=== PATIENT | female | born 1970 | race American Indian/Alaskan Native ===

== ENCOUNTER 2016-08-05 17:44 | Inpatient (IN) | payer OTHER ==
[2016-08-05 23:43] LABS: Hematocrit 21.6 % (30.3-42.9); Hemoglobin 7.1 gm/dl (10.1-14.3); Mean Corpuscular HGB Conc 33 % (30-34); Mean Corpuscular Hemoglobin 33 pg (28-32); Mean Corpuscular Volume 100 fl (79-97); Red Blood Count 2.17 M/mm3 (3.65-5.03); Reticulocyte % 19.75 % (0.78-2.58); White Blood Count 14.2 K/mm3 (4.5-11.0)
[2016-08-06 00:07] LABS: Platelet Count 507 K/mm3 (140-440); Red Cell Distribution Width 31.4 % (13.2-15.2)
[2016-08-06 00:20] LABS: Blastocytes % (Manual) 0 %
[2016-08-06 00:21] LABS: Macrocytosis 1+; Microcytosis 1+; Sickle Cells 2+
[2016-08-06 00:22] LABS: Diff Status Complete; Large Platelets 2+; Platelet Estimate Appears Increased; Polychromasia 1+
[2016-08-06] MEDS: SYNTHROID PO SCH (06:00)
[2016-08-06] MEDS ORDERED: DILAUDID IV ONE ×3 (06:35→10:24)
[2016-08-06] MEDS ORDERED: BENADRYL IV ONE ×2 (06:35→08:23)
[2016-08-06] MEDS ORDERED: ZOFRAN IV ONE ×2 (06:35→08:23)
--- NOTE | 2016-08-06 06:35 | Emergency Department Report ---
ED General Adult HPI - General Chief complaint: Sickle Cell Crisis Stated complaint: SICKLE CELL CRISIS Time Seen by Provider: 08/06/16 06:33 Source: patient Mode of arrival: Ambulatory Limitations: No Limitations - History of Present Illness Initial comments: Patient states that she hasn't been admitted for sickle cell crisis in about a year. Her last admission was at [facility] she tells me. 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 She states that 2 days ago she had a fever of 101. Her temperature was 99.5 in triage. She has not had any chills. She denies abdominal pain back pain cough chest pain or any urinary change. She does complain of diffuse pain characteristic of her sickle cell pain crisis. -: days(s) Location: upper extremity, lower extremity Radiation: non-radiation Severity scale (0 -10): 10 Quality: aching Consistency: constant Improves with: none Worsens with: none Associated Symptoms: denies other symptoms Treatments Prior to Arrival: none - Related Data Home Medications Medication Instructions Recorded Confirmed Last Taken Levothyroxine [Synthroid] 25 mcg PO QAM 04/21/14 08/06/16 08/05/16 Oxycodone HCl 10 mg PO Q4-6H PRN 06/14/16 08/06/16 08/05/16 Promethazine Dm [Phenergan DM 25 mg PO Q6H PRN 06/14/16 08/06/16 Unknown 6.25-15 mg/5 ml] Amitriptyline [Elavil] 25 mg PO QHS 08/06/16 08/06/16 Unknown Cholecalciferol (Vitamin D3) 1 tab PO DAILY 08/06/16 08/06/16 Unknown Previous Rx's Medication Instructions Recorded Last Taken Type Folic Acid [Folvite] 1 mg PO QDAY #30 tablet 06/27/14 Unknown Rx Ibuprofen [Motrin 800 MG tab] 800 mg PO TID PRN #30 tablet 06/27/14 Unknown Rx Allergies Allergy/AdvReac Type Severity Reaction Status Date / Time aspirin Allergy Vomiting Verified 12/07/13 09:50 ketorolac tromethamine Allergy Unknown Verified 12/07/13 09:50 [From Toradol] morphine Allergy Shortness Verified 12/07/13 09:50 of Breath pineapple [Pineapple] Allergy Swelling Verified 12/07/13 09:49 ED Review of Systems ROS: Stated complaint: SICKLE CELL CRISIS Other details as noted in HPI Constitutional: denies: chills, fever Eyes: denies: eye pain, eye discharge, vision change ENT: denies: ear pain, throat pain Respiratory: denies: cough, shortness of breath, wheezing Cardiovascular: denies: chest pain, palpitations Endocrine: no symptoms reported Gastrointestinal: denies: abdominal pain, nausea, diarrhea Genitourinary: denies: urgency, dysuria, discharge Musculoskeletal: as per HPI. denies: back pain, joint swelling, arthralgia Skin: denies: rash, lesions Neurological: denies: headache, weakness, paresthesias Psychiatric: denies: anxiety, depression Hematological/Lymphatic: denies: easy bleeding, easy bruising ED Past Medical Hx - Past Medical History Hx Hypertension: Yes Hx Congestive Heart Failure: Yes Hx Diabetes: No Hx Deep Vein Thrombosis: Yes Hx Sickle Cell Disease: Yes Hx Arthritis: Yes Hx Asthma: No Hx COPD: No Additional medical history: ANEMIA (Blood transfusion) - Surgical History Hx Cholecystectomy: Yes Additional Surgical History: right ovary removed secondary to ovarian torsion. port placement x 3, port left chest wall - Social History Smoking Status: Never Smoker Substance Use Type: None - Medications Home Medications: Home Medications Medication Instructions Recorded Confirmed Last Taken Type Levothyroxine [Synthroid] 25 mcg PO QAM 04/21/14 08/06/16 08/05/16 History Folic Acid [Folvite] 1 mg PO QDAY #30 tablet 06/27/14 08/06/16 Unknown Rx Ibuprofen [Motrin 800 MG tab] 800 mg PO TID PRN #30 tablet 06/27/14 08/06/16 Unknown Rx Oxycodone HCl 10 mg PO Q4-6H PRN 06/14/16 08/06/16 08/05/16 History Promethazine Dm [Phenergan DM 25 mg PO Q6H PRN 06/14/16 08/06/16 Unknown History 6.25-15 mg/5 ml] Amitriptyline [Elavil] 25 mg PO QHS 08/06/16 08/06/16 Unknown History Cholecalciferol (Vitamin D3) 1 tab PO DAILY 08/06/16 08/06/16 Unknown History ED Physical Exam - General Limitations: No Limitations General appearance: alert, in no apparent distress - Head Head exam: Present: atraumatic, normocephalic - Eye Eye exam: Present: normal appearance, scleral icterus (perhaps slightly), other (pale conjunctiva) - ENT ENT exam: Present: normal exam, mucous membranes moist - Neck Neck exam: Present: normal inspection. Absent: tenderness, meningismus - Respiratory Respiratory exam: Present: normal lung sounds bilaterally. Absent: respiratory distress - Cardiovascular Cardiovascular Exam: Present: regular rate, normal rhythm. Absent: systolic murmur, diastolic murmur, rubs, gallop - GI/Abdominal GI/Abdominal exam: Present: soft, normal bowel sounds. Absent: distended, tenderness, guarding, rebound, rigid - Extremities Exam Extremities exam: Present: normal inspection - Back Exam Back exam: Present: normal inspection - Neurological Exam Neurological exam: Present: alert, oriented X3, CN II-XII intact. Absent: motor sensory deficit - Psychiatric Psychiatric exam: Present: normal affect, normal mood - Skin Skin exam: Present: warm, dry, intact, normal color. Absent: rash ED Course Vital Signs 08/05/16 08/05/16 08/06/16 17:58 21:18 02:04 Temperature 99.3 F 98.8 F 98.9 F Pulse Rate 83 94 H 99 H Respiratory 20 22 18 Rate Blood Pressure 137/89 Blood Pressure 139/81 126/88 [Right] O2 Sat by Pulse 97 97 99 Oximetry 08/06/16 08/06/16 08/06/16 06:00 07:02 08:10 Temperature 99 F Pulse Rate 98 H Respiratory 22 16 Rate Blood Pressure 113/71 Blood Pressure 132/87 [Right] O2 Sat by Pulse 97 Oximetry 08/06/16 08/06/16 08/06/16 08:20 09:00 10:00 Temperature 98.8 F Pulse Rate 69 66 66 Respiratory 16 17 19 Rate Blood Pressure 122/79 113/75 Blood Pressure 113/71 [Right] O2 Sat by Pulse 97 100 Oximetry - Reevaluation(s) Reevaluation #1: The patient was given analgesia. She did have an elevated white blood cell count of 14.2 and a rather low hemoglobin of 7.1. In addition her reticulocyte count was almost 20. With this degree of hemolysis the patient would be at risk of significant symptomatic anemia. In any case, she did have pretty substantial pain. It was decided that she would be admitted for further care and treatment on the hospitalist service. 08/06/16 11:21 Reevaluation #2: Urinalysis is not yet collected. A straight cath has been ordered. The patient is already admitted to the hospital service. She remains in stable condition. 08/06/16 11:23 ED Medical Decision Making - Lab Data Result diagrams: 08/05/16 22:50 08/06/16 07:18 Laboratory Results - last 24 hr 08/05/16 22:50 WBC 14.2 H RBC 2.17 L Hgb 7.1 L Hct 21.6 L MCV 100 H MCH 33 H MCHC 33 RDW 31.4 H Plt Count 507 H Add Manual Diff Complete Total Counted 100 Seg Neuts % (Manual) 69.0 Band Neutrophils % 2.0 Lymphocytes % (Manual) 25.0 Reactive Lymphs % (Man) 0 Monocytes % (Manual) 1.0 Eosinophils % (Manual) 2.0 Basophils % (Manual) 1.0 Metamyelocytes % 0 Myelocytes % 0 Promyelocytes % 0 Blast Cells % 0 Nucleated RBC % 4.0 H Seg Neutrophils # Man 9.8 H Band Neutrophils # 0.3 Lymphocytes # (Manual) 3.6 Abs React Lymphs (Man) 0.0 Monocytes # (Manual) 0.1 Eosinophils # (Manual) 0.3 Basophils # (Manual) 0.1 Metamyelocytes # 0.0 Myelocytes # 0.0 Promyelocytes # 0.0 Blast Cells # 0.0 WBC Morphology Not Reportable Hypersegmented Neuts Not Reportable Hyposegmented Neuts Not Reportable Hypogranular Neuts Not Reportable Smudge Cells Not Reportable Toxic Granulation Not Reportable Toxic Vacuolation Not Reportable Dohle Bodies Not Reportable Pelger-Huet Anomaly Not Reportable [place]ik Rods Not Reportable Platelet Estimate Appears increased Clumped Platelets Not Reportable Plt Clumps, EDTA Not Reportable Large Platelets 2+ Giant Platelets Not Reportable Platelet Satelliting Not Reportable Plt Morphology Comment Not Reportable RBC Morphology Not Reportable Dimorphic RBCs Not Reportable Polychromasia 1+ Hypochromasia Not Reportable Poikilocytosis Not Reportable Anisocytosis Not Reportable Microcytosis 1+ Macrocytosis 1+ Spherocytes Not Reportable Pappenheimer Bodies Not Reportable Sickle Cells 2+ Target Cells Not Reportable Tear Drop Cells Not Reportable Ovalocytes Not Reportable Helmet Cells Not Reportable [place]-Rigby Bodies Not Reportable [place] Rings Not Reportable [place]umberto Cells Not Reportable Bite Cells Not Reportable Crenated Cell Not Reportable Elliptocytes Not Reportable Acanthocytes (Spur) Not Reportable Rouleaux Not Reportable Hemoglobin C Crystals Not Reportable Schistocytes Not Reportable Malaria parasites Not Reportable Percent Retic 19.75 H Brady Bodies Not Reportable Hem Pathologist Commnt No Laboratory Results - last 24 hr 08/05/16 08/06/16 08/06/16 22:50 07:18 07:18 WBC 14.2 H RBC 2.17 L Hgb 7.1 L Hct 21.6 L MCV 100 H MCH 33 H MCHC 33 RDW 31.4 H Plt Count 507 H Add Manual Diff Complete Total Counted 100 Seg Neuts % (Manual) 69.0 Band Neutrophils % 2.0 Lymphocytes % (Manual) 25.0 Reactive Lymphs % (Man) 0 Monocytes % (Manual) 1.0 Eosinophils % (Manual) 2.0 Basophils % (Manual) 1.0 Metamyelocytes % 0 Myelocytes % 0 Promyelocytes % 0 Blast Cells % 0 Nucleated RBC % 4.0 H Seg Neutrophils # Man 9.8 H Band Neutrophils # 0.3 Lymphocytes # (Manual) 3.6 Abs React Lymphs (Man) 0.0 Monocytes # (Manual) 0.1 Eosinophils # (Manual) 0.3 Basophils # (Manual) 0.1 Metamyelocytes # 0.0 Myelocytes # 0.0 Promyelocytes # 0.0 Blast Cells # 0.0 WBC Morphology Not Reportable Hypersegmented Neuts Not Reportable Hyposegmented Neuts Not Reportable Hypogranular Neuts Not Reportable Smudge Cells Not Reportable Toxic Granulation Not Reportable Toxic Vacuolation Not Reportable Dohle Bodies Not Reportable Pelger-Huet Anomaly Not Reportable Malik Rods Not Reportable Platelet Estimate Appears increased Clumped Platelets Not Reportable Plt Clumps, EDTA Not Reportable Large Platelets 2+ Giant Platelets Not Reportable Platelet Satelliting Not Reportable Plt Morphology Comment Not Reportable RBC Morphology Not Reportable Dimorphic RBCs Not Reportable Polychromasia 1+ Hypochromasia Not Reportable Poikilocytosis Not Reportable Anisocytosis Not Reportable Microcytosis 1+ Macrocytosis 1+ Spherocytes Not Reportable Pappenheimer Bodies Not Reportable Sickle Cells 2+ Target Cells Not Reportable Tear Drop Cells Not Reportable Ovalocytes Not Reportable Helmet Cells Not Reportable [place]-Rigby Bodies Not Reportable [place] Rings Not Reportable [place] Cells Not Reportable Bite Cells Not Reportable Crenated Cell Not Reportable Elliptocytes Not Reportable Acanthocytes (Spur) Not Reportable Rouleaux Not Reportable Hemoglobin C Crystals Not Reportable Schistocytes Not Reportable Malaria parasites Not Reportable Percent Retic 19.75 H Brady Bodies Not Reportable Hem Pathologist Commnt No PT 16.4 H INR 1.33 H APTT 32.9 Sodium 140 Potassium 3.7 Chloride 103.5 Carbon Dioxide 21 L Anion Gap 19 BUN 11 Creatinine 0.8 Estimated GFR > 60 BUN/Creatinine Ratio 13.75 Glucose 92 Lactic Acid Calcium 9.0 Magnesium 1.9 Total Bilirubin 2.3 H Direct Bilirubin 0.3 H Indirect Bilirubin 2.0 AST 34 ALT 37 Alkaline Phosphatase 60 Total Protein 8.6 H Albumin 4.3 Albumin/Globulin Ratio 1.0 08/06/16 07:18 WBC RBC Hgb Hct MCV MCH MCHC RDW Plt Count Add Manual Diff Total Counted Seg Neuts % (Manual) Band Neutrophils % Lymphocytes % (Manual) Reactive Lymphs % (Man) Monocytes % (Manual) Eosinophils % (Manual) Basophils % (Manual) Metamyelocytes % Myelocytes % Promyelocytes % Blast Cells % Nucleated RBC % Seg Neutrophils # Man Band Neutrophils # Lymphocytes # (Manual) Abs React Lymphs (Man) Monocytes # (Manual) Eosinophils # (Manual) Basophils # (Manual) Metamyelocytes # Myelocytes # Promyelocytes # Blast Cells # WBC Morphology Hypersegmented Neuts Hyposegmented Neuts Hypogranular Neuts Smudge Cells Toxic Granulation Toxic Vacuolation Dohle Bodies Pelger-Huet Anomaly Malik Rods Platelet Estimate Clumped Platelets Plt Clumps, EDTA Large Platelets Giant Platelets Platelet Satelliting Plt Morphology Comment RBC Morphology Dimorphic RBCs Polychromasia Hypochromasia Poikilocytosis Anisocytosis Microcytosis Macrocytosis Spherocytes Pappenheimer Bodies Sickle Cells Target Cells Tear Drop Cells Ovalocytes Helmet Cells [place]-Rigby Bodies [place] Rings [place] Cells Bite Cells Crenated Cell Elliptocytes Acanthocytes (Spur) Rouleaux Hemoglobin C Crystals Schistocytes Malaria parasites Percent Retic Brady Bodies Hem Pathologist Commnt PT INR APTT Sodium Potassium Chloride Carbon Dioxide Anion Gap BUN Creatinine Estimated GFR BUN/Creatinine Ratio Glucose Lactic Acid 1.1 Calcium Magnesium Total Bilirubin Direct Bilirubin Indirect Bilirubin AST ALT Alkaline Phosphatase Total Protein Albumin Albumin/Globulin Ratio - Radiology Data interpreted by me: Chest x-ray no acute process. Critical care attestation.: If time is entered above; I have spent that time in minutes in the direct care of this critically ill patient, excluding procedure time. ED Disposition Clinical Impression: Sickle cell anemia with crisis Anemia Qualifiers: Anemia type: unspecified type Qualified Code(s): D64.9 - Anemia, unspecified Disposition: OP ADMITTED IP TO THIS HOSP Is pt being admited?: Yes Does the pt Need Aspirin: No Condition: Stable Time of Disposition: 11:24
[2016-08-06] MEDS ORDERED: D5/0.45NS 0 ML IV ONE (06:44)
[2016-08-06] MEDS: D5NS 0.2% 1,000 ML IV ONE ×2 (06:45→16:36)
[2016-08-06] MEDS ORDERED: D5NS 0.2% 1,000 ML IV ONE (06:48)
--- NOTE | 2016-08-06 07:47 | XRay Report ---
AP CHEST: HISTORY: Hypertension There is poor inspiration. Heart size and pulmonary vascularity are within normal limits. No evidence for pneumonia, pleural effusion or pneumothorax. Normal bony structures. Left [id number] has been removed since 06/15/16. IMPRESSION: No acute cardiopulmonary process.
[2016-08-06 07:53] LABS: Alanine Aminotransferase 37 units/L (7-56); Albumin 4.3 g/dL (3.9-5); Alkaline Phosphatase 60 units/L (35-129); Anion Gap 19 mmol/L; BUN/Creatinine Ratio 13.75; Bilirubin,Direct 0.3 mg/dL (0-0.2); Bilirubin,Total 2.3 mg/dL (0.1-1.2); Blood Urea Nitrogen 11 mg/dL (7-17); Carbon Dioxide 21 mmol/L (22-30); Chloride 103.5 mmol/L (98-107); Glucose 92 mg/dL (65-100); Magnesium 1.9 mg/dL (1.7-2.3); Potassium 3.7 mmol/L (3.6-5.0); Sodium 140 mmol/L (137-145); Total Protein 8.6 g/dL (6.3-8.2)
[2016-08-06 07:59] LABS: INR 1.33 (0.87-1.13)
[2016-08-06 08:00] LABS: Partial Thromboplastin Time 32.9 Sec. (24.2-36.6)
[2016-08-06] MEDS ORDERED: PERCOCET 5/325 PO PRN (10:49)
[2016-08-06] MEDS ORDERED: TYLENOL PO PRN (10:49)
[2016-08-06] MEDS ORDERED: MILK OF MAGNESIA PO PRN (10:49)
[2016-08-06] MEDS ORDERED: DULCOLAX PR PRN (10:49)
--- NOTE | 2016-08-06 11:55 | Admit Criteria Form ---
Admission Criteria Documentation: SICKLE CELL DISEASE Clinical Indications for Admission to Inpatient Care (Place 'X' for any and all applicable criteria): Admission is indicated for ANY ONE of the following(1)(2)(3)(4)(5): [X]I. Inpatient admission required rather than observation care because of ANY ONE of the following: [ ]a) Altered mental status [ ]b) High fever or infection requiring inpatient admission as indicated by ANY ONE of the following: [ ]A. Appropriate outpatient observation care antimicrobial treatment unavailable, not effective, or not appropriate for infection [ ]B. Documented bacteremia [ ]C. Temp >104.9F (40.5C) (oral) [ ]D. Temp >103.1F (oral) or <96.8F(rectal) that does not respond to all emergency treatment measures [X]c) Supplemental O2 or respiratory therapy for over 24 h that are performable only in acute inpatient setting [X]d) Continuous parenteral narcoticsother major pain intervention for >24 h performable only in acute inpatient setting. [ ]e) Exchange transfusion [X]f) Other condition, treatment or monitoring requiring inpatient admission [ ]II. Acute chest syndrome indicated by ALL of the following (10): [ ]a) New alveolar infiltrate involving at least one lung segment [ ]b) Associated pulmonary symptoms or findings as indicated by ANY ONE of the following: [ ]i) Chest pain [ ]ii) Hypoxemia [ ]iii) Tachypnea/dyspnea [ ]iv) Wheezing [ ]v) Cough [ ]vi) Sputum production [ ]III. Significant hypoxemia or acidosis (more severe than baseline) [ ]IV. Emergent surgery needed (eg, acute cholecystitis) [ ]V. -related complication(11) [ ]. Splenic or hepatic sequestration(12) [ ]VII. Aplastic crisis [ ]VIII. Priapism or other vascular complication(13) [ ]IX. Traumatic hyphema [A](14) [ ]X. Underlying condition requiring hospitalization (eg, osteomyelitis) [ ]XI. Signs or symptoms of central nervous system injury indicated by ANY ONE of the following: [ ]a) Stroke(9) [ ]b) Seizure [ ]c) Other significant central nervous system symptom or event [ ]XII. Acute renal failure Extended stay beyond goal length of stay may be needed for: [ ]a) Inadequate pain control [ ]b) Acute chest syndrome [ ]c) Sequestration or aplastic crisis (12) [ ]d) Pneumonia and asthma exacerbation [ ]e) Neurologic or vascular complications (25) [ ]f) Infection (eg, osteomyelitis) that requires ongoing treatment) The original [facility] [employer] content created by [employer] has been revised. The portions of the content which have been revised are identified through the use of italic text or in bold, and [facility] has neither reviewed nor approved the modified material. All other unmodified content is copyright [employer]. Please see references footnoted in the original [facility] [employer] edition 2016 Admission Criteria Met: Yes
[2016-08-06] MEDS: DILAUDID IV PRN ×4 (13:45→23:26)
[2016-08-06] MEDS: LOVENOX SUB-Q SCH (13:45)
[2016-08-06] MEDS: D5NS 1,000 ML IV SCH ×2 (16:34→20:32)
--- NOTE | 2016-08-06 16:54 | History and Physical Report ---
History of Present Illness Date of examination: 08/06/16 Date of admission: 08/06/16 10:49 Chief complaint: Torso pain low-grade fever. Consistent with her typical sickle cell crisis. Patient states she has not had an sickle cell crisis in almost a year. History of present illness: To 45-year-old female with a history of sickle cell anemia. Presents with a chief complaint of pain in her upper neck and torso and shoulders. Nonradiating. Arthralgias myalgias. Occasional flank and back pain. This pain is typical of her sickle cell disease therefore she presents to the ED for pain control. Past History Past Medical History: anemia. denies: acute [place], atrial fib, arrhythmia, arthritis, CAD, cancer, COPD, diabetes, dialysis, DVT, heart failure, hepatitis , hyperthyroidism, hypertension, hypothyroidism, liver disease, PVD, renal failure, sarcoidosis Past Surgical History: hysterectomy, Other (port placement) Social history: single, lives with family, full code. denies: smoking, alcohol abuse, prescription drug abuse, IV drug use Family history: no significant family history Medications and Allergies Allergies Allergy/AdvReac Type Severity Reaction Status Date / Time aspirin Allergy Vomiting Verified 12/07/13 09:50 ketorolac tromethamine Allergy Unknown Verified 12/07/13 09:50 [From Toradol] morphine Allergy Shortness Verified 12/07/13 09:50 of Breath pineapple [Pineapple] Allergy Swelling Verified 12/07/13 09:49 Home Medications Medication Instructions Recorded Confirmed Last Taken Type Levothyroxine [Synthroid] 25 mcg PO QAM 04/21/14 08/06/16 08/05/16 History Folic Acid [Folvite] 1 mg PO QDAY #30 tablet 06/27/14 08/06/16 Unknown Rx Ibuprofen [Motrin 800 MG tab] 800 mg PO TID PRN #30 tablet 06/27/14 08/06/16 Unknown Rx Oxycodone HCl 10 mg PO Q4-6H PRN 06/14/16 08/06/16 08/05/16 History Promethazine Dm [Phenergan DM 25 mg PO Q6H PRN 06/14/16 08/06/16 Unknown History 6.25-15 mg/5 ml] Amitriptyline [Elavil] 25 mg PO QHS 08/06/16 08/06/16 Unknown History Cholecalciferol (Vitamin D3) 1 tab PO DAILY 08/06/16 08/06/16 Unknown History Active Meds: Active Medications Acetaminophen (Tylenol) 650 mg PO Q4H PRN PRN Reason: Pain MILD(1-3)/Fever >100.5/PARKER Bisacodyl (Dulcolax) 10 mg VA QDAY PRN PRN Reason: Constipation unrelieved by MOM Enoxaparin Sodium (Lovenox) 30 mg SUB-Q QDAY RAMIREZ Last Admin: 08/06/16 13:45 Dose: 30 mg Hydromorphone HCl (Dilaudid) 0.5 mg IV Q3H PRN PRN Reason: Pain , Severe (7-10) Last Admin: 08/06/16 16:34 Dose: 0.5 mg Dextrose/Sodium Chloride (D5ns) 1,000 mls @ 125 mls/hr IV DIRECT RAMIREZ Last Admin: 08/06/16 16:34 Dose: 125 mls/hr Magnesium Hydroxide (Milk Of Magnesia) 30 ml PO Q4H PRN PRN Reason: Constipation Ondansetron HCl (Zofran) 4 mg IV Q8H PRN PRN Reason: N/V unrelieved by Reglan Oxycodone/Acetaminophen (Percocet 5/325) 1 tab PO Q6H PRN PRN Reason: Pain, Moderate (4-6) Review of Systems Constitutional: fever, fatigue, weakness, malaise, daytime sleepiness, chronic pain, no weight loss, no weight gain, no anorexia, no lethargy, no chronic headaches, no other Ears, nose, mouth and throat: no ear pain, no ear discharge, no decreased hearing, no sinus pressure, no bleeding gums, no mouth pain, no sore throat, no post-nasal drip, no headache, no pain front of neck, no neck lump Cardiovascular: palpitations, shortness of breath, no edema, no lightheadedness , no dyspnea on exertion, no paroxysmal nocturnal dyspnea, no high blood pressure, no leg edema, no decreased exercise tolerance Respiratory: no cough, no hemoptysis, no shortness of breath, no dyspnea on exertion, no congestion, no wheezing, no pleurisy, no pain, no pain on inspiration, no sleep apnea, no respiratory infections, no home oxygen Gastrointestinal: abdominal pain, no nausea, no vomiting, no constipation, no hematemesis, no melena, no hematochezia, no indigestion, no belching, no excessive gas, no dyspepsia/bloating, no early satiety Genitourinary Female: no dysmenorrhea, no dysuria, no post void dribbling, no difficulty voiding, no vaginal odor, no vaginal dryness, no mood problems, no Menstruation: no premenarcheal, no ammenorrhea, no ammenorrhea on BC, no period heavy, no period spotting, no menses 8 or > days, no cycle < 21 days Musculoskeletal: low back pain, muscle weakness, myalgias, limitation of motion , no neck stiffness, no neck pain, no shooting arm pain, no arm numbness/ tingling, no shooting leg pain, no leg numbness/tingling, no redness of joints, no hot joints, no morning stiffness, no muscle cramps, no atrophy, no gait dysfunction, no frequent falls, no fractures, no loss of height, no prior amputations, no arthritis Integumentary: no redness, no jaundice, no depigmentation, no dryness, no striae , no hirsutism, no onychomycosis Neurological: no paralysis, no weakness, no parathesias, no tingling, no headaches, no migraines, no convulsions, no double vision, no loss of vision, no hearing difficulties Psychiatric: no change in sleep habits, no sleep disturbances, no hypersomnia, no anxiety attacks, no confusion Endocrine: no heat intolerance, no excessive thirst, no polydipsia, no excessive sweating, no proptosis, no thyroid mass, no low blood sugars, no recent glucocorticoid use Hematologic/Lymphatic: easy bruising, no easy bleeding, no other Allergic/Immunologic: no urticaria, no persistent infections Exam - Constitutional Vitals: Temp Pulse Resp BP Pulse Ox 98.8 F 64 18 113/65 100 08/06/16 08:20 08/06/16 16:00 08/06/16 16:34 08/06/16 16:00 08/06/16 16:00 General appearance: Present: well-nourished, obese, other (moderate distress) - EENT Eyes: Present: PERRL, EOM intact ENT: hearing intact, clear oral mucosa, dentition normal - Neck Neck: Present: supple, normal ROM - Respiratory Respiratory: bilateral: CTA - Cardiovascular Rhythm: regular Heart Sounds: Present: S1 & S2 - Extremities Extremities: no ischemia, pulses intact, pulses symmetrical, No edema, normal temperature, normal color Peripheral Pulses: within normal limits - Abdominal General gastrointestinal: Present: soft, non-tender, non-distended, normal bowel sounds - Integumentary Integumentary: Present: clear, warm, dry - Musculoskeletal Musculoskeletal: generalized weakness, other (she with pain with palpation of trapezius and a simple muscle groups.) - Psychiatric Psychiatric: appropriate mood/affect, cooperative - Neurologic Neurologic: CNII-XII intact, moves all extremities Results - Labs CBC & Chem 7: 08/05/16 22:50 08/06/16 07:18 Labs: Laboratory Last Values WBC 14.2 K/mm3 (4.5-11.0) H 08/05/16 22:50 RBC 2.17 M/mm3 (3.65-5.03) L 08/05/16 22:50 Hgb 7.1 gm/dl (10.1-14.3) L 08/05/16 22:50 Hct 21.6 % (30.3-42.9) L 08/05/16 22:50 MCV 100 fl (79-97) H 08/05/16 22:50 MCH 33 pg (28-32) H 08/05/16 22:50 MCHC 33 % (30-34) 08/05/16 22:50 RDW 31.4 % (13.2-15.2) H 08/05/16 22:50 Plt Count 507 K/mm3 (140-440) H 08/05/16 22:50 Add Manual Diff Complete 08/05/16 22:50 Total Counted 100 08/05/16 22:50 Seg Neuts % (Manual) 69.0 % (40.0-70.0) 08/05/16 22:50 Band Neutrophils % 2.0 % 08/05/16 22:50 Lymphocytes % (Manual) 25.0 % (13.4-35.0) 08/05/16 22:50 Reactive Lymphs % (Man) 0 % 08/05/16 22:50 Monocytes % (Manual) 1.0 % (0.0-7.3) 08/05/16 22:50 Eosinophils % (Manual) 2.0 % (0.0-4.3) 08/05/16 22:50 Basophils % (Manual) 1.0 % (0.0-1.8) 08/05/16 22:50 Metamyelocytes % 0 % 08/05/16 22:50 Myelocytes % 0 % 08/05/16 22:50 Promyelocytes % 0 % 08/05/16 22:50 Blast Cells % 0 % 08/05/16 22:50 Nucleated RBC % 4.0 % (0.0-0.9) H 08/05/16 22:50 Seg Neutrophils # Man 9.8 K/mm3 (1.8-7.7) H 08/05/16 22:50 Band Neutrophils # 0.3 K/mm3 08/05/16 22:50 Lymphocytes # (Manual) 3.6 K/mm3 (1.2-5.4) 08/05/16 22:50 Abs React Lymphs (Man) 0.0 K/mm3 08/05/16 22:50 Monocytes # (Manual) 0.1 K/mm3 (0.0-0.8) 08/05/16 22:50 Eosinophils # (Manual) 0.3 K/mm3 (0.0-0.4) 08/05/16 22:50 Basophils # (Manual) 0.1 K/mm3 (0.0-0.1) 08/05/16 22:50 Metamyelocytes # 0.0 K/mm3 08/05/16 22:50 Myelocytes # 0.0 K/mm3 08/05/16 22:50 Promyelocytes # 0.0 K/mm3 08/05/16 22:50 Blast Cells # 0.0 K/mm3 08/05/16 22:50 WBC Morphology Not Reportable 08/05/16 22:50 Hypersegmented Neuts Not Reportable 08/05/16 22:50 Hyposegmented Neuts Not Reportable 08/05/16 22:50 Hypogranular Neuts Not Reportable 08/05/16 22:50 Smudge Cells Not Reportable 08/05/16 22:50 Toxic Granulation Not Reportable 08/05/16 22:50 Toxic Vacuolation Not Reportable 08/05/16 22:50 Dohle Bodies Not Reportable 08/05/16 22:50 Pelger-Huet Anomaly Not Reportable 08/05/16 22:50 Malik Rods Not Reportable 08/05/16 22:50 Platelet Estimate Appears increased 08/05/16 22:50 Clumped Platelets Not Reportable 08/05/16 22:50 Plt Clumps, EDTA Not Reportable 08/05/16 22:50 Large Platelets 2+ 08/05/16 22:50 Giant Platelets Not Reportable 08/05/16 22:50 Platelet Satelliting Not Reportable 08/05/16 22:50 Plt Morphology Comment Not Reportable 08/05/16 22:50 RBC Morphology Not Reportable 08/05/16 22:50 Dimorphic RBCs Not Reportable 08/05/16 22:50 Polychromasia 1+ 08/05/16 22:50 Hypochromasia Not Reportable 08/05/16 22:50 Poikilocytosis Not Reportable 08/05/16 22:50 Anisocytosis Not Reportable 08/05/16 22:50 Microcytosis 1+ 08/05/16 22:50 Macrocytosis 1+ 08/05/16 22:50 Spherocytes Not Reportable 08/05/16 22:50 Pappenheimer Bodies Not Reportable 08/05/16 22:50 Sickle Cells 2+ 08/05/16 22:50 Target Cells Not Reportable 08/05/16 22:50 Tear Drop Cells Not Reportable 08/05/16 22:50 Ovalocytes Not Reportable 08/05/16 22:50 Helmet Cells Not Reportable 08/05/16 22:50 [place] Bodies Not Reportable 08/05/16 22:50 [place] Rings Not Reportable 08/05/16 22:50 Humberto Cells Not Reportable 08/05/16 22:50 Bite Cells Not Reportable 08/05/16 22:50 Crenated Cell Not Reportable 08/05/16 22:50 Elliptocytes Not Reportable 08/05/16 22:50 Acanthocytes (Spur) Not Reportable 08/05/16 22:50 Rouleaux Not Reportable 08/05/16 22:50 Hemoglobin C Crystals Not Reportable 08/05/16 22:50 Schistocytes Not Reportable 08/05/16 22:50 Malaria parasites Not Reportable 08/05/16 22:50 Percent Retic 19.75 % (0.78-2.58) H 08/05/16 22:50 Brady Bodies Not Reportable 08/05/16 22:50 Hem Pathologist Commnt No 08/05/16 22:50 PT 16.4 Sec. (12.2-14.9) H 08/06/16 07:18 INR 1.33 (0.87-1.13) H 08/06/16 07:18 APTT 32.9 Sec. (24.2-36.6) 08/06/16 07:18 Sodium 140 mmol/L (137-145) 08/06/16 07:18 Potassium 3.7 mmol/L (3.6-5.0) 08/06/16 07:18 Chloride 103.5 mmol/L (98-107) 08/06/16 07:18 Carbon Dioxide 21 mmol/L (22-30) L 08/06/16 07:18 Anion Gap 19 mmol/L 08/06/16 07:18 BUN 11 mg/dL (7-17) 08/06/16 07:18 Creatinine 0.8 mg/dL (0.7-1.2) 08/06/16 07:18 Estimated GFR > 60 ml/min 08/06/16 07:18 BUN/Creatinine Ratio 13.75 % 08/06/16 07:18 Glucose 92 mg/dL (65-100) 08/06/16 07:18 Lactic Acid 1.1 mmol/L (0.7-2.0) 08/06/16 07:18 Calcium 9.0 mg/dL (8.4-10.2) 08/06/16 07:18 Magnesium 1.9 mg/dL (1.7-2.3) 08/06/16 07:18 Total Bilirubin 2.3 mg/dL (0.1-1.2) H 08/06/16 07:18 Direct Bilirubin 0.3 mg/dL (0-0.2) H 08/06/16 07:18 Indirect Bilirubin 2.0 mg/dL 08/06/16 07:18 AST 34 units/L (5-40) 08/06/16 07:18 ALT 37 units/L (7-56) 08/06/16 07:18 Alkaline Phosphatase 60 units/L (35-129) 08/06/16 07:18 Total Protein 8.6 g/dL (6.3-8.2) H 08/06/16 07:18 Albumin 4.3 g/dL (3.9-5) 08/06/16 07:18 Albumin/Globulin Ratio 1.0 % 08/06/16 07:18 - Imaging and Cardiology Chest x-ray: image reviewed Assessment and Plan Advance Directives: Yes VTE prophylaxis?: Chemical Plan of care discussed with patient/family: Yes - Patient Problems (1) Anemia Current Visit: Yes Status: Acute Qualifiers: Anemia type: unspecified type Qualified Code(s): D64.9 - Anemia, unspecified Plan to address problem: Present patient seems to be having her typical sickle cell crisis. Patient is anemic at 7 and 21. Also has increased reticulocyte count. And low-grade fever. Her flank pain and torso pain is consistent with her sickle cell crisis. Will bring in place on IV pain control and dose titrate down accordingly. We'll rule out for infection. We'll transfuse if H&H goes below 7. Patient appears to have chronic anemia. Aggressive IV fluid hydration and pain control. (2) Sickle cell anemia with crisis Current Visit: Yes Status: Chronic Plan to address problem: Cry[place]le anemia as discussed in above for anemia aggressive pain control aggressive IV fluid hydration. Rule out infection. Cover with empiric anabiotic's now. (3) Noncompliance with medication regimen Current Visit: No Status: Acute Plan to address problem: Stress compliance of medication to continue patient to be pain free.
[2016-08-06] MEDS: ZITHROMAX 500 MG in NACL 0.9% 250ML 250 ML IV SCH (20:32)
[2016-08-06] MEDS: ELAVIL PO SCH (22:18)
[2016-08-07] MEDS: BENADRYL IV PRN ×4 (01:34→21:14)
[2016-08-07] MEDS: DILAUDID IV PRN ×6 (03:55→21:14)
[2016-08-07 04:20] LABS: Bilirubin,Urine NEG (Negative); Blood,Urine NEG (Negative); Ketones,Urine NEG (Negative); Leukocyte Esterase,Urine NEG (Negative); Mucus,Urine FEW /HPF; Nitrite,Urine NEG (Negative); Protein,Urine <15 mg/dL mg/dL (Negative); RBC,Urine < 1.0 /HPF (0.0-6.0); Urobilinogen,Urine < 2.0 mg/dL (<2.0)
[2016-08-07] MEDS: SYNTHROID PO SCH (06:32)
[2016-08-07 06:57] LABS: Mean Corpuscular HGB Conc 36 % (30-34); Mean Corpuscular Hemoglobin 35 pg (28-32); Mean Corpuscular Volume 98 fl (79-97); Platelet Count 451 K/mm3 (140-440); Red Blood Count 1.67 M/mm3 (3.65-5.03); White Blood Count 10.9 K/mm3 (4.5-11.0)
[2016-08-07 07:02] LABS: Alanine Aminotransferase 28 units/L (7-56); Albumin 3.8 g/dL (3.9-5); Alkaline Phosphatase 55 units/L (35-129); Anion Gap 18 mmol/L; BUN/Creatinine Ratio 17.14; Blood Urea Nitrogen 12 mg/dL (7-17); Calcium 8.3 mg/dL (8.4-10.2); Carbon Dioxide 21 mmol/L (22-30); Chloride 105.1 mmol/L (98-107); Glucose 101 mg/dL (65-100); Sodium 140 mmol/L (137-145); Total Protein 7.7 g/dL (6.3-8.2)
[2016-08-07 07:36] LABS: Hematocrit 16.2 % (30.3-42.9); Hemoglobin 5.8 gm/dl (10.1-14.3)
[2016-08-07 08:57] LABS: Basophils % (Manual) 0 % (0.0-1.8); Blastocytes % (Manual) 0 %; Microcytosis 1+
[2016-08-07 08:58] LABS: Anisocytosis 3+; Macrocytosis 1+; Polychromasia 1+; Sickle Cells 1+
[2016-08-07 08:59] LABS: Diff Status Complete; Target Cells Few
[2016-08-07] MEDS ORDERED: NACL 0.9% 500 ML 500 ML IV ONE (09:30)
[2016-08-07] MEDS: D5NS 1,000 ML IV SCH ×2 (09:37→17:20)
[2016-08-07] MEDS: LOVENOX SUB-Q SCH (09:37)
--- NOTE | 2016-08-07 13:32 | Progress Note ---
Assessment and Plan Assessment and plan: Patient currently an active crisis with pain typical of a sickle crisis and anemia. - Patient Problems (1) Anemia Current Visit: Yes Status: Acute Qualifiers: Anemia type: unspecified type Qualified Code(s): D64.9 - Anemia, unspecified Plan to address problem: Secondary to sickle cell pain crisis and destruction of red blood cells were transfused today 2 units packed red blood cells. Also has signs symptoms of shortness of breath. (2) Sickle cell anemia with crisis Current Visit: Yes Status: Chronic Plan to address problem: Patient actively in crisis increased retake count worsening anemia shortness of breath worsening pain. We'll maximize pain control by increasing Dilaudid to 0.5 mg every 4 hours when necessary. Also continue long-acting pain control. We'll place patient on albuterol nebulizers transfuse 2 units packed red blood cells. (3) Noncompliance with medication regimen Current Visit: No Status: Acute Plan to address problem: Stress compliance of medication to continue patient to be pain free. History Interval history: Patient Hospital course this morning complicated by worsening pain and anemia. Patient H&H decreased to 5.2 in 19. Associated increased reticulocyte count increased pain. And shortness of breath. No hypoxemia and sat stable. Hospitalist Physical - Constitutional Vitals: Temp Pulse Resp BP Pulse Ox 98.5 F 72 72 H 114/66 100 08/07/16 08:00 08/07/16 08:00 08/07/16 08:00 08/07/16 08:00 08/07/16 09:10 General appearance: Present: well-nourished, obese, other (moderate distress) - EENT Eyes: Present: PERRL, EOM intact ENT: hearing intact, clear oral mucosa, dentition normal - Neck Neck: Present: supple, normal ROM - Respiratory Respiratory: bilateral: CTA - Cardiovascular Rhythm: regular Heart Sounds: Present: S1 & S2 - Extremities Extremities: no ischemia, pulses intact, pulses symmetrical, No edema, normal temperature, normal color, Full ROM Peripheral Pulses: within normal limits - Abdominal General gastrointestinal: soft, non-tender, non-distended - Integumentary Integumentary: Present: clear, warm, dry - Psychiatric Psychiatric: appropriate mood/affect, intact judgment & insight, cooperative - Neurologic Neurologic: CNII-XII intact, focal deficits Results - Labs CBC & Chem 7: 08/07/16 06:02 08/07/16 05:59 Labs: Laboratory Last Values WBC 10.9 K/mm3 (4.5-11.0) 08/07/16 06:02 RBC 1.67 M/mm3 (3.65-5.03) L 08/07/16 06:02 Hgb 5.8 gm/dl (10.1-14.3) L* 08/07/16 06:02 Hct 16.2 % (30.3-42.9) L* 08/07/16 06:02 MCV 98 fl (79-97) H 08/07/16 06:02 MCH 35 pg (28-32) H 08/07/16 06:02 MCHC 36 % (30-34) H 08/07/16 06:02 RDW 29.0 % (13.2-15.2) H 08/07/16 06:02 Plt Count 451 K/mm3 (140-440) H 08/07/16 06:02 Add Manual Diff Complete 08/07/16 06:02 Total Counted 100 08/07/16 06:02 Seg Neuts % (Manual) 79.0 % (40.0-70.0) H 08/07/16 06:02 Band Neutrophils % 2.0 % 08/07/16 06:02 Lymphocytes % (Manual) 15.0 % (13.4-35.0) 08/07/16 06:02 Reactive Lymphs % (Man) 0 % 08/07/16 06:02 Monocytes % (Manual) 2.0 % (0.0-7.3) 08/07/16 06:02 Eosinophils % (Manual) 2.0 % (0.0-4.3) 08/07/16 06:02 Basophils % (Manual) 0 % (0.0-1.8) 08/07/16 06:02 Metamyelocytes % 0 % 08/07/16 06:02 Myelocytes % 0 % 08/07/16 06:02 Promyelocytes % 0 % 08/07/16 06:02 Blast Cells % 0 % 08/07/16 06:02 Nucleated RBC % 3.0 % (0.0-0.9) H 08/07/16 06:02 Seg Neutrophils # Man 8.6 K/mm3 (1.8-7.7) H 08/07/16 06:02 Band Neutrophils # 0.2 K/mm3 08/07/16 06:02 Lymphocytes # (Manual) 1.6 K/mm3 (1.2-5.4) 08/07/16 06:02 Abs React Lymphs (Man) 0.0 K/mm3 08/07/16 06:02 Monocytes # (Manual) 0.2 K/mm3 (0.0-0.8) 08/07/16 06:02 Eosinophils # (Manual) 0.2 K/mm3 (0.0-0.4) 08/07/16 06:02 Basophils # (Manual) 0.0 K/mm3 (0.0-0.1) 08/07/16 06:02 Metamyelocytes # 0.0 K/mm3 08/07/16 06:02 Myelocytes # 0.0 K/mm3 08/07/16 06:02 Promyelocytes # 0.0 K/mm3 08/07/16 06:02 Blast Cells # 0.0 K/mm3 08/07/16 06:02 WBC Morphology Not Reportable 08/07/16 06:02 Hypersegmented Neuts Not Reportable 08/07/16 06:02 Hyposegmented Neuts Not Reportable 08/07/16 06:02 Hypogranular Neuts Not Reportable 08/07/16 06:02 Smudge Cells Not Reportable 08/07/16 06:02 Toxic Granulation Not Reportable 08/07/16 06:02 Toxic Vacuolation Not Reportable 08/07/16 06:02 Dohle Bodies Not Reportable 08/07/16 06:02 Pelger-Huet Anomaly Not Reportable 08/07/16 06:02 Malik Rods Not Reportable 08/07/16 06:02 Platelet Estimate Appears normal 08/07/16 06:02 Clumped Platelets Not Reportable 08/07/16 06:02 Plt Clumps, EDTA Not Reportable 08/07/16 06:02 Large Platelets Not Reportable 08/07/16 06:02 Giant Platelets Not Reportable 08/07/16 06:02 Platelet Satelliting Not Reportable 08/07/16 06:02 Plt Morphology Comment Not Reportable 08/07/16 06:02 RBC Morphology Not Reportable 08/07/16 06:02 Dimorphic RBCs Not Reportable 08/07/16 06:02 Polychromasia 1+ 08/07/16 06:02 Hypochromasia Not Reportable 08/07/16 06:02 Poikilocytosis Not Reportable 08/07/16 06:02 Anisocytosis 3+ 08/07/16 06:02 Microcytosis 1+ 08/07/16 06:02 Macrocytosis 1+ 08/07/16 06:02 Spherocytes Not Reportable 08/07/16 06:02 Pappenheimer Bodies Not Reportable 08/07/16 06:02 Sickle Cells 1+ 08/07/16 06:02 Target Cells Few 08/07/16 06:02 Tear Drop Cells Not Reportable 08/07/16 06:02 Ovalocytes Not Reportable 08/07/16 06:02 Helmet Cells Not Reportable 08/07/16 06:02 [place] Bodies Not Reportable 08/07/16 06:02 [place] Rings Not Reportable 08/07/16 06:02 Humberto Cells Not Reportable 08/07/16 06:02 Bite Cells Not Reportable 08/07/16 06:02 Crenated Cell Not Reportable 08/07/16 06:02 Elliptocytes Not Reportable 08/07/16 06:02 Acanthocytes (Spur) Not Reportable 08/07/16 06:02 Rouleaux Not Reportable 08/07/16 06:02 Hemoglobin C Crystals Not Reportable 08/07/16 06:02 Schistocytes Not Reportable 08/07/16 06:02 Malaria parasites Not Reportable 08/07/16 06:02 Percent Retic 19.75 % (0.78-2.58) H 08/05/16 22:50 Brady Bodies Not Reportable 08/07/16 06:02 Hem Pathologist Commnt No 08/07/16 06:02 PT 16.4 Sec. (12.2-14.9) H 08/06/16 07:18 INR 1.33 (0.87-1.13) H 08/06/16 07:18 APTT 32.9 Sec. (24.2-36.6) 08/06/16 07:18 Sodium 140 mmol/L (137-145) 08/06/16 07:18 Potassium 3.7 mmol/L (3.6-5.0) 08/06/16 07:18 Chloride 103.5 mmol/L (98-107) 08/06/16 07:18 Carbon Dioxide 21 mmol/L (22-30) L 08/07/16 05:59 Anion Gap 19 mmol/L 08/06/16 07:18 BUN 12 mg/dL (7-17) 08/07/16 05:59 Creatinine 0.7 mg/dL (0.7-1.2) 08/07/16 05:59 Estimated GFR > 60 ml/min 08/07/16 05:59 BUN/Creatinine Ratio 17.14 % 08/07/16 05:59 Glucose 101 mg/dL (65-100) H 08/07/16 05:59 Lactic Acid 1.1 mmol/L (0.7-2.0) 08/06/16 07:18 Calcium 8.3 mg/dL (8.4-10.2) L 08/07/16 05:59 Magnesium 1.9 mg/dL (1.7-2.3) 08/06/16 07:18 Total Bilirubin 2.0 mg/dL (0.1-1.2) H 08/07/16 05:59 Direct Bilirubin 0.3 mg/dL (0-0.2) H 08/06/16 07:18 Indirect Bilirubin 2.0 mg/dL 08/06/16 07:18 AST 32 units/L (5-40) 08/07/16 05:59 ALT 28 units/L (7-56) 08/07/16 05:59 Alkaline Phosphatase 55 units/L (35-129) 08/07/16 05:59 Total Protein 7.7 g/dL (6.3-8.2) 08/07/16 05:59 Albumin 3.8 g/dL (3.9-5) L 08/07/16 05:59 Albumin/Globulin Ratio 1.0 % 08/07/16 05:59 Urine Color Yellow (Yellow) 08/07/16 03:50 Urine Turbidity Clear (Clear) 08/07/16 03:50 Urine pH 6.0 (5.0-7.0) 08/07/16 03:50 Ur Specific [place] 1.009 (1.003-1.030) 08/07/16 03:50 Urine Protein <15 mg/dl mg/dL (Negative) 08/07/16 03:50 Urine Glucose (UA) Neg mg/dL (Negative) 08/07/16 03:50 Urine Ketones Neg mg/dL (Negative) 08/07/16 03:50 Urine Blood Neg (Negative) 08/07/16 03:50 Urine Nitrite Neg (Negative) 08/07/16 03:50 Urine Bilirubin Neg (Negative) 08/07/16 03:50 Urine Urobilinogen < 2.0 mg/dL (<2.0) 08/07/16 03:50 Ur Leukocyte Esterase Neg (Negative) 08/07/16 03:50 Urine WBC (Auto) 1.0 /HPF (0.0-6.0) 08/07/16 03:50 Urine RBC (Auto) < 1.0 /HPF (0.0-6.0) 08/07/16 03:50 U Epithel Cells (Auto) < 1.0 /HPF (0-13.0) 08/07/16 03:50 Hyaline Casts 1 /LPF 08/07/16 03:50 Urine Mucus Few /HPF 08/07/16 03:50 Blood Type O POSITIVE 08/07/16 09:25 Antibody Screen Negative 08/07/16 09:25 Crossmatch See Detail 08/07/16 09:25
[2016-08-07] MEDS: ZITHROMAX 500 MG in NACL 0.9% 250ML 250 ML IV SCH (17:15)
[2016-08-07] MEDS: DUONEB 0.5 MG-3 MG/3 ML SOLN IH SCH (19:34)
[2016-08-07] MEDS: ELAVIL PO SCH (21:13)
[2016-08-08] MEDS: DUONEB 0.5 MG-3 MG/3 ML SOLN IH SCH ×4 (01:53→20:15)
[2016-08-08] MEDS: DILAUDID IV PRN ×7 (03:24→21:15)
[2016-08-08] MEDS: BENADRYL IV PRN ×3 (03:25→18:15)
[2016-08-08] MEDS: SYNTHROID PO SCH (06:07)
[2016-08-08] MEDS: ZOFRAN IV PRN ×2 (06:28→20:11)
[2016-08-08] MEDS: LOVENOX SUB-Q SCH (09:47)
--- NOTE | 2016-08-08 14:31 | Progress Note ---
Assessment and Plan 1. Sickle cell pain crisis: Continue IV hydration. Narcotics for pain control. 2. Sickle cell anemia: Currently having the blood transfusion. Hemoglobin on admission was 5.8. Baseline is Hemoglobin of 7-8. 3. 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 Expect improvement with IV hydration 4. DVT prophylaxis with SCDs. Avoiding anticoagulation because of anemia. GI prophylaxis with Pepcid. Subjective Date of service: 08/08/16 Principal diagnosis: sickle cell pain Crisis, sickle cell anemia Interval history: Still having pain in the upper, back and shoulders. Currently having blood transfusion. Objective - Constitutional Vitals: Vital Signs - 12hr 08/08/16 08/08/16 08/08/16 03:24 04:01 04:16 Temperature 97.9 F 97.9 F Pulse Rate 62 59 L Pulse Rate [ Bilateral Throughout] Respiratory 20 20 18 Rate Respiratory Rate [Bilateral Throughout] Blood Pressure 118/70 120/68 O2 Sat by Pulse 98 99 Oximetry 08/08/16 08/08/16 08/08/16 04:46 05:16 05:46 Temperature 98.2 F 98.2 F 97.9 F Pulse Rate 59 L 85 86 Pulse Rate [ Bilateral Throughout] Respiratory 20 20 Rate Respiratory Rate [Bilateral Throughout] Blood Pressure 110/71 128/69 136/79 O2 Sat by Pulse 100 100 100 Oximetry 08/08/16 08/08/16 08/08/16 06:16 06:46 07:19 Temperature 98.2 F 98.2 F Pulse Rate 61 73 59 L Pulse Rate [ Bilateral Throughout] Respiratory 18 18 18 Rate Respiratory Rate [Bilateral Throughout] Blood Pressure 128/73 130/76 128/68 O2 Sat by Pulse 100 Oximetry 08/08/16 08/08/16 08/08/16 07:34 08:02 08:04 Temperature 97.8 F 98.8 F Pulse Rate 71 60 Pulse Rate [ 68 Bilateral Throughout] Respiratory 18 20 Rate Respiratory 15 Rate [Bilateral Throughout] Blood Pressure 130/78 128/75 O2 Sat by Pulse 98 Oximetry 08/08/16 08/08/16 08/08/16 08:13 08:34 09:04 Temperature 98.7 F Pulse Rate 69 68 Pulse Rate [ 74 Bilateral Throughout] Respiratory 20 20 Rate Respiratory 16 Rate [Bilateral Throughout] Blood Pressure 130/80 130/73 O2 Sat by Pulse Oximetry 0108/08/16 08/08/16 09:34 10:04 10:34 Temperature 98.7 F 98.8 F 98.7 F Pulse Rate 67 60 63 Pulse Rate [ Bilateral Throughout] Respiratory 20 20 20 Rate Respiratory Rate [Bilateral Throughout] Blood Pressure 133/78 135/69 118/56 O2 Sat by Pulse Oximetry 08/08/16 12:53 Temperature Pulse Rate Pulse Rate [ Bilateral Throughout] Respiratory 20 Rate Respiratory Rate [Bilateral Throughout] Blood Pressure O2 Sat by Pulse Oximetry General appearance: Present: no acute distress, well-nourished - EENT Eyes: PERRL, EOM intact ENT: hearing intact, clear oral mucosa Ears: bilateral: normal - Neck Neck: supple, normal ROM - Respiratory Respiratory effort: normal Respiratory: bilateral: CTA - Breasts Breasts: normal - Cardiovascular Rhythm: regular Heart Sounds: Present: S1 & S2. Absent: gallop, rub Extremities: pulses intact, No edema, normal color, Full ROM - Gastrointestinal General gastrointestinal: Present: soft, non-tender, non-distended, normal bowel sounds - Genitourinary Female genitourinary: normal - Integumentary Integumentary: clear, warm, dry - Musculoskeletal Musculoskeletal: 1, strength equal bilaterally - Neurologic Neurologic: moves all extremities - Psychiatric Psychiatric: memory intact, appropriate mood/affect, intact judgment & insight - Labs CBC & Chem 7: 08/07/16 06:02 08/07/16 05:59 Labs: Abnormal lab results 08/07/16 Range/Units 09:25 Crossmatch See Detail
[2016-08-08 14:49] LABS: Basophils % (Auto) 0.8 % (0.0-1.8); Eosinophils % (Auto) 8.4 % (0.0-4.3); Hematocrit 23.6 % (30.3-42.9); Hemoglobin 8.4 gm/dl (10.1-14.3); Mean Corpuscular HGB Conc 35 % (30-34); Mean Corpuscular Hemoglobin 34 pg (28-32); Mean Corpuscular Volume 95 fl (79-97); Platelet Count 411 K/mm3 (140-440); White Blood Count 9.2 K/mm3 (4.5-11.0)
[2016-08-08] MEDS: FOLVITE PO SCH (15:39)
[2016-08-08] MEDS: ZITHROMAX 500 MG in NACL 0.9% 250ML 250 ML IV SCH (18:16)
[2016-08-08] MEDS: D5NS 1,000 ML IV SCH (19:07)
[2016-08-08] MEDS: ELAVIL PO SCH (21:14)
[2016-08-09] MEDS: DILAUDID IV PRN ×7 (00:25→19:58)
[2016-08-09] MEDS: BENADRYL IV PRN ×4 (00:35→19:57)
[2016-08-09] MEDS: DUONEB 0.5 MG-3 MG/3 ML SOLN IH SCH ×4 (02:50→20:04)
[2016-08-09] MEDS: D5NS 1,000 ML IV SCH ×3 (03:49→18:02)
[2016-08-09] MEDS: SYNTHROID PO SCH (05:36)
[2016-08-09] MEDS: ZOFRAN IV PRN ×2 (06:41→19:57)
[2016-08-09] MEDS: FOLVITE PO SCH (09:50)
[2016-08-09] MEDS: VITAMIN D3 PO SCH (09:50)
[2016-08-09] MEDS: LOVENOX SUB-Q SCH ×2 (09:54→09:55)
[2016-08-09] MEDS ORDERED: CHOLECALCIFEROL PO SCH (10:00)
[2016-08-09 14:57] LABS: White Blood Count 9.4 K/mm3 (4.5-11.0)
[2016-08-09 14:58] LABS: Basophils % (Auto) 0.8 % (0.0-1.8); Hematocrit 24.6 % (30.3-42.9); Hemoglobin 8.1 gm/dl (10.1-14.3); Mean Corpuscular HGB Conc 33 % (30-34); Mean Corpuscular Hemoglobin 32 pg (28-32); Mean Corpuscular Volume 98 fl (79-97); Platelet Count 398 K/mm3 (140-440); Red Blood Count 2.51 M/mm3 (3.65-5.03); Red Cell Distribution Width 21.8 % (13.2-15.2)
[2016-08-09 15:02] LABS: Alanine Aminotransferase 23 units/L (7-56); Albumin 3.9 g/dL (3.9-5); Alkaline Phosphatase 50 units/L (35-129); Bilirubin,Total 1.4 mg/dL (0.1-1.2); Blood Urea Nitrogen 5 mg/dL (7-17); Calcium 8.6 mg/dL (8.4-10.2); Carbon Dioxide 23 mmol/L (22-30); Chloride 104.4 mmol/L (98-107); Glucose 104 mg/dL (65-100); Potassium 3.9 mmol/L (3.6-5.0); Sodium 140 mmol/L (137-145); Total Protein 7.7 g/dL (6.3-8.2)
[2016-08-09 15:11] LABS: Anion Gap 17 mmol/L
[2016-08-09] MEDS: ZITHROMAX 500 MG in NACL 0.9% 250ML 250 ML IV SCH (18:02)
--- NOTE | 2016-08-09 19:54 | Progress Note ---
Assessment and Plan 1. Sickle cell pain crisis: Continue IV hydration. Narcotics for pain control. 2. Sickle cell anemia: S/p blood transfusion. Hemoglobin on admission was 5.8. Improved to 8.1 3. 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 Improving. 4. DVT prophylaxis with SCDs. Avoiding anticoagulation because of anemia. GI prophylaxis with Pepcid. Optimize pain control and D/c tomorrow Subjective Date of service: 08/09/16 Principal diagnosis: sickle cell pain Crisis, sickle cell anemia Interval history: Still having pain in the upper, back and shoulders. worse today. Objective - Constitutional Vitals: Vital Signs - 12hr 08/09/16 08/09/16 08/09/16 07:53 08:05 13:15 Temperature Pulse Rate [ 84 85 Bilateral Throughout] Pulse Rate [ Left Radial] Respiratory 20 Rate Respiratory 16 16 Rate [Bilateral Throughout] Blood Pressure [Left Arm] O2 Sat by Pulse Oximetry 08/09/16 08/09/16 08/09/16 14:10 14:15 14:34 Temperature Pulse Rate [ 80 79 Bilateral Throughout] Pulse Rate [ Left Radial] Respiratory 20 Rate Respiratory 16 16 Rate [Bilateral Throughout] Blood Pressure [Left Arm] O2 Sat by Pulse Oximetry 08/09/16 15:20 Temperature 98.6 F Pulse Rate [ Bilateral Throughout] Pulse Rate [ 73 Left Radial] Respiratory 16 Rate Respiratory Rate [Bilateral Throughout] Blood Pressure 133/70 [Left Arm] O2 Sat by Pulse 99 Oximetry General appearance: Present: no acute distress, well-nourished - EENT Eyes: PERRL, EOM intact ENT: hearing intact, clear oral mucosa Ears: bilateral: normal - Neck Neck: supple, normal ROM - Respiratory Respiratory effort: normal Respiratory: bilateral: CTA - Breasts Breasts: normal - Cardiovascular Rhythm: regular Heart Sounds: Present: S1 & S2. Absent: gallop, rub Extremities: pulses intact, No edema, normal color, Full ROM - Gastrointestinal General gastrointestinal: Present: soft, non-tender, non-distended, normal bowel sounds - Genitourinary Female genitourinary: normal - Integumentary Integumentary: clear, warm, dry - Musculoskeletal Musculoskeletal: 1, strength equal bilaterally - Neurologic Neurologic: moves all extremities - Psychiatric Psychiatric: memory intact, appropriate mood/affect, intact judgment & insight - Labs CBC & Chem 7: 08/09/16 14:14 08/09/16 14:14 Labs: Abnormal lab results 08/09/16 08/09/16 Range/Units 14:14 14:14 RBC 2.51 L (3.65-5.03) M/mm3 Hgb 8.1 L (10.1-14.3) gm/dl Hct 24.6 L (30.3-42.9) % MCV 98 H D (79-97) fl RDW 21.8 H (13.2-15.2) % [place] % (Auto) 8.0 H (0.0-7.3) % Eos % (Auto) 8.0 H (0.0-4.3) % Eos # 0.7 H (0.0-0.4) K/mm3 BUN 5 L (7-17) mg/dL Creatinine 0.5 L (0.7-1.2) mg/dL Glucose 104 H (65-100) mg/dL Total Bilirubin 1.4 H (0.1-1.2) mg/dL
[2016-08-09] MEDS: ELAVIL PO SCH (21:23)
[2016-08-09] MEDS ORDERED: PROVENTIL IH PRN (21:46)
[2016-08-10] MEDS: DILAUDID IV PRN ×5 (00:22→13:29)
[2016-08-10] MEDS: D5NS 1,000 ML IV SCH (03:55)
[2016-08-10] MEDS: BENADRYL IV PRN ×2 (03:57→10:17)
[2016-08-10] MEDS: ZOFRAN IV PRN (03:57)
[2016-08-10] MEDS: SYNTHROID PO SCH (06:56)
[2016-08-10] MEDS: DUONEB 0.5 MG-3 MG/3 ML SOLN IH SCH ×2 (07:37→13:19)
[2016-08-10 07:58] LABS: Chloride 104.8 mmol/L (98-107); Potassium 4.8 mmol/L (3.6-5.0); Sodium 140 mmol/L (137-145)
[2016-08-10 07:59] LABS: Alanine Aminotransferase 22 units/L (7-56); Albumin 3.9 g/dL (3.9-5); Alkaline Phosphatase 50 units/L (35-129); Bilirubin,Total 1.6 mg/dL (0.1-1.2); Blood Urea Nitrogen 5 mg/dL (7-17); Calcium 8.7 mg/dL (8.4-10.2); Carbon Dioxide 23 mmol/L (22-30); Glucose 97 mg/dL (65-100); Total Protein 7.9 g/dL (6.3-8.2)
[2016-08-10 08:00] LABS: Anion Gap 17 mmol/L
[2016-08-10 08:01] VITALS: BP 135/76
[2016-08-10 08:10] LABS: Basophils % (Auto) 0.7 % (0.0-1.8); Eosinophils % (Auto) 8.3 % (0.0-4.3); Hematocrit 25.1 % (30.3-42.9); Hemoglobin 8.6 gm/dl (10.1-14.3); Mean Corpuscular HGB Conc 34 % (30-34); Mean Corpuscular Hemoglobin 33 pg (28-32); Mean Corpuscular Volume 95 fl (79-97); Platelet Count 398 K/mm3 (140-440); Red Blood Count 2.63 M/mm3 (3.65-5.03); White Blood Count 10.2 K/mm3 (4.5-11.0)
[2016-08-10 08:31] LABS: Red Cell Distribution Width 21.8 % (13.2-15.2)
[2016-08-10] MEDS: VITAMIN D3 PO SCH (09:30)
[2016-08-10] MEDS: FOLVITE PO SCH (09:30)
[2016-08-10] MEDS: LOVENOX SUB-Q SCH (09:32)
--- NOTE | 2016-08-10 12:14 | XRay Report ---
Portable chest: There is mild cardiac enlargement. There is slight redistribution of flow to the upper lobes. Focal areas of linear atelectasis are noted adjacent to the left cardiac margin and also at the right lung base. There are no other significant findings. When compared to prior study of August 06 these findings are unchanged. Impression: 1. Mild congestive changes. 2. Focal atelectasis bilaterally.
--- NOTE | 2016-08-10 12:53 | Discharge Summary ---
Providers - Providers Date of Admission: 08/06/16 10:49 Date of discharge: 08/10/16 Attending physician: SOLOMON TOLBERT 08/07/16 11:52 Midline [Consult to PICC Line RN] [CONS] Stat Reason For Exam: blood transfusions,difficult stick Type Line:: Midline Primary care physician: Sadie Hospitalization Condition: Stable Pertinent studies: CXR showed mild congestive changes and focal atelectasis bilaterally Procedures: None Disposition: DISCHARGED TO HOME OR SELFCARE Core Measure Documentation - Palliative Care Palliative Care/ Comfort Measures: Not Applicable - Core Measures Any of the following diagnoses?: none Exam - Constitutional Vitals: Temp Pulse Resp BP Pulse Ox 98.3 F 75 16 135/76 97 08/10/16 08:00 08/10/16 08:00 08/10/16 08:00 08/10/16 08:00 08/10/16 08:00 General appearance: Present: no acute distress, well-nourished - EENT Eyes: Present: PERRL ENT: hearing intact, clear oral mucosa - Neck Neck: Present: supple, normal ROM - Respiratory Respiratory effort: normal Respiratory: bilateral: CTA - Cardiovascular Heart Sounds: Present: S1 & S2. Absent: rub, click - Extremities Extremities: pulses symmetrical, No edema Peripheral Pulses: within normal limits - Abdominal General gastrointestinal: Present: soft, non-tender, non-distended, normal bowel sounds Female genitourinary: Present: normal - Integumentary Integumentary: Present: clear, warm, dry - Musculoskeletal Musculoskeletal: gait normal, strength equal bilaterally - Psychiatric Psychiatric: appropriate mood/affect, intact judgment & insight - Neurologic Neurologic: CNII-XII intact, moves all extremities Plan Activity: no restrictions Diet: regular Follow up with: DR RENAY [Other] - 3-5 Days
[2016-08-10] MEDS ORDERED: ZITHROMAX PO SCH (14:00)
== END 2016-08-10 14:00 | disposition home or self-care (01) | DRG 812 ==
LOC: ED 17:44 → 3A 08-06 10:49
PROVIDERS: ADMIT Internal Medicine; ATTEND Family Medicine
PROC: 30233N1 Transfusion of Nonautologous Red Blood Cells into Peripheral Vein, Percutaneous Approach (ICD-10-PCS; principal; 2016-08-08)
DX: D57.00 Hb-SS disease with crisis, unspecified (principal); I11.0 Hypertensive heart disease with heart failure; M19.90 Unspecified osteoarthritis, unspecified site; I50.9 Heart failure, unspecified; Z88.4 Allergy status to anesthetic agent; Z88.5 Allergy status to narcotic agent; Z88.8 Allergy status to other drugs, medicaments and biological substances; Z91.018 Allergy to other foods; Z79.899 Other long term (current) drug therapy; Z86.718 Personal history of other venous thrombosis and embolism; Z79.01 Long term (current) use of anticoagulants; Z98.890 Other specified postprocedural states; Z90.49 Acquired absence of other specified parts of digestive tract; Z90.710 Acquired absence of both cervix and uterus; Z91.14 Patient's other noncompliance with medication regimen
CPT/HCPCS: 36415; 51701; 71010; 80048; 80053; 80074; 81001; 82140; 83735; 85007; 85025; 85045; 85610; 85660; 85730; 86850; 86900; 86901; 86922; 94640; 94760; 96372; 96374; 96375; 96376; J0456; J1170; J1200; J1650; J2405; J7042; J7050; P9016

== ENCOUNTER 2016-08-15 08:04 | Emergency (ER) | payer OTHER ==
[2016-08-15 08:36] LABS: Basophils % (Auto) 1.7 % (0.0-1.8); Hematocrit 21.9 % (30.3-42.9); Hemoglobin 7.5 gm/dl (10.1-14.3); Mean Corpuscular HGB Conc 34 % (30-34); Mean Corpuscular Hemoglobin 31 pg (28-32); Mean Corpuscular Volume 91 fl (79-97); Platelet Count 522 K/mm3 (140-440); Red Blood Count 2.41 M/mm3 (3.65-5.03); Red Cell Distribution Width 18.4 % (13.2-15.2); Reticulocyte % 6.41 % (0.78-2.58); White Blood Count 8.9 K/mm3 (4.5-11.0)
[2016-08-15] MEDS ORDERED: D5NS 0.2% 1,000 ML IV ONE (09:00)
[2016-08-15] MEDS ORDERED: DILAUDID IV ONE ×3 (09:33→11:58)
--- NOTE | 2016-08-15 09:54 | Emergency Department Report ---
HPI - General Chief Complaint: Sickle Cell Crisis Time Seen by Provider: 08/15/16 09:22 - HPI HPI: This is a 46-year-old Afro-[place] female presents to the emergency department with complaint of body pain everywhere that she believes is a sickle cell pain crisis. Patient was recently admitted to the hospital at [facility] for similar symptoms 1-2 weeks ago, at the end of July, due to uncontrolled pain and elevated reticulocyte count. Her PCP/hydrator operator is Dr. Kennedy. She is on folic acid and was taking oxycodone but says she ran out of the pain medication. She also has a past medical history of arthritis, CHF. She denies any fever, chest pain, shortness of breath, nausea or vomiting. No recent travel or sick contacts at home. She is otherwise not taken anything for symptoms prior to presentation. No known aggravating or alleviating factors. ED Past Medical Hx - Past Medical History Previous Medical History?: Yes Hx Hypertension: No Hx Congestive Heart Failure: Yes Hx Diabetes: No Hx Deep Vein Thrombosis: (?) Hx Sickle Cell Disease: Yes Hx Arthritis: Yes Hx Asthma: No Hx COPD: No Hx HIV: No Additional medical history: ANEMIA (Blood transfusion) - Surgical History Past Surgical History?: Yes Hx Pacemaker: No Hx Internal Defibrillator: No Hx Cholecystectomy: Yes Additional Surgical History: right ovary removed secondary to ovarian torsion. port placement x 3, port left chest wall - Social History Smoking Status: Never Smoker Substance Use Type: None - Medications Home Medications: Home Medications Medication Instructions Recorded Confirmed Last Taken Type Levothyroxine [Synthroid] 25 mcg PO QAM 04/21/14 08/06/16 08/05/16 History Folic Acid [Folvite] 1 mg PO QDAY #30 tablet 06/27/14 08/06/16 Unknown Rx Ibuprofen [Motrin 800 MG tab] 800 mg PO TID PRN #30 tablet 06/27/14 08/06/16 Unknown Rx Promethazine Dm [Phenergan DM 25 mg PO Q6H PRN 06/14/16 08/06/16 Unknown History 6.25-15 mg/5 ml] Amitriptyline [Elavil] 25 mg PO QHS 08/06/16 08/06/16 Unknown History Cholecalciferol (Vitamin D3) 1 tab PO DAILY 08/06/16 08/06/16 Unknown History Oxycodone HCl 10 mg PO Q4-6H PRN #12 08/15/16 Unknown Rx ED Review of Systems ROS: Stated complaint: SICKLE CELL PAIN Other details as noted in HPI Comment: All other systems reviewed and negative Constitutional: denies: chills, fever Eyes: denies: eye pain, eye discharge, vision change ENT: denies: ear pain, throat pain Respiratory: denies: cough, shortness of breath, wheezing Cardiovascular: denies: chest pain, palpitations Gastrointestinal: denies: abdominal pain, nausea, diarrhea Genitourinary: denies: urgency, dysuria, discharge Musculoskeletal: back pain, arthralgia, myalgia. denies: joint swelling Skin: denies: rash, lesions Neurological: denies: headache, weakness, paresthesias Physical Exam - Physical Exam Vital Signs: Vital Signs 08/15/16 08:07 Temperature 99.6 F Pulse Rate 103 H Respiratory 22 Rate Blood Pressure 146/101 O2 Sat by Pulse 95 Oximetry Physical Exam: GENERAL: The patient is well-developed well-nourished. HEENT: Normocephalic. Atraumatic. Extraocular motions are intact. Patient has moist mucous membranes. Pupils equal reactive to light bilaterally. NECK: Supple. Trachea is midline. CHEST/LUNGS: Clear to auscultation. There is no respiratory distress noted. HEART/CARDIOVASCULAR: Regular. There is no tachycardia. There is no gallop rub or murmur. ABDOMEN: Abdomen is soft, nontender. Patient has normal bowel sounds. There is no abdominal distention. SKIN: There is no rash. There is no edema. There is no diaphoresis. NEURO: The patient is awake, alert, and oriented. The patient is cooperative. The patient has no focal neurologic deficits. The patient has normal speech. MUSCULOSKELETAL: There is no tenderness or deformity. There is no limitation range of motion. There is no evidence of acute injury. ED Course Vital Signs 08/15/16 08:07 Temperature 99.6 F Pulse Rate 103 H Respiratory 22 Rate Blood Pressure 146/101 O2 Sat by Pulse 95 Oximetry ED Medical Decision Making - Lab Data Result diagrams: 08/15/16 08:22 - Medical Decision Making This is a 46-year-old female who presents to the emergency department with what appears to be a sickle cell pain crisis. Patient does not have any complaint of chest pain, shortness of breath and does not have any fever and therefore it is low suspicion for chest crisis. Labs do not show any other sickle cell crisis. Hemoglobin is 7.5 which is consistent with previous visits and does not require transfusion. Reticulocyte count is 6 which is subtly elevated but also much lower than her previous visit in which she was admitted. Patient was given some IV fluid resuscitation and pain medication upon reevaluation she is feeling better. She has follow-up with a primary care doctor/hydrator operator. She appears safe for discharge home and was given some pain medication to get her until Wednesday when she can see her PCP. She'll return to the ER with any worsening of her symptoms or any acute distress. - Differential Diagnosis sickle cell pain crisis, fibromyalgia, muscle spasms Critical Care Time: No Critical care attestation.: If time is entered above; I have spent that time in minutes in the direct care of this critically ill patient, excluding procedure time. ED Disposition Clinical Impression: Sickle cell pain crisis, Body aches Sickle cell anemia Qualifiers: Sickle-cell associated disorders: with unspecified crisis Qualified Code(s): D57.00 - Hb-SS disease with crisis, unspecified Disposition: DISCHARGED TO HOME OR SELFCARE Is pt being admited?: No Does the pt Need Aspirin: No Condition: Stable Instructions: Sickle Cell Crisis (ED) Additional Instructions: Please follow-up with your primary care doctor/hydrator operator in the next few days. Return to the emergency department with any intractable fever, intractable vomiting, chest pain or any acute distress. You've been prescribed a medication that is sedating. Therefore this medication cannot be mixed with alcohol, or taken prior to driving, working, or being responsible for children. Prescriptions: Oxycodone HCl 10 mg PO Q4-6H PRN #12 PRN Reason: Pain Referrals: PRIMARY CARE, [Primary Care Provider] - 3-5 Days Time of Disposition: 12:15
[2016-08-15] MEDS ORDERED: BENADRYL ONE (10:39)
[2016-08-15] MEDS ORDERED: ZOFRAN IV ONE (10:40)
[2016-08-15] MEDS ORDERED: BENADRYL IV ONE (10:40)
[2016-08-15 12:41] VITALS: BP 112/69
== END 2016-08-15 12:15 | disposition home or self-care (01) ==
LOC: ED 08:04
DX: D57.00 Hb-SS disease with crisis, unspecified (principal); M79.1 Myalgia; Z87.39 Personal history of other diseases of the musculoskeletal system and connective tissue
CPT/HCPCS: 36415; 85025; 85045; 96361; 96374; 96375; 96376; 99283; J1170; J1200; J2405

== ENCOUNTER 2016-10-15 09:28 | Inpatient (IN) | payer OTHER ==
[2016-10-15] MEDS ORDERED: D5NS 0.2% 1,000 ML IV SCH (10:00)
[2016-10-15] MEDS ORDERED: BENADRYL IV ONE (10:43)
[2016-10-15] MEDS ORDERED: ZOFRAN IV ONE (10:43)
[2016-10-15] MEDS ORDERED: DILAUDID IV ONE (10:43)
--- NOTE | 2016-10-15 10:48 | Emergency Department Report ---
HPI - General Chief Complaint: Sickle Cell Crisis Time Seen by Provider: 10/15/16 10:39 - HPI HPI: Room 10 The patient is a 46-year-old female presenting with a chief complaint of sickle cell pain crisis. Patient states her symptoms began at approximately 04:00 this morning with "hurting all over." Patient states her pain is consistent with previous sickle cell pain crises. Patient denies any history of fever with a MAXIMUM TEMPERATURE of 99.7F. Patient denies dysuria Location: "All over" Duration: Since since 04:00 Quality: Sickle cell pain Severity: 9-10 Modifying factors: [see above] Context: [see above] Mode of transportation: Unknown ED Past Medical Hx - Past Medical History Previous Medical History?: Yes Hx Congestive Heart Failure: Yes Hx Deep Vein Thrombosis: (?) Hx Sickle Cell Disease: Yes Hx Arthritis: Yes Additional medical history: ANEMIA (Blood transfusion) - Surgical History Past Surgical History?: Yes Hx Cholecystectomy: Yes Additional Surgical History: right ovary removed secondary to ovarian torsion. port placement x 3, port left chest wall - Family History Family history: no significant - Social History Smoking Status: Never Smoker Substance Use Type: None - Medications Home Medications: Home Medications Medication Instructions Recorded Confirmed Last Taken Type Levothyroxine [Synthroid] 25 mcg PO QAM 04/21/14 08/06/16 08/05/16 History Folic Acid [Folvite] 1 mg PO QDAY #30 tablet 06/27/14 08/06/16 Unknown Rx Ibuprofen [Motrin 800 MG tab] 800 mg PO TID PRN #30 tablet 06/27/14 08/06/16 Unknown Rx Promethazine Dm [Phenergan DM 25 mg PO Q6H PRN 06/14/16 08/06/16 Unknown History 6.25-15 mg/5 ml] Amitriptyline [Elavil] 25 mg PO QHS 08/06/16 08/06/16 Unknown History Cholecalciferol (Vitamin D3) 1 tab PO DAILY 08/06/16 08/06/16 Unknown History Oxycodone HCl 10 mg PO Q4-6H PRN #12 08/15/16 Unknown Rx ED Review of Systems ROS: Stated complaint: SICKLE CELL CRISIS Other details as noted in HPI Comment: All other systems reviewed and negative Constitutional: denies: chills, fever Eyes: denies: eye pain, eye discharge, vision change ENT: denies: ear pain, throat pain Respiratory: denies: cough, shortness of breath, wheezing Cardiovascular: denies: chest pain, palpitations Endocrine: no symptoms reported Gastrointestinal: denies: abdominal pain, nausea, diarrhea Genitourinary: denies: urgency, dysuria, discharge Musculoskeletal: myalgia Skin: denies: rash, lesions Neurological: denies: headache, weakness, paresthesias Psychiatric: denies: anxiety, depression Hematological/Lymphatic: denies: easy bleeding, easy bruising Physical Exam - Physical Exam Vital Signs: Vital Signs 10/15/16 10/15/16 09:32 10:31 Temperature 98.3 F Pulse Rate 105 H 100 H Respiratory 24 15 Rate Blood Pressure 136/92 Blood Pressure 112/54 [Right] O2 Sat by Pulse 96 99 Oximetry Physical Exam: GENERAL: The patient is well-developed well-nourished female lying on stretcher not appearing to be in acute distress. [] HEENT: Normocephalic. Atraumatic. Extraocular motions are intact. Patient has moist mucous membranes. NECK: Supple. Trachea midline CHEST/LUNGS: Clear to auscultation. There is no respiratory distress noted. HEART/CARDIOVASCULAR: Regular. There is no tachycardia. There is no gallop rub or murmur. ABDOMEN: Abdomen is soft, nontender. Patient has normal bowel sounds. There is no abdominal distention. SKIN: There is no rash. There is no edema. There is no diaphoresis. NEURO: The patient is awake, alert, and oriented. The patient is cooperative. The patient has normal speech MUSCULOSKELETAL: There is no evidence of acute injury. ED Course Vital Signs 10/15/16 10/15/16 09:32 10:31 Temperature 98.3 F Pulse Rate 105 H 100 H Respiratory 24 15 Rate Blood Pressure 136/92 Blood Pressure 112/54 [Right] O2 Sat by Pulse 96 99 Oximetry ED Medical Decision Making - Lab Data Result diagrams: 10/15/16 11:28 Laboratory Tests 10/15/16 11:28 WBC 10.3 RBC 2.07 L Hgb 6.5 L Hct 18.8 L* MCV 91 MCH 31 MCHC 35 H RDW 17.6 H Plt Count 325 Lymph % (Auto) 30.0 [place] % (Auto) 5.8 Eos % (Auto) 2.6 Baso % (Auto) 1.8 Lymph # 3.1 [place] # 0.6 Eos # 0.3 Baso # 0.2 H Seg Neutrophils % 59.8 Seg Neutrophils # 6.2 Percent Retic 15.18 H - Differential Diagnosis sickle cell pain crisis Critical care attestation.: If time is entered above; I have spent that time in minutes in the direct care of this critically ill patient, excluding procedure time. ED Disposition Clinical Impression: Sickle cell pain crisis, Sickle cell anemia Disposition: OP ADMITTED IP TO THIS HOSP Is pt being admited?: Yes Does the pt Need Aspirin: No Condition: Serious Referrals: PRIMARY CARE, [Primary Care Provider] - 3-5 Days Time of Disposition: 11:51 (Dr. Johnna jauregui)
[2016-10-15 11:43] LABS: Basophils % (Auto) 1.8 % (0.0-1.8); Eosinophils % (Auto) 2.6 % (0.0-4.3); Hemoglobin 6.5 gm/dl (10.1-14.3); Mean Corpuscular HGB Conc 35 % (30-34); Mean Corpuscular Hemoglobin 31 pg (28-32); Mean Corpuscular Volume 91 fl (79-97); Platelet Count 325 K/mm3 (140-440); Red Blood Count 2.07 M/mm3 (3.65-5.03); Red Cell Distribution Width 17.6 % (13.2-15.2); Reticulocyte % 15.18 % (0.78-2.58); White Blood Count 10.3 K/mm3 (4.5-11.0)
[2016-10-15 11:46] LABS: Hematocrit 18.8 % (30.3-42.9)
[2016-10-15] MEDS ORDERED: NACL 0.9% 500 ML 500 ML IV ONE ×2 (11:48→22:00)
--- NOTE | 2016-10-15 12:22 | Admit Criteria Form ---
Admission Criteria Documentation: SICKLE CELL DISEASE Clinical Indications for Admission to Inpatient Care (Place 'X' for any and all applicable criteria): Admission is indicated for ANY ONE of the following(1)(2)(3)(4)(5): [X ]I. Inpatient admission required rather than observation care because of ANY ONE of the following: [ ]a) Altered mental status [ ]b) High fever or infection requiring inpatient admission as indicated by ANY ONE of the following: [ ]A. Appropriate outpatient observation care antimicrobial treatment unavailable, not effective, or not appropriate for infection [ ]B. Documented bacteremia [ ]C. Temp >104.9F (40.5C) (oral) [ ]D. Temp >103.1F (oral) or <96.8F(rectal) that does not respond to all emergency treatment measures [ ]c) Supplemental O2 or respiratory therapy for over 24 h that are performable only in acute inpatient setting [ ]d) Continuous parenteral narcoticsother major pain intervention for >24 h performable only in acute inpatient setting. [ ]e) Exchange transfusion [X ]f) Other condition, treatment or monitoring requiring inpatient admission [ ]II. Acute chest syndrome indicated by ALL of the following (10): [ ]a) New alveolar infiltrate involving at least one lung segment [ ]b) Associated pulmonary symptoms or findings as indicated by ANY ONE of the following: [ ]i) Chest pain [ ]ii) Hypoxemia [ ]iii) Tachypnea/dyspnea [ ]iv) Wheezing [ ]v) Cough [ ]vi) Sputum production [ ]III. Significant hypoxemia or acidosis (more severe than baseline) [ ]IV. Emergent surgery needed (eg, acute cholecystitis) [ ]V. -related complication(11) [ ]. Splenic or hepatic sequestration(12) [ ]VII. Aplastic crisis [ ]VIII. Priapism or other vascular complication(13) [ ]IX. Traumatic hyphema [A](14) [ ]X. Underlying condition requiring hospitalization (eg, osteomyelitis) [ ]XI. Signs or symptoms of central nervous system injury indicated by ANY ONE of the following: [ ]a) Stroke(9) [ ]b) Seizure [ ]c) Other significant central nervous system symptom or event [ ]XII. Acute renal failure Extended stay beyond goal length of stay may be needed for: [ ]a) Inadequate pain control [ ]b) Acute chest syndrome [ ]c) Sequestration or aplastic crisis (12) [ ]d) Pneumonia and asthma exacerbation [ ]e) Neurologic or vascular complications (25) [ ]f) Infection (eg, osteomyelitis) that requires ongoing treatment) The original [facility] [employer] content created by [facility] has been revised. The portions of the content which have been revised are identified through the use of italic text or in bold, and [facility] has neither reviewed nor approved the modified material. All other unmodified content is copyright [facility]. Please see references footnoted in the original [facility] [employer] edition 2016 Admission Criteria Met: Yes
--- NOTE | 2016-10-15 15:58 | History and Physical Report ---
History of Present Illness Date of examination: 10/15/16 Date of admission: 10/15/16 11:52 Chief complaint: Chief complaint: Severe pain all over since morning. 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 Pain is intolerable. Pain is 10 over 10. No fever no chills. Symptoms began around 4 AM this morning. Hurting all over. No shortness of breath. Some nausea present. No abdominal pain. Past History Past Medical History: anemia, other (patient has sickle cell crisis and anemia hypothyroidism, depression and chronic pain and vitamin D deficiency.) Past Surgical History: cholecystectomy, Other (right ovary removed secondary to ovarian torsion. Port placement 3 has a port in the left chest wall.) Social history: lives with family, full code. denies: smoking, alcohol abuse Medications and Allergies Allergies Allergy/AdvReac Type Severity Reaction Status Date / Time aspirin Allergy Vomiting Verified 12/07/13 09:50 ketorolac tromethamine Allergy Unknown Verified 12/07/13 09:50 [From Toradol] morphine Allergy Shortness Verified 12/07/13 09:50 of Breath pineapple [Pineapple] Allergy Swelling Verified 12/07/13 09:49 Home Medications Medication Instructions Recorded Confirmed Last Taken Type Levothyroxine [Synthroid] 25 mcg PO QAM 04/21/14 08/06/16 08/05/16 History Folic Acid [Folvite] 1 mg PO QDAY #30 tablet 06/27/14 08/06/16 Unknown Rx Ibuprofen [Motrin 800 MG tab] 800 mg PO TID PRN #30 tablet 06/27/14 08/06/16 Unknown Rx Promethazine Dm [Phenergan DM 25 mg PO Q6H PRN 06/14/16 08/06/16 Unknown History 6.25-15 mg/5 ml] Amitriptyline [Elavil] 25 mg PO QHS 08/06/16 08/06/16 Unknown History Cholecalciferol (Vitamin D3) 1 tab PO DAILY 08/06/16 08/06/16 Unknown History Oxycodone HCl 10 mg PO Q4-6H PRN #12 08/15/16 Unknown Rx Active Meds: Active Medications Dextrose/Sodium Chloride (D5ns 0.2%) 1,000 mls @ 250 mls/hr IV DIRECT RAMIREZ Last Admin: 10/15/16 11:31 Dose: 250 mls/hr Review of Systems All systems: negative Constitutional: no weight loss, no weight gain, no fever, no chills Ears, nose, mouth and throat: no dysphagia, no hoarseness, no sore throat, no swelling in mouth, no swelling in throat, no odynophagia, no pain front of neck Breasts: deferred Cardiovascular: no syncope, no lightheadedness, no shortness of breath, no dyspnea on exertion, no paroxysmal nocturnal dyspnea Respiratory: no cough with sputum, no excessive sputum, no dyspnea on exertion, no congestion Gastrointestinal: no nausea, no vomiting, no diarrhea, no constipation Genitourinary Female: no flank pain, no menorrhagia, no dysuria, no urinary frequency, no urgency, no stress incontinence, no post void dribbling Musculoskeletal: no neck stiffness, no neck pain Integumentary: no rash, no pruritis, no redness, no sores, no wounds, no jaundice, no boils, no blisters Neurological: no seizures, no syncope Psychiatric: no anxiety, no depression Endocrine: no cold intolerance, no heat intolerance, no polyphagia, no excessive thirst, no polydipsia, no polyuria, no nocturia Hematologic/Lymphatic: no easy bruising, no easy bleeding Allergic/Immunologic: no urticaria, no allergic rhinitis, no wheezing Exam - Physical Exam Narrative exam: Well-developed well-nourished female short statured lying in bed in slight pain. - Constitutional Vitals: Temp Pulse Resp BP Pulse Ox 99.1 F 101 H 20 142/94 99 10/15/16 13:30 10/15/16 13:30 10/15/16 13:30 10/15/16 13:30 10/15/16 10:31 General appearance: Present: no acute distress, well-nourished - EENT Eyes: Present: PERRL ENT: hearing intact, clear oral mucosa - Neck Neck: Present: supple, normal ROM - Respiratory Respiratory effort: normal Respiratory: bilateral: CTA - Cardiovascular Heart Sounds: Present: S1 & S2. Absent: rub, click - Extremities Extremities: pulses symmetrical, No edema Peripheral Pulses: within normal limits - Abdominal General gastrointestinal: Present: soft, non-tender, non-distended, normal bowel sounds Female genitourinary: Present: normal - Rectal Rectal Exam: deferred - Integumentary Integumentary: Present: clear, warm, dry - Musculoskeletal Musculoskeletal: gait normal, strength equal bilaterally - Psychiatric Psychiatric: appropriate mood/affect, intact judgment & insight - Neurologic Neurologic: CNII-XII intact, moves all extremities - Allied Health Allied health notes reviewed: nursing, case management Results - Labs CBC & Chem 7: 10/15/16 11:28 Labs: Laboratory Last Values WBC 10.3 K/mm3 (4.5-11.0) 10/15/16 11:28 RBC 2.07 M/mm3 (3.65-5.03) L 10/15/16 11:28 Hgb 6.5 gm/dl (10.1-14.3) L 10/15/16 11:28 Hct 18.8 % (30.3-42.9) L* 10/15/16 11:28 MCV 91 fl (79-97) 10/15/16 11:28 MCH 31 pg (28-32) 10/15/16 11:28 MCHC 35 % (30-34) H 10/15/16 11:28 RDW 17.6 % (13.2-15.2) H 10/15/16 11:28 Plt Count 325 K/mm3 (140-440) 10/15/16 11:28 Lymph % (Auto) 30.0 % (13.4-35.0) 10/15/16 11:28 [place] % (Auto) 5.8 % (0.0-7.3) 10/15/16 11:28 Eos % (Auto) 2.6 % (0.0-4.3) 10/15/16 11:28 Baso % (Auto) 1.8 % (0.0-1.8) 10/15/16 11:28 Lymph # 3.1 K/mm3 (1.2-5.4) 10/15/16 11:28 [place] # 0.6 K/mm3 (0.0-0.8) 10/15/16 11:28 Eos # 0.3 K/mm3 (0.0-0.4) 10/15/16 11:28 Baso # 0.2 K/mm3 (0.0-0.1) H 10/15/16 11:28 Seg Neutrophils % 59.8 % (40.0-70.0) 10/15/16 11:28 Seg Neutrophils # 6.2 K/mm3 (1.8-7.7) 10/15/16 11:28 Percent Retic 15.18 % (0.78-2.58) H 10/15/16 11:28 Blood Type O POSITIVE 10/15/16 12:05 Antibody Screen Negative 10/15/16 12:05 Crossmatch See Detail 10/15/16 12:05 Short CBC 10/15/16 Range/Units 11:28 WBC 10.3 (4.5-11.0) K/mm3 Hgb 6.5 L (10.1-14.3) gm/dl Hct 18.8 L* (30.3-42.9) % Plt Count 325 (140-440) K/mm3 - Imaging and Cardiology EKG: report reviewed Assessment and Plan Advance Directives: Yes (Full code) Plan of care discussed with patient/family: Yes - Patient Problems (1) Sickle cell pain crisis Current Visit: Yes Status: Acute Plan to address problem: In severe crisis. Reticulocyte count is 15%. IV fluids and IV Dilaudid at 2 mg every 3 hours when necessary. (2) Sickle cell anemia Current Visit: Yes Status: Acute Qualifiers: Sickle-cell associated disorders: S Plan to address problem: Patient's hemoglobin is low at 6.5 and. We will transfuse 2 units of blood packed red blood cells. After type and cross. (3) Hypothyroidism Current Visit: Yes Status: Chronic Qualifiers: Hypothyroidism type: acquired Qualified Code(s): E03.9 - Hypothyroidism, unspecified Plan to address problem: Continue Synthroid Synthroid at 25 g by mouth daily. (4) Vitamin D deficiency Current Visit: Yes Status: Chronic Plan to address problem: Continue vitamin D. (5) Depression Current Visit: Yes Status: Chronic Qualifiers: Depression Type: D Major depression recurrence: M Active/Remission status : A Major depression episode severity: mild Psychotic features: P Trimester: T Plan to address problem: Continue amitriptyline. (6) DVT prophylaxis Current Visit: Yes Status: Acute Plan to address problem: Lovenox 40 mg subcutaneous daily.
[2016-10-15] MEDS ORDERED: PERCOCET 5/325 PO PRN (16:00)
[2016-10-15] MEDS ORDERED: DULCOLAX PR PRN (16:00)
[2016-10-15] MEDS ORDERED: MILK OF MAGNESIA PO PRN (16:00)
[2016-10-15] MEDS ORDERED: AMBIEN PO PRN (16:00)
[2016-10-15] MEDS ORDERED: TYLENOL PO PRN (16:00)
[2016-10-15] MEDS ORDERED: MOTRIN PO PRN (16:00)
[2016-10-15] MEDS: BENADRYL IV PRN ×2 (16:17→23:20)
[2016-10-15] MEDS: DILAUDID IV PRN ×3 (16:18→23:20)
[2016-10-15] MEDS: ZOFRAN IV PRN ×2 (16:18→23:20)
[2016-10-15] MEDS: D5NS 1,000 ML IV SCH (16:19)
[2016-10-15 18:59] LABS: Alanine Aminotransferase 32 units/L (7-56); Albumin 4.7 g/dL (3.9-5); Albumin/Globulin Ratio 1.2 %; Alkaline Phosphatase 58 units/L (35-129); Anion Gap 17 mmol/L; BUN/Creatinine Ratio 14.44; Bilirubin,Total 3.7 mg/dL (0.1-1.2); Blood Urea Nitrogen 13 mg/dL (7-17); Calcium 8.8 mg/dL (8.4-10.2); Carbon Dioxide 20 mmol/L (22-30); Chloride 98.4 mmol/L (98-107); Glucose 124 mg/dL (65-100); Potassium 3.9 mmol/L (3.6-5.0); Sodium 131 mmol/L (137-145); Total Protein 8.6 g/dL (6.3-8.2)
--- NOTE | 2016-10-15 23:26 | Consultation ---
History of Present Illness - Reason for Consult Consult date: 10/15/16 Anemia Requesting physician: ARGENTINA WHITE - History of Present Illness Thank you for this consult, patient seen/examined, record/labs reviewed, case d/ w patient. Patient presented to the ED with CC of diffuse joint pain. W/u revealed severe anemia, patient has been ordered for replacement transfusion. She is admitted for further sxs control. She is rating her pain at 8/10, and is already on adequate amount of narcotic. Past History Past Medical History: anemia, other (patient has sickle cell crisis and anemia hypothyroidism, depression and chronic pain and vitamin D deficiency.) Past Surgical History: cholecystectomy, Other (right ovary removed secondary to ovarian torsion. Port placement 3 has a port in the left chest wall.) Social history: lives with family, full code. denies: smoking, alcohol abuse Medications and Allergies Allergies Allergy/AdvReac Type Severity Reaction Status Date / Time aspirin Allergy Vomiting Verified 12/07/13 09:50 ketorolac tromethamine Allergy Unknown Verified 12/07/13 09:50 [From Toradol] morphine Allergy Shortness Verified 12/07/13 09:50 of Breath pineapple [Pineapple] Allergy Swelling Verified 12/07/13 09:49 Home Medications Medication Instructions Recorded Confirmed Last Taken Type Levothyroxine [Synthroid] 25 mcg PO QAM 04/21/14 08/06/16 08/05/16 History Folic Acid [Folvite] 1 mg PO QDAY #30 tablet 06/27/14 08/06/16 Unknown Rx Ibuprofen [Motrin 800 MG tab] 800 mg PO TID PRN #30 tablet 06/27/14 08/06/16 Unknown Rx Promethazine Dm [Phenergan DM 25 mg PO Q6H PRN 06/14/16 08/06/16 Unknown History 6.25-15 mg/5 ml] Amitriptyline [Elavil] 25 mg PO QHS 08/06/16 08/06/16 Unknown History Cholecalciferol (Vitamin D3) 1 tab PO DAILY 08/06/16 08/06/16 Unknown History Oxycodone HCl 10 mg PO Q4-6H PRN #12 08/15/16 Unknown Rx Active Meds: Active Medications Acetaminophen (Tylenol) 650 mg PO Q4H PRN PRN Reason: Pain MILD(1-3)/Fever >100.5/PARKER Bisacodyl (Dulcolax) 10 mg MN QDAY PRN PRN Reason: Constipation unrelieved by MOM Diphenhydramine HCl (Benadryl) 25 mg IV Q6H PRN PRN Reason: Itching Last Admin: 10/15/16 23:20 Dose: 25 mg Hydromorphone HCl (Dilaudid) 2 mg IV Q3H PRN PRN Reason: Pain , Severe (7-10) Last Admin: 10/15/16 23:20 Dose: 2 mg Dextrose/Sodium Chloride (D5ns 0.2%) 1,000 mls @ 250 mls/hr IV DIRECT RAMIREZ Last Admin: 10/15/16 11:31 Dose: 250 mls/hr Dextrose/Sodium Chloride (D5ns) 1,000 mls @ 125 mls/hr IV DIRECT RAMIREZ Last Admin: 10/15/16 16:19 Dose: 125 mls/hr Ibuprofen (Motrin) 600 mg PO Q6H PRN PRN Reason: Pain, Mild (1-3) Magnesium Hydroxide (Milk Of Magnesia) 30 ml PO Q4H PRN PRN Reason: Constipation Ondansetron HCl (Zofran) 4 mg IV Q3H PRN PRN Reason: N/V unrelieved by Reglan Last Admin: 10/15/16 23:20 Dose: 4 mg Oxycodone/Acetaminophen (Percocet 5/325) 1 tab PO Q6H PRN PRN Reason: Pain, Moderate (4-6) Zolpidem Tartrate (Ambien) 5 mg PO QHS PRN PRN Reason: Insomnia Review of Systems Constitutional: chronic pain Breasts: deferred Musculoskeletal: low back pain Exam - Constitutional Vitals: Temp Pulse Resp BP Pulse Ox 98 F 101 H 20 128/78 93 10/15/16 22:50 10/15/16 22:50 10/15/16 23:20 10/15/16 22:50 10/15/16 22:50 General appearance: Present: mild distress, well-nourished - EENT Eyes: Present: PERRL ENT: hearing intact, clear oral mucosa - Neck Neck: Present: supple, normal ROM - Respiratory Respiratory: bilateral: rhonchi - Cardiovascular Heart Sounds: Present: S1 & S2. Absent: rub, click - Extremities Extremities: pulses symmetrical, No edema Peripheral Pulses: within normal limits - Abdominal General gastrointestinal: Present: soft, non-tender, non-distended, normal bowel sounds Female genitourinary: Present: deferred - Rectal Rectal Exam: deferred - Integumentary Integumentary: Present: clear, warm, dry - Musculoskeletal Musculoskeletal: gait normal, strength equal bilaterally - Psychiatric Psychiatric: appropriate mood/affect, intact judgment & insight - Neurologic Neurologic: CNII-XII intact, moves all extremities Results - Labs CBC & Chem 7: 10/15/16 11:28 10/15/16 16:24 Labs: Abnormal lab results 10/15/16 10/15/16 Range/Units 12:05 16:24 Sodium 131 L (137-145) mmol/L Carbon Dioxide 20 L (22-30) mmol/L Glucose 124 H (65-100) mg/dL Total Bilirubin 3.7 H (0.1-1.2) mg/dL Total Protein 8.6 H (6.3-8.2) g/dL Crossmatch See Detail Assessment and Plan - Patient Problems (1) Sickle cell anemia Current Visit: Yes Status: Acute Qualifiers: Sickle-cell associated disorders: S Plan to address problem: transfusion (2) Sickle cell pain crisis Current Visit: Yes Status: Acute Plan to address problem: continue pain control. (3) Hypothyroidism Current Visit: Yes Status: Chronic Qualifiers: Hypothyroidism type: acquired Qualified Code(s): E03.9 - Hypothyroidism, unspecified Plan to address problem: monitor level. (4) Anemia requiring transfusions Current Visit: No Status: Acute Plan to address problem: Awaiting blood transfusion.
[2016-10-16] MEDS ORDERED: BENADRYL IV ONE ×2 (01:50→13:38)
[2016-10-16] MEDS: DILAUDID IV PRN ×8 (02:09→22:38)
[2016-10-16] MEDS ORDERED: ZOFRAN IV ONE (02:11)
[2016-10-16] MEDS ORDERED: NACL 0.9% 1000 ML 1,000 ML ONE (02:19)
--- NOTE | 2016-10-16 02:35 | Event Note ---
Date: 10/16/16 code met called. 15 minutes into recieving blood transfusion, patient became diaphoretic, complaining of feeling hot, generalized body ache Transfusion was discontinued. She was given IV Benadryl, Solu-Medrol We'll repeat labs stat and cxr Transfusion allergic reaction protocol to be followed
--- NOTE | 2016-10-16 02:48 | XRay Report ---
FINAL REPORT PROCEDURE: XR CHEST 1V AP TECHNIQUE: Chest radiograph anteroposterior view. CPT 22519 HISTORY: CHEST PAIN. COMPARISON: No prior studies are available for comparison. FINDINGS: Heart: Normal. Mediastinum/Vessels: Normal. Lungs/Pleural space: Normal. Bony thorax: No acute osseous abnormality. Life support devices: There is a therapy port with the reservoir in the left chest wall. IMPRESSION: No acute cardiopulmonary abnormality.
[2016-10-16 03:36] LABS: INR 1.36 (0.87-1.13); Partial Thromboplastin Time 30.6 Sec. (24.2-36.6)
[2016-10-16 03:46] LABS: Alanine Aminotransferase 26 units/L (7-56); Albumin 4.5 g/dL (3.9-5); Albumin/Globulin Ratio 1.3 %; Alkaline Phosphatase 57 units/L (35-129); Anion Gap 18 mmol/L; BUN/Creatinine Ratio 16.36; Blood Urea Nitrogen 18 mg/dL (7-17); Carbon Dioxide 20 mmol/L (22-30); Glucose 122 mg/dL (65-100); Potassium 4.3 mmol/L (3.6-5.0); Sodium 136 mmol/L (137-145); Total Protein 8.1 g/dL (6.3-8.2)
[2016-10-16 03:49] LABS: Hemoglobin 6.1 gm/dl (10.1-14.3); Mean Corpuscular HGB Conc 34 % (30-34); Mean Corpuscular Hemoglobin 31 pg (28-32); Mean Corpuscular Volume 93 fl (79-97); Platelet Count 423 K/mm3 (140-440); Red Blood Count 1.94 M/mm3 (3.65-5.03); Red Cell Distribution Width 19.5 % (13.2-15.2); White Blood Count 12.2 K/mm3 (4.5-11.0)
[2016-10-16 03:59] LABS: Bilirubin,Total 3.3 mg/dL (0.1-1.2)
[2016-10-16 05:51] LABS: Anisocytosis 2+; Basophils % (Manual) 0 % (0.0-1.8); Blastocytes % (Manual) 0 %; Elliptocytes 1+; Hypochromasia 2+; Polychromasia 1+; Target Cells Rare
[2016-10-16 05:52] LABS: Diff Status Complete; Large Platelets Few; Platelet Estimate Consistent w Auto; Sickle Cells Few
[2016-10-16] MEDS: BENADRYL IV PRN ×3 (09:32→22:38)
[2016-10-16 09:55] LABS: Bilirubin,Urine NEG (Negative)
[2016-10-16 09:56] LABS: Blood,Urine SM (Negative); Ketones,Urine NEG (Negative); Leukocyte Esterase,Urine NEG (Negative); Nitrite,Urine NEG (Negative); Urobilinogen,Urine < 2.0 mg/dL (<2.0)
[2016-10-16] MEDS: D5NS 1,000 ML IV SCH (13:37)
[2016-10-16] MEDS ORDERED: CHOLECALCIFEROL PO SCH (13:45)
--- NOTE | 2016-10-16 13:47 | Progress Note ---
Assessment and Plan Assessment and plan: Sickle cell pain crisis - Pain control Severe anemia 2/2 Sickle cell - this morning the patient was started transfusion and stopped due to transfusion reaction - Dr De Jesus was notified - Will transfuse her after giving steroid and Benadryl Hypothyroidism - Continue her home dose of levothyroxine Depression - Continue amitriptyline DVT prophylaxis - SCD because of severe anemia Disposition - Continue inpatient care History Interval history: Patient was seen and evaluated this morning, pain is getting better. Patient had transfusion reaction this morning and transfusion was held. Hematology was consulted. Hospitalist Physical - Physical exam Narrative exam: Not in cardiopulmonary distress. The patient appeared well nourished and normally developed. Vital signs as documented. Head exam is unremarkable. Pale conjunctiva, no scleral icterus . Neck is without jugular venous distension, thyromegaly, or carotid bruits. Lungs are clear to auscultation. Cardiac exam reveals regular rate and Rhythm. First and second heart sounds normal. No murmurs, rubs or gallops. Abdominal exam reveals normal bowel sounds, no masses, no organomegaly and no aortic enlargement. Extremities are nonedematous and both femoral and pedal pulses are normal. RESERVATION AGENT: Alert and oriented 3. No focal weakness. - Constitutional Vitals: Temp Pulse Resp BP Pulse Ox 98.7 F 88 20 121/67 100 10/16/16 11:30 10/16/16 11:30 10/16/16 11:30 10/16/16 11:30 10/16/16 11:30 General appearance: Present: mild distress, well-nourished Results - Labs CBC & Chem 7: 10/16/16 02:30 10/16/16 02:30 Labs: Laboratory Last Values WBC 12.2 K/mm3 (4.5-11.0) H 10/16/16 02:30 RBC 1.94 M/mm3 (3.65-5.03) L 10/16/16 02:30 Hgb 6.1 gm/dl (10.1-14.3) L 10/16/16 02:30 Hct 18.0 % (30.3-42.9) L* 10/16/16 02:30 MCV 93 fl (79-97) 10/16/16 02:30 MCH 31 pg (28-32) 10/16/16 02:30 MCHC 34 % (30-34) 10/16/16 02:30 RDW 19.5 % (13.2-15.2) H 10/16/16 02:30 Plt Count 423 K/mm3 (140-440) 10/16/16 02:30 Lymph % (Auto) 30.0 % (13.4-35.0) 10/15/16 11:28 [place] % (Auto) 5.8 % (0.0-7.3) 10/15/16 11:28 Eos % (Auto) 2.6 % (0.0-4.3) 10/15/16 11:28 Baso % (Auto) 1.8 % (0.0-1.8) 10/15/16 11:28 Lymph # Plasterer Stucco 10/16/16 02:30 [place] # 0.6 K/mm3 (0.0-0.8) 10/15/16 11:28 Eos # 0.3 K/mm3 (0.0-0.4) 10/15/16 11:28 Baso # 0.2 K/mm3 (0.0-0.1) H 10/15/16 11:28 Add Manual Diff Complete 10/16/16 02:30 Total Counted 100 10/16/16 02:30 Seg Neutrophils % 59.8 % (40.0-70.0) 10/15/16 11:28 Seg Neuts % (Manual) 65.0 % (40.0-70.0) 10/16/16 02:30 Band Neutrophils % 3.0 % 10/16/16 02:30 Lymphocytes % (Manual) 23.0 % (13.4-35.0) 10/16/16 02:30 Reactive Lymphs % (Man) 0 % 10/16/16 02:30 Monocytes % (Manual) 3.0 % (0.0-7.3) 10/16/16 02:30 Eosinophils % (Manual) 4.0 % (0.0-4.3) 10/16/16 02:30 Basophils % (Manual) 0 % (0.0-1.8) 10/16/16 02:30 Metamyelocytes % 2.0 % 10/16/16 02:30 Myelocytes % 0 % 10/16/16 02:30 Promyelocytes % 0 % 10/16/16 02:30 Blast Cells % 0 % 10/16/16 02:30 Nucleated RBC % Not Reportable 10/16/16 02:30 Seg Neutrophils # 6.2 K/mm3 (1.8-7.7) 10/15/16 11:28 Seg Neutrophils # Man 7.9 K/mm3 (1.8-7.7) H 10/16/16 02:30 Band Neutrophils # 0.4 K/mm3 10/16/16 02:30 Lymphocytes # (Manual) 2.8 K/mm3 (1.2-5.4) 10/16/16 02:30 Abs React Lymphs (Man) 0.0 K/mm3 10/16/16 02:30 Monocytes # (Manual) 0.4 K/mm3 (0.0-0.8) 10/16/16 02:30 Eosinophils # (Manual) 0.5 K/mm3 (0.0-0.4) H 10/16/16 02:30 Basophils # (Manual) 0.0 K/mm3 (0.0-0.1) 10/16/16 02:30 Metamyelocytes # 0.2 K/mm3 10/16/16 02:30 Myelocytes # 0.0 K/mm3 10/16/16 02:30 Promyelocytes # 0.0 K/mm3 10/16/16 02:30 Blast Cells # 0.0 K/mm3 10/16/16 02:30 WBC Morphology Not Reportable 10/16/16 02:30 Hypersegmented Neuts Not Reportable 10/16/16 02:30 Hyposegmented Neuts Not Reportable 10/16/16 02:30 Hypogranular Neuts Not Reportable 10/16/16 02:30 Smudge Cells Not Reportable 10/16/16 02:30 Toxic Granulation Not Reportable 10/16/16 02:30 Toxic Vacuolation Not Reportable 10/16/16 02:30 Dohle Bodies Not Reportable 10/16/16 02:30 Pelger-Huet Anomaly Not Reportable 10/16/16 02:30 Malik Rods Not Reportable 10/16/16 02:30 Platelet Estimate Consistent w auto 10/16/16 02:30 Clumped Platelets Not Reportable 10/16/16 02:30 Plt Clumps, EDTA Not Reportable 10/16/16 02:30 Large Platelets Few 10/16/16 02:30 Giant Platelets Not Reportable 10/16/16 02:30 Platelet Satelliting Not Reportable 10/16/16 02:30 Plt Morphology Comment Not Reportable 10/16/16 02:30 RBC Morphology Not Reportable 10/16/16 02:30 Dimorphic RBCs Not Reportable 10/16/16 02:30 Polychromasia 1+ 10/16/16 02:30 Hypochromasia 2+ 10/16/16 02:30 Poikilocytosis Not Reportable 10/16/16 02:30 Anisocytosis 2+ 10/16/16 02:30 Microcytosis Not Reportable 10/16/16 02:30 Macrocytosis Not Reportable 10/16/16 02:30 Spherocytes Not Reportable 10/16/16 02:30 Pappenheimer Bodies Not Reportable 10/16/16 02:30 Sickle Cells Few 10/16/16 02:30 Target Cells Rare 10/16/16 02:30 Tear Drop Cells Not Reportable 10/16/16 02:30 Ovalocytes Not Reportable 10/16/16 02:30 Helmet Cells Not Reportable 10/16/16 02:30 [place] Bodies Not Reportable 10/16/16 02:30 [place] Rings Not Reportable 10/16/16 02:30 Humberto Cells Not Reportable 10/16/16 02:30 Bite Cells Not Reportable 10/16/16 02:30 Crenated Cell Not Reportable 10/16/16 02:30 Elliptocytes 1+ 10/16/16 02:30 Acanthocytes (Spur) Not Reportable 10/16/16 02:30 Rouleaux Not Reportable 10/16/16 02:30 Hemoglobin C Crystals Not Reportable 10/16/16 02:30 Schistocytes Not Reportable 10/16/16 02:30 Malaria parasites Not Reportable 10/16/16 02:30 Percent Retic 15.18 % (0.78-2.58) H 10/15/16 11:28 Brady Bodies Not Reportable 10/16/16 02:30 Hem Pathologist Commnt No 10/16/16 02:30 PT 16.7 Sec. (12.2-14.9) H 10/16/16 02:30 INR 1.36 (0.87-1.13) H 10/16/16 02:30 APTT 30.6 Sec. (24.2-36.6) 10/16/16 02:30 Sodium 136 mmol/L (137-145) L 10/16/16 02:30 Potassium 4.3 mmol/L (3.6-5.0) 10/16/16 02:30 Chloride 102.0 mmol/L (98-107) 10/16/16 02:30 Carbon Dioxide 20 mmol/L (22-30) L 10/16/16 02:30 Anion Gap 18 mmol/L 10/16/16 02:30 BUN 18 mg/dL (7-17) H 10/16/16 02:30 Creatinine 1.1 mg/dL (0.7-1.2) 10/16/16 02:30 Estimated GFR > 60 ml/min 10/16/16 02:30 BUN/Creatinine Ratio 16.36 % 10/16/16 02:30 Glucose 122 mg/dL (65-100) H 10/16/16 02:30 Calcium 8.0 mg/dL (8.4-10.2) L 10/16/16 02:30 Total Bilirubin 3.3 mg/dL (0.1-1.2) H 10/16/16 02:30 AST 37 units/L (5-40) 10/16/16 02:30 ALT 26 units/L (7-56) 10/16/16 02:30 Alkaline Phosphatase 57 units/L (35-129) 10/16/16 02:30 Lactate Dehydrogenase 254 units/L (91-180) H 10/16/16 02:30 Total Protein 8.1 g/dL (6.3-8.2) 10/16/16 02:30 Albumin 4.5 g/dL (3.9-5) 10/16/16 02:30 Albumin/Globulin Ratio 1.3 % 10/16/16 02:30 Urine Color Yellow (Yellow) 10/16/16 08:45 Urine Turbidity Clear (Clear) 10/16/16 08:45 Urine pH 5.0 (5.0-7.0) 10/16/16 08:45 Ur Specific [place] 1.010 (1.003-1.030) 10/16/16 08:45 Urine Protein 30 mg/dl mg/dL (Negative) 10/16/16 08:45 Urine Glucose (UA) Neg mg/dL (Negative) 10/16/16 08:45 Urine Ketones Neg mg/dL (Negative) 10/16/16 08:45 Urine Blood Sm (Negative) 10/16/16 08:45 Urine Nitrite Neg (Negative) 10/16/16 08:45 Urine Bilirubin Neg (Negative) 10/16/16 08:45 Urine Urobilinogen < 2.0 mg/dL (<2.0) 10/16/16 08:45 Ur Leukocyte Esterase Neg (Negative) 10/16/16 08:45 Urine WBC (Auto) 2.0 /HPF (0.0-6.0) 10/16/16 08:45 Urine RBC (Auto) 3.0 /HPF (0.0-6.0) 10/16/16 08:45 U Epithel Cells (Auto) 12.0 /HPF (0-13.0) 10/16/16 08:45 Blood Type O POSITIVE 10/15/16 12:05 Antibody Screen Negative 10/15/16 12:05 Crossmatch See Detail 10/15/16 12:05 Pre-Trans GONZALEZ Negative 10/16/16 02:30 Pre-Trans GONZALEZ Poly Negative 10/16/16 02:30 Post-Trans Blood Type O positive 10/16/16 02:30 Post-Trans GONZALEZ Negative 10/16/16 02:30 Post-Trans GONZALEZ Poly Negative 10/16/16 02:30
[2016-10-16] MEDS: FOLVITE PO SCH (15:58)
[2016-10-16] MEDS ORDERED: NACL 0.9% 500 ML 500 ML IV NR (16:00)
[2016-10-16] MEDS: ELAVIL PO SCH (21:46)
--- NOTE | 2016-10-16 22:27 | Consultation ---
History of Present Illness - Reason for Consult Consult date: 10/16/16 - History of Present Illness Patient seen/examined, labs still low h/h. She did not tolerate the blood transfusion, due to what may have been rx to the blood.. Wondered if theblood was properly matched. Patient is known in the past with multiple abs, and usually had to wait for several days before she could be matched. A trial oh heavy blunting of her immune system may be the choice at this time. Past History Past Medical History: anemia, other (patient has sickle cell crisis and anemia hypothyroidism, depression and chronic pain and vitamin D deficiency.) Past Surgical History: cholecystectomy, Other (right ovary removed secondary to ovarian torsion. Port placement 3 has a port in the left chest wall.) Social history: lives with family, full code. denies: smoking, alcohol abuse Medications and Allergies Allergies Allergy/AdvReac Type Severity Reaction Status Date / Time aspirin Allergy Vomiting Verified 12/07/13 09:50 ketorolac tromethamine Allergy Unknown Verified 12/07/13 09:50 [From Toradol] morphine Allergy Shortness Verified 12/07/13 09:50 of Breath pineapple [Pineapple] Allergy Swelling Verified 12/07/13 09:49 Home Medications Medication Instructions Recorded Confirmed Last Taken Type Levothyroxine [Synthroid] 25 mcg PO QAM 04/21/14 08/06/16 08/05/16 History Folic Acid [Folvite] 1 mg PO QDAY #30 tablet 06/27/14 08/06/16 Unknown Rx Ibuprofen [Motrin 800 MG tab] 800 mg PO TID PRN #30 tablet 06/27/14 08/06/16 Unknown Rx Promethazine Dm [Phenergan DM 25 mg PO Q6H PRN 06/14/16 08/06/16 Unknown History 6.25-15 mg/5 ml] Amitriptyline [Elavil] 25 mg PO QHS 08/06/16 08/06/16 Unknown History Cholecalciferol (Vitamin D3) 1 tab PO DAILY 08/06/16 08/06/16 Unknown History Oxycodone HCl 10 mg PO Q4-6H PRN #12 08/15/16 Unknown Rx Active Meds: Active Medications Acetaminophen (Tylenol) 650 mg PO Q4H PRN PRN Reason: Pain MILD(1-3)/Fever >100.5/PARKER Amitriptyline HCl (Elavil) 25 mg PO QHS [facility] Last Admin: 10/16/16 21:46 Dose: 25 mg Bisacodyl (Dulcolax) 10 mg [place] QDAY PRN PRN Reason: Constipation unrelieved by [facility] Cholecalciferol (Vitamin D3) 1,000 unit PO DAILY [facility] Diphenhydramine HCl (Benadryl) 25 mg IV Q6H PRN PRN Reason: Itching Last Admin: 10/16/16 16:38 Dose: 25 mg Folic Acid (Folvite) 1 mg PO QDAY [facility] Last Admin: 10/16/16 15:58 Dose: 1 mg Hydromorphone HCl (Dilaudid) 2 mg IV Q3H PRN PRN Reason: Pain , Severe (7-10) Last Admin: 10/16/16 19:18 Dose: 2 mg Dextrose/Sodium Chloride (D5ns) 1,000 mls @ 125 mls/hr IV DIRECT RAMIREZ Last Admin: 10/16/16 13:37 Dose: 125 mls/hr Sodium Chloride (Nacl 0.9% 500 Ml) 500 mls @ 50 mls/hr IV DIRECT NR Stop: 10/16/16 23:59 Ibuprofen (Motrin) 600 mg PO Q6H PRN PRN Reason: Pain, Mild (1-3) Levothyroxine Sodium (Synthroid) 25 mcg PO QAM [facility] Magnesium Hydroxide (Milk Of Magnesia) 30 ml PO Q4H PRN PRN Reason: Constipation Ondansetron HCl (Zofran) 4 mg IV Q3H PRN PRN Reason: N/V unrelieved by Reglan Last Admin: 10/15/16 23:20 Dose: 4 mg Oxycodone/Acetaminophen (Percocet 5/325) 1 tab PO Q6H PRN PRN Reason: Pain, Moderate (4-6) Zolpidem Tartrate (Ambien) 5 mg PO QHS PRN PRN Reason: Insomnia Review of Systems Constitutional: fatigue, chronic pain Breasts: deferred Musculoskeletal: low back pain Exam - Constitutional Vitals: Temp Pulse Resp BP Pulse Ox 98.9 F 83 18 139/74 98 10/16/16 18:52 10/16/16 18:52 10/16/16 19:48 10/16/16 18:52 10/16/16 15:45 General appearance: Present: mild distress, well-nourished - EENT Eyes: Present: PERRL ENT: hearing intact, clear oral mucosa - Neck Neck: Present: supple, normal ROM - Respiratory Respiratory effort: normal Respiratory: bilateral: CTA - Cardiovascular Heart Sounds: Present: S1 & S2. Absent: rub, click - Extremities Extremities: pulses symmetrical, No edema Peripheral Pulses: within normal limits - Abdominal General gastrointestinal: Present: soft, non-tender, non-distended, normal bowel sounds Female genitourinary: Present: deferred - Rectal Rectal Exam: deferred - Integumentary Integumentary: Present: clear, warm, dry - Musculoskeletal Musculoskeletal: gait normal, strength equal bilaterally - Psychiatric Psychiatric: appropriate mood/affect, intact judgment & insight - Neurologic Neurologic: CNII-XII intact, moves all extremities Results - Labs CBC & Chem 7: 10/16/16 02:30 10/16/16 02:30 Labs: Abnormal lab results 10/15/16 10/16/16 10/16/16 Range/Units 12:05 02:30 02:30 WBC 12.2 H (4.5-11.0) K/mm3 RBC 1.94 L (3.65-5.03) M/mm3 Hgb 6.1 L (10.1-14.3) gm/dl Hct 18.0 L* (30.3-42.9) % RDW 19.5 H (13.2-15.2) % Seg Neutrophils # Man 7.9 H (1.8-7.7) K/mm3 Eosinophils # (Manual) 0.5 H (0.0-0.4) K/mm3 PT (12.2-14.9) Sec. INR (0.87-1.13) Sodium 136 L (137-145) mmol/L Carbon Dioxide 20 L (22-30) mmol/L BUN 18 H (7-17) mg/dL Glucose 122 H (65-100) mg/dL Calcium 8.0 L (8.4-10.2) mg/dL Total Bilirubin 3.3 H (0.1-1.2) mg/dL Lactate Dehydrogenase (91-180) units/L Crossmatch See Detail 04/07/17 04/07/17 Range/Units 02:30 02:30 WBC (4.5-11.0) K/mm3 RBC (3.65-5.03) M/mm3 Hgb (10.1-14.3) gm/dl Hct (30.3-42.9) % RDW (13.2-15.2) % Seg Neutrophils # Man (1.8-7.7) K/mm3 Eosinophils # (Manual) (0.0-0.4) K/mm3 PT 16.7 H (12.2-14.9) Sec. INR 1.36 H (0.87-1.13) Sodium (137-145) mmol/L Carbon Dioxide (22-30) mmol/L BUN (7-17) mg/dL Glucose (65-100) mg/dL Calcium (8.4-10.2) mg/dL Total Bilirubin (0.1-1.2) mg/dL Lactate Dehydrogenase 254 H (91-180) units/L Crossmatch Assessment and Plan - Patient Problems (1) Sickle cell anemia Current Visit: Yes Status: Acute Qualifiers: Sickle-cell associated disorders: S Plan to address problem: transfusion Patient did not tolerate it. a careful reattempt will be done., also may increase fluids until then. (2) Sickle cell pain crisis Current Visit: Yes Status: Acute Plan to address problem: continue pain control. (3) Hypothyroidism Current Visit: Yes Status: Chronic Qualifiers: Hypothyroidism type: acquired Qualified Code(s): E03.9 - Hypothyroidism, unspecified Plan to address problem: monitor level. (4) Anemia requiring transfusions Current Visit: No Status: Acute Plan to address problem: Awaiting blood transfusion. see above.
[2016-10-17] MEDS: DILAUDID IV PRN ×6 (01:55→22:21)
[2016-10-17] MEDS: D5NS 1,000 ML IV SCH ×3 (01:57→18:02)
[2016-10-17] MEDS: BENADRYL IV PRN ×3 (05:02→18:01)
[2016-10-17 05:52] LABS: Basophils % (Auto) 0.4 % (0.0-1.8); Hemoglobin 6.7 gm/dl (10.1-14.3); Mean Corpuscular HGB Conc 34 % (30-34); Mean Corpuscular Hemoglobin 31 pg (28-32); Mean Corpuscular Volume 91 fl (79-97); Platelet Count 434 K/mm3 (140-440); Red Blood Count 2.15 M/mm3 (3.65-5.03); Red Cell Distribution Width 18.7 % (13.2-15.2); White Blood Count 13.6 K/mm3 (4.5-11.0)
[2016-10-17 06:00] LABS: Hematocrit 20.1 % (30.3-42.9)
[2016-10-17 06:02] LABS: Alanine Aminotransferase 22 units/L (7-56); Albumin 4.2 g/dL (3.9-5); Albumin/Globulin Ratio 1.2 %; Alkaline Phosphatase 52 units/L (35-129); Anion Gap 17 mmol/L; Bilirubin,Total 2.4 mg/dL (0.1-1.2); Blood Urea Nitrogen 12 mg/dL (7-17); Calcium 8.9 mg/dL (8.4-10.2); Carbon Dioxide 22 mmol/L (22-30); Chloride 102.9 mmol/L (98-107); Glucose 124 mg/dL (65-100); Potassium 4.3 mmol/L (3.6-5.0); Sodium 138 mmol/L (137-145); Total Protein 7.7 g/dL (6.3-8.2)
[2016-10-17] MEDS: FOLVITE PO SCH (09:14)
[2016-10-17] MEDS: SYNTHROID PO SCH (09:14)
[2016-10-17] MEDS: VITAMIN D3 PO SCH (09:14)
[2016-10-17] MEDS ORDERED: NACL 0.9% 500 ML 500 ML IV ONE (09:51)
[2016-10-17 10:19] LABS: Hemoglobin 6.7 gm/dl (10.1-14.3)
[2016-10-17 10:28] LABS: Hematocrit 19.9 % (30.3-42.9)
--- NOTE | 2016-10-17 14:56 | Progress Note ---
Assessment and Plan Assessment and plan: Sickle cell pain crisis - Pain control Severe anemia 2/2 Sickle cell - Onygbula consult appreciated - Will transfuse her with 1 unit more unit of blood after giving steroid and Benadryl Hypothyroidism - Continue her home dose of levothyroxine Depression - Continue amitriptyline DVT prophylaxis - SCD because of severe anemia Disposition - Continue inpatient care History Interval history: Patient was seen and evaluated this morning, pain is getting better. Patient had transfusion reaction, and tolerated transfusion with steroids, Benadryl. Hospitalist Physical - Physical exam Narrative exam: Not in cardiopulmonary distress. The patient appeared well nourished and normally developed. Vital signs as documented. Head exam is unremarkable. Pale conjunctiva, no scleral icterus . Neck is without jugular venous distension, thyromegaly, or carotid bruits. Lungs are clear to auscultation. Cardiac exam reveals regular rate and Rhythm. First and second heart sounds normal. No murmurs, rubs or gallops. Abdominal exam reveals normal bowel sounds, no masses, no organomegaly and no aortic enlargement. Extremities are nonedematous and both femoral and pedal pulses are normal. LEARNING AND DEVELOPMENT ASSOCIATE: Alert and oriented 3. No focal weakness. - Constitutional Vitals: Temp Pulse Resp BP Pulse Ox 98.5 F 72 16 149/76 100 10/17/16 07:15 10/17/16 07:15 10/17/16 07:15 10/17/16 07:15 10/17/16 07:15 General appearance: Present: mild distress, well-nourished Results - Labs CBC & Chem 7: 10/17/16 10:08 10/17/16 05:05 Labs: Laboratory Last Values WBC 13.6 K/mm3 (4.5-11.0) H 10/17/16 05:05 RBC 2.15 M/mm3 (3.65-5.03) L 10/17/16 05:05 Hgb 6.7 gm/dl (10.1-14.3) L 10/17/16 10:08 Hct 19.9 % (30.3-42.9) L* 10/17/16 10:08 MCV 91 fl (79-97) 10/17/16 05:05 MCH 31 pg (28-32) 10/17/16 05:05 MCHC 34 % (30-34) 10/17/16 05:05 RDW 18.7 % (13.2-15.2) H 10/17/16 05:05 Plt Count 434 K/mm3 (140-440) 10/17/16 05:05 Lymph % (Auto) 13.4 % (13.4-35.0) 10/17/16 05:05 [place] % (Auto) 8.6 % (0.0-7.3) H 10/17/16 05:05 Eos % (Auto) 0.0 % (0.0-4.3) 10/17/16 05:05 Baso % (Auto) 0.4 % (0.0-1.8) 10/17/16 05:05 Lymph # 1.8 K/mm3 (1.2-5.4) 10/17/16 05:05 [place] # 1.2 K/mm3 (0.0-0.8) H 10/17/16 05:05 Eos # 0.0 K/mm3 (0.0-0.4) 10/17/16 05:05 Baso # 0.0 K/mm3 (0.0-0.1) 10/17/16 05:05 Add Manual Diff Complete 10/16/16 02:30 Total Counted 100 10/16/16 02:30 Seg Neutrophils % 77.6 % (40.0-70.0) H 10/17/16 05:05 Seg Neuts % (Manual) 65.0 % (40.0-70.0) 10/16/16 02:30 Band Neutrophils % 3.0 % 10/16/16 02:30 Lymphocytes % (Manual) 23.0 % (13.4-35.0) 10/16/16 02:30 Reactive Lymphs % (Man) 0 % 10/16/16 02:30 Monocytes % (Manual) 3.0 % (0.0-7.3) 10/16/16 02:30 Eosinophils % (Manual) 4.0 % (0.0-4.3) 10/16/16 02:30 Basophils % (Manual) 0 % (0.0-1.8) 10/16/16 02:30 Metamyelocytes % 2.0 % 10/16/16 02:30 Myelocytes % 0 % 10/16/16 02:30 Promyelocytes % 0 % 10/16/16 02:30 Blast Cells % 0 % 10/16/16 02:30 Nucleated RBC % Not Reportable 10/16/16 02:30 Seg Neutrophils # 10.6 K/mm3 (1.8-7.7) H 10/17/16 05:05 Seg Neutrophils # Man 7.9 K/mm3 (1.8-7.7) H 10/16/16 02:30 Band Neutrophils # 0.4 K/mm3 10/16/16 02:30 Lymphocytes # (Manual) 2.8 K/mm3 (1.2-5.4) 10/16/16 02:30 Abs React Lymphs (Man) 0.0 K/mm3 10/16/16 02:30 Monocytes # (Manual) 0.4 K/mm3 (0.0-0.8) 10/16/16 02:30 Eosinophils # (Manual) 0.5 K/mm3 (0.0-0.4) H 10/16/16 02:30 Basophils # (Manual) 0.0 K/mm3 (0.0-0.1) 10/16/16 02:30 Metamyelocytes # 0.2 K/mm3 10/16/16 02:30 Myelocytes # 0.0 K/mm3 10/16/16 02:30 Promyelocytes # 0.0 K/mm3 10/16/16 02:30 Blast Cells # 0.0 K/mm3 10/16/16 02:30 WBC Morphology Not Reportable 10/16/16 02:30 Hypersegmented Neuts Not Reportable 10/16/16 02:30 Hyposegmented Neuts Not Reportable 10/16/16 02:30 Hypogranular Neuts Not Reportable 10/16/16 02:30 Smudge Cells Not Reportable 10/16/16 02:30 Toxic Granulation Not Reportable 10/16/16 02:30 Toxic Vacuolation Not Reportable 10/16/16 02:30 Dohle Bodies Not Reportable 10/16/16 02:30 Pelger-Huet Anomaly Not Reportable 10/16/16 02:30 Malik Rods Not Reportable 10/16/16 02:30 Platelet Estimate Consistent w auto 10/16/16 02:30 Clumped Platelets Not Reportable 10/16/16 02:30 Plt Clumps, EDTA Not Reportable 10/16/16 02:30 Large Platelets Few 10/16/16 02:30 Giant Platelets Not Reportable 10/16/16 02:30 Platelet Satelliting Not Reportable 10/16/16 02:30 Plt Morphology Comment Not Reportable 10/16/16 02:30 RBC Morphology Not Reportable 10/16/16 02:30 Dimorphic RBCs Not Reportable 10/16/16 02:30 Polychromasia 1+ 10/16/16 02:30 Hypochromasia 2+ 10/16/16 02:30 Poikilocytosis Not Reportable 10/16/16 02:30 Anisocytosis 2+ 10/16/16 02:30 Microcytosis Not Reportable 10/16/16 02:30 Macrocytosis Not Reportable 10/16/16 02:30 Spherocytes Not Reportable 10/16/16 02:30 Pappenheimer Bodies Not Reportable 10/16/16 02:30 Sickle Cells Few 10/16/16 02:30 Target Cells Rare 10/16/16 02:30 Tear Drop Cells Not Reportable 10/16/16 02:30 Ovalocytes Not Reportable 10/16/16 02:30 Helmet Cells Not Reportable 10/16/16 02:30 [place] Bodies Not Reportable 10/16/16 02:30 [place] Rings Not Reportable 10/16/16 02:30 [place] Cells Not Reportable 10/16/16 02:30 Bite Cells Not Reportable 10/16/16 02:30 Crenated Cell Not Reportable 10/16/16 02:30 Elliptocytes 1+ 10/16/16 02:30 Acanthocytes (Spur) Not Reportable 10/16/16 02:30 Rouleaux Not Reportable 10/16/16 02:30 Hemoglobin C Crystals Not Reportable 10/16/16 02:30 Schistocytes Not Reportable 10/16/16 02:30 Malaria parasites Not Reportable 10/16/16 02:30 Percent Retic 15.18 % (0.78-2.58) H 10/15/16 11:28 Brady Bodies Not Reportable 10/16/16 02:30 Hem Pathologist Commnt No 10/16/16 02:30 PT 16.7 Sec. (12.2-14.9) H 10/16/16 02:30 INR 1.36 (0.87-1.13) H 10/16/16 02:30 APTT 30.6 Sec. (24.2-36.6) 10/16/16 02:30 Sodium 138 mmol/L (137-145) 10/17/16 05:05 Potassium 4.3 mmol/L (3.6-5.0) 10/17/16 05:05 Chloride 102.9 mmol/L (98-107) 10/17/16 05:05 Carbon Dioxide 22 mmol/L (22-30) 10/17/16 05:05 Anion Gap 17 mmol/L 10/17/16 05:05 BUN 12 mg/dL (7-17) 10/17/16 05:05 Creatinine 0.4 mg/dL (0.7-1.2) L D 10/17/16 05:05 Estimated GFR > 60 ml/min 10/17/16 05:05 BUN/Creatinine Ratio 30.00 % 10/17/16 05:05 Glucose 124 mg/dL (65-100) H 10/17/16 05:05 Calcium 8.9 mg/dL (8.4-10.2) 10/17/16 05:05 Total Bilirubin 2.4 mg/dL (0.1-1.2) H 10/17/16 05:05 AST 27 units/L (5-40) 10/17/16 05:05 ALT 22 units/L (7-56) 10/17/16 05:05 Alkaline Phosphatase 52 units/L (35-129) 10/17/16 05:05 Lactate Dehydrogenase 254 units/L (91-180) H 10/16/16 02:30 Total Protein 7.7 g/dL (6.3-8.2) 10/17/16 05:05 Albumin 4.2 g/dL (3.9-5) 10/17/16 05:05 Albumin/Globulin Ratio 1.2 % 10/17/16 05:05 Urine Color Yellow (Yellow) 10/16/16 08:45 Urine Turbidity Clear (Clear) 10/16/16 08:45 Urine pH 5.0 (5.0-7.0) 10/16/16 08:45 Ur Specific [place] 1.010 (1.003-1.030) 10/16/16 08:45 Urine Protein 30 mg/dl mg/dL (Negative) 10/16/16 08:45 Urine Glucose (UA) Neg mg/dL (Negative) 10/16/16 08:45 Urine Ketones Neg mg/dL (Negative) 10/16/16 08:45 Urine Blood Sm (Negative) 10/16/16 08:45 Urine Nitrite Neg (Negative) 10/16/16 08:45 Urine Bilirubin Neg (Negative) 10/16/16 08:45 Urine Urobilinogen < 2.0 mg/dL (<2.0) 10/16/16 08:45 Ur Leukocyte Esterase Neg (Negative) 10/16/16 08:45 Urine WBC (Auto) 2.0 /HPF (0.0-6.0) 10/16/16 08:45 Urine RBC (Auto) 3.0 /HPF (0.0-6.0) 10/16/16 08:45 U Epithel Cells (Auto) 12.0 /HPF (0-13.0) 10/16/16 08:45 Blood Type O POSITIVE 10/15/16 12:05 Antibody Screen Negative 10/15/16 12:05 Crossmatch See Detail 10/15/16 12:05 Pre-Trans GONZALEZ Negative 10/16/16 02:30 Pre-Trans GONZALEZ Poly Negative 10/16/16 02:30 Post-Trans Blood Type O positive 10/16/16 02:30 Post-Trans GONZALEZ Negative 10/16/16 02:30 Post-Trans GONZALEZ Poly Negative 10/16/16 02:30
[2016-10-17] MEDS: ELAVIL PO SCH (22:21)
--- NOTE | 2016-10-17 23:34 | Consultation ---
History of Present Illness - Reason for Consult Consult date: 10/17/16 - History of Present Illness Patient seen/examined, labs reviewed, case d/w her. She was due for another 1unit of blood. No other issues at this time. Past History Past Medical History: anemia, other (patient has sickle cell crisis and anemia hypothyroidism, depression and chronic pain and vitamin D deficiency.) Past Surgical History: cholecystectomy, Other (right ovary removed secondary to ovarian torsion. Port placement 3 has a port in the left chest wall.) Social history: lives with family, full code. denies: smoking, alcohol abuse Medications and Allergies Allergies Allergy/AdvReac Type Severity Reaction Status Date / Time aspirin Allergy Vomiting Verified 12/07/13 09:50 ketorolac tromethamine Allergy Unknown Verified 12/07/13 09:50 [From Toradol] morphine Allergy Shortness Verified 12/07/13 09:50 of Breath pineapple [Pineapple] Allergy Swelling Verified 12/07/13 09:49 Home Medications Medication Instructions Recorded Confirmed Last Taken Type Levothyroxine [Synthroid] 25 mcg PO QAM 04/21/14 08/06/16 08/05/16 History Folic Acid [Folvite] 1 mg PO QDAY #30 tablet 06/27/14 08/06/16 Unknown Rx Ibuprofen [Motrin 800 MG tab] 800 mg PO TID PRN #30 tablet 06/27/14 08/06/16 Unknown Rx Promethazine Dm [Phenergan DM 25 mg PO Q6H PRN 06/14/16 08/06/16 Unknown History 6.25-15 mg/5 ml] Amitriptyline [Elavil] 25 mg PO QHS 08/06/16 08/06/16 Unknown History Cholecalciferol (Vitamin D3) 1 tab PO DAILY 08/06/16 08/06/16 Unknown History Oxycodone HCl 10 mg PO Q4-6H PRN #12 08/15/16 Unknown Rx Active Meds: Active Medications Acetaminophen (Tylenol) 650 mg PO Q4H PRN PRN Reason: Pain MILD(1-3)/Fever >100.5/PARKER Amitriptyline HCl (Elavil) 25 mg PO QHS [facility]IREZ Last Admin: 10/17/16 22:21 Dose: 25 mg Bisacodyl (Dulcolax) 10 mg [place] QDAY PRN PRN Reason: Constipation unrelieved by [facility] Cholecalciferol (Vitamin D3) 1,000 unit PO DAILY [facility] Last Admin: 10/17/16 09:14 Dose: 1,000 unit Diphenhydramine HCl (Benadryl) 25 mg IV Q6H PRN PRN Reason: Itching Last Admin: 10/17/16 18:01 Dose: 25 mg Folic Acid (Folvite) 1 mg PO QDAY [facility] Last Admin: 10/17/16 09:14 Dose: 1 mg Hydromorphone HCl (Dilaudid) 2 mg IV Q3H PRN PRN Reason: Pain , Severe (7-10) Last Admin: 10/17/16 22:21 Dose: 2 mg Dextrose/Sodium Chloride (D5ns) 1,000 mls @ 125 mls/hr IV DIRECT [facility] Last Admin: 10/17/16 18:02 Dose: 125 mls/hr Ibuprofen (Motrin) 600 mg PO Q6H PRN PRN Reason: Pain, Mild (1-3) Levothyroxine Sodium (Synthroid) 25 mcg PO QAM [facility] Last Admin: 10/17/16 09:14 Dose: 25 mcg Magnesium Hydroxide (Milk Of Magnesia) 30 ml PO Q4H PRN PRN Reason: Constipation Methylprednisolone Sodium Succinate (Solu-Medrol) 80 mg IV Q8H [facility] Last Admin: 10/17/16 12:00 Dose: Not Given Ondansetron HCl (Zofran) 4 mg IV Q3H PRN PRN Reason: N/V unrelieved by Reglan Last Admin: 10/15/16 23:20 Dose: 4 mg Oxycodone/Acetaminophen (Percocet 5/325) 1 tab PO Q6H PRN PRN Reason: Pain, Moderate (4-6) Zolpidem Tartrate (Ambien) 5 mg PO QHS PRN PRN Reason: Insomnia Review of Systems Constitutional: chronic pain Breasts: deferred Exam - Constitutional Vitals: Temp Pulse Resp BP Pulse Ox 98.0 F 80 22 129/81 98 10/17/16 20:01 10/17/16 20:01 10/17/16 20:01 10/17/16 20:01 10/17/16 20:03 General appearance: Present: mild distress, well-nourished - EENT Eyes: Present: PERRL ENT: hearing intact, clear oral mucosa - Neck Neck: Present: supple, normal ROM - Respiratory Respiratory effort: normal Respiratory: bilateral: CTA - Cardiovascular Heart Sounds: Present: S1 & S2. Absent: rub, click - Extremities Extremities: pulses symmetrical, No edema Peripheral Pulses: within normal limits - Abdominal General gastrointestinal: Present: soft, non-tender, non-distended, normal bowel sounds Female genitourinary: Present: deferred - Rectal Rectal Exam: deferred - Integumentary Integumentary: Present: clear, warm, dry - Musculoskeletal Musculoskeletal: gait normal, strength equal bilaterally - Psychiatric Psychiatric: appropriate mood/affect, intact judgment & insight - Neurologic Neurologic: CNII-XII intact, moves all extremities Results - Labs CBC & Chem 7: 10/17/16 10:08 10/17/16 05:05 Labs: Abnormal lab results 10/15/16 10/17/16 10/17/16 Range/Units 12:05 05:05 05:05 WBC 13.6 H (4.5-11.0) K/mm3 RBC 2.15 L (3.65-5.03) M/mm3 Hgb 6.7 L (10.1-14.3) gm/dl Hct 20.1 L (30.3-42.9) % RDW 18.7 H (13.2-15.2) % [place] % (Auto) 8.6 H (0.0-7.3) % [place] # 1.2 H (0.0-0.8) K/mm3 Seg Neutrophils % 77.6 H (40.0-70.0) % Seg Neutrophils # 10.6 H (1.8-7.7) K/mm3 Creatinine 0.4 L D (0.7-1.2) mg/dL Glucose 124 H (65-100) mg/dL Total Bilirubin 2.4 H (0.1-1.2) mg/dL Crossmatch See Detail 10/17/16 Range/Units 10:08 WBC (4.5-11.0) K/mm3 RBC (3.65-5.03) M/mm3 Hgb 6.7 L (10.1-14.3) gm/dl Hct 19.9 L* (30.3-42.9) % RDW (13.2-15.2) % [place] % (Auto) (0.0-7.3) % [place] # (0.0-0.8) K/mm3 Seg Neutrophils % (40.0-70.0) % Seg Neutrophils # (1.8-7.7) K/mm3 Creatinine (0.7-1.2) mg/dL Glucose (65-100) mg/dL Total Bilirubin (0.1-1.2) mg/dL Crossmatch Assessment and Plan - Patient Problems (1) Sickle cell anemia Current Visit: Yes Status: Acute Qualifiers: Sickle-cell associated disorders: S Plan to address problem: transfusion Patient did not tolerate it. a careful reattempt will be done., also may increase fluids until then. Set for one more unit of blood transfusion. (2) Sickle cell pain crisis Current Visit: Yes Status: Acute Plan to address problem: continue pain control. (3) Hypothyroidism Current Visit: Yes Status: Chronic Qualifiers: Hypothyroidism type: acquired Qualified Code(s): E03.9 - Hypothyroidism, unspecified Plan to address problem: monitor level. (4) Anemia requiring transfusions Current Visit: No Status: Acute Plan to address problem: Awaiting blood transfusion. see above. See above.
[2016-10-18] MEDS ORDERED: NACL 0.9% 500 ML 500 ML ONE (00:37)
[2016-10-18] MEDS: DILAUDID IV PRN ×8 (00:58→23:34)
[2016-10-18] MEDS: BENADRYL IV PRN ×4 (01:02→20:25)
[2016-10-18] MEDS: D5NS 1,000 ML IV SCH ×2 (09:49→17:07)
[2016-10-18] MEDS: VITAMIN D3 PO SCH (09:50)
[2016-10-18] MEDS: FOLVITE PO SCH (09:50)
[2016-10-18] MEDS: SYNTHROID PO SCH (09:50)
[2016-10-18 10:21] LABS: Mean Corpuscular HGB Conc 34 % (30-34); Mean Corpuscular Hemoglobin 31 pg (28-32)
[2016-10-18 10:34] LABS: Anion Gap 16 mmol/L; Blood Urea Nitrogen 10 mg/dL (7-17); Calcium 8.8 mg/dL (8.4-10.2); Carbon Dioxide 23 mmol/L (22-30); Chloride 103.4 mmol/L (98-107); Glucose 139 mg/dL (65-100); Potassium 4.7 mmol/L (3.6-5.0); Sodium 138 mmol/L (137-145)
[2016-10-18 10:46] LABS: Hematocrit 27.9 % (30.3-42.9); Hemoglobin 9.4 gm/dl (10.1-14.3); Mean Corpuscular Volume 92 fl (79-97); Platelet Count 448 K/mm3 (140-440); Red Blood Count 3.04 M/mm3 (3.65-5.03); Red Cell Distribution Width 18.1 % (13.2-15.2); White Blood Count 9.6 K/mm3 (4.5-11.0)
--- NOTE | 2016-10-18 12:01 | Progress Note ---
Assessment and Plan Assessment and plan: Sickle cell pain crisis - patient complains pain - will continue IV meds Severe anemia 2/2 Sickle cell - Dr Onygbula consult appreciated - Transfused with 2 units of blood and post transfusion Hemoglobin was 9.2 Hypothyroidism - Continue her home dose of levothyroxine Depression - Continue amitriptyline DVT prophylaxis - SCD because of severe anemia Disposition - will D/C her tomorrow. History Interval history: Patient was seen and evaluated this morning, patient was complaining generalized pain, worse on the back. will give her pain meds and evaluate. Patient had transfusion reaction, and tolerated transfusion with steroids, Benadryl. Hospitalist Physical - Physical exam Narrative exam: Not in cardiopulmonary distress. The patient appeared well nourished and normally developed. Vital signs as documented. Head exam is unremarkable. Pale conjunctiva, no scleral icterus . Neck is without jugular venous distension, thyromegaly, or carotid bruits. Lungs are clear to auscultation. Cardiac exam reveals regular rate and Rhythm. First and second heart sounds normal. No murmurs, rubs or gallops. Abdominal exam reveals normal bowel sounds, no masses, no organomegaly and no aortic enlargement. Extremities are nonedematous and both femoral and pedal pulses are normal. MITIGATION SUPERVISOR: Alert and oriented 3. No focal weakness. - Constitutional Vitals: Temp Pulse Resp BP Pulse Ox 98.3 F 74 16 134/75 100 10/18/16 08:00 10/18/16 08:00 10/18/16 08:00 10/18/16 08:00 10/18/16 06:55 General appearance: Present: mild distress, well-nourished Results - Labs CBC & Chem 7: 10/18/16 10:00 10/18/16 10:00 Labs: Laboratory Last Values WBC 9.6 K/mm3 (4.5-11.0) 10/18/16 10:00 RBC 3.04 M/mm3 (3.65-5.03) L 10/18/16 10:00 Hgb 9.4 gm/dl (10.1-14.3) L 10/18/16 10:00 Hct 27.9 % (30.3-42.9) L D 10/18/16 10:00 MCV 92 fl (79-97) 10/18/16 10:00 MCH 31 pg (28-32) 10/18/16 10:00 MCHC 34 % (30-34) 10/18/16 10:00 RDW 18.1 % (13.2-15.2) H 10/18/16 10:00 Plt Count 448 K/mm3 (140-440) H 10/18/16 10:00 Lymph % (Auto) 13.4 % (13.4-35.0) 10/17/16 05:05 [place] % (Auto) 0.4 % (0.0-7.3) 10/18/16 10:00 Eos % (Auto) 0.0 % (0.0-4.3) 10/17/16 05:05 Baso % (Auto) 0.4 % (0.0-1.8) 10/17/16 05:05 Lymph # 1.8 K/mm3 (1.2-5.4) 10/17/16 05:05 [place] # 1.2 K/mm3 (0.0-0.8) H 10/17/16 05:05 Eos # 0.0 K/mm3 (0.0-0.4) 10/17/16 05:05 Baso # 0.0 K/mm3 (0.0-0.1) 10/17/16 05:05 Add Manual Diff Complete 10/16/16 02:30 Total Counted 100 10/16/16 02:30 Seg Neutrophils % Medical Collections Specialist 10/18/16 10:00 Seg Neuts % (Manual) 65.0 % (40.0-70.0) 10/16/16 02:30 Band Neutrophils % 3.0 % 10/16/16 02:30 Lymphocytes % (Manual) 23.0 % (13.4-35.0) 10/16/16 02:30 Reactive Lymphs % (Man) 0 % 10/16/16 02:30 Monocytes % (Manual) 3.0 % (0.0-7.3) 10/16/16 02:30 Eosinophils % (Manual) 4.0 % (0.0-4.3) 10/16/16 02:30 Basophils % (Manual) 0 % (0.0-1.8) 10/16/16 02:30 Metamyelocytes % 2.0 % 10/16/16 02:30 Myelocytes % 0 % 10/16/16 02:30 Promyelocytes % 0 % 10/16/16 02:30 Blast Cells % 0 % 10/16/16 02:30 Nucleated RBC % Not Reportable 10/16/16 02:30 Seg Neutrophils # 8.8 K/mm3 (1.8-7.7) H 10/18/16 10:00 Seg Neutrophils # Man 7.9 K/mm3 (1.8-7.7) H 10/16/16 02:30 Band Neutrophils # 0.4 K/mm3 10/16/16 02:30 Lymphocytes # (Manual) 2.8 K/mm3 (1.2-5.4) 10/16/16 02:30 Abs React Lymphs (Man) 0.0 K/mm3 10/16/16 02:30 Monocytes # (Manual) 0.4 K/mm3 (0.0-0.8) 10/16/16 02:30 Eosinophils # (Manual) 0.5 K/mm3 (0.0-0.4) H 10/16/16 02:30 Basophils # (Manual) 0.0 K/mm3 (0.0-0.1) 10/16/16 02:30 Metamyelocytes # 0.2 K/mm3 10/16/16 02:30 Myelocytes # 0.0 K/mm3 10/16/16 02:30 Promyelocytes # 0.0 K/mm3 10/16/16 02:30 Blast Cells # 0.0 K/mm3 10/16/16 02:30 WBC Morphology Not Reportable 10/16/16 02:30 Hypersegmented Neuts Not Reportable 10/16/16 02:30 Hyposegmented Neuts Not Reportable 10/16/16 02:30 Hypogranular Neuts Not Reportable 10/16/16 02:30 Smudge Cells Not Reportable 10/16/16 02:30 Toxic Granulation Not Reportable 10/16/16 02:30 Toxic Vacuolation Not Reportable 10/16/16 02:30 Dohle Bodies Not Reportable 10/16/16 02:30 Pelger-Huet Anomaly Not Reportable 10/16/16 02:30 Malik Rods Not Reportable 10/16/16 02:30 Platelet Estimate Consistent w auto 10/16/16 02:30 Clumped Platelets Not Reportable 10/16/16 02:30 Plt Clumps, EDTA Not Reportable 10/16/16 02:30 Large Platelets Few 10/16/16 02:30 Giant Platelets Not Reportable 10/16/16 02:30 Platelet Satelliting Not Reportable 10/16/16 02:30 Plt Morphology Comment Not Reportable 10/16/16 02:30 RBC Morphology Not Reportable 10/16/16 02:30 Dimorphic RBCs Not Reportable 10/16/16 02:30 Polychromasia 1+ 10/16/16 02:30 Hypochromasia 2+ 10/16/16 02:30 Poikilocytosis Not Reportable 10/16/16 02:30 Anisocytosis 2+ 10/16/16 02:30 Microcytosis Not Reportable 10/16/16 02:30 Macrocytosis Not Reportable 10/16/16 02:30 Spherocytes Not Reportable 10/16/16 02:30 Pappenheimer Bodies Not Reportable 10/16/16 02:30 Sickle Cells Few 10/16/16 02:30 Target Cells Rare 10/16/16 02:30 Tear Drop Cells Not Reportable 10/16/16 02:30 Ovalocytes Not Reportable 10/16/16 02:30 Helmet Cells Not Reportable 10/16/16 02:30 [place] Bodies Not Reportable 10/16/16 02:30 [place] Rings Not Reportable 10/16/16 02:30 [place] Cells Not Reportable 10/16/16 02:30 Bite Cells Not Reportable 10/16/16 02:30 Crenated Cell Not Reportable 10/16/16 02:30 Elliptocytes 1+ 10/16/16 02:30 Acanthocytes (Spur) Not Reportable 10/16/16 02:30 Rouleaux Not Reportable 10/16/16 02:30 Hemoglobin C Crystals Not Reportable 10/16/16 02:30 Schistocytes Not Reportable 10/16/16 02:30 Malaria parasites Not Reportable 10/16/16 02:30 Percent Retic 15.18 % (0.78-2.58) H 10/15/16 11:28 Brady Bodies Not Reportable 10/16/16 02:30 Hem Pathologist Commnt No 10/16/16 02:30 PT 16.7 Sec. (12.2-14.9) H 10/16/16 02:30 INR 1.36 (0.87-1.13) H 10/16/16 02:30 APTT 30.6 Sec. (24.2-36.6) 10/16/16 02:30 Sodium 138 mmol/L (137-145) 10/18/16 10:00 Potassium 4.7 mmol/L (3.6-5.0) 10/18/16 10:00 Chloride 103.4 mmol/L (98-107) 10/18/16 10:00 Carbon Dioxide 23 mmol/L (22-30) 10/18/16 10:00 Anion Gap 16 mmol/L 10/18/16 10:00 BUN 10 mg/dL (7-17) 10/18/16 10:00 Creatinine 0.5 mg/dL (0.7-1.2) L 10/18/16 10:00 Estimated GFR > 60 ml/min 10/18/16 10:00 BUN/Creatinine Ratio 20.00 % 10/18/16 10:00 Glucose 139 mg/dL (65-100) H 10/18/16 10:00 Calcium 8.8 mg/dL (8.4-10.2) 10/18/16 10:00 Total Bilirubin 2.4 mg/dL (0.1-1.2) H 10/17/16 05:05 AST 27 units/L (5-40) 10/17/16 05:05 ALT 22 units/L (7-56) 10/17/16 05:05 Alkaline Phosphatase 52 units/L (35-129) 10/17/16 05:05 Lactate Dehydrogenase 254 units/L (91-180) H 10/16/16 02:30 Total Protein 7.7 g/dL (6.3-8.2) 10/17/16 05:05 Albumin 4.2 g/dL (3.9-5) 10/17/16 05:05 Albumin/Globulin Ratio 1.2 % 10/17/16 05:05 Urine Color Yellow (Yellow) 10/16/16 08:45 Urine Turbidity Clear (Clear) 10/16/16 08:45 Urine pH 5.0 (5.0-7.0) 10/16/16 08:45 Ur Specific [place] 1.010 (1.003-1.030) 10/16/16 08:45 Urine Protein 30 mg/dl mg/dL (Negative) 10/16/16 08:45 Urine Glucose (UA) Neg mg/dL (Negative) 10/16/16 08:45 Urine Ketones Neg mg/dL (Negative) 10/16/16 08:45 Urine Blood Sm (Negative) 10/16/16 08:45 Urine Nitrite Neg (Negative) 10/16/16 08:45 Urine Bilirubin Neg (Negative) 10/16/16 08:45 Urine Urobilinogen < 2.0 mg/dL (<2.0) 10/16/16 08:45 Ur Leukocyte Esterase Neg (Negative) 10/16/16 08:45 Urine WBC (Auto) 2.0 /HPF (0.0-6.0) 10/16/16 08:45 Urine RBC (Auto) 3.0 /HPF (0.0-6.0) 10/16/16 08:45 U Epithel Cells (Auto) 12.0 /HPF (0-13.0) 10/16/16 08:45 Blood Type O POSITIVE 10/15/16 12:05 Antibody Screen Negative 10/15/16 12:05 Crossmatch See Detail 10/15/16 12:05 Pre-Trans GONZALEZ Negative 10/16/16 02:30 Pre-Trans GONZALEZ Poly Negative 10/16/16 02:30 Post-Trans Blood Type O positive 10/16/16 02:30 Post-Trans GONZALEZ Negative 10/16/16 02:30 Post-Trans GONZALEZ Poly Negative 10/16/16 02:30 Hemoglobin and hematocrit is improved after transfusion
[2016-10-18 15:23] LABS: Anisocytosis 1+; Basophils % (Manual) 0 % (0.0-1.8); Blastocytes % (Manual) 0 %
[2016-10-18 15:24] LABS: Diff Status Complete; Elliptocytes 1+; Platelet Estimate Consistent w Auto; Sickle Cells 1+
--- NOTE | 2016-10-18 21:31 | Consultation ---
History of Present Illness - Reason for Consult Consult date: 10/18/16 - History of Present Illness Patient seen/examined, labs reviewed, and stable post all the blood transfusion. She is resting ok in bed.Will need to check retic count, and if ok , could be ok for d/c home. She will f/up with me in the clinic. Past History Past Medical History: anemia, other (patient has sickle cell crisis and anemia hypothyroidism, depression and chronic pain and vitamin D deficiency.) Past Surgical History: cholecystectomy, Other (right ovary removed secondary to ovarian torsion. Port placement 3 has a port in the left chest wall.) Social history: lives with family, full code. denies: smoking, alcohol abuse Medications and Allergies Allergies Allergy/AdvReac Type Severity Reaction Status Date / Time aspirin Allergy Vomiting Verified 12/07/13 09:50 ketorolac tromethamine Allergy Unknown Verified 12/07/13 09:50 [From Toradol] morphine Allergy Shortness Verified 12/07/13 09:50 of Breath pineapple [Pineapple] Allergy Swelling Verified 12/07/13 09:49 Home Medications Medication Instructions Recorded Confirmed Last Taken Type Levothyroxine [Synthroid] 25 mcg PO QAM 04/21/14 08/06/16 08/05/16 History Folic Acid [Folvite] 1 mg PO QDAY #30 tablet 06/27/14 08/06/16 Unknown Rx Ibuprofen [Motrin 800 MG tab] 800 mg PO TID PRN #30 tablet 06/27/14 08/06/16 Unknown Rx Promethazine Dm [Phenergan DM 25 mg PO Q6H PRN 06/14/16 08/06/16 Unknown History 6.25-15 mg/5 ml] Amitriptyline [Elavil] 25 mg PO QHS 08/06/16 08/06/16 Unknown History Cholecalciferol (Vitamin D3) 1 tab PO DAILY 08/06/16 08/06/16 Unknown History Oxycodone HCl 10 mg PO Q4-6H PRN #12 08/15/16 Unknown Rx Active Meds: Active Medications Acetaminophen (Tylenol) 650 mg PO Q4H PRN PRN Reason: Pain MILD(1-3)/Fever >100.5/PARKER Amitriptyline HCl (Elavil) 25 mg PO QHS RAMIREZ Last Admin: 10/17/16 22:21 Dose: 25 mg Bisacodyl (Dulcolax) 10 mg MD QDAY PRN PRN Reason: Constipation unrelieved by MOM Cholecalciferol (Vitamin D3) 1,000 unit PO DAILY [facility] Last Admin: 10/18/16 09:50 Dose: 1,000 unit Diphenhydramine HCl (Benadryl) 25 mg IV Q6H PRN PRN Reason: Itching Last Admin: 10/18/16 20:25 Dose: 25 mg Folic Acid (Folvite) 1 mg PO QDAY [facility] Last Admin: 10/18/16 09:50 Dose: 1 mg Hydromorphone HCl (Dilaudid) 2 mg IV Q3H PRN PRN Reason: Pain , Severe (7-10) Last Admin: 10/18/16 20:25 Dose: 2 mg Dextrose/Sodium Chloride (D5ns) 1,000 mls @ 125 mls/hr IV DIRECT [facility] Last Admin: 10/18/16 17:07 Dose: 125 mls/hr Ibuprofen (Motrin) 600 mg PO Q6H PRN PRN Reason: Pain, Mild (1-3) Levothyroxine Sodium (Synthroid) 25 mcg PO QAM [facility] Last Admin: 10/18/16 09:50 Dose: 25 mcg Magnesium Hydroxide (Milk Of Magnesia) 30 ml PO Q4H PRN PRN Reason: Constipation Methylprednisolone Sodium Succinate (Solu-Medrol) 80 mg IV Q8H [facility] Last Admin: 10/18/16 13:00 Dose: 80 mg Ondansetron HCl (Zofran) 4 mg IV Q3H PRN PRN Reason: N/V unrelieved by Reglan Last Admin: 10/15/16 23:20 Dose: 4 mg Oxycodone/Acetaminophen (Percocet 5/325) 1 tab PO Q6H PRN PRN Reason: Pain, Moderate (4-6) Zolpidem Tartrate (Ambien) 5 mg PO QHS PRN PRN Reason: Insomnia Review of Systems Constitutional: chronic pain Breasts: deferred Musculoskeletal: low back pain Exam - Constitutional Vitals: Temp Pulse Resp BP Pulse Ox 99 F 81 16 136/84 95 10/18/16 17:40 10/18/16 17:40 10/18/16 17:40 10/18/16 17:40 10/18/16 19:47 General appearance: Present: mild distress, well-nourished - EENT Eyes: Present: PERRL ENT: hearing intact, clear oral mucosa - Neck Neck: Present: supple, normal ROM - Respiratory Respiratory effort: normal Respiratory: bilateral: CTA - Cardiovascular Heart Sounds: Present: S1 & S2. Absent: rub, click - Extremities Extremities: pulses symmetrical, No edema Peripheral Pulses: within normal limits - Abdominal General gastrointestinal: Present: soft, non-tender, non-distended, normal bowel sounds Female genitourinary: Present: deferred - Rectal Rectal Exam: deferred - Integumentary Integumentary: Present: clear, warm, dry - Musculoskeletal Musculoskeletal: gait normal, strength equal bilaterally - Psychiatric Psychiatric: appropriate mood/affect, intact judgment & insight - Neurologic Neurologic: CNII-XII intact, moves all extremities Results - Labs CBC & Chem 7: 10/18/16 10:00 10/18/16 10:00 Labs: Abnormal lab results 10/15/16 10/18/16 10/18/16 Range/Units 12:05 10:00 10:00 RBC 3.04 L (3.65-5.03) M/mm3 Hgb 9.4 L (10.1-14.3) gm/dl Hct 27.9 L D (30.3-42.9) % RDW 18.1 H (13.2-15.2) % Plt Count 448 H (140-440) K/mm3 Seg Neuts % (Manual) 93.0 H (40.0-70.0) % Lymphocytes % (Manual) 5.0 L (13.4-35.0) % Nucleated RBC % 1.0 H (0.0-0.9) % Seg Neutrophils # 8.8 H (1.8-7.7) K/mm3 Seg Neutrophils # Man 8.9 H (1.8-7.7) K/mm3 Lymphocytes # (Manual) 0.5 L (1.2-5.4) K/mm3 Creatinine 0.5 L (0.7-1.2) mg/dL Glucose 139 H (65-100) mg/dL Crossmatch See Detail Assessment and Plan - Patient Problems (1) Sickle cell anemia Current Visit: Yes Status: Acute Qualifiers: Sickle-cell associated disorders: S Plan to address problem: transfusion Patient did not tolerate it. a careful reattempt will be done., also may increase fluids until then. Set for one more unit of blood transfusion. Finished, and tolerated her transfusion, with minor interuption. the transfusion rx w/up came back negative nontheless (2) Sickle cell pain crisis Current Visit: Yes Status: Acute Plan to address problem: continue pain control. (3) Hypothyroidism Current Visit: Yes Status: Chronic Qualifiers: Hypothyroidism type: acquired Qualified Code(s): E03.9 - Hypothyroidism, unspecified Plan to address problem: monitor level. (4) Anemia requiring transfusions Current Visit: No Status: Acute Plan to address problem: Awaiting blood transfusion. see above. See above. completed.
[2016-10-18] MEDS: ELAVIL PO SCH (22:13)
[2016-10-19] MEDS: D5NS 1,000 ML IV SCH ×2 (03:03→14:14)
[2016-10-19] MEDS: DILAUDID IV PRN ×2 (03:04→09:36)
[2016-10-19] MEDS: BENADRYL IV PRN ×2 (03:04→10:34)
[2016-10-19 05:36] LABS: Hematocrit 25.6 % (30.3-42.9); Hemoglobin 8.3 gm/dl (10.1-14.3)
[2016-10-19] MEDS: VITAMIN D3 PO SCH (10:34)
[2016-10-19] MEDS: FOLVITE PO SCH (10:34)
[2016-10-19] MEDS: SYNTHROID PO SCH (10:34)
--- NOTE | 2016-10-19 13:09 | Progress Note ---
Assessment and Plan Assessment and plan: Sickle cell pain crisis - patient complains pain - D/C the IV dilaudid and bendryl - Start her on pO oxycodone and PO Benadryl - Neon Tube Pumper input appreciated Severe anemia 2/2 Sickle cell - Transfuse with 2 units of blood and hemoglobin hematocrit is holding Hypothyroidism - Continue her home dose of levothyroxine Depression - Continue amitriptyline DVT prophylaxis - SCD because of severe anemia Disposition - D/C her tomorrow. History Interval history: patient still complaining pain. Her hemoglobin hematocrit is stable. Hospitalist Physical - Physical exam Narrative exam: Not in cardiopulmonary distress. The patient appeared well nourished and normally developed. Vital signs as documented. Head exam is unremarkable. [place] conjunctiva, no scleral icterus . Neck is without jugular venous distension, thyromegaly, or carotid bruits. Lungs are clear to auscultation. Cardiac exam reveals regular rate and Rhythm. First and second heart sounds normal. No murmurs, rubs or gallops. Abdominal exam reveals normal bowel sounds, no masses, no organomegaly and no aortic enlargement. Extremities are nonedematous and both femoral and pedal pulses are normal. INVENTORY CONTROL ANALYST: Alert and oriented 3. No focal weakness. - Constitutional Vitals: Temp Pulse Resp BP Pulse Ox 97.1 F L 74 16 131/75 96 10/19/16 07:00 10/19/16 07:00 10/19/16 07:00 10/19/16 07:00 10/19/16 07:00 General appearance: Present: mild distress, well-nourished Results - Labs CBC & Chem 7: 10/19/16 05:00 10/18/16 10:00 Labs: Laboratory Last Values WBC 9.6 K/mm3 (4.5-11.0) 10/18/16 10:00 RBC 3.04 M/mm3 (3.65-5.03) L 10/18/16 10:00 Hgb 8.3 gm/dl (10.1-14.3) L 10/19/16 05:00 Hct 25.6 % (30.3-42.9) L 10/19/16 05:00 MCV 92 fl (79-97) 10/18/16 10:00 MCH 31 pg (28-32) 10/18/16 10:00 MCHC 34 % (30-34) 10/18/16 10:00 RDW 18.1 % (13.2-15.2) H 10/18/16 10:00 Plt Count 448 K/mm3 (140-440) H 10/18/16 10:00 Lymph % (Auto) 13.4 % (13.4-35.0) 10/17/16 05:05 [place] % (Auto) 0.4 % (0.0-7.3) 10/18/16 10:00 Eos % (Auto) 0.0 % (0.0-4.3) 10/17/16 05:05 Baso % (Auto) 0.4 % (0.0-1.8) 10/17/16 05:05 Lymph # 1.8 K/mm3 (1.2-5.4) 10/17/16 05:05 [place] # 1.2 K/mm3 (0.0-0.8) H 10/17/16 05:05 Eos # 0.0 K/mm3 (0.0-0.4) 10/17/16 05:05 Baso # 0.0 K/mm3 (0.0-0.1) 10/17/16 05:05 Add Manual Diff Complete 10/18/16 10:00 Total Counted 100 10/18/16 10:00 Seg Neutrophils % Toll Mechanic 10/18/16 10:00 Seg Neuts % (Manual) 93.0 % (40.0-70.0) H 10/18/16 10:00 Band Neutrophils % 0 % 10/18/16 10:00 Lymphocytes % (Manual) 5.0 % (13.4-35.0) L 10/18/16 10:00 Reactive Lymphs % (Man) 0 % 10/18/16 10:00 Monocytes % (Manual) 1.0 % (0.0-7.3) 10/18/16 10:00 Eosinophils % (Manual) 1.0 % (0.0-4.3) 10/18/16 10:00 Basophils % (Manual) 0 % (0.0-1.8) 10/18/16 10:00 Metamyelocytes % 0 % 10/18/16 10:00 Myelocytes % 0 % 10/18/16 10:00 Promyelocytes % 0 % 10/18/16 10:00 Blast Cells % 0 % 10/18/16 10:00 Nucleated RBC % 1.0 % (0.0-0.9) H 10/18/16 10:00 Seg Neutrophils # 8.8 K/mm3 (1.8-7.7) H 10/18/16 10:00 Seg Neutrophils # Man 8.9 K/mm3 (1.8-7.7) H 10/18/16 10:00 Band Neutrophils # 0.0 K/mm3 10/18/16 10:00 Lymphocytes # (Manual) 0.5 K/mm3 (1.2-5.4) L 10/18/16 10:00 Abs React Lymphs (Man) 0.0 K/mm3 10/18/16 10:00 Monocytes # (Manual) 0.1 K/mm3 (0.0-0.8) 10/18/16 10:00 Eosinophils # (Manual) 0.1 K/mm3 (0.0-0.4) 10/18/16 10:00 Basophils # (Manual) 0.0 K/mm3 (0.0-0.1) 10/18/16 10:00 Metamyelocytes # 0.0 K/mm3 10/18/16 10:00 Myelocytes # 0.0 K/mm3 10/18/16 10:00 Promyelocytes # 0.0 K/mm3 10/18/16 10:00 Blast Cells # 0.0 K/mm3 10/18/16 10:00 WBC Morphology Not Reportable 10/18/16 10:00 Hypersegmented Neuts Not Reportable 10/18/16 10:00 Hyposegmented Neuts Not Reportable 10/18/16 10:00 Hypogranular Neuts Not Reportable 10/18/16 10:00 Smudge Cells Not Reportable 10/18/16 10:00 Toxic Granulation Not Reportable 10/18/16 10:00 Toxic Vacuolation Not Reportable 10/18/16 10:00 Dohle Bodies Not Reportable 10/18/16 10:00 Pelger-Huet Anomaly Not Reportable 10/18/16 10:00 Malik Rods Not Reportable 10/18/16 10:00 Platelet Estimate Consistent w auto 10/18/16 10:00 Clumped Platelets Not Reportable 10/18/16 10:00 Plt Clumps, EDTA Not Reportable 10/18/16 10:00 Large Platelets Not Reportable 10/18/16 10:00 Giant Platelets Not Reportable 10/18/16 10:00 Platelet Satelliting Not Reportable 10/18/16 10:00 Plt Morphology Comment Not Reportable 10/18/16 10:00 RBC Morphology Not Reportable 10/18/16 10:00 Dimorphic RBCs Not Reportable 10/18/16 10:00 Polychromasia Not Reportable 10/18/16 10:00 Hypochromasia Not Reportable 10/18/16 10:00 Poikilocytosis Not Reportable 10/18/16 10:00 Anisocytosis 1+ 10/18/16 10:00 Microcytosis Not Reportable 10/18/16 10:00 Macrocytosis Not Reportable 10/18/16 10:00 Spherocytes Not Reportable 10/18/16 10:00 Pappenheimer Bodies Not Reportable 10/18/16 10:00 Sickle Cells 1+ 10/18/16 10:00 Target Cells Not Reportable 10/18/16 10:00 Tear Drop Cells Not Reportable 10/18/16 10:00 Ovalocytes Not Reportable 10/18/16 10:00 Helmet Cells Not Reportable 10/18/16 10:00 [place] Bodies Not Reportable 10/18/16 10:00 [place] Rings Not Reportable 10/18/16 10:00 [place] Cells Not Reportable 10/18/16 10:00 Bite Cells Not Reportable 10/18/16 10:00 Crenated Cell Not Reportable 10/18/16 10:00 Elliptocytes 1+ 10/18/16 10:00 Acanthocytes (Spur) Not Reportable 10/18/16 10:00 Rouleaux Not Reportable 10/18/16 10:00 Hemoglobin C Crystals Not Reportable 10/18/16 10:00 Schistocytes Not Reportable 10/18/16 10:00 Malaria parasites Not Reportable 10/18/16 10:00 Percent Retic 15.18 % (0.78-2.58) H 10/15/16 11:28 Brady Bodies Not Reportable 10/18/16 10:00 Hem Pathologist Commnt No 10/18/16 10:00 PT 16.7 Sec. (12.2-14.9) H 10/16/16 02:30 INR 1.36 (0.87-1.13) H 10/16/16 02:30 APTT 30.6 Sec. (24.2-36.6) 10/16/16 02:30 Sodium 138 mmol/L (137-145) 10/18/16 10:00 Potassium 4.7 mmol/L (3.6-5.0) 10/18/16 10:00 Chloride 103.4 mmol/L (98-107) 10/18/16 10:00 Carbon Dioxide 23 mmol/L (22-30) 10/18/16 10:00 Anion Gap 16 mmol/L 10/18/16 10:00 BUN 10 mg/dL (7-17) 10/18/16 10:00 Creatinine 0.5 mg/dL (0.7-1.2) L 10/18/16 10:00 Estimated GFR > 60 ml/min 10/18/16 10:00 BUN/Creatinine Ratio 20.00 % 10/18/16 10:00 Glucose 139 mg/dL (65-100) H 10/18/16 10:00 Calcium 8.8 mg/dL (8.4-10.2) 10/18/16 10:00 Total Bilirubin 2.4 mg/dL (0.1-1.2) H 10/17/16 05:05 AST 27 units/L (5-40) 10/17/16 05:05 ALT 22 units/L (7-56) 10/17/16 05:05 Alkaline Phosphatase 52 units/L (35-129) 10/17/16 05:05 Lactate Dehydrogenase 254 units/L (91-180) H 10/16/16 02:30 Total Protein 7.7 g/dL (6.3-8.2) 10/17/16 05:05 Albumin 4.2 g/dL (3.9-5) 10/17/16 05:05 Albumin/Globulin Ratio 1.2 % 10/17/16 05:05 Urine Color Yellow (Yellow) 10/16/16 08:45 Urine Turbidity Clear (Clear) 10/16/16 08:45 Urine pH 5.0 (5.0-7.0) 10/16/16 08:45 Ur Specific [place] 1.010 (1.003-1.030) 10/16/16 08:45 Urine Protein 30 mg/dl mg/dL (Negative) 10/16/16 08:45 Urine Glucose (UA) Neg mg/dL (Negative) 10/16/16 08:45 Urine Ketones Neg mg/dL (Negative) 10/16/16 08:45 Urine Blood Sm (Negative) 10/16/16 08:45 Urine Nitrite Neg (Negative) 10/16/16 08:45 Urine Bilirubin Neg (Negative) 10/16/16 08:45 Urine Urobilinogen < 2.0 mg/dL (<2.0) 10/16/16 08:45 Ur Leukocyte Esterase Neg (Negative) 10/16/16 08:45 Urine WBC (Auto) 2.0 /HPF (0.0-6.0) 10/16/16 08:45 Urine RBC (Auto) 3.0 /HPF (0.0-6.0) 10/16/16 08:45 U Epithel Cells (Auto) 12.0 /HPF (0-13.0) 10/16/16 08:45 Blood Type O POSITIVE 10/15/16 12:05 Antibody Screen Negative 10/15/16 12:05 Crossmatch See Detail 10/15/16 12:05 Pre-Trans GONZALEZ Negative 10/16/16 02:30 Pre-Trans GONZALEZ Poly Negative 10/16/16 02:30 Post-Trans Blood Type O positive 10/16/16 02:30 Post-Trans GONZALEZ Negative 10/16/16 02:30 Post-Trans GONZALEZ Poly Negative 10/16/16 02:30
[2016-10-19] MEDS: PERCOCET 5/325 PO PRN ×2 (15:03→21:40)
[2016-10-19] MEDS: BENADRYL PO PRN (18:44)
[2016-10-19] MEDS: ELAVIL PO SCH (21:31)
--- NOTE | 2016-10-19 23:36 | Consultation ---
History of Present Illness - Reason for Consult Consult date: 10/19/16 - History of Present Illness Patient seen/examined, labs reviewed, patient now on oral med, scheduled for d/ c tomorrow Past History Past Medical History: anemia, other (patient has sickle cell crisis and anemia hypothyroidism, depression and chronic pain and vitamin D deficiency.) Past Surgical History: cholecystectomy, Other (right ovary removed secondary to ovarian torsion. Port placement 3 has a port in the left chest wall.) Social history: lives with family, full code. denies: smoking, alcohol abuse Medications and Allergies Allergies Allergy/AdvReac Type Severity Reaction Status Date / Time aspirin Allergy Vomiting Verified 12/07/13 09:50 ketorolac tromethamine Allergy Unknown Verified 12/07/13 09:50 [From Toradol] morphine Allergy Shortness Verified 12/07/13 09:50 of Breath pineapple [Pineapple] Allergy Swelling Verified 12/07/13 09:49 Home Medications Medication Instructions Recorded Confirmed Last Taken Type Levothyroxine [Synthroid] 25 mcg PO QAM 04/21/14 08/06/16 08/05/16 History Folic Acid [Folvite] 1 mg PO QDAY #30 tablet 06/27/14 08/06/16 Unknown Rx Ibuprofen [Motrin 800 MG tab] 800 mg PO TID PRN #30 tablet 06/27/14 08/06/16 Unknown Rx Promethazine Dm [Phenergan DM 25 mg PO Q6H PRN 06/14/16 08/06/16 Unknown History 6.25-15 mg/5 ml] Amitriptyline [Elavil] 25 mg PO QHS 08/06/16 08/06/16 Unknown History Cholecalciferol (Vitamin D3) 1 tab PO DAILY 08/06/16 08/06/16 Unknown History Oxycodone HCl 10 mg PO Q4-6H PRN #12 08/15/16 Unknown Rx Active Meds: Active Medications Acetaminophen (Tylenol) 650 mg PO Q4H PRN PRN Reason: Pain MILD(1-3)/Fever >100.5/PARKER Amitriptyline HCl (Elavil) 25 mg PO QHS RAMIREZ Last Admin: 10/19/16 21:31 Dose: 25 mg Bisacodyl (Dulcolax) 10 mg IN QDAY PRN PRN Reason: Constipation unrelieved by MOM Cholecalciferol (Vitamin D3) 1,000 unit PO DAILY [facility] Last Admin: 10/19/16 10:34 Dose: 1,000 unit Diphenhydramine HCl (Benadryl) 25 mg PO Q8H PRN PRN Reason: Itching Last Admin: 10/19/16 18:44 Dose: 25 mg Folic Acid (Folvite) 1 mg PO QDAY [facility] Last Admin: 10/19/16 10:34 Dose: 1 mg Ibuprofen (Motrin) 600 mg PO Q6H PRN PRN Reason: Pain, Mild (1-3) Levothyroxine Sodium (Synthroid) 25 mcg PO QAM [facility] Last Admin: 10/19/16 10:34 Dose: 25 mcg Magnesium Hydroxide (Milk Of Magnesia) 30 ml PO Q4H PRN PRN Reason: Constipation Ondansetron HCl (Zofran) 4 mg IV Q3H PRN PRN Reason: N/V unrelieved by Reglan Last Admin: 10/15/16 23:20 Dose: 4 mg Oxycodone/Acetaminophen (Percocet 5/325) 2 tab PO Q6H PRN PRN Reason: Pain, Moderate (4-6) Last Admin: 10/19/16 21:40 Dose: 2 tab Zolpidem Tartrate (Ambien) 5 mg PO QHS PRN PRN Reason: Insomnia Review of Systems Constitutional: chronic pain Breasts: deferred Exam - Constitutional Vitals: Temp Pulse Resp BP Pulse Ox 98.3 F 72 24 142/79 99 10/19/16 20:00 10/19/16 20:00 10/19/16 21:40 10/19/16 20:00 10/19/16 20:00 General appearance: Present: mild distress, well-nourished - EENT Eyes: Present: PERRL ENT: hearing intact, clear oral mucosa - Neck Neck: Present: supple, normal ROM - Respiratory Respiratory effort: normal Respiratory: bilateral: CTA - Cardiovascular Heart Sounds: Present: S1 & S2. Absent: rub, click - Extremities Extremities: pulses symmetrical, No edema Peripheral Pulses: within normal limits - Abdominal General gastrointestinal: Present: soft, non-tender, non-distended, normal bowel sounds Female genitourinary: Present: deferred - Rectal Rectal Exam: deferred - Integumentary Integumentary: Present: clear, warm, dry - Musculoskeletal Musculoskeletal: gait normal, strength equal bilaterally - Psychiatric Psychiatric: appropriate mood/affect, intact judgment & insight - Neurologic Neurologic: CNII-XII intact, moves all extremities Results - Labs CBC & Chem 7: 10/19/16 05:00 10/18/16 10:00 Labs: Abnormal lab results 10/19/16 10/19/16 Range/Units 05:00 13:09 Hgb 8.3 L (10.1-14.3) gm/dl Hct 25.6 L (30.3-42.9) % Percent Retic 8.50 H (0.78-2.58) % Assessment and Plan - Patient Problems (1) Sickle cell anemia Current Visit: Yes Status: Acute Qualifiers: Sickle-cell associated disorders: S Plan to address problem: transfusion Patient did not tolerate it. a careful reattempt will be done., also may increase fluids until then. Set for one more unit of blood transfusion. Finished, and tolerated her transfusion, with minor interuption. the transfusion rx w/up came back negative nontheless (2) Sickle cell pain crisis Current Visit: Yes Status: Acute Plan to address problem: continue pain control. (3) Hypothyroidism Current Visit: Yes Status: Chronic Qualifiers: Hypothyroidism type: acquired Qualified Code(s): E03.9 - Hypothyroidism, unspecified Plan to address problem: monitor level. (4) Anemia requiring transfusions Current Visit: No Status: Acute Plan to address problem: Awaiting blood transfusion. see above. See above. completed.
[2016-10-20] MEDS: PERCOCET 5/325 PO PRN ×2 (03:31→09:45)
[2016-10-20] MEDS: BENADRYL PO PRN ×2 (03:32→12:07)
[2016-10-20 07:31] LABS: Hematocrit 27.4 % (30.3-42.9); Hemoglobin 9.2 gm/dl (10.1-14.3)
[2016-10-20] MEDS: SYNTHROID PO SCH (09:47)
[2016-10-20] MEDS: FOLVITE PO SCH (09:47)
[2016-10-20] MEDS: VITAMIN D3 PO SCH (09:47)
--- NOTE | 2016-10-20 10:11 | Discharge Summary ---
Providers - Providers Date of Admission: 10/15/16 11:52 Attending physician: HUSAM RUIZ MD 10/15/16 11:54 Consult to Physician [CONS] Urgent Consulting Provider: WANDA SIMNO Reason For Exam: sickle cell anemia Place consult to:: phone Notified:: awaiting call back Primary care physician: [employer]CHNICIAN Hospitalization Condition: Serious Hospital course: Sickle cell pain crisis - patient complains pain - D/C the IV dilaudid and bendryl - Start her on pO oxycodone and PO Benadryl - Stereo Equipment Installer input appreciated Severe anemia 2/2 Sickle cell - Transfuse with 2 units of blood and hemoglobin hematocrit is holding Hypothyroidism - Continue her home dose of levothyroxine Depression - Continue amitriptyline DVT prophylaxis - SCD because of severe anemia Disposition - D/C her tomorrow. Disposition: DISCHARGED TO HOME OR SELFCARE Time spent for discharge: 35 minutes Core Measure Documentation - Palliative Care Palliative Care/ Comfort Measures: Not Applicable - Core Measures Any of the following diagnoses?: none Exam - Constitutional Vitals: Temp Pulse Resp BP Pulse Ox 98.9 F 81 20 136/87 99 10/20/16 08:00 10/20/16 08:00 10/20/16 08:00 10/20/16 08:00 10/20/16 08:00 General appearance: Present: no acute distress, well-nourished - EENT Eyes: Present: PERRL ENT: hearing intact, clear oral mucosa - Neck Neck: Present: supple, normal ROM - Respiratory Respiratory effort: normal Respiratory: bilateral: CTA - Cardiovascular Heart Sounds: Present: S1 & S2. Absent: rub, click - Extremities Extremities: pulses symmetrical, No edema Peripheral Pulses: within normal limits - Abdominal General gastrointestinal: Present: soft, non-tender, non-distended, normal bowel sounds Female genitourinary: Present: normal - Integumentary Integumentary: Present: clear, warm, dry - Musculoskeletal Musculoskeletal: gait normal, strength equal bilaterally - Psychiatric Psychiatric: appropriate mood/affect, intact judgment & insight - Neurologic Neurologic: CNII-XII intact, moves all extremities Plan Follow up with: PRIMARY CARE, [Primary Care Provider] - 3-5 Days Prescriptions: oxyCODONE /ACETAMINOPHEN [Percocet 5/325 mg] 2 tab PO Q6H PRN #60 tablet PRN Reason: Pain, Moderate (4-6)
[2016-10-20] MEDS ORDERED: DILAUDID PO ONE (11:35)
[2016-10-20] MEDS ORDERED: FLUSH HEPARIN IV ONE (12:09)
[2016-10-20 13:13] VITALS: BP 117/78
== END 2016-10-20 13:27 | disposition home or self-care (01) | DRG 812 ==
LOC: ED 09:28 → 3A 11:52
PROVIDERS: ADMIT Internal Medicine; ATTEND Internal Medicine
PROC: 30233N1 Transfusion of Nonautologous Red Blood Cells into Peripheral Vein, Percutaneous Approach (ICD-10-PCS; principal; 2016-10-16)
DX: D57.00 Hb-SS disease with crisis, unspecified (principal); E03.9 Hypothyroidism, unspecified; E55.9 Vitamin D deficiency, unspecified; F32.9 Major depressive disorder, single episode, unspecified; D64.9 Anemia, unspecified; G89.29 Other chronic pain; M19.90 Unspecified osteoarthritis, unspecified site; Z88.6 Allergy status to analgesic agent; Z88.5 Allergy status to narcotic agent; Z91.018 Allergy to other foods; Z90.49 Acquired absence of other specified parts of digestive tract; Z79.899 Other long term (current) drug therapy
CPT/HCPCS: 36415; 36430; 71010; 80048; 80053; 81003; 81015; 83615; 85007; 85014; 85018; 85025; 85045; 85610; 85660; 85730; 86850; 86900; 86901; 86922; 96374; 96375; J1170; J1200; J1642; J2405; J2930; J7030; J7040; J7042; P9016

== ENCOUNTER 2017-01-03 15:57 | Emergency (ER) | payer OTHER ==
[2017-01-03 16:05] VITALS: BP 130/91
[2017-01-03] MEDS ORDERED: D5NS 0.2% 1,000 ML IV SCH (17:00)
== END 2017-01-03 16:30 | disposition left against medical advice (07) ==
LOC: ED 15:57
DX: D57.1 Sickle-cell disease without crisis (principal); Z53.21 Procedure and treatment not carried out due to patient leaving prior to being seen by health care provider

== ENCOUNTER 2017-03-01 08:17 | Emergency (ER) | payer OTHER ==
[2017-03-01] MEDS ORDERED: D5NS 0.2% 1,000 ML IV SCH (09:00)
[2017-03-01] MEDS ORDERED: DILAUDID ONE ×3 (21:36→23:17)
[2017-03-01] MEDS ORDERED: ZOFRAN ODT ONE (21:37)
[2017-03-01] MEDS ORDERED: DILAUDID IM ONE ×3 (21:38→23:14)
[2017-03-01] MEDS ORDERED: BENADRYL PO ONE ×2 (21:38)
[2017-03-01] MEDS ORDERED: ZOFRAN ODT PO ONE (21:38)
--- NOTE | 2017-03-01 21:39 | Emergency Department Report ---
ED General Adult HPI - General Chief complaint: Sickle Cell Crisis Stated complaint: SICKLE CELL CRISIS Time Seen by Provider: 03/01/17 21:32 Source: patient, RN notes reviewed, old records reviewed Mode of arrival: Ambulatory Limitations: No Limitations - History of Present Illness Initial comments: This is a 46-year-old female. She has a past medical history of sickle cell disease. Past medical history also includes iron overload, hypothyroidism, symptomatic anemia. The patient presents to the ER with her typical complaint of sickle cell disease. She reports pain in her bilateral upper and lower extremities, back. No fevers or chills. No chest pain. Chronic shortness of breath which is not a new, worsened nor different. She denies cough, irritative and obstructive urinary symptoms. She further reports that she has no irritative or obstructive urinary symptoms. pain is Improved with hydromorphone. -: Gradual Location: back, pelvis, left, right, upper extremity, lower extremity Quality: burning, stabbing, aching Consistency: constant Improves with: medication, rest Worsens with: movement Associated Symptoms: weakness - Related Data Home Medications Medication Instructions Recorded Confirmed Last Taken Cholecalciferol (Vitamin D3) 1 tab PO DAILY 08/06/16 03/01/17 Unknown Previous Rx's Medication Instructions Recorded Last Taken Type Folic Acid [Folvite] 1 mg PO QDAY #30 tablet 06/27/14 Unknown Rx Amitriptyline [Elavil] 25 mg PO QHS #30 tablet 12/27/16 Unknown Rx Levothyroxine [Synthroid] 50 mcg PO QAM #30 tablet 12/27/16 Unknown Rx oxyCODONE /ACETAMINOPHEN [Percocet 1 tab PO Q6H PRN #30 tablet 12/27/16 Unknown Rx 5/325 mg] Oxycodone HCl/Acetaminophen 1 each PO Q6HR PRN #20 tablet 03/02/17 Unknown Rx [Percocet 10/325 mg] Promethazine [Phenergan TAB] 25 mg PO Q6HR PRN #20 tab 03/02/17 Unknown Rx Allergies Allergy/AdvReac Type Severity Reaction Status Date / Time aspirin Allergy Vomiting Verified 12/07/13 09:50 ketorolac tromethamine Allergy Unknown Verified 12/07/13 09:50 [From Toradol] morphine Allergy Shortness Verified 12/07/13 09:50 of Breath pineapple [Pineapple] Allergy Swelling Verified 12/07/13 09:49 ED Review of Systems ROS: Stated complaint: SICKLE CELL CRISIS Other details as noted in HPI Constitutional: denies: malaise, weakness ENT: denies: epistaxis Respiratory: denies: cough Cardiovascular: denies: palpitations Gastrointestinal: denies: abdominal pain Genitourinary: denies: urgency, dysuria Musculoskeletal: back pain, arthralgia, myalgia Skin: denies: lesions Neurological: weakness Psychiatric: anxiety ED Past Medical Hx - Past Medical History Previous Medical History?: Yes Hx Hypertension: No Hx Congestive Heart Failure: Yes Hx Diabetes: No Hx Deep Vein Thrombosis: (?) Hx Sickle Cell Disease: Yes Hx Arthritis: Yes Hx Asthma: No Hx COPD: No Hx HIV: No Additional medical history: ANEMIA (Blood transfusion), Hypothyroid, Left chest port - Surgical History Past Surgical History?: Yes Hx Pacemaker: No Hx Internal Defibrillator: No Hx Cholecystectomy: Yes Additional Surgical History: right ovary removed secondary to ovarian torsion. port placement x 3, port left chest wall - Social History Smoking Status: Never Smoker Substance Use Type: None - Medications Home Medications: Home Medications Medication Instructions Recorded Confirmed Last Taken Type Folic Acid [Folvite] 1 mg PO QDAY #30 tablet 06/27/14 03/01/17 Unknown Rx Cholecalciferol (Vitamin D3) 1 tab PO DAILY 08/06/16 03/01/17 Unknown History Amitriptyline [Elavil] 25 mg PO QHS #30 tablet 12/27/16 03/01/17 Unknown Rx Levothyroxine [Synthroid] 50 mcg PO QAM #30 tablet 12/27/16 03/01/17 Unknown Rx oxyCODONE /ACETAMINOPHEN [Percocet 1 tab PO Q6H PRN #30 tablet 12/27/16 Unknown Rx 5/325 mg] Oxycodone HCl/Acetaminophen 1 each PO Q6HR PRN #20 tablet 03/02/17 Unknown Rx [Percocet 10/325 mg] Promethazine [Phenergan TAB] 25 mg PO Q6HR PRN #20 tab 03/02/17 Unknown Rx ED Physical Exam - General Limitations: No Limitations General appearance: alert, in no apparent distress - Head Head exam: Present: atraumatic, normocephalic - Eye Eye exam: Present: normal appearance, PERRL, EOMI, other (visual acuity intact to finger counting, color perception, reading at a close distance). Absent: nystagmus - ENT ENT exam: Present: normal exam, normal orophraynx, mucous membranes moist, normal external ear exam - Neck Neck exam: Present: normal inspection, full ROM. Absent: tenderness, meningismus - Respiratory Respiratory exam: Present: normal lung sounds bilaterally, chest wall tenderness. Absent: respiratory distress, wheezes, rales, rhonchi, stridor - Cardiovascular Cardiovascular Exam: Present: normal rhythm, tachycardia, normal heart sounds. Absent: systolic murmur, diastolic murmur, rubs, gallop - GI/Abdominal GI/Abdominal exam: Present: soft, normal bowel sounds. Absent: distended, tenderness, guarding, rebound, rigid, pulsatile mass - Extremities Exam Extremities exam: Present: normal inspection, full ROM, tenderness, normal capillary refill, other (anterior tibial tenderness. The compartments are soft. 2+ pulses are noted in 4 extremities). Absent: pedal edema, joint swelling - Back Exam Back exam: Present: normal inspection, tenderness, paraspinal tenderness - Neurological Exam Neurological exam: Present: alert, oriented X3, other (Extraocular movements intact. Tongue midline. No facial droop. Facial sensation intact to light touch in the V1, V2, V3 distribution bilaterally. 5 and 5 strength in 4 extremities.. Sensation is intact to light touch in 4 extremities.). Absent: motor sensory deficit - Psychiatric Psychiatric exam: Present: anxious - Skin Skin exam: Present: warm, dry, intact, normal color. Absent: rash ED Course Vital Signs 03/01/17 03/01/17 03/01/17 08: 22:25 22:33 Temperature 99.4 F 98.3 F Pulse Rate 101 H 109 H Respiratory 18 18 19 Rate Blood Pressure 131/82 Blood Pressure 135/95 [Left] O2 Sat by Pulse 95 99 99 Oximetry ED Medical Decision Making - Lab Data Vital Signs 03/01/17 03/01/17 03/01/17 08:21 22:25 22:33 Temperature 99.4 F 98.3 F Pulse Rate 101 H 109 H Respiratory 18 18 19 Rate Blood Pressure 131/82 Blood Pressure 135/95 [Left] O2 Sat by Pulse 95 99 99 Oximetry - Radiology Data Radiology results: image reviewed interpreted by me: X-ray of the chest is negative for acute disease. Left-sided thoracic wall port is noted. - Medical Decision Making Differential diagnosis: Sickle cell crisis Assessment and plan: 46-year-old female with probable simple sickle cell crisis exacerbation. The patient is treated aggressively with 3 rounds of intramuscular hydromorphone. Her pain is improved, she feels somewhat improved , and reports that she is ready to go home. She denies cough, fever, irritative and obstructive urinary symptoms. Therefore, I don't believe laboratory studies are necessary. She will be discharged with oxycodone tens as per her request. Critical care attestation.: If time is entered above; I have spent that time in minutes in the direct care of this critically ill patient, excluding procedure time. ED Disposition Clinical Impression: Sickle cell pain crisis Disposition: DC-01 TO HOME OR SELFCARE Is pt being admited?: No Does the pt Need Aspirin: No Condition: Good Instructions: Sickle Cell Crisis (ED) Additional Instructions: Take the pain medication as directed. Follow up with her primary care doctor or preventive medicine specialist within the next 5-7 days. Return to the ER right away with hip pain, worsening pain, migration of pain, fevers, chills, chest pain, shortness of breath, confusion, intractable nausea or vomiting, inability to tolerate liquid feeds. Referrals: PRIMARY CARE, [Primary Care Provider] - 3-5 Days WANDA SIMON DO [Staff Physician] - 3-5 Days
[2017-03-02 00:54] VITALS: BP 138/92
--- NOTE | 2017-03-02 07:59 | XRay Report ---
Single view chest: History: Cough. Findings: Borderline cardiomegaly. Stable left Port-A-Cath. No consolidation, pneumothorax or pleural effusion. Impression: No acute cardiopulmonary findings.
== END 2017-03-02 00:53 | disposition home or self-care (01) ==
LOC: ED 08:17
DX: D57.00 Hb-SS disease with crisis, unspecified (principal)
CPT/HCPCS: 71010; 96372; 99284; J1170; Q0162

== ENCOUNTER 2017-07-30 22:05 | Emergency (ER) | payer OTHER ==
[2017-07-30] MEDS ORDERED: D5NS 0.2% 1,000 ML IV SCH (23:00)
[2017-07-31 07:26] LABS: Hemoglobin 7.7 gm/dl (10.1-14.3); Mean Corpuscular HGB Conc 34 % (30-34); Mean Corpuscular Hemoglobin 29 pg (28-32); Mean Corpuscular Volume 86 fl (79-97); Platelet Count 546 K/mm3 (140-440); Red Blood Count 2.67 M/mm3 (3.65-5.03); Red Cell Distribution Width 18.1 % (13.2-15.2)
[2017-07-31] MEDS ORDERED: DILAUDID IV ONE ×3 (08:45→11:26)
[2017-07-31] MEDS ORDERED: BENADRYL IV PRN (08:45)
[2017-07-31] MEDS ORDERED: ZOFRAN IV ONE (08:45)
--- NOTE | 2017-07-31 08:50 | Emergency Department Report ---
HPI - General Chief Complaint: Sickle Cell Crisis Time Seen by Provider: 07/31/17 08:40 - HPI HPI: Room 1 The patient is a 46-year-old female presenting with a chief complaint of sickle cell pain. The patient states for the past 2 days she has hurt "all over" with pain that is consistent with her sickle cell pain crises. The patient also admits to having a "cold" for the past week which includes a cough productive of sputum and occasional rhinorrhea. The patient states she is on the tail end of her "cold"as her symptoms have been improving. The patient gives her pain a score of 10/10 Location: All over Duration: 2 days Quality: Sickle cell pain Severity: 10/10 Modifying factors: [see above] Context: [see above] Mode of transportation: [not driving] ED Past Medical Hx - Past Medical History Hx Congestive Heart Failure: Yes Hx Deep Vein Thrombosis: (?) Hx Sickle Cell Disease: Yes Hx Arthritis: Yes Additional medical history: ANEMIA (Blood transfusion), Hypothyroid, Left chest port - Surgical History Hx Cholecystectomy: Yes Additional Surgical History: right ovary removed secondary to ovarian torsion. port placement x 3, port left chest wall - Family History Family history: no significant - Social History Smoking Status: Never Smoker Substance Use Type: None (denies illicit drug use) - Medications Home Medications: Home Medications Medication Instructions Recorded Confirmed Last Taken Type Folic Acid [Folvite] 1 mg PO QDAY #30 tablet 06/27/14 03/01/17 Unknown Rx Cholecalciferol (Vitamin D3) 1 tab PO DAILY 08/06/16 03/01/17 Unknown History Amitriptyline [Elavil] 25 mg PO QHS #30 tablet 12/27/16 03/01/17 Unknown Rx Levothyroxine [Synthroid] 50 mcg PO QAM #30 tablet 12/27/16 03/01/17 Unknown Rx oxyCODONE /ACETAMINOPHEN [Percocet 1 tab PO Q6H PRN #30 tablet 12/27/16 Unknown Rx 5/325 mg] Promethazine [Phenergan TAB] 25 mg PO Q6HR PRN #20 tab 03/02/17 Unknown Rx Azithromycin [Zithromax Z-CYNTHIA] 0 mg PO DAILY #6 tab 07/31/17 Unknown Rx Oxycodone HCl/Acetaminophen 1 each PO Q6HR PRN #20 tablet 07/31/17 Unknown Rx [Percocet 10/325 mg] ED Review of Systems ROS: Stated complaint: SICKLE CELL CRISIS Other details as noted in HPI Constitutional: fever ENT: other (rhinorrhea) Respiratory: cough Hematological/Lymphatic: other (sickle cell pain crisis) Physical Exam - Physical Exam Vital Signs: Vital Signs 07/30/17 22:35 Temperature 99.2 F Pulse Rate 104 H Respiratory 20 Rate Blood Pressure 139/85 [Left] Physical Exam: GENERAL: The patient is well-developed well-nourished female lying on stretcher appearing to be in mild discomfort. [] HEENT: Normocephalic. Atraumatic. Extraocular motions are intact. Patient has moist mucous membranes. NECK: Supple. Trachea midline CHEST/LUNGS: Clear to auscultation. There is no respiratory distress noted. Occasional cough HEART/CARDIOVASCULAR: Regular. There is no tachycardia. There is no gallop rub or murmur. ABDOMEN: Abdomen is soft, nontender. Patient has normal bowel sounds. There is no abdominal distention. SKIN: There is no rash. There is no edema. There is no diaphoresis. NEURO: The patient is awake, alert, and oriented. The patient is cooperative. The patient has normal speech MUSCULOSKELETAL: There is no evidence of acute injury. ED Course Vital Signs 07/30/17 22:35 Temperature 99.2 F Pulse Rate 104 H Respiratory 20 Rate Blood Pressure 139/85 [Left] - Reevaluation(s) Reevaluation #1: 07/31/17 11:26 Patient improved states that she would prefer to go home if possible ED Medical Decision Making - Lab Data Result diagrams: 07/31/17 07:06 Laboratory Tests 07/31/17 07:06 WBC 16.2 H RBC 2.67 L Hgb 7.7 L Hct 23.0 L MCV 86 MCH 29 MCHC 34 RDW 18.1 H Plt Count 546 H Lymph # Rock Picker Percent Retic 11.61 H - Radiology Data Radiology results: image reviewed (chest x-ray) interpreted by me: Chest [id number] left lower lobe atelectasis. No definite focal infiltrates or pneumothorax - Differential Diagnosis sickle cell pain crisis, pneumonia, URI, bronchitis Critical care attestation.: If time is entered above; I have spent that time in minutes in the direct care of this critically ill patient, excluding procedure time. ED Disposition Clinical Impression: Sickle cell pain crisis, Bronchitis Disposition: DC-01 TO HOME OR SELFCARE Is pt being admited?: No Does the pt Need Aspirin: No Condition: Stable Instructions: Sickle Cell Crisis (ED), Chronic Bronchitis (ED) Additional Instructions: Return to the emergency department immediately should you develop worsening symptoms, fever, inability to tolerate food or liquid or any other concerns. Prescriptions: Azithromycin [Zithromax Z-CYNTHIA] 0 mg PO DAILY #6 tab Oxycodone HCl/Acetaminophen [Percocet 10/325 mg] 1 each PO Q6HR PRN #20 tablet PRN Reason: Pain Referrals: WANDA SIMON DO [Staff Physician] - 3-5 Days Time of Disposition: 11:28
--- NOTE | 2017-07-31 09:33 | XRay Report ---
AP CHEST: HISTORY: Cough AP view of the chest demonstrates a normal mediastinal and cardiac contour with clear lungs and normal bony and soft tissue structures. Right [id number] and minor linear scarring in the lingula are unchanged since 03/01/17 IMPRESSION: No acute cardiopulmonary process identified.
[2017-07-31] MEDS ORDERED: FLUSH HEPARIN IV ONE (11:58)
[2017-07-31 12:09] LABS: Basophils % (Manual) 0 % (0.0-1.8); Total Cells Counted 100
[2017-07-31 12:10] LABS: Sickle Cells 1+
[2017-07-31 12:11] VITALS: BP 113/81
[2017-07-31 12:11] LABS: Large Platelets 1+; Platelet Estimate Consistent w Auto; Target Cells Few
== END 2017-07-31 12:33 | disposition home or self-care (01) ==
LOC: ED 22:05
DX: D57.00 Hb-SS disease with crisis, unspecified (principal); J40 Bronchitis, not specified as acute or chronic; M19.90 Unspecified osteoarthritis, unspecified site; Z88.6 Allergy status to analgesic agent; Z88.5 Allergy status to narcotic agent; Z91.018 Allergy to other foods
CPT/HCPCS: 36415; 71045; 85007; 85025; 85045; 96374; 96375; 96376; 99284; J1170; J1200; J1642; J2405

== ENCOUNTER 2017-11-23 16:11 | Inpatient (IN) | payer OTHER ==
[2017-11-23 16:51] LABS: Hematocrit 21.2 % (30.3-42.9); Hemoglobin 7.1 gm/dl (10.1-14.3); Mean Corpuscular HGB Conc 34 % (30-34); Mean Corpuscular Hemoglobin 35 pg (28-32); Mean Corpuscular Volume 103 fl (79-97); Platelet Count 526 K/mm3 (140-440); Red Blood Count 2.05 M/mm3 (3.65-5.03)
[2017-11-23 16:52] LABS: Red Cell Distribution Width 30.9 % (13.2-15.2)
[2017-11-23 17:16] LABS: BUN/Creatinine Ratio 18; Blood Urea Nitrogen 11 mg/dL (7-17); Calcium 9.8 mg/dL (8.4-10.2); Hemolysis Index 50
[2017-11-23 17:38] LABS: Basophils % (Manual) 0 % (0.0-1.8); Total Cells Counted 100
[2017-11-23 17:39] LABS: Large Platelets 1+; Platelet Estimate Appears Increased; Sickle Cells 2+
[2017-11-23 17:40] LABS: Dimorphic RBC Yes; Macrocytosis 1+; Target Cells 1+
[2017-11-24] MEDS ORDERED: ZOFRAN IV ONE (00:08)
[2017-11-24] MEDS ORDERED: DILAUDID IV ONE ×2 (00:08→01:13)
[2017-11-24] MEDS ORDERED: NACL 0.9% 1000 ML 1,000 ML IV ONE (00:08)
--- NOTE | 2017-11-24 00:10 | Emergency Department Report ---
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 The patient states that she was in her usual state of health when she began to experience her sickle cell pain all over her body. She states that it also radiates into her back and chest area. Her last sickle cell crisis was roughly 1 month ago. She has required hospitalizations in the past for her sickle cell episodes. -: Gradual, days(s) (1) Location: chest, back, upper extremity, lower extremity Radiation: other (entire body) Consistency: constant Improves with: none Worsens with: none Associated Symptoms: denies other symptoms - Related Data Home Medications Medication Instructions Recorded Confirmed Last Taken Cholecalciferol (Vitamin D3) 1 tab PO DAILY 08/06/16 09/06/17 09/06/17 09:00 Previous Rx's Medication Instructions Recorded Last Taken Type Folic Acid [Folvite] 1 mg PO QDAY #30 tablet 06/27/14 09/06/17 09:00 Rx Amitriptyline [Elavil] 25 mg PO QHS #30 tablet 12/27/16 09/05/17 22:00 Rx oxyCODONE /ACETAMINOPHEN [Percocet 1 tab PO Q6H PRN #30 tablet 12/27/16 22:00 Rx 5/325 mg] Promethazine [Phenergan TAB] 25 mg PO Q6HR PRN #20 tab 03/02/17 09/03/17 22:00 Rx Oxycodone HCl/Acetaminophen 1 each PO Q6HR PRN #20 tablet 07/31/17 Unknown Rx [Percocet 10/325 mg] Levothyroxine [Synthroid] 100 mcg PO QAM #120 tablet 09/11/17 Unknown Rx Allergies Allergy/AdvReac Type Severity Reaction Status Date / Time aspirin Allergy Vomiting Verified 12/07/13 09:50 ketorolac tromethamine Allergy Unknown Verified 12/07/13 09:50 [From Toradol] morphine Allergy Shortness Verified 12/07/13 09:50 of Breath pineapple [Pineapple] Allergy Swelling Verified 12/07/13 09:49 ED Review of Systems ROS: Stated complaint: SICKLE CELL Other details as noted in HPI Comment: All other systems reviewed and negative Constitutional: see HPI Eyes: as per HPI ENT: as per HPI Respiratory: see HPI Cardiovascular: as per HPI Endocrine: see HPI Gastrointestinal: as per HPI Genitourinary: as per HPI Musculoskeletal: as per HPI Skin: as per HPI Neurological: as per HPI Psychiatric: as per HPI Hematological/Lymphatic: as per HPI ED Past Medical Hx - Past Medical History Hx Hypertension: No Hx Congestive Heart Failure: Yes Hx Diabetes: No Hx Deep Vein Thrombosis: (?) Hx Sickle Cell Disease: Yes Hx Arthritis: Yes Hx Asthma: No Hx COPD: Yes Hx HIV: No Additional medical history: ANEMIA (Blood transfusion), Hypothyroid, Left chest port - Surgical History Hx Pacemaker: No Hx Internal Defibrillator: No Hx Cholecystectomy: Yes Additional Surgical History: right ovary removed secondary to ovarian torsion. port placement x 3, port left chest wall - Social History Smoking Status: Never Smoker Substance Use Type: None - Medications Home Medications: Home Medications Medication Instructions Recorded Confirmed Last Taken Type Folic Acid [Folvite] 1 mg PO QDAY #30 tablet 06/27/14 09/06/17 09/06/17 09:00 Rx Cholecalciferol (Vitamin D3) 1 tab PO DAILY 08/06/16 09/06/17 09/06/17 09:00 History Amitriptyline [Elavil] 25 mg PO QHS #30 tablet 12/27/16 09/06/17 09/05/17 22:00 Rx oxyCODONE /ACETAMINOPHEN [Percocet 1 tab PO Q6H PRN #30 tablet 12/27/1609/03/17 22:00 Rx 5/325 mg] Promethazine [Phenergan TAB] 25 mg PO Q6HR PRN #20 tab 03/02/17 09/06/17 22:00 Rx Oxycodone HCl/Acetaminophen 1 each PO Q6HR PRN #20 tablet 07/31/17 09/06/17 Unknown Rx [Percocet 10/325 mg] Levothyroxine [Synthroid] 100 mcg PO QAM #120 tablet 09/11/17 Unknown Rx ED Physical Exam - General Limitations: No Limitations General appearance: alert, in distress (severe) - Head Head exam: Present: atraumatic, normocephalic - Eye Eye exam: Present: normal appearance, PERRL, EOMI - ENT ENT exam: Present: normal exam - Neck Neck exam: Present: normal inspection - Respiratory Respiratory exam: Present: normal lung sounds bilaterally - Cardiovascular Cardiovascular Exam: Present: regular rate, normal heart sounds - GI/Abdominal GI/Abdominal exam: Present: soft, normal bowel sounds - Extremities Exam Extremities exam: Present: normal inspection, full ROM, normal capillary refill - Back Exam Back exam: Present: normal inspection - Neurological Exam Neurological exam: Present: alert, oriented X3, CN II-XII intact - Psychiatric Psychiatric exam: Present: normal affect, normal mood - Skin Skin exam: Present: warm, dry, intact, normal color ED Course Vital Signs 11/23/17 11/24/17 16:17 00:01 Temperature 98.2 F Pulse Rate 97 H Respiratory 18 Rate Blood Pressure 130/50 O2 Sat by Pulse 100 98 Oximetry - Reevaluation(s) Reevaluation #1: 11/24/17 00:07 Patient reports that she gets relief with Dilaudid. She is allergic to morphine and Toradol. I will go ahead and give her Dilaudid and Zofran as well as 2 L of normal saline. 11/24/17 01:14 The patient continues to have pain. I will go and give her another Dilaudid. The patient will need to be admitted for her sickle cell crisis. 11/24/17 01:35 I tried to contact the hospitalist for admission. The patient is still not controlled with regards to her pain. We will need to admit the patient accordingly. ED Medical Decision Making - Lab Data Result diagrams: 11/23/17 16:37 11/23/17 16:37 Critical care attestation.: If time is entered above; I have spent that time in minutes in the direct care of this critically ill patient, excluding procedure time. ED Disposition Clinical Impression: Sickle cell crisis Disposition: OP ADMIT IP TO THIS HOSP Is pt being admited?: Yes Does the pt Need Aspirin: No Condition: Stable Referrals: PRIMARY CARE, [Primary Care Provider] - 3-5 Days
[2017-11-24 00:58] LABS: Lipase 72 units/L (13-60)
[2017-11-24] MEDS ORDERED: D5NS 1,000 ML IV ONE (03:36)
[2017-11-24] MEDS ORDERED: D5NS 1,000 ML IV SCH (04:00)
[2017-11-24] MEDS ORDERED: TYLENOL PO PRN (04:14)
[2017-11-24] MEDS ORDERED: ZOFRAN IV PRN ×2 (04:14→21:01)
[2017-11-24] MEDS ORDERED: ELAVIL PO PRN (04:15)
[2017-11-24] MEDS ORDERED: NON-FORMULARY (Oxycodone Hcl/Acetaminophen [Percocet 10/325 Mg] 1 EACH) PO PRN (04:15)
[2017-11-24] MEDS: DILAUDID IV PRN ×5 (04:38→20:14)
[2017-11-24] MEDS: BENADRYL IV PRN ×3 (04:38→20:13)
[2017-11-24] MEDS ORDERED: PERCOCET 5/325 PO PRN (04:46)
--- NOTE | 2017-11-24 06:03 | History and Physical Report ---
CHIEF COMPLAINT: Generalized body pain. Other complaint includes weakness. HISTORY OF PRESENT ILLNESS: The patient is a 47-year-old female with known sickle cell anemia, who presented to the Emergency because of generalized body pain going on for 1 day and also the patient feels weak. Denied history of fever or chills. Denies history of nausea and vomiting and stated her last crisis was about 1 month ago and presented for further evaluation in the Emergency Room. PAST MEDICAL HISTORY: Pertinent for sickle cell anemia. Also, the patient has past medical history of congestive heart failure, arthritis, COPD, anemia and hypothyroidism. PAST SURGICAL HISTORY: Pertinent for cholecystectomy, right ovarian removal due to torsion. Also, the patient had port placement x 3 and also port in the left chest wall area. FAMILY HISTORY: Noncontributory. SOCIAL HISTORY: The patient does not smoke, does not drink alcohol and does not use illicit drugs. MEDICATIONS: The patient is on folic acid 1 mg by mouth daily, vitamin D3 one tablet by mouth daily, amitriptyline 25 mg at bedtime and Percocet 5/325 mg 1 by mouth every 6 hours as well as promethazine 25 mg by mouth every 6 hours. The patient also is on Synthroid 100 mcg by mouth every morning, Percocet 10/325 one by mouth every 6 hours. ALLERGIES: THE PATIENT IS ALLERGIC TO ASPIRIN, KETOROLAC TROMETHAMINE, MORPHINE AND PINEAPPLE. REVIEW OF SYSTEMS: CONSTITUTIONAL: There is no fever, no chills. No diaphoresis. HEENT: There is no headache or sore throat. CARDIOVASCULAR: Chest discomfort noted. No orthopnea. RESPIRATORY: There is no shortness of breath or cough. GASTROINTESTINAL: There is no nausea, no vomiting, no abdominal pain, diarrhea or constipation. NEUROLOGICAL: There is no numbness, no dizziness, no altered mental status. MUSCULOSKELETAL: Generalized body pain noted. No joint swelling. DERMATOLOGICAL: Itching noted. No skin rash. GENITOURINARY: There is no dysuria, hematuria or flank pain. Rest of system review is normal. PHYSICAL EXAMINATION: GENERAL: At the time of exam, the patient was found to be alert, oriented x 3 and in mild to moderate distress due to body pain. INITIAL VITAL SIGNS: Shows temperature of 98.2 degrees Fahrenheit, pulse of 98, respirations 18, blood pressure 130/50, O2 sat of 100% on room air. HEENT: Shows pupils to be equal, round and reactive to light and accommodating. The patient has tinge of jaundice. CARDIOVASCULAR: Showed normal first and second heart sounds with no gallops or murmurs. RESPIRATORY SYSTEM: Show good air entry on both sides of the lungs with no abnormal breath sounds. GASTROINTESTINAL SYSTEM: Show abdomen to be full, soft, nontender with no organomegaly or rigidity. NEUROLOGIC: Shows no focal deficit. MUSCULOSKELETAL SYSTEM: Show no joint swelling or tenderness. DERMATOLOGICAL SYSTEM: Show no skin rash. GENITOURINARY: Showing no costovertebral angle tenderness. PERTINENT LABORATORY AND IMAGING: CBC done with elevated white count of 11,500 with a low hemoglobin of 7.1 and low hematocrit of 21.2 and high MCV of 103 with CBC differential showing elevated segmented neutrophils of 79%. The patient's chemistry shows elevated lipase level of 72 and the patient's CBC also shows a high retic count of 23.1. IMAGING STUDIES: No imaging studies were done at this time. DIAGNOSES: Sickle cell pain crisis and sickle cell anemia. PLAN: The patient will be admitted to medical floor and will have packed red blood cells typed and screened. The patient will be on Dilaudid 1 mg every 4 hours as needed for pain and will be on IV Zofran 4 mg every 6 hours for nausea and vomiting. The patient will also be on IV Benadryl 25 mg every 6 hours as needed for itching and will be on Tylenol 650 mg by mouth every 4 hours as needed for fever and headache and the patient will be on home medications as shown in the medication reconciliation section. JOB# [id number] OCN/NTS CHANI
[2017-11-24] MEDS: NACL 0.9% 1000 ML 1,000 ML IV SCH ×3 (07:08→19:06)
[2017-11-24] MEDS: SYNTHROID PO SCH (07:08)
[2017-11-24] MEDS ORDERED: CHOLECALCIFEROL PO SCH (10:00)
[2017-11-24] MEDS ORDERED: SYNTHROID PO SCH (10:00)
[2017-11-24] MEDS: FOLVITE PO SCH (12:07)
[2017-11-24] MEDS: VITAMIN D3 PO SCH (12:07)
[2017-11-24] MEDS: HEPARIN SUB-Q SCH ×2 (12:07→22:06)
--- NOTE | 2017-11-24 18:24 | Progress Note ---
Assessment and Plan - Sickle cell pain crisis iv hydration folic acid, Multivitanine Pain control with Narcotic Hematology consult - Anemia from sickle cell disease T and S but hold transfusion as base line is 6.6 - 7.1 Hematology consult - DVT and GI ppx with pepcid and SCD Subjective Date of service: 11/24/17 Principal diagnosis: sickle cell pain crisis Interval history: Still having generalized bone pain Objective - Constitutional Vitals: Vital Signs - 12hr 11/24/17 11/24/17 11/24/17 07:54 08:31 10:00 Temperature 99.3 F Pulse Rate 78 Respiratory 20 20 20 Rate Blood Pressure 110/70 O2 Sat by Pulse 97 Oximetry 11/24/17 11/24/17 11/24/17 12:06 15:30 15:45 Temperature 99.4 F Pulse Rate 92 H Respiratory 20 16 20 Rate Blood Pressure 136/65 O2 Sat by Pulse 94 Oximetry General appearance: Present: no acute distress, well-nourished - EENT Eyes: PERRL, EOM intact - Neck Neck: supple, normal ROM - Respiratory Respiratory: bilateral: CTA - Cardiovascular Rhythm: regular Heart Sounds: Present: S1 & S2. Absent: gallop, rub Extremities: pulses intact, No edema, normal color, Full ROM - Gastrointestinal General gastrointestinal: Present: soft, non-tender, non-distended, normal bowel sounds - Integumentary Integumentary: clear, warm, dry - Musculoskeletal Musculoskeletal: 1, strength equal bilaterally - Neurologic Neurologic: moves all extremities - Psychiatric Psychiatric: appropriate mood/affect, intact judgment & insight, memory intact - Labs CBC & Chem 7: 11/23/17 16:37 11/23/17 16:37 Labs: Abnormal lab results 11/23/17 11/24/17 11/24/17 Range/Units 16:37 00:29 00:29 WBC 11.5 H (4.5-11.0) K/mm3 RBC 2.05 L (3.65-5.03) M/mm3 Hgb 7.1 L (10.1-14.3) gm/dl Hct 21.2 L (30.3-42.9) % MCV 103 H (79-97) fl MCH 35 H (28-32) pg RDW 30.9 H (13.2-15.2) % Plt Count 526 H (140-440) K/mm3 Seg Neuts % (Manual) 79.0 H (40.0-70.0) % Nucleated RBC % 9.0 H (0.0-0.9) % Seg Neutrophils # Man 9.1 H (1.8-7.7) K/mm3 Percent Retic 23.19 H (0.78-2.58) % Lipase 72 H (13-60) units/L
--- NOTE | 2017-11-24 21:09 | Consultation ---
History of Present Illness - Reason for Consult Consult date: 11/24/17 SCD/pain crisis. Requesting physician: SOLOMON TOLBERT - History of Present Illness Thank you for this consult, patient well known to me from my office. seen/ examined, records reviewed,case d/w her.She presented with pain crisis, and admitted for sxs control/management. Rectic quite high.See adjustments in meds. Patient c/o pain level 7-8/10 even with current pain meds.will check iron level. she has iron overload. Past History Past Medical History: anemia, hypothyroidism Social history: Medications and Allergies Allergies Allergy/AdvReac Type Severity Reaction Status Date / Time aspirin Allergy Vomiting Verified 12/07/13 09:50 ketorolac tromethamine Allergy Unknown Verified 12/07/13 09:50 [From Toradol] morphine Allergy Shortness Verified 12/07/13 09:50 of Breath pineapple [Pineapple] Allergy Swelling Verified 12/07/13 09:49 Home Medications Medication Instructions Recorded Confirmed Last Taken Type Folic Acid [Folvite] 1 mg PO QDAY #30 tablet 06/27/14 11/24/17 09/06/17 09:00 Rx Cholecalciferol (Vitamin D3) 1 tab PO DAILY 08/06/16 11/24/17 09/06/17 09:00 History oxyCODONE /ACETAMINOPHEN [Percocet 1 tab PO Q6H PRN #30 tablet 12/27/1609/03/17 22:00 Rx 5/325 mg] Promethazine [Phenergan TAB] 25 mg PO Q6HR PRN #20 tab 03/02/17 11/24/17 22:00 Rx Oxycodone HCl/Acetaminophen 1 each PO Q6HR PRN #20 tablet 07/31/17 11/24/17 Unknown Rx [Percocet 10/325 mg] Levothyroxine [Synthroid] 100 mcg PO QAM #120 tablet 09/11/17 11/24/17 Unknown Rx Amitriptyline [Elavil] 25 mg PO QHS PRN 11/24/17 11/24/17 Unknown History Active Meds: Active Medications Acetaminophen (Tylenol) 650 mg PO Q4H PRN PRN Reason: For Pain/Fever/Headache Amitriptyline HCl (Elavil) 25 mg PO QHS PRN PRN Reason: Sleep Cholecalciferol (Vitamin D3) 1,000 unit PO QDAY [facility] Last Admin: 11/24/17 12:07 Dose: 1,000 unit Diphenhydramine HCl (Benadryl) 25 mg IV Q6H PRN PRN Reason: Itching Last Admin: 11/24/17 20:13 Dose: 25 mg Folic Acid (Folvite) 1 mg PO QDAY [facility] Last Admin: 11/24/17 12:07 Dose: 1 mg Heparin Sodium (Porcine) (Heparin) 5,000 unit SUB-Q Q12HR [facility] Last Admin: 11/24/17 12:07 Dose: 5,000 unit Hydromorphone HCl (Dilaudid) 2 mg IV Q4H PRN PRN Reason: Pain , Severe (7-10) Sodium Chloride (Nacl 0.9% 1000 Ml) 1,000 mls @ 125 mls/hr IV DIRECT [facility] Last Admin: 11/24/17 19:06 Dose: 125 mls/hr Levothyroxine Sodium (Synthroid) 100 mcg PO DAILY@0600 [facility] Last Admin: 11/24/17 07:08 Dose: 100 mcg Ondansetron HCl (Zofran) 4 mg IV Q8H PRN PRN Reason: Nausea And Vomiting Oxycodone HCl (Roxicodone) 5 mg PO Q6H PRN PRN Reason: Pain, Moderate (4-6) Oxycodone/Acetaminophen (Percocet 5/325) 1 tab PO Q6H PRN PRN Reason: Pain, Moderate (4-6) Review of Systems Constitutional: chronic pain Breasts: deferred Exam - Constitutional Vitals: Temp Pulse Resp BP Pulse Ox 99.4 F 92 H 20 136/65 94 11/24/17 15:30 11/24/17 15:30 11/24/17 15:45 11/24/17 15:30 11/24/17 15:30 General appearance: Present: mild distress, well-nourished - EENT Eyes: Present: PERRL ENT: hearing intact, clear oral mucosa - Neck Neck: Present: supple, normal ROM - Respiratory Respiratory: bilateral: diminished - Cardiovascular Heart Sounds: Present: S1 & S2. Absent: rub, click - Extremities Extremities: pulses symmetrical, No edema Peripheral Pulses: within normal limits - Abdominal General gastrointestinal: Present: soft, non-tender, non-distended, normal bowel sounds Female genitourinary: Present: deferred - Rectal Rectal Exam: deferred - Integumentary Integumentary: Present: clear, warm, dry - Musculoskeletal Musculoskeletal: gait normal, strength equal bilaterally - Psychiatric Psychiatric: appropriate mood/affect, intact judgment & insight - Neurologic Neurologic: CNII-XII intact, moves all extremities Results - Labs CBC & Chem 7: 11/23/17 16:37 11/23/17 16:37 Labs: Abnormal lab results 11/23/17 11/24/17 11/24/17 Range/Units 16:37 00:29 00:29 WBC 11.5 H (4.5-11.0) K/mm3 RBC 2.05 L (3.65-5.03) M/mm3 Hgb 7.1 L (10.1-14.3) gm/dl Hct 21.2 L (30.3-42.9) % MCV 103 H (79-97) fl MCH 35 H (28-32) pg RDW 30.9 H (13.2-15.2) % Plt Count 526 H (140-440) K/mm3 Seg Neuts % (Manual) 79.0 H (40.0-70.0) % Nucleated RBC % 9.0 H (0.0-0.9) % Seg Neutrophils # Man 9.1 H (1.8-7.7) K/mm3 Percent Retic 23.19 H (0.78-2.58) % Lipase 72 H (13-60) units/L Assessment and Plan - Patient Problems (1) Sickle cell anemia with crisis Current Visit: Yes Status: Chronic Plan to address problem: pain control. (2) Anemia Current Visit: No Status: Acute Qualifiers: Anemia type: unspecified type Qualified Code(s): D64.9 - Anemia, unspecified Plan to address problem: carefull replacement, minding transfusion related iron overload. (3) Dehydration Current Visit: No Status: Acute Plan to address problem: hydration. (4) Hypothyroid Current Visit: No Status: Acute Plan to address problem: continue with replacement.
--- NOTE | 2017-11-24 21:14 | XRay Report ---
FINAL REPORT EXAM: XR CHEST 1V AP HISTORY: sickel cell pain crisis TECHNIQUE: AP portable view of the chest. PRIORS: 10/15/2016 FINDINGS: There is a left-sided Port-A-Cath with the tip in the superior vena cava. The cardiomediastinal silhouette appears normal. There is minimal bibasilar subsegmental atelectasis. Otherwise, the lungs are clear. The bones and soft tissues are unremarkable. IMPRESSION: Mild bibasilar subsegmental atelectasis
[2017-11-25] MEDS: DILAUDID IV PRN ×6 (00:23→20:46)
[2017-11-25 01:47] LABS: Iron 119 ug/dL (37-170); Total Iron Binding Capacity 219 mcg/dL (250-450)
[2017-11-25] MEDS: PERCOCET 5/325 PO PRN ×2 (02:14→11:29)
[2017-11-25] MEDS: BENADRYL IV PRN ×3 (04:34→20:45)
[2017-11-25] MEDS: SYNTHROID PO SCH (05:12)
[2017-11-25] MEDS: NACL 0.9% 1000 ML 1,000 ML IV SCH ×2 (05:16→17:45)
[2017-11-25 08:18] LABS: Hemoglobin 6.1 gm/dl (10.1-14.3); Mean Corpuscular HGB Conc 35 % (30-34); Mean Corpuscular Hemoglobin 36 pg (28-32); Mean Corpuscular Volume 102 fl (79-97); Platelet Count 473 K/mm3 (140-440); Red Blood Count 1.72 M/mm3 (3.65-5.03)
[2017-11-25 08:22] LABS: Red Cell Distribution Width 29.9 % (13.2-15.2)
[2017-11-25 08:23] LABS: Hematocrit 17.6 % (30.3-42.9)
[2017-11-25] MEDS ORDERED: NACL 0.9% 500 ML 500 ML IV ONE (08:28)
[2017-11-25 09:14] LABS: Band Neutrophils # (Manual) 0.2 K/mm3; Total Cells Counted 100
[2017-11-25 09:15] LABS: Anisocytosis 2+; Macrocytosis 1+; Poikilocytosis 2+; Sickle Cells 2+; Stomatocytes 1+; Target Cells 1+
[2017-11-25 09:16] LABS: Dimorphic RBC Yes; Large Platelets 1+
[2017-11-25] MEDS: FOLVITE PO SCH (09:52)
[2017-11-25] MEDS: VITAMIN D3 PO SCH (09:52)
[2017-11-25] MEDS: HEPARIN SUB-Q SCH ×2 (09:54→21:40)
[2017-11-25] MEDS: ROXICODONE PO PRN (11:29)
[2017-11-25] MEDS ORDERED: DILAUDID IV PRN (11:35)
--- NOTE | 2017-11-25 16:56 | Progress Note ---
Assessment and Plan Assessment and plan: 47-year-old -[place] female whose past medical history significant for sickle cell disease presented to the emergency department complaining of severe generalized body pain that started 2 days ago. Sickle cell pain crisis -Patient is IV Dilaudid and by mouth Percocet - We'll monitor Severe anemia - 1 unit of blood was ordered from previous admissions, it usually take long time to get blood because of antibodies Iron overload - Hematology oncology consulted DVT prophylaxis - On heparin Disposition - Continue inpatient care History Interval history: Patient was seen and evaluated this morning, patient was complaining severe generalized pain. Hospitalist Physical - Physical exam Narrative exam: Not in cardiopulmonary distress. The patient is obese. Vital signs as documented. Head exam is unremarkable. No scleral icterus . Neck is without jugular venous distension, thyromegaly, or carotid bruits. Lungs are clear to auscultation. Cardiac exam reveals regular rate and Rhythm. First and second heart sounds normal. No murmurs, rubs or gallops. Abdominal exam reveals normal bowel sounds, no masses, no organomegaly and no aortic enlargement. Extremities are nonedematous and both femoral and pedal pulses are normal. HAT STEAMER: Alert and oriented 3. No focal weakness. - Constitutional Vitals: Temp Pulse Resp BP Pulse Ox 98.7 F 82 18 121/72 96 11/25/17 15:42 11/25/17 07:35 11/25/17 16:36 11/25/17 15:42 11/25/17 10:00 General appearance: Present: mild distress, well-nourished Results - Labs CBC & Chem 7: 11/25/17 07:50 11/23/17 16:37 Labs: Laboratory Last Values WBC 11.4 K/mm3 (4.5-11.0) H 11/25/17 07:50 RBC 1.72 M/mm3 (3.65-5.03) L 11/25/17 07:50 Hgb 6.1 gm/dl (10.1-14.3) L 11/25/17 07:50 Hct 17.6 % (30.3-42.9) L* 11/25/17 07:50 MCV 102 fl (79-97) H 11/25/17 07:50 MCH 36 pg (28-32) H 11/25/17 07:50 MCHC 35 % (30-34) H 11/25/17 07:50 RDW 29.9 % (13.2-15.2) H 11/25/17 07:50 Plt Count 473 K/mm3 (140-440) H 11/25/17 07:50 Add Manual Diff Complete 11/25/17 07:50 Total Counted 100 11/25/17 07:50 Seg Neuts % (Manual) 71.0 % (40.0-70.0) H 11/25/17 07:50 Band Neutrophils % 2.0 % 11/25/17 07:50 Lymphocytes % (Manual) 19.0 % (13.4-35.0) 11/25/17 07:50 Reactive Lymphs % (Man) 0 % 11/25/17 07:50 Monocytes % (Manual) 4.0 % (0.0-7.3) 11/25/17 07:50 Eosinophils % (Manual) 2.0 % (0.0-4.3) 11/25/17 07:50 Basophils % (Manual) 2.0 % (0.0-1.8) H 11/25/17 07:50 Metamyelocytes % 0 % 11/25/17 07:50 Myelocytes % 0 % 11/25/17 07:50 Promyelocytes % 0 % 11/25/17 07:50 Blast Cells % 0 % 11/25/17 07:50 Nucleated RBC % 1.0 % (0.0-0.9) H 11/25/17 07:50 Seg Neutrophils # Man 8.1 K/mm3 (1.8-7.7) H 11/25/17 07:50 Band Neutrophils # 0.2 K/mm3 11/25/17 07:50 Lymphocytes # (Manual) 2.2 K/mm3 (1.2-5.4) 11/25/17 07:50 Abs React Lymphs (Man) 0.0 K/mm3 11/25/17 07:50 Monocytes # (Manual) 0.5 K/mm3 (0.0-0.8) 11/25/17 07:50 Eosinophils # (Manual) 0.2 K/mm3 (0.0-0.4) 11/25/17 07:50 Basophils # (Manual) 0.2 K/mm3 (0.0-0.1) H 11/25/17 07:50 Metamyelocytes # 0.0 K/mm3 11/25/17 07:50 Myelocytes # 0.0 K/mm3 11/25/17 07:50 Promyelocytes # 0.0 K/mm3 11/25/17 07:50 Blast Cells # 0.0 K/mm3 11/25/17 07:50 WBC Morphology Not Reportable 11/25/17 07:50 Hypersegmented Neuts Not Reportable 11/25/17 07:50 Hyposegmented Neuts Not Reportable 11/25/17 07:50 Hypogranular Neuts Not Reportable 11/25/17 07:50 Smudge Cells Not Reportable 11/25/17 07:50 Toxic Granulation Not Reportable 11/25/17 07:50 Toxic Vacuolation Not Reportable 11/25/17 07:50 Dohle Bodies Not Reportable 11/25/17 07:50 Pelger-Huet Anomaly Not Reportable 11/25/17 07:50 Malik Rods Not Reportable 11/25/17 07:50 Platelet Estimate Appears normal 11/25/17 07:50 Clumped Platelets Not Reportable 11/25/17 07:50 Plt Clumps, EDTA Not Reportable 11/25/17 07:50 Large Platelets 1+ 11/25/17 07:50 Giant Platelets Not Reportable 11/25/17 07:50 Platelet Satelliting Not Reportable 11/25/17 07:50 Plt Morphology Comment Not Reportable 11/25/17 07:50 RBC Morphology Not Reportable 11/25/17 07:50 Dimorphic RBCs Yes 11/25/17 07:50 Polychromasia 1+ 11/25/17 07:50 Hypochromasia Not Reportable 11/25/17 07:50 Poikilocytosis 2+ 11/25/17 07:50 Anisocytosis 2+ 11/25/17 07:50 Microcytosis 1+ 11/25/17 07:50 Macrocytosis 1+ 11/25/17 07:50 Spherocytes Not Reportable 11/25/17 07:50 Pappenheimer Bodies Not Reportable 11/25/17 07:50 Sickle Cells 2+ 11/25/17 07:50 Target Cells 1+ 11/25/17 07:50 Tear Drop Cells Not Reportable 11/25/17 07:50 Ovalocytes Not Reportable 11/25/17 07:50 Stomatocytes 1+ 11/25/17 07:50 Helmet Cells Not Reportable 11/25/17 07:50 Marmolejo-Balm Bodies Not Reportable 11/25/17 07:50 [place] Rings Not Reportable 11/25/17 07:50 [place] Cells Not Reportable 11/25/17 07:50 Bite Cells Not Reportable 11/25/17 07:50 Crenated Cell Not Reportable 11/25/17 07:50 Elliptocytes Few 11/25/17 07:50 Acanthocytes (Spur) Not Reportable 11/25/17 07:50 Rouleaux Not Reportable 11/25/17 07:50 Hemoglobin C Crystals Not Reportable 11/25/17 07:50 Schistocytes Not Reportable 11/25/17 07:50 Malaria parasites Not Reportable 11/25/17 07:50 Percent Retic 18.58 % (0.78-2.58) H 11/25/17 07:50 Brady Bodies Not Reportable 11/25/17 07:50 Hem Pathologist Commnt No 11/25/17 07:50 Sodium 144 mmol/L (137-145) 11/23/17 16:37 Potassium 4.3 mmol/L (3.6-5.0) 11/23/17 16:37 Chloride 103.2 mmol/L (98-107) 11/23/17 16:37 Carbon Dioxide 26 mmol/L (22-30) 11/23/17 16:37 Anion Gap 19 mmol/L 11/23/17 16:37 BUN 11 mg/dL (7-17) 11/23/17 16:37 Creatinine 0.6 mg/dL (0.7-1.2) L 11/23/17 16:37 Estimated GFR > 60 ml/min 11/23/17 16:37 BUN/Creatinine Ratio 18 % 11/23/17 16:37 Glucose 112 mg/dL (65-100) H 11/23/17 16:37 Calcium 9.8 mg/dL (8.4-10.2) 11/23/17 16:37 Iron 119 ug/dL (37-170) 11/25/17 00:30 TIBC 219 mcg/dL (250-450) L 11/25/17 00:30 Ferritin 4760.0 ng/mL (13.0-400.0) H 11/25/17 00:30 Amylase 101 units/L (27-131) 11/24/17 00:29 Lipase 72 units/L (13-60) H 11/24/17 00:29 HCG, Qual Negative (Negative) 11/23/17 18:03 Blood Type O POSITIVE 11/24/17 04:30 Antibody Screen Negative 11/24/17 04:30 Crossmatch See Detail 11/24/17 04:30
--- NOTE | 2017-11-25 18:08 | Progress Note ---
Assessment and Plan - Patient Problems (1) Sickle cell anemia with crisis Current Visit: Yes Status: Chronic Plan to address problem: pain control. (2) Anemia Current Visit: No Status: Acute Qualifiers: Anemia type: unspecified type Qualified Code(s): D64.9 - Anemia, unspecified Plan to address problem: carefull replacement, minding transfusion related iron overload. (3) Dehydration Current Visit: No Status: Acute Plan to address problem: hydration. (4) Hypothyroid Current Visit: No Status: Acute Plan to address problem: continue with replacement. Subjective Date of service: 11/25/17 Principal diagnosis: sickle cell pain crisis Interval history: Patient seen/examined, records reviewed, case d/w her. She is about to start her transfusion of PRBCs.Iron level high, and will start chelating tomorrow. It is not compatible with blood. Objective - Constitutional Vitals: Vital Signs - 12hr 11/25/17 11/25/17 11/25/17 07:35 08:33 09:03 Temperature 99.1 F Pulse Rate 82 Respiratory 16 18 20 Rate Blood Pressure 118/61 Blood Pressure [Right] O2 Sat by Pulse 95 Oximetry 11/25/17 11/25/17 11/25/17 10:00 11:29 12:29 Temperature Pulse Rate Respiratory 20 20 Rate Blood Pressure Blood Pressure [Right] O2 Sat by Pulse 96 Oximetry 11/25/17 11/25/17 11/25/17 15:42 16:36 17:06 Temperature 98.7 F Pulse Rate Respiratory 16 18 18 Rate Blood Pressure 121/72 Blood Pressure [Right] O2 Sat by Pulse Oximetry 11/25/17 17:17 Temperature 99.0 F Pulse Rate 84 Respiratory 18 Rate Blood Pressure Blood Pressure 145/87 [Right] O2 Sat by Pulse Oximetry General appearance: Present: mild distress, well-nourished - EENT Eyes: PERRL, EOM intact ENT: hearing intact, clear oral mucosa Ears: bilateral: normal - Neck Neck: supple, normal ROM - Respiratory Respiratory: bilateral: diminished - Breasts Breasts: deferred, normal - Cardiovascular Rhythm: regular Heart Sounds: Present: S1 & S2. Absent: gallop, rub Extremities: pulses intact, No edema, normal color, Full ROM - Gastrointestinal General gastrointestinal: Present: soft, non-tender, non-distended, normal bowel sounds Rectal Exam: deferred - Genitourinary Female genitourinary: deferred - Integumentary Integumentary: clear, warm, dry - Musculoskeletal Musculoskeletal: 1, strength equal bilaterally - Neurologic Neurologic: moves all extremities - Psychiatric Psychiatric: memory intact, appropriate mood/affect, intact judgment & insight - Labs CBC & Chem 7: 11/25/17 07:50 11/23/17 16:37 Labs: Abnormal lab results 11/24/17 11/25/17 11/25/17 Range/Units 04:30 00:30 00:30 WBC (4.5-11.0) K/mm3 RBC (3.65-5.03) M/mm3 Hgb (10.1-14.3) gm/dl Hct (30.3-42.9) % MCV (79-97) fl MCH (28-32) pg MCHC (30-34) % RDW (13.2-15.2) % Plt Count (140-440) K/mm3 Seg Neuts % (Manual) (40.0-70.0) % Basophils % (Manual) (0.0-1.8) % Nucleated RBC % (0.0-0.9) % Seg Neutrophils # Man (1.8-7.7) K/mm3 Basophils # (Manual) (0.0-0.1) K/mm3 Percent Retic (0.78-2.58) % TIBC 219 L (250-450) mcg/dL Ferritin 4760.0 H (13.0-400.0) ng/mL Crossmatch See Detail 11/25/17 Range/Units 07:50 WBC 11.4 H (4.5-11.0) K/mm3 RBC 1.72 L (3.65-5.03) M/mm3 Hgb 6.1 L (10.1-14.3) gm/dl Hct 17.6 L* (30.3-42.9) % MCV 102 H (79-97) fl MCH 36 H (28-32) pg MCHC 35 H (30-34) % RDW 29.9 H (13.2-15.2) % Plt Count 473 H (140-440) K/mm3 Seg Neuts % (Manual) 71.0 H (40.0-70.0) % Basophils % (Manual) 2.0 H (0.0-1.8) % Nucleated RBC % 1.0 H (0.0-0.9) % Seg Neutrophils # Man 8.1 H (1.8-7.7) K/mm3 Basophils # (Manual) 0.2 H (0.0-0.1) K/mm3 Percent Retic 18.58 H (0.78-2.58) % TIBC (250-450) mcg/dL Ferritin (13.0-400.0) ng/mL Crossmatch
[2017-11-26] MEDS: DILAUDID IV PRN ×6 (00:10→20:07)
[2017-11-26] MEDS: PERCOCET 5/325 PO PRN (02:26)
[2017-11-26] MEDS: ROXICODONE PO PRN (02:26)
[2017-11-26] MEDS: SYNTHROID PO SCH (05:48)
[2017-11-26] MEDS: BENADRYL IV PRN ×2 (08:33→16:23)
[2017-11-26 08:46] LABS: Hematocrit 20.6 % (30.3-42.9); Hemoglobin 7.4 gm/dl (10.1-14.3); Mean Corpuscular HGB Conc 36 % (30-34); Mean Corpuscular Hemoglobin 34 pg (28-32); Mean Corpuscular Volume 96 fl (79-97); Platelet Count 458 K/mm3 (140-440); Red Blood Count 2.14 M/mm3 (3.65-5.03)
[2017-11-26 09:12] LABS: Red Cell Distribution Width 25.5 % (13.2-15.2)
[2017-11-26 09:40] LABS: Anisocytosis 2+; Basophils % (Manual) 0 % (0.0-1.8); Hypochromasia 1+; Macrocytosis 1+; Ovalocytes Few; Poikilocytosis 1+; Sickle Cells 1+; Target Cells 1+; Total Cells Counted 100
[2017-11-26] MEDS: HEPARIN SUB-Q SCH ×2 (10:14→22:02)
[2017-11-26] MEDS: FOLVITE PO SCH (10:14)
[2017-11-26] MEDS: VITAMIN D3 PO SCH (10:14)
--- NOTE | 2017-11-26 12:56 | Progress Note ---
Assessment and Plan Assessment and plan: 47-year-old -[place] female whose past medical history significant for sickle cell disease presented to the emergency department complaining of severe generalized body pain that started 2 days ago. Sickle cell pain crisis -Patient is IV Dilaudid and by mouth Percocet - We'll monitor Severe anemia - 1 unit of blood was ordered, it usually takes long time to get blood because of antibodies Iron overload - Hematology oncology consulted - Management Per Dr Ron DVT prophylaxis - On heparin Disposition - Continue inpatient care History Interval history: Patient was seen and evaluated this morning, patient was complaining pain but getting better. Hospitalist Physical - Physical exam Narrative exam: Not in cardiopulmonary distress. The patient is obese. Vital signs as documented. Head exam is unremarkable. No scleral icterus . Neck is without jugular venous distension, thyromegaly, or carotid bruits. Lungs are clear to auscultation. Cardiac exam reveals regular rate and Rhythm. First and second heart sounds normal. No murmurs, rubs or gallops. Abdominal exam reveals normal bowel sounds, no masses, no organomegaly and no aortic enlargement. Extremities are nonedematous and both femoral and pedal pulses are normal. ASSISTANT WOMEN'S TENNIS COACH: Alert and oriented 3. No focal weakness. - Constitutional Vitals: Temp Pulse Resp BP Pulse Ox 98.3 F 76 18 149/80 98 11/26/17 07:20 11/26/17 07:20 11/26/17 07:20 11/26/17 07:20 11/26/17 07:20 General appearance: Present: mild distress, well-nourished Results - Labs CBC & Chem 7: 11/26/17 08:10 11/23/17 16:37 Labs: Laboratory Last Values WBC 9.9 K/mm3 (4.5-11.0) 11/26/17 08:10 RBC 2.14 M/mm3 (3.65-5.03) L 11/26/17 08:10 Hgb 7.4 gm/dl (10.1-14.3) L 11/26/17 08:10 Hct 20.6 % (30.3-42.9) L 11/26/17 08:10 MCV 96 fl (79-97) 11/26/17 08:10 MCH 34 pg (28-32) H 11/26/17 08:10 MCHC 36 % (30-34) H 11/26/17 08:10 RDW 25.5 % (13.2-15.2) H 11/26/17 08:10 Plt Count 458 K/mm3 (140-440) H 11/26/17 08:10 Add Manual Diff Complete 11/26/17 08:10 Total Counted 100 11/26/17 08:10 Seg Neuts % (Manual) 58.0 % (40.0-70.0) 11/26/17 08:10 Band Neutrophils % 0 % 11/26/17 08:10 Lymphocytes % (Manual) 26.0 % (13.4-35.0) 11/26/17 08:10 Reactive Lymphs % (Man) 0 % 11/26/17 08:10 Monocytes % (Manual) 9.0 % (0.0-7.3) H 11/26/17 08:10 Eosinophils % (Manual) 7.0 % (0.0-4.3) H 11/26/17 08:10 Basophils % (Manual) 0 % (0.0-1.8) 11/26/17 08:10 Metamyelocytes % 0 % 11/26/17 08:10 Myelocytes % 0 % 11/26/17 08:10 Promyelocytes % 0 % 11/26/17 08:10 Blast Cells % 0 % 11/26/17 08:10 Nucleated RBC % Not Reportable 11/26/17 08:10 Seg Neutrophils # Man 5.7 K/mm3 (1.8-7.7) 11/26/17 08:10 Band Neutrophils # 0.0 K/mm3 11/26/17 08:10 Lymphocytes # (Manual) 2.6 K/mm3 (1.2-5.4) 11/26/17 08:10 Abs React Lymphs (Man) 0.0 K/mm3 11/26/17 08:10 Monocytes # (Manual) 0.9 K/mm3 (0.0-0.8) H 11/26/17 08:10 Eosinophils # (Manual) 0.7 K/mm3 (0.0-0.4) H 11/26/17 08:10 Basophils # (Manual) 0.0 K/mm3 (0.0-0.1) 11/26/17 08:10 Metamyelocytes # 0.0 K/mm3 11/26/17 08:10 Myelocytes # 0.0 K/mm3 11/26/17 08:10 Promyelocytes # 0.0 K/mm3 11/26/17 08:10 Blast Cells # 0.0 K/mm3 11/26/17 08:10 WBC Morphology Not Reportable 11/26/17 08:10 Hypersegmented Neuts Not Reportable 11/26/17 08:10 Hyposegmented Neuts Not Reportable 11/26/17 08:10 Hypogranular Neuts Not Reportable 11/26/17 08:10 Smudge Cells Not Reportable 11/26/17 08:10 Toxic Granulation Not Reportable 11/26/17 08:10 Toxic Vacuolation Not Reportable 11/26/17 08:10 Dohle Bodies Not Reportable 11/26/17 08:10 Pelger-Huet Anomaly Not Reportable 11/26/17 08:10 Malik Rods Not Reportable 11/26/17 08:10 Platelet Estimate Appears normal 11/26/17 08:10 Clumped Platelets Not Reportable 11/26/17 08:10 Plt Clumps, EDTA Not Reportable 11/26/17 08:10 Large Platelets Not Reportable 11/26/17 08:10 Giant Platelets Not Reportable 11/26/17 08:10 Platelet Satelliting Not Reportable 11/26/17 08:10 Plt Morphology Comment Not Reportable 11/26/17 08:10 RBC Morphology Not Reportable 11/26/17 08:10 Dimorphic RBCs Not Reportable 11/26/17 08:10 Polychromasia Not Reportable 11/26/17 08:10 Hypochromasia 1+ 11/26/17 08:10 Poikilocytosis 1+ 11/26/17 08:10 Anisocytosis 2+ 11/26/17 08:10 Microcytosis 1+ 11/26/17 08:10 Macrocytosis 1+ 11/26/17 08:10 Spherocytes Not Reportable 11/26/17 08:10 Pappenheimer Bodies Not Reportable 11/26/17 08:10 Sickle Cells 1+ 11/26/17 08:10 Target Cells 1+ 11/26/17 08:10 Tear Drop Cells Not Reportable 11/26/17 08:10 Ovalocytes Few 11/26/17 08:10 Stomatocytes 1+ 11/25/17 07:50 Helmet Cells Not Reportable 11/26/17 08:10 [place] Bodies Not Reportable 11/26/17 08:10 [place] Rings Not Reportable 11/26/17 08:10 [place] Cells Not Reportable 11/26/17 08:10 Bite Cells Not Reportable 11/26/17 08:10 Crenated Cell Not Reportable 11/26/17 08:10 Elliptocytes Few 11/26/17 08:10 Acanthocytes (Spur) Not Reportable 11/26/17 08:10 Rouleaux Not Reportable 11/26/17 08:10 Hemoglobin C Crystals Not Reportable 11/26/17 08:10 Schistocytes Not Reportable 11/26/17 08:10 Malaria parasites Not Reportable 11/26/17 08:10 Percent Retic 18.58 % (0.78-2.58) H 11/25/17 07:50 Brady Bodies Not Reportable 11/26/17 08:10 Hem Pathologist Commnt No 11/26/17 08:10 Sodium 144 mmol/L (137-145) 11/23/17 16:37 Potassium 4.3 mmol/L (3.6-5.0) 11/23/17 16:37 Chloride 103.2 mmol/L (98-107) 11/23/17 16:37 Carbon Dioxide 26 mmol/L (22-30) 11/23/17 16:37 Anion Gap 19 mmol/L 11/23/17 16:37 BUN 11 mg/dL (7-17) 11/23/17 16:37 Creatinine 0.6 mg/dL (0.7-1.2) L 11/23/17 16:37 Estimated GFR > 60 ml/min 11/23/17 16:37 BUN/Creatinine Ratio 18 % 11/23/17 16:37 Glucose 112 mg/dL (65-100) H 11/23/17 16:37 Calcium 9.8 mg/dL (8.4-10.2) 11/23/17 16:37 Iron 119 ug/dL (37-170) 11/25/17 00:30 TIBC 219 mcg/dL (250-450) L 11/25/17 00:30 Ferritin 4760.0 ng/mL (13.0-400.0) H 11/25/17 00:30 Amylase 101 units/L (27-131) 11/24/17 00:29 Lipase 72 units/L (13-60) H 11/24/17 00:29 HCG, Qual Negative (Negative) 11/23/17 18:03 Blood Type O POSITIVE 11/24/17 04:30 Antibody Screen Negative 11/24/17 04:30 Crossmatch See Detail 11/24/17 04:30
[2017-11-26] MEDS: NACL 0.9% 1000 ML 1,000 ML IV SCH (16:24)
--- NOTE | 2017-11-26 21:45 | Progress Note ---
Assessment and Plan - Patient Problems (1) Sickle cell anemia with crisis Current Visit: Yes Status: Chronic Plan to address problem: pain control. (2) Anemia Current Visit: No Status: Acute Qualifiers: Anemia type: unspecified type Qualified Code(s): D64.9 - Anemia, unspecified Plan to address problem: carefull replacement, minding transfusion related iron overload. s/p transfusion. (3) Dehydration Current Visit: No Status: Acute Plan to address problem: hydration. gentle hydration. (4) Hypothyroid Current Visit: No Status: Acute Plan to address problem: continue with replacement. supportive care. Subjective Date of service: 11/26/17 Principal diagnosis: sickle cell pain crisis Interval history: Patient seen/examined, records reviewed, case d/w her. She is about to start her transfusion of PRBCs.Iron level high, and will start chelating tomorrow. It is not compatible with blood. Patient seen/examined, resting in bed, s/p blood replacement.Will do iron chelation x2-3days ,given recent transfusion, with already iron overload. Objective - Constitutional Vitals: Vital Signs - 12hr 11/26/17 11/26/17 15:59 20:07 Temperature 99.2 F Pulse Rate 91 H Respiratory 20 18 Rate Blood Pressure 150/79 O2 Sat by Pulse 98 Oximetry General appearance: Present: mild distress, well-nourished - EENT Eyes: PERRL, EOM intact ENT: hearing intact, clear oral mucosa Ears: bilateral: normal - Neck Neck: supple, normal ROM - Respiratory Respiratory: bilateral: diminished - Breasts Breasts: deferred - Cardiovascular Rhythm: regular Heart Sounds: Present: S1 & S2. Absent: gallop, rub Extremities: pulses intact, No edema, normal color, Full ROM - Gastrointestinal General gastrointestinal: Present: soft, non-tender, non-distended, normal bowel sounds Rectal Exam: deferred - Genitourinary Female genitourinary: deferred - Integumentary Integumentary: clear, warm, dry - Musculoskeletal Musculoskeletal: 1, strength equal bilaterally - Neurologic Neurologic: moves all extremities - Psychiatric Psychiatric: memory intact, appropriate mood/affect, intact judgment & insight - Labs CBC & Chem 7: 11/26/17 08:10 11/23/17 16:37 Labs: Abnormal lab results 11/24/17 11/26/17 Range/Units 04:30 08:10 RBC 2.14 L (3.65-5.03) M/mm3 Hgb 7.4 L (10.1-14.3) gm/dl Hct 20.6 L (30.3-42.9) % MCH 34 H (28-32) pg MCHC 36 H (30-34) % RDW 25.5 H (13.2-15.2) % Plt Count 458 H (140-440) K/mm3 Monocytes % (Manual) 9.0 H (0.0-7.3) % Eosinophils % (Manual) 7.0 H (0.0-4.3) % Monocytes # (Manual) 0.9 H (0.0-0.8) K/mm3 Eosinophils # (Manual) 0.7 H (0.0-0.4) K/mm3 Crossmatch See Detail
[2017-11-27] MEDS: BENADRYL IV PRN ×3 (00:01→18:10)
[2017-11-27] MEDS: DILAUDID IV PRN ×7 (00:02→21:48)
[2017-11-27] MEDS: SYNTHROID PO SCH (06:33)
[2017-11-27] MEDS: HEPARIN SUB-Q SCH ×2 (10:00→22:00)
[2017-11-27] MEDS ORDERED: Desferal 3,000 MG in NACL 0.9% 250ML 250 ML IV SCH (10:00)
[2017-11-27] MEDS: VITAMIN D3 PO SCH (10:12)
[2017-11-27] MEDS: FOLVITE PO SCH (10:12)
[2017-11-27] MEDS: Desferal 3,000 MG in NACL 0.9% 250ML 250 ML IV SCH (12:00)
--- NOTE | 2017-11-27 16:39 | Progress Note ---
Assessment and Plan Assessment and plan: 47-year-old -[place]innish female whose past medical history significant for sickle cell disease presented to the emergency department complaining of severe generalized body pain that started 2 days ago. Sickle cell pain crisis -Patient is IV Dilaudid and by mouth Percocet - We'll monitor Severe anemia - 1 unit of blood was given, will check posttransfusion hemoglobin and hematocrit Iron overload - Hematology oncology consulted -Patient is currently on deferoxamine. DVT prophylaxis - On heparin Disposition - Continue inpatient care History Interval history: Patient was seen and evaluated this morning, patient was complaining pain but getting better. Hospitalist Physical - Physical exam Narrative exam: Not in cardiopulmonary distress. The patient is obese. Vital signs as documented. Head exam is unremarkable. No scleral icterus . Neck is without jugular venous distension, thyromegaly, or carotid bruits. Lungs are clear to auscultation. Cardiac exam reveals regular rate and Rhythm. First and second heart sounds normal. No murmurs, rubs or gallops. Abdominal exam reveals normal bowel sounds, no masses, no organomegaly and no aortic enlargement. Extremities are nonedematous and both femoral and pedal pulses are normal. SENIOR HEALTH CONSULTANT: Alert and oriented 3. No focal weakness. - Constitutional Vitals: Temp Pulse Resp BP Pulse Ox 99.3 F 79 20 118/72 93 11/27/17 14:48 11/27/17 14:48 11/27/17 14:48 11/27/17 14:48 11/27/17 14:48 General appearance: Present: mild distress, well-nourished Results - Labs CBC & Chem 7: 11/26/17 08:10 11/23/17 16:37 Labs: Laboratory Last Values WBC 9.9 K/mm3 (4.5-11.0) 11/26/17 08:10 RBC 2.14 M/mm3 (3.65-5.03) L 11/26/17 08:10 Hgb 7.4 gm/dl (10.1-14.3) L 11/26/17 08:10 Hct 20.6 % (30.3-42.9) L 11/26/17 08:10 MCV 96 fl (79-97) 11/26/17 08:10 MCH 34 pg (28-32) H 11/26/17 08:10 MCHC 36 % (30-34) H 11/26/17 08:10 RDW 25.5 % (13.2-15.2) H 11/26/17 08:10 Plt Count 458 K/mm3 (140-440) H 11/26/17 08:10 Add Manual Diff Complete 11/26/17 08:10 Total Counted 100 11/26/17 08:10 Seg Neuts % (Manual) 58.0 % (40.0-70.0) 11/26/17 08:10 Band Neutrophils % 0 % 11/26/17 08:10 Lymphocytes % (Manual) 26.0 % (13.4-35.0) 11/26/17 08:10 Reactive Lymphs % (Man) 0 % 11/26/17 08:10 Monocytes % (Manual) 9.0 % (0.0-7.3) H 11/26/17 08:10 Eosinophils % (Manual) 7.0 % (0.0-4.3) H 11/26/17 08:10 Basophils % (Manual) 0 % (0.0-1.8) 11/26/17 08:10 Metamyelocytes % 0 % 11/26/17 08:10 Myelocytes % 0 % 11/26/17 08:10 Promyelocytes % 0 % 11/26/17 08:10 Blast Cells % 0 % 11/26/17 08:10 Nucleated RBC % Not Reportable 11/26/17 08:10 Seg Neutrophils # Man 5.7 K/mm3 (1.8-7.7) 11/26/17 08:10 Band Neutrophils # 0.0 K/mm3 11/26/17 08:10 Lymphocytes # (Manual) 2.6 K/mm3 (1.2-5.4) 11/26/17 08:10 Abs React Lymphs (Man) 0.0 K/mm3 11/26/17 08:10 Monocytes # (Manual) 0.9 K/mm3 (0.0-0.8) H 11/26/17 08:10 Eosinophils # (Manual) 0.7 K/mm3 (0.0-0.4) H 11/26/17 08:10 Basophils # (Manual) 0.0 K/mm3 (0.0-0.1) 11/26/17 08:10 Metamyelocytes # 0.0 K/mm3 11/26/17 08:10 Myelocytes # 0.0 K/mm3 11/26/17 08:10 Promyelocytes # 0.0 K/mm3 11/26/17 08:10 Blast Cells # 0.0 K/mm3 11/26/17 08:10 WBC Morphology Not Reportable 11/26/17 08:10 Hypersegmented Neuts Not Reportable 11/26/17 08:10 Hyposegmented Neuts Not Reportable 11/26/17 08:10 Hypogranular Neuts Not Reportable 11/26/17 08:10 Smudge Cells Not Reportable 11/26/17 08:10 Toxic Granulation Not Reportable 11/26/17 08:10 Toxic Vacuolation Not Reportable 11/26/17 08:10 Dohle Bodies Not Reportable 11/26/17 08:10 Pelger-Huet Anomaly Not Reportable 11/26/17 08:10 Malik Rods Not Reportable 11/26/17 08:10 Platelet Estimate Appears normal 11/26/17 08:10 Clumped Platelets Not Reportable 11/26/17 08:10 Plt Clumps, EDTA Not Reportable 11/26/17 08:10 Large Platelets Not Reportable 11/26/17 08:10 Giant Platelets Not Reportable 11/26/17 08:10 Platelet Satelliting Not Reportable 11/26/17 08:10 Plt Morphology Comment Not Reportable 11/26/17 08:10 RBC Morphology Not Reportable 11/26/17 08:10 Dimorphic RBCs Not Reportable 11/26/17 08:10 Polychromasia Not Reportable 11/26/17 08:10 Hypochromasia 1+ 11/26/17 08:10 Poikilocytosis 1+ 11/26/17 08:10 Anisocytosis 2+ 11/26/17 08:10 Microcytosis 1+ 11/26/17 08:10 Macrocytosis 1+ 11/26/17 08:10 Spherocytes Not Reportable 11/26/17 08:10 Pappenheimer Bodies Not Reportable 11/26/17 08:10 Sickle Cells 1+ 11/26/17 08:10 Target Cells 1+ 11/26/17 08:10 Tear Drop Cells Not Reportable 11/26/17 08:10 Ovalocytes Few 11/26/17 08:10 Stomatocytes 1+ 11/25/17 07:50 Helmet Cells Not Reportable 11/26/17 08:10 [place] Bodies Not Reportable 11/26/17 08:10 [place] Rings Not Reportable 11/26/17 08:10 [place] Cells Not Reportable 11/26/17 08:10 Bite Cells Not Reportable 11/26/17 08:10 Crenated Cell Not Reportable 11/26/17 08:10 Elliptocytes Few 11/26/17 08:10 Acanthocytes (Spur) Not Reportable 11/26/17 08:10 Rouleaux Not Reportable 11/26/17 08:10 Hemoglobin C Crystals Not Reportable 11/26/17 08:10 Schistocytes Not Reportable 11/26/17 08:10 Malaria parasites Not Reportable 11/26/17 08:10 Percent Retic 18.58 % (0.78-2.58) H 11/25/17 07:50 Brady Bodies Not Reportable 11/26/17 08:10 Hem Pathologist Commnt No 11/26/17 08:10 Sodium 144 mmol/L (137-145) 11/23/17 16:37 Potassium 4.3 mmol/L (3.6-5.0) 11/23/17 16:37 Chloride 103.2 mmol/L (98-107) 11/23/17 16:37 Carbon Dioxide 26 mmol/L (22-30) 11/23/17 16:37 Anion Gap 19 mmol/L 11/23/17 16:37 BUN 11 mg/dL (7-17) 11/23/17 16:37 Creatinine 0.6 mg/dL (0.7-1.2) L 11/23/17 16:37 Estimated GFR > 60 ml/min 11/23/17 16:37 BUN/Creatinine Ratio 18 % 11/23/17 16:37 Glucose 112 mg/dL (65-100) H 11/23/17 16:37 Calcium 9.8 mg/dL (8.4-10.2) 11/23/17 16:37 Iron 119 ug/dL (37-170) 11/25/17 00:30 TIBC 219 mcg/dL (250-450) L 11/25/17 00:30 Ferritin 4760.0 ng/mL (13.0-400.0) H 05/17/18 00:30 Amylase 101 units/L (27-131) 11/24/17 00:29 Lipase 72 units/L (13-60) H 11/24/17 00:29 HCG, Qual Negative (Negative) 11/23/17 18:03 Blood Type O POSITIVE 11/24/17 04:30 Antibody Screen Negative 11/24/17 04:30 Crossmatch See Detail 11/24/17 04:30
[2017-11-27] MEDS: NACL 0.9% 1000 ML 1,000 ML IV SCH (18:14)
--- NOTE | 2017-11-27 18:36 | Progress Note ---
Assessment and Plan - Patient Problems (1) Sickle cell anemia with crisis Current Visit: Yes Status: Chronic Plan to address problem: pain control. (2) Anemia Current Visit: No Status: Acute Qualifiers: Anemia type: unspecified type Qualified Code(s): D64.9 - Anemia, unspecified Plan to address problem: carefull replacement, minding transfusion related iron overload. s/p transfusion. (3) Dehydration Current Visit: No Status: Acute Plan to address problem: hydration. gentle hydration. (4) Hypothyroid Current Visit: No Status: Acute Plan to address problem: continue with replacement. supportive care. Subjective Date of service: 11/27/17 Principal diagnosis: sickle cell pain crisis Interval history: Patient seen/examined, records reviewed, case d/w her. She is about to start her transfusion of PRBCs.Iron level high, and will start chelating tomorrow. It is not compatible with blood. Patient seen/examined, resting in bed, s/p blood replacement.Will do iron chelation x2-3days ,given recent transfusion, with already iron overload. Patient seen/examined, desf #1 of 3 finished.No new issues at this time. Objective - Constitutional Vitals: Vital Signs - 12hr 11/27/17 11/27/17 11/27/17 06:55 07:25 08:16 Temperature 98.9 F Pulse Rate 73 Respiratory 16 17 20 Rate Blood Pressure 145/78 O2 Sat by Pulse 94 Oximetry 11/27/17 11/27/17 12:50 14:48 Temperature 99.3 F Pulse Rate 79 Respiratory 20 Rate Blood Pressure 118/72 O2 Sat by Pulse 97 93 Oximetry General appearance: Present: no acute distress, mild distress, well-nourished - EENT Eyes: PERRL, EOM intact ENT: hearing intact, clear oral mucosa Ears: bilateral: normal - Neck Neck: supple, normal ROM - Respiratory Respiratory: bilateral: diminished - Breasts Breasts: deferred - Cardiovascular Rhythm: regular Heart Sounds: Present: S1 & S2. Absent: gallop, rub Extremities: pulses intact, No edema, normal color, Full ROM - Gastrointestinal General gastrointestinal: Present: soft, non-tender, non-distended, normal bowel sounds Rectal Exam: deferred - Genitourinary Female genitourinary: deferred - Integumentary Integumentary: clear, warm, dry - Musculoskeletal Musculoskeletal: 1, strength equal bilaterally - Neurologic Neurologic: moves all extremities - Psychiatric Psychiatric: memory intact, appropriate mood/affect, intact judgment & insight - Labs CBC & Chem 7: 11/26/17 08:10 11/23/17 16:37
[2017-11-28] MEDS: BENADRYL IV PRN ×3 (01:53→21:45)
[2017-11-28] MEDS: DILAUDID IV PRN ×6 (01:53→21:44)
[2017-11-28] MEDS: SYNTHROID PO SCH (06:11)
[2017-11-28 08:12] LABS: Eosinophils # (Auto) 0.7 K/mm3 (0.0-0.4); Eosinophils % (Auto) 6.1 % (0.0-4.3); Mean Corpuscular HGB Conc 36 % (30-34); Mean Corpuscular Hemoglobin 33 pg (28-32); Mean Corpuscular Volume 94 fl (79-97); Monocytes % (Auto) 8.1 % (0.0-7.3); Platelet Count 447 K/mm3 (140-440); Red Blood Count 2.11 M/mm3 (3.65-5.03)
[2017-11-28 08:19] LABS: BUN/Creatinine Ratio 50; Blood Urea Nitrogen 10 mg/dL (7-17); Calcium 9.2 mg/dL (8.4-10.2); Hemolysis Index 19
[2017-11-28 08:25] LABS: Red Cell Distribution Width 21.7 % (13.2-15.2)
[2017-11-28] MEDS: VITAMIN D3 PO SCH (09:08)
[2017-11-28] MEDS: FOLVITE PO SCH (09:08)
[2017-11-28] MEDS: HEPARIN SUB-Q SCH ×2 (09:13→22:00)
[2017-11-28 09:25] LABS: Basophils % (Manual) 0 % (0.0-1.8); Total Cells Counted 100
[2017-11-28 09:26] LABS: Anisocytosis 2+; Hypochromasia 2+; Large Platelets Few; Macrocytosis 1+; Ovalocytes Few; Poikilocytosis 1+; Sickle Cells 2+; Target Cells 1+
[2017-11-28] MEDS: Desferal 3,000 MG in NACL 0.9% 250ML 250 ML IV SCH (09:42)
[2017-11-28] MEDS: NACL 0.9% 1000 ML 1,000 ML IV SCH (10:35)
--- NOTE | 2017-11-28 15:48 | Progress Note ---
Assessment and Plan Assessment and plan: 47-year-old -[place]er female whose past medical history significant for sickle cell disease presented to the emergency department complaining of severe generalized body pain that started 2 days ago. Sickle cell pain crisis -Patient is IV Dilaudid and by mouth Percocet - We'll monitor Severe anemia - 1 unit of blood was given, will check posttransfusion hemoglobin and hematocrit Iron overload - Hematology oncology consulted -Patient is currently on deferoxamine. DVT prophylaxis - On heparin Disposition - Continue inpatient care History Interval history: Patient was seen and evaluated this morning, patient was complaining pain but getting better. Hospitalist Physical - Physical exam Narrative exam: Not in cardiopulmonary distress. The patient is obese. Vital signs as documented. Head exam is unremarkable. No scleral icterus . Neck is without jugular venous distension, thyromegaly, or carotid bruits. Lungs are clear to auscultation. Cardiac exam reveals regular rate and Rhythm. First and second heart sounds normal. No murmurs, rubs or gallops. Abdominal exam reveals normal bowel sounds, no masses, no organomegaly and no aortic enlargement. Extremities are nonedematous and both femoral and pedal pulses are normal. 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 No focal weakness. - Constitutional Vitals: Temp Pulse Resp BP Pulse Ox 99.0 F 81 18 128/71 100 11/28/17 08:14 11/28/17 08:14 11/28/17 13:14 11/28/17 08:14 11/28/17 08:14 General appearance: Present: no acute distress, mild distress, well-nourished Results - Labs CBC & Chem 7: 11/28/17 07:30 11/28/17 07:30 Labs: Laboratory Last Values WBC 11.6 K/mm3 (4.5-11.0) H 11/28/17 07:30 RBC 2.11 M/mm3 (3.65-5.03) L 11/28/17 07:30 Hgb 7.0 gm/dl (10.1-14.3) L 11/28/17 07:30 Hct 20.0 % (30.3-42.9) L 11/28/17 07:30 MCV 94 fl (79-97) 11/28/17 07:30 MCH 33 pg (28-32) H 11/28/17 07:30 MCHC 36 % (30-34) H 11/28/17 07:30 RDW 21.7 % (13.2-15.2) H 11/28/17 07:30 Plt Count 447 K/mm3 (140-440) H 11/28/17 07:30 [place] % (Auto) 8.1 % (0.0-7.3) H 11/28/17 07:30 Eos % (Auto) 6.1 % (0.0-4.3) H 11/28/17 07:30 Eos # 0.7 K/mm3 (0.0-0.4) H 11/28/17 07:30 Add Manual Diff Complete 11/28/17 07:30 Total Counted 100 11/28/17 07:30 Seg Neutrophils % 63.7 % (40.0-70.0) 11/28/17 07:30 Seg Neuts % (Manual) 71.0 % (40.0-70.0) H 11/28/17 07:30 Band Neutrophils % 0 % 11/28/17 07:30 Lymphocytes % (Manual) 18.0 % (13.4-35.0) 11/28/17 07:30 Reactive Lymphs % (Man) 0 % 11/28/17 07:30 Monocytes % (Manual) 4.0 % (0.0-7.3) 11/28/17 07:30 Eosinophils % (Manual) 7.0 % (0.0-4.3) H 11/28/17 07:30 Basophils % (Manual) 0 % (0.0-1.8) 11/28/17 07:30 Metamyelocytes % 0 % 11/28/17 07:30 Myelocytes % 0 % 11/28/17 07:30 Promyelocytes % 0 % 11/28/17 07:30 Blast Cells % 0 % 11/28/17 07:30 Nucleated RBC % Not Reportable 11/28/17 07:30 Seg Neutrophils # 7.4 K/mm3 (1.8-7.7) 11/28/17 07:30 Seg Neutrophils # Man 8.2 K/mm3 (1.8-7.7) H 11/28/17 07:30 Band Neutrophils # 0.0 K/mm3 11/28/17 07:30 Lymphocytes # (Manual) 2.1 K/mm3 (1.2-5.4) 11/28/17 07:30 Abs React Lymphs (Man) 0.0 K/mm3 11/28/17 07:30 Monocytes # (Manual) 0.5 K/mm3 (0.0-0.8) 11/28/17 07:30 Eosinophils # (Manual) 0.8 K/mm3 (0.0-0.4) H 11/28/17 07:30 Basophils # (Manual) 0.0 K/mm3 (0.0-0.1) 11/28/17 07:30 Metamyelocytes # 0.0 K/mm3 11/28/17 07:30 Myelocytes # 0.0 K/mm3 11/28/17 07:30 Promyelocytes # 0.0 K/mm3 11/28/17 07:30 Blast Cells # 0.0 K/mm3 11/28/17 07:30 WBC Morphology Not Reportable 11/28/17 07:30 Hypersegmented Neuts Not Reportable 11/28/17 07:30 Hyposegmented Neuts Not Reportable 11/28/17 07:30 Hypogranular Neuts Not Reportable 11/28/17 07:30 Smudge Cells Not Reportable 11/28/17 07:30 Toxic Granulation Not Reportable 11/28/17 07:30 Toxic Vacuolation Not Reportable 11/28/17 07:30 Dohle Bodies Not Reportable 11/28/17 07:30 Pelger-Huet Anomaly Not Reportable 11/28/17 07:30 Malik Rods Not Reportable 11/28/17 07:30 Platelet Estimate Appears normal 11/28/17 07:30 Clumped Platelets Not Reportable 11/28/17 07:30 Plt Clumps, EDTA Not Reportable 11/28/17 07:30 Large Platelets Few 11/28/17 07:30 Giant Platelets Not Reportable 11/28/17 07:30 Platelet Satelliting Not Reportable 11/28/17 07:30 Plt Morphology Comment Not Reportable 11/28/17 07:30 RBC Morphology Not Reportable 11/28/17 07:30 Dimorphic RBCs Not Reportable 11/28/17 07:30 Polychromasia Not Reportable 11/28/17 07:30 Hypochromasia 2+ 11/28/17 07:30 Poikilocytosis 1+ 11/28/17 07:30 Anisocytosis 2+ 11/28/17 07:30 Microcytosis 1+ 11/28/17 07:30 Macrocytosis 1+ 11/28/17 07:30 Spherocytes Not Reportable 11/28/17 07:30 Pappenheimer Bodies Not Reportable 11/28/17 07:30 Sickle Cells 2+ 11/28/17 07:30 Target Cells 1+ 11/28/17 07:30 Tear Drop Cells Not Reportable 11/28/17 07:30 Ovalocytes Few 11/28/17 07:30 Stomatocytes 1+ 11/25/17 07:50 Helmet Cells Not Reportable 11/28/17 07:30 [place] Bodies Not Reportable 11/28/17 07:30 [place] Rings Not Reportable 11/28/17 07:30 Humberto Cells Not Reportable 11/28/17 07:30 Bite Cells Not Reportable 11/28/17 07:30 Crenated Cell Not Reportable 11/28/17 07:30 Elliptocytes 1+ 11/28/17 07:30 Acanthocytes (Spur) Not Reportable 11/28/17 07:30 Rouleaux Not Reportable 11/28/17 07:30 Hemoglobin C Crystals Not Reportable 11/28/17 07:30 Schistocytes Not Reportable 11/28/17 07:30 Malaria parasites Not Reportable 11/28/17 07:30 Percent Retic 18.58 % (0.78-2.58) H 11/25/17 07:50 Brady Bodies Not Reportable 11/28/17 07:30 Hem Pathologist Commnt No 11/28/17 07:30 Sodium 140 mmol/L (137-145) 11/28/17 07:30 Potassium 3.9 mmol/L (3.6-5.0) 11/28/17 07:30 Chloride 103.1 mmol/L (98-107) 11/28/17 07:30 Carbon Dioxide 27 mmol/L (22-30) 11/28/17 07:30 Anion Gap 14 mmol/L 11/28/17 07:30 BUN 10 mg/dL (7-17) 11/28/17 07:30 Creatinine 0.2 mg/dL (0.7-1.2) L D 11/28/17 07:30 Estimated GFR > 60 ml/min 11/28/17 07:30 BUN/Creatinine Ratio 50 % 11/28/17 07:30 Glucose 93 mg/dL (65-100) 11/28/17 07:30 Calcium 9.2 mg/dL (8.4-10.2) 11/28/17 07:30 Iron 119 ug/dL (37-170) 11/25/17 00:30 TIBC 219 mcg/dL (250-450) L 11/25/17 00:30 Ferritin 4760.0 ng/mL (13.0-400.0) H 11/25/17 00:30 Amylase 101 units/L (27-131) 11/24/17 00:29 Lipase 72 units/L (13-60) H 11/24/17 00:29 HCG, Qual Negative (Negative) 11/23/17 18:03 Blood Type O POSITIVE 11/24/17 04:30 Antibody Screen Negative 11/24/17 04:30 Crossmatch See Detail 11/24/17 04:30
--- NOTE | 2017-11-28 21:43 | Progress Note ---
Assessment and Plan - Patient Problems (1) Sickle cell anemia with crisis Current Visit: Yes Status: Chronic Plan to address problem: pain control. (2) Anemia Current Visit: No Status: Acute Qualifiers: Anemia type: unspecified type Qualified Code(s): D64.9 - Anemia, unspecified Plan to address problem: carefull replacement, minding transfusion related iron overload. s/p transfusion. stable. (3) Dehydration Current Visit: No Status: Acute Plan to address problem: hydration. gentle hydration. (4) Hypothyroid Current Visit: No Status: Acute Plan to address problem: continue with replacement. supportive care. (5) Iron overload due to repeated red blood cell transfusions Current Visit: Yes Status: Acute Plan to address problem: getting iron chelation. Subjective Date of service: 11/28/17 Principal diagnosis: sickle cell pain crisis Interval history: Patient seen/examined, records reviewed, case d/w her. She is about to start her transfusion of PRBCs.Iron level high, and will start chelating tomorrow. It is not compatible with blood. Patient seen/examined, resting in bed, s/p blood replacement.Will do iron chelation x2-3days ,given recent transfusion, with already iron overload. Patient seen/examined, desf #1 of 3 finished.No new issues at this time. Patient seen/examined, records reviewed, case d/w patient. she denies any new issues at this time.She is finishing day 2 of desferol. Disposition is as per you. she will see me in the office on Wednesday. Objective - Constitutional Vitals: Vital Signs - 12hr 11/28/17 11/28/17 11/28/17 10:00 12:44 13:14 Temperature Pulse Rate Respiratory 18 18 Rate Respiratory 16 Rate [mid to lower back pain ] Blood Pressure O2 Sat by Pulse Oximetry 11/28/17 11/28/17 16:39 16:47 Temperature 99.7 F H Pulse Rate 84 Respiratory 15 Rate Respiratory Rate [mid to lower back pain ] Blood Pressure 127/79 O2 Sat by Pulse 90 97 Oximetry General appearance: Present: no acute distress, well-nourished - EENT Eyes: PERRL, EOM intact ENT: hearing intact, clear oral mucosa Ears: bilateral: normal - Neck Neck: supple, normal ROM - Respiratory Respiratory effort: normal Respiratory: bilateral: CTA - Breasts Breasts: deferred - Cardiovascular Rhythm: regular Heart Sounds: Present: S1 & S2. Absent: gallop, rub Extremities: pulses intact, No edema, normal color, Full ROM - Gastrointestinal General gastrointestinal: Present: soft, non-tender, non-distended, normal bowel sounds - Genitourinary Female genitourinary: deferred - Integumentary Integumentary: clear, warm, dry - Musculoskeletal Musculoskeletal: 1, strength equal bilaterally - Neurologic Neurologic: moves all extremities - Psychiatric Psychiatric: memory intact, appropriate mood/affect, intact judgment & insight - Labs CBC & Chem 7: 11/28/17 07:30 11/28/17 07:30 Labs: Abnormal lab results 11/28/17 11/28/17 Range/Units 07:30 07:30 WBC 11.6 H (4.5-11.0) K/mm3 RBC 2.11 L (3.65-5.03) M/mm3 Hgb 7.0 L (10.1-14.3) gm/dl Hct 20.0 L (30.3-42.9) % MCH 33 H (28-32) pg MCHC 36 H (30-34) % RDW 21.7 H (13.2-15.2) % Plt Count 447 H (140-440) K/mm3 [place] % (Auto) 8.1 H (0.0-7.3) % Eos % (Auto) 6.1 H (0.0-4.3) % Eos # 0.7 H (0.0-0.4) K/mm3 Seg Neuts % (Manual) 71.0 H (40.0-70.0) % Eosinophils % (Manual) 7.0 H (0.0-4.3) % Seg Neutrophils # Man 8.2 H (1.8-7.7) K/mm3 Eosinophils # (Manual) 0.8 H (0.0-0.4) K/mm3 Creatinine 0.2 L D (0.7-1.2) mg/dL
[2017-11-29] MEDS: DILAUDID IV PRN ×8 (00:56→23:51)
[2017-11-29] MEDS: BENADRYL IV PRN ×4 (03:56→23:51)
[2017-11-29] MEDS: NACL 0.9% 1000 ML 1,000 ML IV SCH (05:58)
[2017-11-29] MEDS: SYNTHROID PO SCH (06:01)
[2017-11-29] MEDS: VITAMIN D3 PO SCH (10:27)
[2017-11-29] MEDS: HEPARIN SUB-Q SCH ×2 (10:27→21:58)
[2017-11-29] MEDS: FOLVITE PO SCH (10:28)
[2017-11-29] MEDS: Desferal 3,000 MG in NACL 0.9% 250ML 250 ML IV SCH (10:28)
--- NOTE | 2017-11-29 16:00 | Progress Note ---
Assessment and Plan Assessment and plan: 47-year-old -[place] female whose past medical history significant for sickle cell disease presented to the emergency department complaining of severe generalized body pain that started 2 days ago. Sickle cell pain crisis -Patient is IV Dilaudid and by mouth Percocet - We'll monitor Severe anemia - 1 unit of blood was given, will check posttransfusion hemoglobin and hematocrit Iron overload - Hematology oncology consulted -Patient is currently on deferoxamine. DVT prophylaxis - On heparin Disposition - Continue inpatient care, possible DC tomorrow History Interval history: Patient was seen and evaluated this morning, patient was complaining pain but getting better. Hospitalist Physical - Physical exam Narrative exam: Not in cardiopulmonary distress. The patient is obese. Vital signs as documented. Head exam is unremarkable. No scleral icterus . Neck is without jugular venous distension, thyromegaly, or carotid bruits. Lungs are clear to auscultation. Cardiac exam reveals regular rate and Rhythm. First and second heart sounds normal. No murmurs, rubs or gallops. Abdominal exam reveals normal bowel sounds, no masses, no organomegaly and no aortic enlargement. Extremities are nonedematous and both femoral and pedal pulses are normal. 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 No focal weakness. - Constitutional Vitals: Temp Pulse Resp BP Pulse Ox 98.8 F 78 18 139/78 98 11/29/17 07:32 11/29/17 07:32 11/29/17 07:32 11/29/17 07:32 11/29/17 07:32 General appearance: Present: no acute distress, well-nourished Results - Labs CBC & Chem 7: 11/28/17 07:30 11/28/17 07:30 Labs: Laboratory Last Values WBC 11.6 K/mm3 (4.5-11.0) H 11/28/17 07:30 RBC 2.11 M/mm3 (3.65-5.03) L 11/28/17 07:30 Hgb 7.0 gm/dl (10.1-14.3) L 11/28/17 07:30 Hct 20.0 % (30.3-42.9) L 11/28/17 07:30 MCV 94 fl (79-97) 11/28/17 07:30 MCH 33 pg (28-32) H 11/28/17 07:30 MCHC 36 % (30-34) H 11/28/17 07:30 RDW 21.7 % (13.2-15.2) H 11/28/17 07:30 Plt Count 447 K/mm3 (140-440) H 11/28/17 07:30 [place] % (Auto) 8.1 % (0.0-7.3) H 11/28/17 07:30 Eos % (Auto) 6.1 % (0.0-4.3) H 11/28/17 07:30 Eos # 0.7 K/mm3 (0.0-0.4) H 11/28/17 07:30 Add Manual Diff Complete 11/28/17 07:30 Total Counted 100 11/28/17 07:30 Seg Neutrophils % 63.7 % (40.0-70.0) 11/28/17 07:30 Seg Neuts % (Manual) 71.0 % (40.0-70.0) H 11/28/17 07:30 Band Neutrophils % 0 % 11/28/17 07:30 Lymphocytes % (Manual) 18.0 % (13.4-35.0) 11/28/17 07:30 Reactive Lymphs % (Man) 0 % 11/28/17 07:30 Monocytes % (Manual) 4.0 % (0.0-7.3) 11/28/17 07:30 Eosinophils % (Manual) 7.0 % (0.0-4.3) H 11/28/17 07:30 Basophils % (Manual) 0 % (0.0-1.8) 11/28/17 07:30 Metamyelocytes % 0 % 11/28/17 07:30 Myelocytes % 0 % 11/28/17 07:30 Promyelocytes % 0 % 11/28/17 07:30 Blast Cells % 0 % 11/28/17 07:30 Nucleated RBC % Not Reportable 11/28/17 07:30 Seg Neutrophils # 7.4 K/mm3 (1.8-7.7) 11/28/17 07:30 Seg Neutrophils # Man 8.2 K/mm3 (1.8-7.7) H 11/28/17 07:30 Band Neutrophils # 0.0 K/mm3 11/28/17 07:30 Lymphocytes # (Manual) 2.1 K/mm3 (1.2-5.4) 11/28/17 07:30 Abs React Lymphs (Man) 0.0 K/mm3 11/28/17 07:30 Monocytes # (Manual) 0.5 K/mm3 (0.0-0.8) 11/28/17 07:30 Eosinophils # (Manual) 0.8 K/mm3 (0.0-0.4) H 11/28/17 07:30 Basophils # (Manual) 0.0 K/mm3 (0.0-0.1) 11/28/17 07:30 Metamyelocytes # 0.0 K/mm3 11/28/17 07:30 Myelocytes # 0.0 K/mm3 11/28/17 07:30 Promyelocytes # 0.0 K/mm3 11/28/17 07:30 Blast Cells # 0.0 K/mm3 11/28/17 07:30 WBC Morphology Not Reportable 11/28/17 07:30 Hypersegmented Neuts Not Reportable 11/28/17 07:30 Hyposegmented Neuts Not Reportable 11/28/17 07:30 Hypogranular Neuts Not Reportable 11/28/17 07:30 Smudge Cells Not Reportable 11/28/17 07:30 Toxic Granulation Not Reportable 11/28/17 07:30 Toxic Vacuolation Not Reportable 11/28/17 07:30 Dohle Bodies Not Reportable 11/28/17 07:30 Pelger-Huet Anomaly Not Reportable 11/28/17 07:30 Malik Rods Not Reportable 11/28/17 07:30 Platelet Estimate Appears normal 11/28/17 07:30 Clumped Platelets Not Reportable 11/28/17 07:30 Plt Clumps, EDTA Not Reportable 11/28/17 07:30 Large Platelets Few 11/28/17 07:30 Giant Platelets Not Reportable 11/28/17 07:30 Platelet Satelliting Not Reportable 11/28/17 07:30 Plt Morphology Comment Not Reportable 11/28/17 07:30 RBC Morphology Not Reportable 11/28/17 07:30 Dimorphic RBCs Not Reportable 11/28/17 07:30 Polychromasia Not Reportable 11/28/17 07:30 Hypochromasia 2+ 11/28/17 07:30 Poikilocytosis 1+ 11/28/17 07:30 Anisocytosis 2+ 11/28/17 07:30 Microcytosis 1+ 11/28/17 07:30 Macrocytosis 1+ 11/28/17 07:30 Spherocytes Not Reportable 11/28/17 07:30 Pappenheimer Bodies Not Reportable 11/28/17 07:30 Sickle Cells 2+ 11/28/17 07:30 Target Cells 1+ 11/28/17 07:30 Tear Drop Cells Not Reportable 11/28/17 07:30 Ovalocytes Few 11/28/17 07:30 Stomatocytes 1+ 11/25/17 07:50 Helmet Cells Not Reportable 11/28/17 07:30 [place] Bodies Not Reportable 11/28/17 07:30 [place] Rings Not Reportable 11/28/17 07:30 Humberto Cells Not Reportable 11/28/17 07:30 Bite Cells Not Reportable 11/28/17 07:30 Crenated Cell Not Reportable 11/28/17 07:30 Elliptocytes 1+ 11/28/17 07:30 Acanthocytes (Spur) Not Reportable 11/28/17 07:30 Rouleaux Not Reportable 11/28/17 07:30 Hemoglobin C Crystals Not Reportable 11/28/17 07:30 Schistocytes Not Reportable 11/28/17 07:30 Malaria parasites Not Reportable 11/28/17 07:30 Percent Retic 18.58 % (0.78-2.58) H 11/25/17 07:50 Brady Bodies Not Reportable 11/28/17 07:30 Hem Pathologist Commnt No 11/28/17 07:30 Sodium 140 mmol/L (137-145) 11/28/17 07:30 Potassium 3.9 mmol/L (3.6-5.0) 11/28/17 07:30 Chloride 103.1 mmol/L (98-107) 11/28/17 07:30 Carbon Dioxide 27 mmol/L (22-30) 11/28/17 07:30 Anion Gap 14 mmol/L 11/28/17 07:30 BUN 10 mg/dL (7-17) 11/28/17 07:30 Creatinine 0.2 mg/dL (0.7-1.2) L D 11/28/17 07:30 Estimated GFR > 60 ml/min 11/28/17 07:30 BUN/Creatinine Ratio 50 % 11/28/17 07:30 Glucose 93 mg/dL (65-100) 11/28/17 07:30 Calcium 9.2 mg/dL (8.4-10.2) 11/28/17 07:30 Iron 119 ug/dL (37-170) 11/25/17 00:30 TIBC 219 mcg/dL (250-450) L 11/25/17 00:30 Ferritin 4760.0 ng/mL (13.0-400.0) H 11/25/17 00:30 Amylase 101 units/L (27-131) 11/24/17 00:29 Lipase 72 units/L (13-60) H 11/24/17 00:29 HCG, Qual Negative (Negative) 11/23/17 18:03 Blood Type O POSITIVE 11/24/17 04:30 Antibody Screen Negative 11/24/17 04:30 Crossmatch See Detail 11/24/17 04:30
--- NOTE | 2017-11-29 22:35 | Progress Note ---
Assessment and Plan - Patient Problems (1) Sickle cell anemia with crisis Current Visit: Yes Status: Chronic Plan to address problem: pain control. (2) Anemia Current Visit: No Status: Acute Qualifiers: Anemia type: unspecified type Qualified Code(s): D64.9 - Anemia, unspecified Plan to address problem: carefull replacement, minding transfusion related iron overload. s/p transfusion. stable. (3) Dehydration Current Visit: No Status: Acute Plan to address problem: hydration. gentle hydration. (4) Hypothyroid Current Visit: No Status: Acute Plan to address problem: continue with replacement. supportive care. (5) Iron overload due to repeated red blood cell transfusions Current Visit: Yes Status: Acute Plan to address problem: getting iron chelation. Subjective Date of service: 11/29/17 Principal diagnosis: sickle cell pain crisis Interval history: Patient seen/examined, records reviewed, case d/w her. She is about to start her transfusion of PRBCs.Iron level high, and will start chelating tomorrow. It is not compatible with blood. Patient seen/examined, resting in bed, s/p blood replacement.Will do iron chelation x2-3days ,given recent transfusion, with already iron overload. Patient seen/examined, desf #1 of 3 finished.No new issues at this time. Patient seen/examined, records reviewed, case d/w patient. she denies any new issues at this time.She is finishing day 2 of desferol. Disposition is as per you. she will see me in the office on Wednesday. patient seen/examined, resting in bed, labs remains fair. given the last of the desferol today, disposition still as per you. Objective - Constitutional Vitals: Vital Signs - 12hr 11/29/17 11/29/17 11/29/17 18:40 20:26 20:56 Temperature 99.6 F Pulse Rate 75 Respiratory 15 18 18 Rate Blood Pressure 122/73 O2 Sat by Pulse 99 Oximetry General appearance: Present: no acute distress, well-nourished - EENT Eyes: PERRL, EOM intact ENT: hearing intact, clear oral mucosa Ears: bilateral: normal - Neck Neck: supple, normal ROM - Respiratory Respiratory effort: normal Respiratory: bilateral: CTA - Breasts Breasts: deferred - Cardiovascular Rhythm: regular Heart Sounds: Present: S1 & S2. Absent: gallop, rub Extremities: pulses intact, No edema, normal color, Full ROM - Gastrointestinal General gastrointestinal: Present: soft, non-tender, non-distended, normal bowel sounds Rectal Exam: deferred - Genitourinary Female genitourinary: deferred - Integumentary Integumentary: clear, warm, dry - Musculoskeletal Musculoskeletal: 1, strength equal bilaterally - Neurologic Neurologic: moves all extremities - Psychiatric Psychiatric: memory intact, appropriate mood/affect, intact judgment & insight - Labs CBC & Chem 7: 11/28/17 07:30 11/28/17 07:30
[2017-11-30] MEDS: DILAUDID IV PRN ×4 (03:26→12:46)
[2017-11-30] MEDS: BENADRYL IV PRN ×2 (06:53→12:46)
[2017-11-30] MEDS: SYNTHROID PO SCH (06:54)
[2017-11-30 09:00] VITALS: BP 107/66
--- NOTE | 2017-11-30 09:09 | Discharge Summary ---
Providers - Providers Date of Admission: 11/24/17 01:36 Date of discharge: 11/30/17 Attending physician: LINDA FLANAGAN MD 11/24/17 18:48 Consult to Physician [CONS] Routine Comment: Consulting Provider: WANDA SIMON Physician Instructions: Reason For Exam: Sickle cell pain crisis Primary care physician: SHADE CLASSIFIER Hospitalization Reason for admission: sickle cell pain crisis Condition: Stable Disposition: DC-01 TO HOME OR SELFCARE Time spent for discharge: 31 minutes - Discharge Diagnoses (1) Iron overload due to repeated red blood cell transfusions Status: Acute (2) Sickle cell anemia with crisis Status: Chronic (3) Acute sickle cell crisis Status: Acute (4) Anemia requiring transfusions Status: Acute (5) Hypothyroid Status: Acute (6) Depression Status: Chronic Qualifiers: Major depression episode severity: mild Core Measure Documentation - Palliative Care Palliative Care/ Comfort Measures: Not Applicable - Core Measures Any of the following diagnoses?: none Exam - Physical Exam Narrative exam: Not in cardiopulmonary distress. The patient is obese. Vital signs as documented. Head exam is unremarkable. No scleral icterus . Neck is without jugular venous distension, thyromegaly, or carotid bruits. Lungs are clear to auscultation. Cardiac exam reveals regular rate and Rhythm. First and second heart sounds normal. No murmurs, rubs or gallops. Abdominal exam reveals normal bowel sounds, no masses, no organomegaly and no aortic enlargement. Extremities are nonedematous and both femoral and pedal pulses are normal. 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 No focal weakness. - Constitutional Vitals: Temp Pulse Resp BP Pulse Ox 98.6 F 68 22 107/66 98 11/30/17 07:39 11/30/17 07:39 11/30/17 07:39 11/30/17 07:39 11/30/17 07:39 Plan Activity: no restrictions Weight Bearing Status: Full Weight Bearing Diet: regular Follow up with: MICHAEL HANDY MD [Primary Care Provider] - 3-5 Days WANDA SIMON DO [Staff Physician] - 7 Days
[2017-11-30] MEDS: FOLVITE PO SCH (09:27)
[2017-11-30] MEDS: VITAMIN D3 PO SCH (09:27)
[2017-11-30] MEDS: HEPARIN SUB-Q SCH (09:28)
[2017-11-30] MEDS ORDERED: TRIPLE ANTIBIOTIC TP ONE (11:52)
[2017-11-30] MEDS ORDERED: FLUSH HEPARIN IV ONE (11:53)
== END 2017-11-30 14:35 | disposition home or self-care (01) | DRG 642 ==
LOC: ED 16:11 → 3A 11-24 01:36
PROVIDERS: ADMIT Internal Medicine; ATTEND Internal Medicine
PROC: 30233N1 Transfusion of Nonautologous Red Blood Cells into Peripheral Vein, Percutaneous Approach (ICD-10-PCS; principal; 2017-11-26)
DX: E83.111 Hemochromatosis due to repeated red blood cell transfusions (principal); D57.00 Hb-SS disease with crisis, unspecified; E86.0 Dehydration; E03.9 Hypothyroidism, unspecified; I50.9 Heart failure, unspecified; J44.9 Chronic obstructive pulmonary disease, unspecified; F32.9 Major depressive disorder, single episode, unspecified; Z90.49 Acquired absence of other specified parts of digestive tract; Z88.6 Allergy status to analgesic agent; Z88.5 Allergy status to narcotic agent; Z88.8 Allergy status to other drugs, medicaments and biological substances; Z91.018 Allergy to other foods
CPT/HCPCS: 36415; 71045; 80048; 82150; 82728; 83550; 83690; 84703; 85007; 85025; 85045; 85660; 86850; 86900; 86901; 86922; 92950; 96361; 96374; 96375; 96376; 99285; A6250; J0895; J1170; J1200; J1642; J1644; J2405; J7030; J7040; J7042; J7050; P9016

== ENCOUNTER 2018-03-29 04:16 | Inpatient (IN) | payer OTHER ==
[2018-03-29] MEDS ORDERED: MOTRIN ONE (06:08)
[2018-03-29] MEDS ORDERED: DILAUDID IV ONE ×3 (10:06→20:10)
[2018-03-29] MEDS ORDERED: BENADRYL IV ONE (10:07)
[2018-03-29] MEDS ORDERED: ZOFRAN IV ONE (10:08)
--- NOTE | 2018-03-29 11:03 | XRay Report ---
AP CHEST: HISTORY: chest pain Compared to 11/24/17. The left [id number] remains in good position. Heart size and pulmonary vessels remain within normal limits. Minor linear scarring or discoid atelectasis in the lower lung zones is unchanged. No evidence for pneumonia, pleural fluid or pneumothorax. The bony structures are intact. IMPRESSION: No acute cardiopulmonary process.
[2018-03-29 11:25] LABS: Mean Corpuscular HGB Conc 34 % (30-34); Mean Corpuscular Hemoglobin 39 pg (28-32); Platelet Count 534 K/mm3 (140-440); Red Blood Count 1.48 M/mm3 (3.65-5.03)
[2018-03-29] MEDS: D5NS 0.2% 1,000 ML IV SCH ×3 (11:31→22:23)
[2018-03-29 11:34] LABS: Hemoglobin 5.8 gm/dl (10.1-14.3)
[2018-03-29 11:35] LABS: Hematocrit 16.9 % (30.3-42.9); INR 1.32 (0.87-1.13); Mean Corpuscular Volume 114 fl (79-97); Red Cell Distribution Width 37.9 % (13.2-15.2)
[2018-03-29 11:36] LABS: Partial Thromboplastin Time 33.1 Sec. (24.2-36.6)
[2018-03-29 11:39] LABS: Creatine Kinase MB 1.1 ng/mL (0.0-4.0)
[2018-03-29 11:40] LABS: Alanine Aminotransferase 38 units/L (7-56); Albumin 4.3 g/dL (3.9-5); BUN/Creatinine Ratio 22; Bilirubin,Direct 0.6 mg/dL (0-0.2); Blood Urea Nitrogen 11 mg/dL (7-17); Calcium 9.2 mg/dL (8.4-10.2); Hemolysis Index 7
[2018-03-29] MEDS ORDERED: NACL 0.9% 500 ML 500 ML IV ONE (11:55)
[2018-03-29 12:02] LABS: Anisocytosis 3+; Band Neutrophils # (Manual) 0.3 K/mm3; Basophils % (Manual) 0 % (0.0-1.8); Poikilocytosis 3+; Total Cells Counted 100
[2018-03-29 12:03] LABS: Helmet Cells Few; Hypochromasia 1+; Large Platelets Few; Macrocytosis Few; Ovalocytes 1+; Platelet Estimate Appears Increased; Schistocytes 1+; Sickle Cells 2+; Stomatocytes Few; Target Cells 1+; Tear Drop Cells Few
--- NOTE | 2018-03-29 12:05 | Emergency Department Report ---
ED General Adult HPI - General Chief complaint: Sickle Cell Crisis Stated complaint: SICKLE CELL Time Seen by Provider: 03/29/18 09:58 Source: patient Mode of arrival: Ambulatory Limitations: No Limitations - History of Present Illness Initial comments: 45 year old female seen by Dr. Guajardo states she is poorly compliant. The patient states that she has followed up with her clinical applications specialist and he states that she has not been seen in the office for quite some time. She tells me that she had an appointment to go to his office today. However she has been having pain in her lower back and lower extremities she states for greater than a day so she decided to come here. She stated that she had a "little bit of chest pain". She denied fever cough or chills. Her clinical applications specialist states that she has had at least 2 admissions to 2 other hospitals since her admission here in November 2017. She is known to be iron overloaded and has received just her oximetry in the past. She has had many previous transfusions. -: hour(s) Location: chest, back, lower extremity Radiation: non-radiation Quality: aching Consistency: intermittent Improves with: none Associated Symptoms: denies other symptoms, chest pain (except as above described) - Related Data Home Medications Medication Instructions Recorded Confirmed Last Taken Amitriptyline [Elavil] 25 mg PO QHS PRN 11/24/17 03/29/18 Unknown Naloxone HCl [Narcan] 4 mg NS PRN 03/29/18 03/29/18 Unknown Oxycodone HCl [Roxicodone TAB] 15 mg PO Q12H PRN 03/29/18 03/29/18 Unknown Promethazine [Phenergan TAB] 25 mg PO Q8HR PRN 03/29/18 03/29/18 Unknown Previous Rx's Medication Instructions Recorded Last Taken Type Folic Acid [Folvite] 1 mg PO QDAY #30 tablet 06/27/14 09/06/17 09:00 Rx Allergies Allergy/AdvReac Type Severity Reaction Status Date / Time aspirin Allergy Vomiting Verified 12/07/13 09:50 ketorolac tromethamine Allergy Unknown Verified 12/07/13 09:50 [From Toradol] morphine Allergy Shortness Verified 12/07/13 09:50 of Breath pineapple [Pineapple] Allergy Swelling Verified 12/07/13 09:49 ED Review of Systems ROS: Stated complaint: SICKLE CELL Other details as noted in HPI Constitutional: denies: chills, fever Eyes: denies: eye pain, eye discharge, vision change ENT: denies: ear pain, throat pain Respiratory: denies: cough, shortness of breath, wheezing Cardiovascular: chest pain. denies: palpitations Endocrine: no symptoms reported Gastrointestinal: denies: abdominal pain, nausea, diarrhea Genitourinary: denies: urgency, dysuria, discharge Musculoskeletal: as per HPI. denies: joint swelling Skin: denies: rash, lesions Neurological: denies: headache, weakness, paresthesias Psychiatric: denies: anxiety, depression Hematological/Lymphatic: denies: easy bleeding, easy bruising ED Past Medical Hx - Past Medical History Hx Hypertension: No Hx Congestive Heart Failure: Yes Hx Diabetes: No Hx Deep Vein Thrombosis: (?) Hx Sickle Cell Disease: Yes Hx Arthritis: Yes Hx Asthma: No Hx COPD: Yes Hx HIV: No Additional medical history: ANEMIA (Blood transfusion), Hypothyroid, Left chest port - Surgical History Hx Pacemaker: No Hx Internal Defibrillator: No Hx Cholecystectomy: Yes Additional Surgical History: right ovary removed secondary to ovarian torsion. port placement x 3, port left chest wall - Social History Smoking Status: Never Smoker Substance Use Type: None - Medications Home Medications: Home Medications Medication Instructions Recorded Confirmed Last Taken Type Folic Acid [Folvite] 1 mg PO QDAY #30 tablet 06/27/14 03/29/18 09/06/17 09:00 Rx Amitriptyline [Elavil] 25 mg PO QHS PRN 11/24/17 03/29/18 Unknown History Naloxone HCl [Narcan] 4 mg NS PRN 03/29/18 03/29/18 Unknown History Oxycodone HCl [Roxicodone TAB] 15 mg PO Q12H PRN 03/29/18 03/29/18 Unknown History Promethazine [Phenergan TAB] 25 mg PO Q8HR PRN 03/29/18 03/29/18 Unknown History ED Physical Exam - General Limitations: No Limitations General appearance: alert, in no apparent distress - Head Head exam: Present: atraumatic, normocephalic - Eye Eye exam: Present: normal appearance, PERRL, EOMI. Absent: scleral icterus - ENT ENT exam: Present: mucous membranes moist - Neck Neck exam: Present: normal inspection. Absent: tenderness, meningismus - Respiratory Respiratory exam: Present: normal lung sounds bilaterally. Absent: respiratory distress - Cardiovascular Cardiovascular Exam: Present: regular rate, normal rhythm. Absent: systolic murmur, diastolic murmur, rubs, gallop - GI/Abdominal GI/Abdominal exam: Present: soft, normal bowel sounds. Absent: distended, tenderness, guarding, rebound, rigid - Extremities Exam Extremities exam: Present: normal inspection - Back Exam Back exam: Present: normal inspection - Neurological Exam Neurological exam: Present: alert, oriented X3, CN II-XII intact. Absent: motor sensory deficit - Psychiatric Psychiatric exam: Present: normal affect, normal mood - Skin Skin exam: Present: warm, dry, intact, normal color. Absent: rash ED Course Vital Signs 03/29/18 03/29/18 03/29/18 04:21 04:30 07:36 Temperature 99.3 F 99 F 98.8 F Pulse Rate 90 91 H 82 Respiratory 18 22 20 Rate Blood Pressure 115/64 124/33 Blood Pressure 115/64 [Left] O2 Sat by Pulse 85 90 97 Oximetry 03/29/18 03/29/18 03/29/18 08:59 09:00 09:08 Temperature 98.7 F Pulse Rate Respiratory 20 Rate Blood Pressure 125/81 125/81 Blood Pressure [Left] O2 Sat by Pulse 87 98 Oximetry 03/29/18 03/29/18 10:00 11:01 Temperature Pulse Rate 84 90 Respiratory 28 H 18 Rate Blood Pressure 136/72 127/92 Blood Pressure [Left] O2 Sat by Pulse 97 97 Oximetry - Reevaluation(s) Reevaluation #1: Discussed with Dr. Ron. Admit [facility] to his service. I unit RBCs orders. 03/29/18 12:17 ED Medical Decision Making - Lab Data Result diagrams: 03/29/18 11:15 03/29/18 11:15 Laboratory Results - last 24 hr 03/29/18 03/29/18 03/29/18 11:15 11:15 11:15 WBC 14.0 H RBC 1.48 L Hgb 5.8 L* Hct 16.9 L* MCV 114 H MCH 39 H MCHC 34 RDW 37.9 H Plt Count 534 H Percent Retic 25.68 H PT 17.1 H INR 1.32 H APTT 33.1 D-Dimer 269.50 H Sodium Potassium Chloride Carbon Dioxide Anion Gap BUN Creatinine Estimated GFR BUN/Creatinine Ratio Glucose Calcium Magnesium Total Bilirubin Direct Bilirubin Indirect Bilirubin AST ALT Alkaline Phosphatase Total Creatine Kinase CK-MB (CK-2) CK-MB (CK-2) Rel Index Troponin T NT-Pro-B Natriuret Pep Total Protein Albumin Albumin/Globulin Ratio HCG, Qual Negative 03/29/18 11:15 WBC RBC Hgb Hct MCV MCH MCHC RDW Plt Count Percent Retic PT INR APTT D-Dimer Sodium 142 Potassium 3.9 Chloride 102.4 Carbon Dioxide 26 Anion Gap 18 BUN 11 Creatinine 0.5 L Estimated GFR > 60 BUN/Creatinine Ratio 22 Glucose 95 Calcium 9.2 Magnesium 2.00 Total Bilirubin 3.50 H Direct Bilirubin 0.6 H Indirect Bilirubin 2.9 AST 53 H ALT 38 Alkaline Phosphatase 67 Total Creatine Kinase 70 CK-MB (CK-2) 1.1 CK-MB (CK-2) Rel Index 1.5 Troponin T < 0.010 NT-Pro-B Natriuret Pep 125.0 Total Protein 7.6 Albumin 4.3 Albumin/Globulin Ratio 1.3 HCG, Qual - EKG Data EKG shows normal: sinus rhythm, axis, intervals, QRS complexes, ST-T waves Rate: normal - EKG Data Interpretation: nonspecific ST-T wave mark, LVH - Radiology Data Radiology results: report reviewed (NAF) Critical care attestation.: If time is entered above; I have spent that time in minutes in the direct care of this critically ill patient, excluding procedure time. ED Disposition Clinical Impression: Sickle cell pain crisis Anemia Qualifiers: Anemia type: other cause Other causes of anemia: other cause, not classified Qualified Code(s): D64.89 - Other specified anemias Disposition: OP ADMIT IP TO THIS HOSP Is pt being admited?: Yes Does the pt Need Aspirin: Yes Condition: Stable Referrals: PRIMARY CARE, [Primary Care Provider] - 3-5 Days Time of Disposition: 12:16
[2018-03-29] MEDS ORDERED: DILAUDID IV PRN ×2 (16:06→19:09)
[2018-03-29] MEDS ORDERED: PERCOCET 5/325 PO PRN ×2 (17:09→19:26)
[2018-03-29] MEDS ORDERED: ELAVIL PO PRN (17:16)
--- NOTE | 2018-03-29 19:37 | History and Physical Report ---
History of Present Illness Date of examination: 03/29/18 Date of admission: 03/29/18 12:18 Chief complaint: Sickel pain crisis., anemia. History of present illness: Patient presented to the ED, with CC of diffuse joint pain.w/u i n the ED led to admission for sxs management/control.HGB low at 5+, PRBC replacement ordered , awaiting matched blood.She is currently on IVF, and getting pain control. Past History Past Medical History: anemia, hypothyroidism Social history: lives with family Family history: no significant family history Medications and Allergies Allergies Allergy/AdvReac Type Severity Reaction Status Date / Time aspirin Allergy Vomiting Verified 12/07/13 09:50 ketorolac tromethamine Allergy Unknown Verified 12/07/13 09:50 [From Toradol] morphine Allergy Shortness Verified 12/07/13 09:50 of Breath pineapple [Pineapple] Allergy Swelling Verified 12/07/13 09:49 Home Medications Medication Instructions Recorded Confirmed Last Taken Type Folic Acid [Folvite] 1 mg PO QDAY #30 tablet 06/27/14 03/29/18 09/06/17 09:00 Rx Amitriptyline [Elavil] 25 mg PO QHS PRN 11/24/17 03/29/18 Unknown History Naloxone HCl [Narcan] 4 mg NS PRN 03/29/18 03/29/18 Unknown History Oxycodone HCl [Roxicodone TAB] 15 mg PO Q12H PRN 03/29/18 03/29/18 Unknown History Promethazine [Phenergan TAB] 25 mg PO Q8HR PRN 03/29/18 03/29/18 Unknown History Active Meds: Active Medications Amitriptyline HCl (Elavil) 25 mg PO QHS PRN PRN Reason: Hypertension Apixaban (Eliquis) 5 mg PO BID RAMIREZ; Protocol Cholecalciferol (Vitamin D3) 1,000 unit PO QDAY RAMIREZ Diphenhydramine HCl (Benadryl) 12.5 mg IV Q4H PRN PRN Reason: Itching Folic Acid (Folvite) 1 mg PO QDAY RAMIREZ Hydromorphone HCl (Dilaudid) 1 mg IV ONCE ONE Stop: 03/29/18 20:11 Last Admin: 03/29/18 19:23 Dose: 1 mg Hydromorphone HCl (Dilaudid) 1 mg IV Q3H PRN PRN Reason: Pain , Severe (7-10) Dextrose/Sodium Chloride (D5ns 0.2%) 1,000 mls @ 250 mls/hr IV DIRECT RAMIREZ Last Admin: 03/29/18 15:57 Dose: 250 mls/hr Levothyroxine Sodium (Synthroid) 100 mcg PO DAILY@0600 [facility] Oxycodone/Acetaminophen (Percocet 5/325) 2 tab PO Q6H PRN PRN Reason: Pain, Moderate (4-6) Review of Systems Constitutional: chronic pain Breasts: deferred Respiratory: shortness of breath Gastrointestinal: nausea Musculoskeletal: low back pain Psychiatric: insomnia Exam - Constitutional Vitals: Temp Pulse Resp BP Pulse Ox 99.5 F 84 18 121/63 98 03/29/18 17:00 03/29/18 17:00 03/29/18 19:23 03/29/18 17:00 03/29/18 17:00 General appearance: Present: mild distress - EENT Eyes: Present: PERRL ENT: hearing intact, clear oral mucosa - Neck Neck: Present: supple, normal ROM - Respiratory Respiratory: bilateral: rhonchi - Cardiovascular Heart Sounds: Present: S1 & S2. Absent: rub, click - Extremities Extremities: pulses symmetrical, No edema Peripheral Pulses: within normal limits - Abdominal General gastrointestinal: Present: soft, non-tender, non-distended, normal bowel sounds Female genitourinary: Present: deferred - Rectal Rectal Exam: deferred - Integumentary Integumentary: Present: clear, warm, dry - Musculoskeletal Musculoskeletal: gait normal, strength equal bilaterally - Psychiatric Psychiatric: appropriate mood/affect, intact judgment & insight - Neurologic Neurologic: CNII-XII intact, moves all extremities Results - Labs CBC & Chem 7: 03/29/18 11:15 03/29/18 11:15 Labs: Abnormal lab results 03/29/18 03/29/18 03/29/18 Range/Units 11:15 11:15 11:15 WBC 14.0 H (4.5-11.0) K/mm3 RBC 1.48 L (3.65-5.03) M/mm3 Hgb 5.8 L* (10.1-14.3) gm/dl Hct 16.9 L* (30.3-42.9) % MCV 114 H (79-97) fl MCH 39 H (28-32) pg RDW 37.9 H (13.2-15.2) % Plt Count 534 H (140-440) K/mm3 Seg Neuts % (Manual) 72.0 H (40.0-70.0) % Nucleated RBC % 34.0 H (0.0-0.9) % Seg Neutrophils # Man 10.1 H (1.8-7.7) K/mm3 Percent Retic 25.68 H (0.78-2.58) % PT 17.1 H (12.2-14.9) Sec. INR 1.32 H (0.87-1.13) D-Dimer 269.50 H (0-234) ng/mlDDU Creatinine 0.5 L (0.7-1.2) mg/dL Ferritin (13.0-400.0) ng/mL Total Bilirubin 3.50 H (0.1-1.2) mg/dL Direct Bilirubin 0.6 H (0-0.2) mg/dL AST 53 H (5-40) units/L Crossmatch 03/29/18 03/29/18 Range/Units 11:15 11:15 WBC (4.5-11.0) K/mm3 RBC (3.65-5.03) M/mm3 Hgb (10.1-14.3) gm/dl Hct (30.3-42.9) % MCV (79-97) fl MCH (28-32) pg RDW (13.2-15.2) % Plt Count (140-440) K/mm3 Seg Neuts % (Manual) (40.0-70.0) % Nucleated RBC % (0.0-0.9) % Seg Neutrophils # Man (1.8-7.7) K/mm3 Percent Retic (0.78-2.58) % PT (12.2-14.9) Sec. INR (0.87-1.13) D-Dimer (0-234) ng/mlDDU Creatinine (0.7-1.2) mg/dL Ferritin 4864.0 H (13.0-400.0) ng/mL Total Bilirubin (0.1-1.2) mg/dL Direct Bilirubin (0-0.2) mg/dL AST (5-40) units/L Crossmatch See Detail Assessment and Plan - Patient Problems (1) Anemia Current Visit: Yes Status: Acute Qualifiers: Anemia type: other cause Other causes of anemia: other cause, not classified Qualified Code(s): D64.89 - Other specified anemias Plan to address problem: See notes above. (2) Sickle cell pain crisis Current Visit: Yes Status: Acute Plan to address problem: Pain control. (3) Anemia requiring transfusions Current Visit: No Status: Acute Plan to address problem: see above. (4) Dehydration Current Visit: No Status: Acute Plan to address problem: hydration. (5) Hypothyroid Current Visit: No Status: Acute Plan to address problem: continue with synthroid.
[2018-03-29] MEDS: BENADRYL IV PRN (22:23)
[2018-03-29] MEDS: DILAUDID IV PRN (22:23)
[2018-03-29] MEDS: ELIQUIS PO SCH (22:24)
[2018-03-30] MEDS: BENADRYL IV PRN ×5 (01:25→22:18)
[2018-03-30] MEDS: DILAUDID IV PRN ×7 (01:26→22:18)
[2018-03-30] MEDS ORDERED: NACL 0.9% 500 ML 500 ML IV ONE (05:00)
[2018-03-30] MEDS: SYNTHROID PO SCH (05:06)
[2018-03-30] MEDS: ELIQUIS PO SCH ×2 (10:07→21:23)
[2018-03-30] MEDS: VITAMIN D3 PO SCH (10:07)
[2018-03-30] MEDS: FOLVITE PO SCH (10:07)
[2018-03-30] MEDS: D5NS 0.2% 1,000 ML IV SCH ×4 (12:38→23:50)
--- NOTE | 2018-03-30 18:52 | Progress Note ---
Assessment and Plan - Patient Problems (1) Anemia Current Visit: Yes Status: Acute Qualifiers: Anemia type: other cause Other causes of anemia: other cause, not classified Qualified Code(s): D64.89 - Other specified anemias Plan to address problem: See notes above. (2) Sickle cell pain crisis Current Visit: Yes Status: Acute Plan to address problem: Pain control. (3) Anemia requiring transfusions Current Visit: No Status: Acute Plan to address problem: see above. completed. (4) Dehydration Current Visit: No Status: Acute Plan to address problem: hydration. (5) Hypothyroid Current Visit: No Status: Acute Plan to address problem: continue with synthroid. Subjective Date of service: 03/30/18 Principal diagnosis: SCD/Pain crisis. Interval history: Patient seen/examined, resting in bed, s/p blood transfusion, and feeling a bit better.If she feels better tomorrow, will d/c home. Objective - Constitutional Vitals: Vital Signs - 12hr 03/30/18 03/30/18 03/30/18 06:50 08:00 09:20 Temperature 99.1 F 99.1 F 99.5 F Pulse Rate 67 75 107 H Respiratory 18 18 Rate Blood Pressure 114/67 128/84 131/77 O2 Sat by Pulse 100 Oximetry 03/30/18 03/30/18 03/30/18 09:23 09:36 10:05 Temperature 99.1 F 99.5 F 99.1 F Pulse Rate 72 108 H 94 H Respiratory 18 18 16 Rate Blood Pressure 128/84 126/71 118/64 O2 Sat by Pulse 100 100 Oximetry 03/30/18 03/30/18 03/30/18 10:35 11:05 11:32 Temperature 99.1 F 99.2 F 98.6 F Pulse Rate 84 87 Respiratory 18 18 Rate Blood Pressure 121/72 127/64 O2 Sat by Pulse Oximetry 03/30/18 03/30/18 11:51 17:01 Temperature 99.1 F 99.4 F Pulse Rate 89 89 Respiratory 18 20 Rate Blood Pressure 127/75 145/82 O2 Sat by Pulse 99 Oximetry General appearance: Present: mild distress - EENT Eyes: PERRL, EOM intact ENT: hearing intact, clear oral mucosa Ears: bilateral: normal - Neck Neck: supple, normal ROM - Respiratory Respiratory effort: normal - Breasts Breasts: deferred - Cardiovascular Rhythm: regular Heart Sounds: Present: S1 & S2. Absent: gallop, rub Extremities: pulses intact, No edema, normal color, Full ROM - Gastrointestinal General gastrointestinal: Present: soft, non-tender, non-distended, normal bowel sounds Rectal Exam: deferred - Genitourinary Female genitourinary: deferred - Integumentary Integumentary: clear, warm, dry - Musculoskeletal Musculoskeletal: 1, strength equal bilaterally - Neurologic Neurologic: moves all extremities - Psychiatric Psychiatric: memory intact, appropriate mood/affect, intact judgment & insight - Labs CBC & Chem 7: 03/29/18 11:15 03/29/18 11:15 Labs: Abnormal lab results 03/29/18 03/30/18 Range/Units 11:15 01:00 TSH 20.160 H (0.270-4.200) mlU/mL Crossmatch See Detail
[2018-03-31] MEDS: DILAUDID IV PRN ×7 (01:35→20:59)
[2018-03-31] MEDS: BENADRYL IV PRN ×4 (04:33→20:59)
[2018-03-31] MEDS: D5NS 0.2% 1,000 ML IV SCH ×3 (04:48→16:03)
[2018-03-31] MEDS: SYNTHROID PO SCH (06:04)
[2018-03-31 06:35] LABS: Hematocrit 22.7 % (30.3-42.9); Mean Corpuscular HGB Conc 35 % (30-34); Mean Corpuscular Hemoglobin 37 pg (28-32); Mean Corpuscular Volume 105 fl (79-97); Platelet Count 410 K/mm3 (140-440); Red Blood Count 2.15 M/mm3 (3.65-5.03)
[2018-03-31 06:36] LABS: Red Cell Distribution Width 29.9 % (13.2-15.2)
[2018-03-31 06:44] LABS: BUN/Creatinine Ratio 23; Blood Urea Nitrogen 7 mg/dL (7-17); Calcium 8.6 mg/dL (8.4-10.2); Hemolysis Index 3
[2018-03-31] MEDS: ELIQUIS PO SCH ×2 (09:00→21:00)
[2018-03-31] MEDS: FOLVITE PO SCH (09:00)
[2018-03-31] MEDS: VITAMIN D3 PO SCH (09:00)
[2018-03-31 09:48] LABS: Monocytes % (Manual) 10 % (0.0-7.3); Total Cells Counted 100
[2018-03-31 09:49] LABS: Basophils % (Manual) 0 % (0.0-1.8)
[2018-03-31 10:02] LABS: Anisocytosis 3+; Macrocytosis Few; Poikilocytosis 2+
[2018-03-31 10:03] LABS: Sickle Cells 2+; Target Cells 1+
[2018-03-31 10:04] LABS: Ovalocytes Few
--- NOTE | 2018-03-31 19:31 | Progress Note ---
Assessment and Plan - Patient Problems (1) Anemia Current Visit: Yes Status: Acute Qualifiers: Anemia type: other cause Other causes of anemia: other cause, not classified Qualified Code(s): D64.89 - Other specified anemias Plan to address problem: See notes above. (2) Sickle cell pain crisis Current Visit: Yes Status: Acute Plan to address problem: Pain control. (3) Anemia requiring transfusions Current Visit: No Status: Acute Plan to address problem: see above. completed. (4) Dehydration Current Visit: No Status: Acute Plan to address problem: hydration. (5) Hypothyroid Current Visit: No Status: Acute Plan to address problem: continue with synthroid. Subjective Date of service: 03/31/18 Principal diagnosis: SCD/Pain crisis. Interval history: Patient seen/examined, resting in bed, s/p blood transfusion, and feeling a bit better.If she feels better tomorrow, will d/c home. Patient seen/examined, resting in bed, labs reviewed, case d/w patient, will try d/c tomorrow., d/c tele, reduce IV to 125. Objective - Constitutional Vitals: Vital Signs - 12hr 03/31/18 03/31/18 03/31/18 09:09 11:57 17:12 Temperature 98.6 F 98.6 F Pulse Rate 71 75 Respiratory 20 18 Rate Blood Pressure 109/72 114/77 O2 Sat by Pulse 100 100 100 Oximetry General appearance: Present: mild distress - EENT Eyes: PERRL, EOM intact ENT: hearing intact, clear oral mucosa Ears: bilateral: normal - Neck Neck: supple, normal ROM - Respiratory Respiratory effort: normal Respiratory: bilateral: CTA - Breasts Breasts: deferred - Cardiovascular Rhythm: regular Heart Sounds: Present: S1 & S2. Absent: gallop, rub Extremities: pulses intact, No edema, normal color, Full ROM - Gastrointestinal General gastrointestinal: Present: soft, non-tender, non-distended, normal bowel sounds Rectal Exam: deferred - Genitourinary Female genitourinary: deferred - Integumentary Integumentary: clear, warm, dry - Musculoskeletal Musculoskeletal: 1, strength equal bilaterally - Neurologic Neurologic: moves all extremities - Psychiatric Psychiatric: memory intact, appropriate mood/affect, intact judgment & insight - Labs CBC & Chem 7: 03/31/18 04:46 03/31/18 04:46 Labs: Abnormal lab results 03/31/18 03/31/18 Range/Units 04:46 04:46 RBC 2.15 L (3.65-5.03) M/mm3 Hgb 8.0 L (10.1-14.3) gm/dl Hct 22.7 L (30.3-42.9) % MCV 105 H (79-97) fl MCH 37 H (28-32) pg MCHC 35 H (30-34) % RDW 29.9 H (13.2-15.2) % Monocytes % (Manual) 10 H (0.0-7.3) % Eosinophils % (Manual) 8.0 H (0.0-4.3) % Nucleated RBC % 45.0 H (0.0-0.9) % Seg Neutrophils # Man 0.0 L (1.8-7.7) K/mm3 Lymphocytes # (Manual) 0.0 L (1.2-5.4) K/mm3 Percent Retic 19.90 H (0.78-2.58) % Creatinine 0.3 L (0.7-1.2) mg/dL Glucose 106 H (65-100) mg/dL
[2018-03-31] MEDS: TESSALON PERLES PO SCH (22:12)
[2018-04-01] MEDS: D5NS 0.2% 1,000 ML IV SCH ×3 (00:01→18:47)
[2018-04-01] MEDS: DILAUDID IV PRN ×8 (00:02→23:54)
[2018-04-01] MEDS: BENADRYL IV PRN ×5 (04:01→23:55)
[2018-04-01] MEDS: TESSALON PERLES PO SCH ×3 (05:27→21:33)
[2018-04-01] MEDS: SYNTHROID PO SCH (05:27)
[2018-04-01] MEDS: FOLVITE PO SCH (09:46)
[2018-04-01] MEDS: ELIQUIS PO SCH ×2 (09:46→21:34)
[2018-04-01] MEDS: VITAMIN D3 PO SCH (09:47)
--- NOTE | 2018-04-01 18:29 | Progress Note ---
Assessment and Plan - Patient Problems (1) Anemia Current Visit: Yes Status: Acute Qualifiers: Anemia type: other cause Other causes of anemia: other cause, not classified Qualified Code(s): D64.89 - Other specified anemias Plan to address problem: See notes above. (2) Sickle cell pain crisis Current Visit: Yes Status: Acute Plan to address problem: Pain control. (3) Anemia requiring transfusions Current Visit: No Status: Acute Plan to address problem: see above. completed. (4) Dehydration Current Visit: No Status: Acute Plan to address problem: hydration. (5) Hypothyroid Current Visit: No Status: Acute Plan to address problem: continue with synthroid. Subjective Date of service: 04/01/18 Principal diagnosis: SCD/Pain crisis. Interval history: Patient seen/examined, resting in bed, s/p blood transfusion, and feeling a bit better.If she feels better tomorrow, will d/c home. Patient seen/examined, resting in bed, labs reviewed, case d/w patient, will try d/c tomorrow., d/c tele, reduce IV to 125. Patient seen/examined, resting in bed, labs reviewed, case d/w patient. C/O some pain 12/19. Will re eval tomorrow, and plan on d/c Objective - Constitutional Vitals: Vital Signs - 12hr 04/01/18 04/01/18 04/01/18 07:10 09:57 12:06 Temperature 98.7 F Pulse Rate 75 Respiratory 20 24 Rate Blood Pressure 121/72 O2 Sat by Pulse 99 99 Oximetry 04/01/18 17:34 Temperature 99.4 F Pulse Rate 77 Respiratory 20 Rate Blood Pressure 136/66 O2 Sat by Pulse 100 Oximetry General appearance: Present: mild distress, well-nourished - EENT Eyes: PERRL, EOM intact ENT: hearing intact, clear oral mucosa Ears: bilateral: normal - Neck Neck: supple, normal ROM - Respiratory Respiratory: bilateral: rhonchi - Breasts Breasts: deferred - Cardiovascular Rhythm: regular Heart Sounds: Present: S1 & S2. Absent: gallop, rub Extremities: pulses intact, No edema, normal color, Full ROM - Gastrointestinal General gastrointestinal: Present: soft, non-tender, non-distended, normal bowel sounds Rectal Exam: deferred - Integumentary Integumentary: clear, warm, dry - Musculoskeletal Musculoskeletal: 1, strength equal bilaterally - Neurologic Neurologic: moves all extremities - Psychiatric Psychiatric: memory intact, appropriate mood/affect, intact judgment & insight - Labs CBC & Chem 7: 03/31/18 04:46 03/31/18 04:46
[2018-04-02] MEDS: BENADRYL IV PRN ×3 (03:56→13:07)
[2018-04-02] MEDS: DILAUDID IV PRN ×4 (03:56→13:07)
[2018-04-02] MEDS ORDERED: ZOFRAN IV PRN (06:59)
[2018-04-02] MEDS: SYNTHROID PO SCH (07:03)
[2018-04-02] MEDS: TESSALON PERLES PO SCH ×2 (07:03→13:07)
[2018-04-02] MEDS: FOLVITE PO SCH (09:48)
[2018-04-02] MEDS: VITAMIN D3 PO SCH (09:48)
[2018-04-02] MEDS: ELIQUIS PO SCH (09:49)
[2018-04-02] MEDS: D5NS 0.2% 1,000 ML IV SCH (11:36)
[2018-04-02 12:40] VITALS: BP 114/69
--- NOTE | 2018-04-02 13:57 | Discharge Summary ---
Providers - Providers Date of Admission: 03/29/18 12:18 Date of discharge: 04/02/18 Attending physician: WANDA SIMON none Primary care physician: DIRECTOR [employer] Hospitalization Reason for admission: SCD/pain crisis. Condition: Stable Hospital course: Patient was admitted for sickel pain crisis, treated accordingly, with hydration , pain control, and lab monitoring. She required 2 units PRBC replacement, and tolerated it well. She came with her Eliquis, and is going to resume the same dose at home. She will see me in the office in 10days.I have spoken to her about her poor compliance with f/up in the office. Disposition: DC-01 TO HOME OR SELFCARE - Discharge Diagnoses (1) Anemia Status: Chronic Qualifiers: Anemia type: other cause Other causes of anemia: other cause, not classified Qualified Code(s): D64.89 - Other specified anemias (2) Sickle cell pain crisis Status: Acute (3) Anemia requiring transfusions Status: Acute (4) Dehydration Status: Acute (5) Hypothyroid Status: Acute Core Measure Documentation - Palliative Care Palliative Care/ Comfort Measures: Not Applicable - Core Measures Any of the following diagnoses?: history only - VTE Discharge Requirements Deep Vein Thrombosis/Pulmonary Embolism Present on Admission: No Has pt received <5 days of overlap therapy or INR<2.0: No Anticoagulant overlap therapy prescribed at discharge: No Contraindication No Overlap Therapy order at DC: Not Indicated Exam - Constitutional Vitals: Temp Pulse Resp BP Pulse Ox 99.6 F 82 22 114/69 99 04/02/18 12:04 04/02/18 12:04 04/02/18 12:04 04/02/18 12:04 04/02/18 12:04 General appearance: Present: no acute distress, well-nourished - EENT Eyes: Present: PERRL ENT: hearing intact, clear oral mucosa - Neck Neck: Present: supple, normal ROM - Respiratory Respiratory effort: normal Respiratory: bilateral: CTA - Cardiovascular Heart Sounds: Present: S1 & S2. Absent: rub, click - Extremities Extremities: pulses symmetrical, No edema Peripheral Pulses: within normal limits - Abdominal General gastrointestinal: Present: soft, non-tender, non-distended, normal bowel sounds Female genitourinary: Present: deferred - Rectal Rectal Exam: deferred - Integumentary Integumentary: Present: clear, warm, dry - Musculoskeletal Musculoskeletal: gait normal, strength equal bilaterally - Psychiatric Psychiatric: appropriate mood/affect, intact judgment & insight - Neurologic Neurologic: CNII-XII intact, moves all extremities Plan Activity: no restrictions (discharge home today.) Follow up with: PRIMARY CARE,MD [Primary Care Provider] - 3-5 Days
[2018-04-02] MEDS ORDERED: FLUSH HEPARIN IV ONE (14:00)
== END 2018-04-02 15:00 | disposition home or self-care (01) | DRG 812 ==
LOC: ED 04:16 → 3A 12:18
PROVIDERS: ADMIT Internal Medicine Hematology & Oncology; ATTEND Internal Medicine Hematology & Oncology
PROC: 30233N1 Transfusion of Nonautologous Red Blood Cells into Peripheral Vein, Percutaneous Approach (ICD-10-PCS; principal; 2018-03-30)
DX: D57.00 Hb-SS disease with crisis, unspecified (principal); D64.9 Anemia, unspecified; E86.0 Dehydration; E03.9 Hypothyroidism, unspecified; I50.9 Heart failure, unspecified; M19.90 Unspecified osteoarthritis, unspecified site; J44.9 Chronic obstructive pulmonary disease, unspecified; Z88.6 Allergy status to analgesic agent; Z88.5 Allergy status to narcotic agent; Z79.899 Other long term (current) drug therapy; Z90.49 Acquired absence of other specified parts of digestive tract
CPT/HCPCS: 36415; 71045; 80048; 80074; 82550; 82553; 82728; 83735; 83880; 84443; 84484; 84703; 85007; 85025; 85045; 85379; 85610; 85660; 85730; 86850; 86900; 86901; 86922; 87116; 93005; 93010; 94760; 96374; 96375; 96376; J1170; J1200; J1642; J2405; J7040; P9016

== ENCOUNTER 2018-09-12 14:36 | Inpatient (IN) | payer OTHER ==
[2018-09-12] MEDS ORDERED: SODIUM CHLORIDE FLUSH SYRINGE 10 ML IV PRN (14:45)
[2018-09-12] MEDS: D5NS 0.2% 1,000 ML IV SCH (17:00)
[2018-09-12] MEDS: DILAUDID IV PRN ×2 (17:21→20:39)
[2018-09-12] MEDS: BENADRYL IV PRN (17:22)
[2018-09-12 17:57] LABS: Eosinophils # (Auto) 0.1 K/mm3 (0.0-0.4); Eosinophils % (Auto) 0.9 % (0.0-4.3); Monocytes # (Auto) 0.7 K/mm3 (0.0-0.8); Monocytes % (Auto) 8.9 % (0.0-7.3)
[2018-09-12 17:58] LABS: Hematocrit 21.6 % (30.3-42.9); Hemoglobin 7.5 gm/dl (10.1-14.3); Mean Corpuscular HGB Conc 35 % (30-34); Platelet Count 385 K/mm3 (140-440); Red Blood Count 1.93 M/mm3 (3.65-5.03)
[2018-09-12 17:59] LABS: Mean Corpuscular Volume 112 fl (79-97); Red Cell Distribution Width 33.9 % (13.2-15.2)
[2018-09-12 18:01] LABS: Albumin 4.3 g/dL (3.9-5); BUN/Creatinine Ratio 40; Blood Urea Nitrogen 8 mg/dL (7-17); Hemolysis Index 14
[2018-09-12 18:03] LABS: Alanine Aminotransferase 36 units/L (7-56)
[2018-09-12 18:56] LABS: Band Neutrophils # (Manual) 0.1 K/mm3; Smudge Cells 1+; Total Cells Counted 100
[2018-09-12 18:57] LABS: Anisocytosis 3+; Macrocytosis 1+; Poikilocytosis 2+; Sickle Cells 2+
[2018-09-12] MEDS ORDERED: PHENERGAN PO PRN (18:57)
[2018-09-12 18:58] LABS: Stomatocytes Few; Target Cells 1+
[2018-09-12] MEDS ORDERED: PERCOCET 5/325 PO PRN (18:58)
[2018-09-12 18:59] LABS: Hypochromasia 1+; Platelet Estimate Consistent w Auto
[2018-09-12] MEDS: ELIQUIS PO SCH (21:10)
[2018-09-12] MEDS: SODIUM CHLORIDE FLUSH SYRINGE 10 ML IV SCH (23:00)
[2018-09-13] MEDS: D5NS 0.2% 1,000 ML IV SCH ×5 (00:13→22:34)
[2018-09-13] MEDS: DILAUDID IV PRN ×8 (00:15→23:07)
[2018-09-13] MEDS: BENADRYL PO PRN ×2 (00:15→07:15)
[2018-09-13] MEDS ORDERED: SYNTHROID PO SCH (06:00)
[2018-09-13] MEDS: ELIQUIS PO SCH ×2 (09:37→21:28)
[2018-09-13] MEDS: SODIUM CHLORIDE FLUSH SYRINGE 10 ML IV SCH ×2 (09:37→22:37)
[2018-09-13] MEDS ORDERED: FOLVITE PO SCH (10:00)
[2018-09-13] MEDS ORDERED: VITAMIN D3 PO SCH (10:00)
[2018-09-13] MEDS: BENADRYL IV PRN ×2 (13:54→19:57)
--- NOTE | 2018-09-13 20:52 | History and Physical Report ---
History of Present Illness Date of examination: 09/13/18 Date of admission: 09/12/18 15:19 Chief complaint: SCD, diffuse joint pain. History of present illness: Patient presented to the office, CC as above, she had been seen previously at the [facility] ,for the same reasons.She looked quite distressed, and was admitted directly in to the hospital , for sxs management/control.She has hx of thyroid dz, and left lower ext DVT, on Eliquis. Past History Past Medical History: hyperthyroidism Social history: Family history: no significant family history Medications and Allergies Allergies Allergy/AdvReac Type Severity Reaction Status Date / Time aspirin Allergy Vomiting Verified 06/21/18 14:16 ketorolac tromethamine Allergy Unknown Verified 06/21/18 14:16 [From Toradol] morphine Allergy Shortness Verified 06/21/18 14:16 of Breath pineapple [Pineapple] Allergy Swelling Verified 06/21/18 14:16 Home Medications Medication Instructions Recorded Confirmed Last Taken Type Folic Acid [Folvite] 1 mg PO QDAY #30 tablet 06/27/14 09/12/18 09/12/18 Rx Promethazine [Phenergan TAB] 25 mg PO Q8HR PRN 03/29/18 09/12/18 09/12/18 History Eliquis 5 mg PO BID 05/17/18 09/12/18 09/12/18 History Vitamin D3 2,000 unit 3,000 units PO DAILY 05/17/18 09/12/18 09/12/18 History Cholecalciferol Vit D3 [Vitamin D3 3,000 unit PO QDAY 30 Days tablet 05/19/18 09/12/18 09/12/18 Rx 1,000 UNIT TAB] Levothyroxine [Synthroid] 125 mcg PO DAILY@0600 #30 tablet 05/19/18 09/12/18 09/12/18 Rx Oxycodone HCl/Acetaminophen 1 each PO Q6HR PRN #10 tablet 05/19/18 09/12/18 09/12/18 Rx [Percocet 10/325 mg] Melatonin/Pyridoxine HCl (B6) 1 tab PO QHS 09/12/18 09/12/18 09/11/18 History [Melatonin Tr 10 mg Tablet] Morphine ER [Ms Contin ER] 30 mg PO Q8H 0309/12/18 09/11/18 History diphenhydrAMINE [Benadryl CAP] 25 mg PO Q6HR PRN 09/12/18 09/12/18 09/11/18 History Active Meds: Active Medications Apixaban (Eliquis) 5 mg PO Q12HR [facility]; Protocol Last Admin: 09/13/18 09:37 Dose: 5 mg Documented by: Cholecalciferol (Vitamin D3) 3,000 unit PO QDAY [facility] Last Admin: 09/13/18 09:37 Dose: 3,000 unit Documented by: Diphenhydramine HCl (Benadryl) 25 mg IV Q6H PRN PRN Reason: Itching Last Admin: 09/13/18 19:57 Dose: 25 mg Documented by: Diphenhydramine HCl (Benadryl) 25 mg PO Q6H PRN PRN Reason: Itching Last Admin: 09/13/18 07:15 Dose: 25 mg Documented by: Folic Acid (Folvite) 1 mg PO QDAY [facility] Last Admin: 09/13/18 09:37 Dose: 1 mg Documented by: Hydromorphone HCl (Dilaudid) 3 mg IV Q3H PRN PRN Reason: Pain, Moderate (4-6) Last Admin: 09/13/18 19:58 Dose: 3 mg Documented by: Dextrose/Sodium Chloride (D5ns 0.2%) 1,000 mls @ 175 mls/hr IV DIRECT [facility] Last Admin: 09/13/18 17:10 Dose: 175 mls/hr Documented by: Levothyroxine Sodium (Synthroid) 125 mcg PO DAILY@0600 [facility] Last Admin: 09/13/18 06:08 Dose: 125 mcg Documented by: Oxycodone/Acetaminophen (Percocet 5/325) 2 tab PO Q6H PRN PRN Reason: Pain, Moderate (4-6) Promethazine HCl (Phenergan) 25 mg PO Q4H PRN PRN Reason: Nausea And Vomiting Last Admin: 09/12/18 21:10 Dose: 25 mg Documented by: Sodium Chloride (Sodium Chloride Flush Syringe 10 Ml) 10 ml IV BID [facility] Last Admin: 09/13/18 09:37 Dose: 10 ml Documented by: Sodium Chloride (Sodium Chloride Flush Syringe 10 Ml) 10 ml IV PRN PRN PRN Reason: LINE FLUSH Last Admin: 09/13/18 20:02 Dose: 10 ml Documented by: Review of Systems Constitutional: fatigue, chronic pain Breasts: deferred Musculoskeletal: low back pain Integumentary: dryness Exam - Constitutional Vitals: Temp Pulse Resp BP Pulse Ox 98.7 F 72 14 133/85 100 09/13/18 17:19 09/13/18 17:19 09/13/18 17:19 09/13/18 17:19 09/13/18 17:19 General appearance: Present: mild distress, well-nourished - EENT Eyes: Present: PERRL ENT: hearing intact, clear oral mucosa - Neck Neck: Present: supple, normal ROM - Respiratory Respiratory effort: normal Respiratory: bilateral: CTA - Cardiovascular Heart Sounds: Present: S1 & S2. Absent: rub, click - Extremities Extremities: pulses symmetrical, No edema Peripheral Pulses: within normal limits - Abdominal General gastrointestinal: Present: soft, non-tender, non-distended, normal bowel sounds Female genitourinary: Present: deferred - Rectal Rectal Exam: deferred - Integumentary Integumentary: Present: clear, warm, dry - Musculoskeletal Musculoskeletal: gait normal, strength equal bilaterally - Psychiatric Psychiatric: appropriate mood/affect, intact judgment & insight - Neurologic Neurologic: CNII-XII intact, moves all extremities Results - Labs CBC & Chem 7: 09/12/18 Unknown 09/12/18 Unknown Assessment and Plan - Patient Problems (1) Anemia requiring transfusions Current Visit: No Status: Acute Plan to address problem: will give one unit prbcs (2) DVT prophylaxis Current Visit: No Status: Acute Plan to address problem: put back on eliquis. (3) Dehydration Current Visit: No Status: Acute Plan to address problem: hydration (4) Hypothyroid Current Visit: No Status: Acute Plan to address problem: check TSH (5) Iron overload Current Visit: No Status: Acute Plan to address problem: Same as below (6) Iron overload due to repeated red blood cell transfusions Current Visit: No Status: Acute Plan to address problem: Will do iron chelation.
[2018-09-13] MEDS ORDERED: NACL 0.9% 500 ML 500 ML IV ONE (21:04)
[2018-09-13] MEDS ORDERED: SOLU-Medrol IV ONE (21:37)
[2018-09-13] MEDS ORDERED: MELATONIN PO SCH (22:00)
[2018-09-13] MEDS ORDERED: PYRIDOXINE HCL PO SCH (22:00)
[2018-09-13] MEDS ORDERED: NON-FORMULARY (Eliquis 5 MG) PO SCH (22:00)
[2018-09-13] MEDS: MS CONTIN ER PO SCH (22:36)
[2018-09-14] MEDS: BENADRYL IV PRN ×4 (02:00→21:19)
[2018-09-14] MEDS: DILAUDID IV PRN ×7 (02:02→21:17)
[2018-09-14] MEDS: MS CONTIN ER PO SCH ×3 (05:30→22:48)
[2018-09-14] MEDS: SYNTHROID PO SCH (06:00)
[2018-09-14 07:21] LABS: Red Blood Count 1.61 M/mm3 (3.65-5.03)
[2018-09-14 07:22] LABS: Mean Corpuscular HGB Conc 34 % (30-34); Mean Corpuscular Volume 110 fl (79-97); Platelet Count 270 K/mm3 (140-440); Red Cell Distribution Width 27.9 % (13.2-15.2)
[2018-09-14 07:36] LABS: Hematocrit 17.6 % (30.3-42.9)
[2018-09-14] MEDS ORDERED: NACL 0.9% 500 ML 500 ML IV ONE (08:01)
[2018-09-14 09:28] LABS: Eosinophils % (Auto) 11.6 % (0.0-4.3); Monocytes % (Auto) 10.7 % (0.0-7.3)
[2018-09-14] MEDS ORDERED: VITAMIN D3 PO SCH (10:00)
[2018-09-14] MEDS: VITAMIN D3 PO SCH (10:36)
[2018-09-14] MEDS: Desferal 3,000 MG in NACL 0.9% 250ML 250 ML IV SCH (10:36)
[2018-09-14] MEDS: FOLVITE PO SCH (10:37)
[2018-09-14] MEDS: ELIQUIS PO SCH ×2 (10:37→21:16)
[2018-09-14] MEDS: SODIUM CHLORIDE FLUSH SYRINGE 10 ML IV SCH ×2 (10:37→22:49)
[2018-09-14 14:47] LABS: Anisocytosis 3+; Basophils % (Manual) 0 % (0.0-1.8); Hypochromasia 2+; Large Platelets Few; Macrocytosis 1+; Ovalocytes Few; Platelet Estimate Consistent w Auto; Poikilocytosis 3+; Sickle Cells 2+; Target Cells Few; Tear Drop Cells Rare; Total Cells Counted 100
[2018-09-14] MEDS ORDERED: SOLU-Medrol IV ONE (17:30)
--- NOTE | 2018-09-14 18:28 | Progress Note ---
Assessment and Plan - Patient Problems (1) Anemia requiring transfusions Current Visit: No Status: Acute Plan to address problem: will give one unit prbcs In progress. (2) DVT prophylaxis Current Visit: No Status: Acute Plan to address problem: put back on eliquis. (3) Dehydration Current Visit: No Status: Acute Plan to address problem: hydration (4) Hypothyroid Current Visit: No Status: Acute Plan to address problem: check TSH (5) Iron overload Current Visit: No Status: Acute Plan to address problem: Same as below continue desfarol. (6) Iron overload due to repeated red blood cell transfusions Current Visit: No Status: Acute Plan to address problem: Will do iron chelation. Same as above. Subjective Date of service: 09/14/18 Principal diagnosis: SCD/anemia Interval history: Patient seen/examined, resting in bed, Blood transfusion in progress, for hgb of 6.0/ Barring any further problems, will d/c home tomorrow. Objective - Constitutional Vitals: Vital Signs - 12hr 09/14/18 09/14/18 09/14/18 06:28 10:00 11:38 Temperature 98.2 F 98.4 F Pulse Rate 82 Respiratory 20 20 20 Rate Blood Pressure 138/63 Blood Pressure [Left] O2 Sat by Pulse 95 Oximetry 09/14/18 09/14/18 09/14/18 12:40 16:23 16:50 Temperature 98.4 F 98.6 F 99 F Pulse Rate 84 76 75 Respiratory 20 16 20 Rate Blood Pressure 127/77 127/77 Blood Pressure 138/63 [Left] O2 Sat by Pulse 98 99 Oximetry 09/14/18 09/14/18 09/14/18 17:05 17:35 18:05 Temperature 98.2 F 98.5 F 98.7 F Pulse Rate 70 70 83 Respiratory 20 20 20 Rate Blood Pressure 129/52 118/79 133/78 Blood Pressure [Left] O2 Sat by Pulse 100 99 100 Oximetry General appearance: Present: mild distress, well-nourished - EENT Eyes: PERRL, EOM intact ENT: hearing intact, clear oral mucosa Ears: bilateral: normal - Neck Neck: supple, normal ROM - Respiratory Respiratory effort: normal Respiratory: bilateral: CTA - Breasts Breasts: deferred - Cardiovascular Rhythm: regular Heart Sounds: Present: S1 & S2. Absent: gallop, rub Extremities: pulses intact, No edema, normal color, Full ROM - Gastrointestinal General gastrointestinal: Present: soft, non-tender, non-distended, normal bowel sounds Rectal Exam: deferred - Genitourinary Female genitourinary: deferred - Integumentary Integumentary: clear, warm, dry - Musculoskeletal Musculoskeletal: 1, strength equal bilaterally - Neurologic Neurologic: moves all extremities - Psychiatric Psychiatric: memory intact, appropriate mood/affect, intact judgment & insight - Labs CBC & Chem 7: 09/14/18 05:00 09/12/18 Unknown Labs: Abnormal lab results 09/13/18 09/14/18 Range/Units 21:53 05:00 RBC 1.61 L (3.65-5.03) M/mm3 Hgb 6.0 L (10.1-14.3) gm/dl Hct 17.6 L* (30.3-42.9) % MCV 110 H (79-97) fl MCH 37 H (28-32) pg RDW 27.9 H (13.2-15.2) % [place] % (Auto) 10.7 H (0.0-7.3) % Eos % (Auto) 11.6 H (0.0-4.3) % Monocytes % (Manual) 10.0 H (0.0-7.3) % Eosinophils % (Manual) 8.0 H (0.0-4.3) % Nucleated RBC % 7.0 H (0.0-0.9) % Seg Neutrophils # Man 0.0 L (1.8-7.7) K/mm3 Lymphocytes # (Manual) 0.0 L (1.2-5.4) K/mm3 Percent Retic 12.50 H (0.78-2.58) % Crossmatch See Detail Medications & Allergies - Medications Allergies/Adverse Reactions: Allergies aspirin Allergy (Verified 06/21/18 14:16) Vomiting ketorolac tromethamine [From Toradol] Allergy (Verified 06/21/18 14:16) Unknown morphine Allergy (Verified 06/21/18 14:16) Shortness of Breath pineapple [Pineapple] Allergy (Verified 06/21/18 14:16) Swelling Home Medications: Home Medications Medication Instructions Recorded Confirmed Last Taken Type Folic Acid [Folvite] 1 mg PO QDAY #30 tablet 06/27/14 09/12/18 09/12/18 Rx Promethazine [Phenergan TAB] 25 mg PO Q8HR PRN 03/29/18 09/12/18 09/12/18 History Eliquis 5 mg PO BID 05/17/18 09/12/18 09/12/18 History Vitamin D3 2,000 unit 3,000 units PO DAILY 05/17/18 09/12/18 09/12/18 History Cholecalciferol Vit D3 [Vitamin D3 3,000 unit PO QDAY 30 Days tablet 05/19/18 09/12/18 09/12/18 Rx 1,000 UNIT TAB] Levothyroxine [Synthroid] 125 mcg PO DAILY@0600 #30 tablet 05/19/18 09/12/18 09/12/18 Rx Oxycodone HCl/Acetaminophen 1 each PO Q6HR PRN #10 tablet 05/19/18 09/12/18 09/12/18 Rx [Percocet 10/325 mg] Melatonin/Pyridoxine HCl (B6) 1 tab PO QHS 09/12/18 09/12/18 09/11/18 History [Melatonin Tr 10 mg Tablet] Morphine ER [Ms Contin ER] 30 mg PO Q8H 09/12/18 09/12/18 09/11/18 History diphenhydrAMINE [Benadryl CAP] 25 mg PO Q6HR PRN 09/12/18 09/12/18 09/11/18 History Active Medications: Generic Name Dose Route Start Last Admin Trade Name Freq PRN Reason Stop Dose Admin Apixaban 5 mg 09/12/18 22:00 09/14/18 10:37 Eliquis PO 5 mg Q12HR [facility] Administration Protocol Cholecalciferol 3,000 unit 09/14/18 10:00 09/14/18 10:36 Vitamin D3 PO 3,000 unit QDAY [facility] Administration Diphenhydramine HCl 25 mg 09/12/18 15:02 09/14/18 15:05 Benadryl IV 25 mg Q6H PRN Administration Itching Diphenhydramine HCl 25 mg 09/12/18 19:00 09/13/18 07:15 Benadryl PO 25 mg Q6H PRN Administration Itching Folic Acid 1 mg 09/14/18 10:00 09/14/18 10:37 Folvite PO 1 mg QDAY [facility] Administration Hydromorphone HCl 3 mg 09/12/18 14:45 09/14/18 18:12 Dilaudid IV 3 mg Q3H PRN Administration Pain, Moderate (4-6) Dextrose/Sodium Chloride 1,000 mls @ 175 mls/hr 09/12/18 16:00 09/13/18 22:34 D5ns 0.2% IV 175 mls/hr DIRECT [facility] Administration Deferoxamine Mesylate 3,000 mg 250 mls @ 32 mls/hr 09/14/18 10:00 09/14/18 10:36 / Sodium Chloride IV 32 mls/hr Q24HR [facility] Administration Levothyroxine Sodium 125 mcg 09/14/18 06:00 09/14/18 06:00 Synthroid PO 125 mcg DAILY@0600 [facility] Administration Miscellaneous Medication 1 tab 09/13/18 22:00 Melatonin/Pyridoxine Hcl (B6) [Melatonin Tr 10 Mg Tablet] PO QHS [facility] Morphine Sulfate 30 mg 09/13/18 22:00 09/14/18 16:56 Ms Contin Er PO 30 mg Q8H [facility] Administration Oxycodone/Acetaminophen 2 tab 09/12/18 18:58 Percocet 5/325 PO Q6H PRN Pain, Moderate (4-6) Promethazine HCl 25 mg 09/12/18 18:57 09/12/18 21:10 Phenergan PO 25 mg Q4H PRN Administration Nausea And Vomiting Sodium Chloride 10 ml 09/12/18 22:00 09/14/18 10:37 Sodium Chloride Flush Syringe 10 Ml IV 10 ml BID [facility] Administration Sodium Chloride 10 ml 09/12/18 14:45 09/13/18 20:02 Sodium Chloride Flush Syringe 10 Ml IV 10 ml PRN PRN Administration LINE FLUSH
[2018-09-14] MEDS: D5NS 0.2% 1,000 ML IV SCH (22:51)
[2018-09-15] MEDS: DILAUDID IV PRN ×7 (00:26→20:52)
[2018-09-15] MEDS: BENADRYL IV PRN ×3 (04:39→17:31)
[2018-09-15] MEDS: D5NS 0.2% 1,000 ML IV SCH ×2 (05:03→13:45)
[2018-09-15] MEDS: MS CONTIN ER PO SCH ×3 (05:40→22:48)
[2018-09-15] MEDS: SYNTHROID PO SCH (05:40)
[2018-09-15] MEDS: ELIQUIS PO SCH ×2 (10:38→21:19)
[2018-09-15] MEDS: VITAMIN D3 PO SCH (10:38)
[2018-09-15] MEDS: FOLVITE PO SCH (10:38)
[2018-09-15] MEDS: Desferal 3,000 MG in NACL 0.9% 250ML 250 ML IV SCH (10:39)
[2018-09-15] MEDS: SODIUM CHLORIDE FLUSH SYRINGE 10 ML IV SCH ×2 (10:39→20:52)
--- NOTE | 2018-09-15 19:33 | Discharge Summary ---
Providers - Providers Date of Admission: 09/12/18 15:19 Date of discharge: 09/16/18 Attending physician: WANDA SIMON Primary care physician: WANDA SIMON Hospitalization Reason for admission: SCD/pain crisis. Condition: Stable Hospital course: Patient seen/examined in the office, and admitted for control of her crisis. she received iron chelation, and 1 unit blood transfusio,, awaiting the second unit from the [facility]. She will be d/c pending remaining transfusion tomorrow. Disposition: DC- TO HOME OR SELFCARE - Discharge Diagnoses (1) Anemia requiring transfusions Status: Chronic (2) DVT prophylaxis Status: Chronic (3) Dehydration Status: Resolved (4) Hypothyroid Status: Chronic (5) Iron overload Status: Chronic (6) Iron overload due to repeated red blood cell transfusions Status: Chronic Core Measure Documentation - Palliative Care Palliative Care/ Comfort Measures: Not Applicable - Core Measures Any of the following diagnoses?: history only Exam - Constitutional Vitals: Temp Pulse Resp BP Pulse Ox 99.2 F 88 22 138/54 99 09/15/18 17:00 09/15/18 17:00 09/15/18 17:00 09/15/18 17:00 09/15/18 17:00 General appearance: Present: no acute distress, well-nourished - EENT Eyes: Present: PERRL ENT: hearing intact, clear oral mucosa - Neck Neck: Present: supple, normal ROM - Respiratory Respiratory effort: normal Respiratory: bilateral: CTA - Cardiovascular Heart Sounds: Present: S1 & S2. Absent: rub, click - Extremities Extremities: pulses symmetrical, No edema Peripheral Pulses: within normal limits - Abdominal General gastrointestinal: Present: soft, non-tender, non-distended, normal bowel sounds Female genitourinary: Present: deferred - Rectal Rectal Exam: deferred - Integumentary Integumentary: Present: clear, warm, dry - Musculoskeletal Musculoskeletal: gait normal, strength equal bilaterally - Psychiatric Psychiatric: appropriate mood/affect, intact judgment & insight - Neurologic Neurologic: CNII-XII intact, moves all extremities Plan Activity: no restrictions Diet: regular (D/c home tomorrow ,after blood transfusion finishes, If no blood ready tomorrow, d/c home.) Follow up with: ONYEGBULA,WANDA C, DO [Primary Care Provider] - 7 Days Prescriptions: Morphine ER [Ms Contin ER] 30 mg PO Q8H #60 tablet Oxycodone HCl/Acetaminophen [Percocet 10/325 mg] 1 each PO Q6HR PRN #60 tablet PRN Reason: Pain
[2018-09-16] MEDS: BENADRYL IV PRN ×4 (00:41→20:03)
[2018-09-16] MEDS: DILAUDID IV PRN ×8 (00:41→23:28)
[2018-09-16] MEDS ORDERED: NACL 0.9% 500 ML 0 ML ONE (03:14)
[2018-09-16] MEDS: SODIUM CHLORIDE FLUSH SYRINGE 10 ML IV SCH ×2 (04:17→10:26)
[2018-09-16] MEDS: MS CONTIN ER PO SCH ×3 (06:18→23:05)
[2018-09-16] MEDS: SYNTHROID PO SCH (06:18)
[2018-09-16] MEDS: D5NS 0.2% 1,000 ML IV SCH (06:18)
[2018-09-16] MEDS: FOLVITE PO SCH (10:22)
[2018-09-16] MEDS: ELIQUIS PO SCH ×2 (10:22→23:33)
[2018-09-16] MEDS: VITAMIN D3 PO SCH (10:22)
[2018-09-16] MEDS ORDERED: TYLENOL PO ONE (11:51)
[2018-09-16] MEDS ORDERED: SOLU-Medrol IV ONE (12:30)
[2018-09-16] MEDS: Desferal 3,000 MG in NACL 0.9% 250ML 250 ML IV SCH (16:44)
[2018-09-16 22:57] VITALS: BP 120/64
[2018-09-17] MEDS ORDERED: FLUSH HEPARIN IV ONE (00:22)
== END 2018-09-17 00:33 | disposition home or self-care (01) | DRG 812 ==
LOC: 3A 14:36 → UNDOADMIN 14:36 → 3A 15:19
PROVIDERS: ADMIT Internal Medicine Hematology & Oncology; ATTEND Internal Medicine Hematology & Oncology
PROC: 30243N1 Transfusion of Nonautologous Red Blood Cells into Central Vein, Percutaneous Approach (ICD-10-PCS; principal; 2018-09-14)
DX: D57.00 Hb-SS disease with crisis, unspecified (principal); E86.0 Dehydration; D64.9 Anemia, unspecified; E03.9 Hypothyroidism, unspecified; G89.29 Other chronic pain; E83.111 Hemochromatosis due to repeated red blood cell transfusions; Z88.6 Allergy status to analgesic agent; Z88.5 Allergy status to narcotic agent; Z79.899 Other long term (current) drug therapy; Z86.718 Personal history of other venous thrombosis and embolism; Z79.01 Long term (current) use of anticoagulants; Z91.09 Other allergy status, other than to drugs and biological substances
CPT/HCPCS: 36415; 80053; 82728; 83615; 85007; 85025; 85045; 85660; 86850; 86900; 86901; 86922; 87116; 94760; G0378; J0895; J1170; J1200; J1642; J2930; J7040; J7050; P9016; Q0169

== ENCOUNTER 2019-06-14 13:35 | Inpatient (IN) | payer OTHER ==
[2019-06-14] MEDS ORDERED: ALBUTEROL 2.5 MG/3 ML NEBU IH PRN (13:57)
[2019-06-14] MEDS ORDERED: ONDANSETRON 4 MG/2 ML INJ IV PRN (13:57)
[2019-06-14] MEDS ORDERED: oxyCODONE /ACETAMINOPHEN 5-325MG TAB PO PRN (14:47)
[2019-06-14] MEDS: diphenhydrAMINE 50 MG/ML VIAL IV PRN ×3 (15:27→21:30)
[2019-06-14] MEDS: HYDROmorphone 1 MG/1 ML INJ IV PRN ×3 (15:27→21:30)
[2019-06-14] MEDS: D5W/0.2% NACL 1,000 ML IV SCH ×2 (15:28→20:24)
[2019-06-14 17:38] LABS: Mean Corpuscular HGB Conc 35 % (30-34); Red Blood Count 1.43 M/mm3 (3.65-5.03)
[2019-06-14 17:45] LABS: Mean Corpuscular Volume 116 fl (79-97); Platelet Count 221 K/mm3 (140-440); Red Cell Distribution Width 23.7 % (13.2-15.2)
[2019-06-14 17:48] LABS: Hematocrit 16.5 % (30.3-42.9); Hemoglobin 5.9 gm/dl (10.1-14.3)
[2019-06-14 17:55] LABS: Alanine Aminotransferase 21 units/L (7-56); Albumin 4.5 g/dL (3.9-5); BUN/Creatinine Ratio 16; Blood Urea Nitrogen 11 mg/dL (7-17); Hemolysis Index 19
[2019-06-14 17:57] LABS: % Iron Saturation 59.19 %
[2019-06-14] MEDS ORDERED: SODIUM CHLORIDE 0.9% 500 ML 500 ML IV SCH (18:08)
[2019-06-14] MEDS ORDERED: ACETAMINOPHEN 325 MG TAB PO PRN (18:19)
[2019-06-14 18:49] LABS: Total Cells Counted 100
[2019-06-14 18:50] LABS: Anisocytosis 2+; Hypochromasia 2+; Macrocytosis 1+; Ovalocytes 1+; Poikilocytosis 3+; Sickle Cells 2+; Target Cells 1+; Tear Drop Cells 1+
[2019-06-14] MEDS: APIXABAN 5 MG TAB PO SCH (21:32)
--- NOTE | 2019-06-14 21:49 | History and Physical Report ---
History of Present Illness Date of examination: 06/14/19 Date of admission: 06/14/19 14:31 Chief complaint: Diffuse joint pain/generalized weakness. History of present illness: Patient presented to the office , with CC of multiple joint pain, and low grade fever. she was not able to control her sxs at home. She was examined, and admitted to the hospital, for sxs control, and management. She will be hydrated, transfused with PRBCs, and treated with pain meds.Cultures will be drawn, and once stable, will D /C home. Past History Past Medical History: anemia Social history: no significant social history, , lives with family Family history: no significant family history Medications and Allergies Allergies Allergy/AdvReac Type Severity Reaction Status Date / Time aspirin Allergy Vomiting Verified 06/21/18 14:16 ketorolac tromethamine Allergy Unknown Verified 06/21/18 14:16 [From Toradol] morphine Allergy Shortness Verified 06/21/18 14:16 of Breath pineapple [Pineapple] Allergy Swelling Verified 06/21/18 14:16 Home Medications Medication Instructions Recorded Confirmed Last Taken Type Folic Acid [Folvite] 1 mg PO QDAY #30 tablet 06/27/14 06/14/19 06/14/19 08:00 Rx Promethazine [Phenergan] 25 mg PO Q8HR PRN 03/29/18 06/14/19 06/14/19 08:00 History Eliquis 5 mg PO BID 05/17/18 06/14/19 06/14/19 08:00 History Vitamin D3 2,000 unit 3,000 units PO DAILY 05/17/18 06/14/19 06/14/19 08:00 History Cholecalciferol Vit D3 [Vitamin D3 3,000 unit PO QDAY 30 Days tablet 05/19/18 06/14/19 06/14/19 08:00 Rx 1,000 UNIT TAB] Levothyroxine [Synthroid] 125 mcg PO DAILY@0600 #30 tablet 05/19/18 06/14/19 06/14/19 08:00 Rx Oxycodone HCl/Acetaminophen 1 each PO Q6HR PRN #10 tablet 05/19/18 06/14/19 06/14/19 08:00 Rx [Percocet 10/325 mg] Melatonin/Pyridoxine HCl (B6) 1 tab PO QHS 09/12/18 06/14/19 06/14/19 08:00 History [Melatonin Tr 10 mg Tablet] diphenhydrAMINE [Benadryl CAP] 25 mg PO Q6HR PRN 09/12/18 06/14/19 06/14/19 08 :00 History Morphine ER [Ms Contin ER] 30 mg PO Q8H #60 tablet 09/15/18 06/14/19 06/14/19 08:00 Rx Oxycodone HCl/Acetaminophen 1 each PO Q6HR PRN #60 tablet 09/15/18 06/14/19 06/14/19 08:00 Rx [Percocet 10/325 mg] Active Meds: Active Medications Acetaminophen (Tylenol) 650 mg PO Q6H PRN PRN Reason: Non Cardiac Pain or Temp>100.5 Albuterol (Proventil) 2.5 mg IH Q6HRT PRN PRN Reason: Shortness Of Breath Apixaban (Eliquis) 5 mg PO Q12HR [facility]; Protocol Last Admin: 06/14/19 21:32 Dose: 5 mg Documented by: Diphenhydramine HCl (Benadryl) 12.5 mg IV Q3H PRN PRN Reason: Itching Last Admin: 06/14/19 21:30 Dose: 12.5 mg Documented by: Folic Acid (Folvite) 1 mg PO QDAY [facility] Hydromorphone HCl (Dilaudid) 2 mg IV Q3H PRN PRN Reason: Pain, Moderate (4-6) Last Admin: 06/14/19 21:30 Dose: 2 mg Documented by: Dextrose/Sodium Chloride (D5ns 0.2%) 1,000 mls @ 250 mls/hr IV DIRECT [facility] Last Admin: 06/14/19 20:24 Dose: 250 mls/hr Documented by: Sodium Chloride (Nacl 0.9% 500 Ml) 500 mls @ 0 mls/hr IV ONCE [facility] Stop: 06/15/19 18:07 Levothyroxine Sodium (Synthroid) 125 mcg PO DAILY@0600 [facility] Ondansetron HCl (Zofran) 4 mg IV Q8H PRN PRN Reason: Nausea And Vomiting Last Admin: 06/14/19 15:27 Dose: 4 mg Documented by: Oxycodone/Acetaminophen (Percocet 5/325) 2 tab PO Q6H PRN PRN Reason: BREAKTHRU PAIN MOD(4-6) Sodium Chloride (Sodium Chloride Flush Syringe 10 Ml) 10 ml IV BID [facility] Last Admin: 06/14/19 21:32 Dose: 10 ml Documented by: Sodium Chloride (Sodium Chloride Flush Syringe 10 Ml) 10 ml IV PRN PRN PRN Reason: LINE FLUSH Review of Systems Constitutional: fatigue, weakness, chronic pain Breasts: deferred Respiratory: cough, home oxygen Exam - Constitutional Vitals: Temp Pulse Resp BP Pulse Ox 18 06/14/19 21:30 General appearance: Present: mild distress, well-nourished - EENT Eyes: Present: PERRL ENT: hearing intact, clear oral mucosa - Neck Neck: Present: supple, normal ROM - Respiratory Respiratory effort: normal Respiratory: bilateral: rhonchi - Cardiovascular Heart Sounds: Present: S1 & S2. Absent: rub, click - Extremities Extremities: pulses symmetrical, No edema Peripheral Pulses: within normal limits - Abdominal General gastrointestinal: Present: soft, non-tender, non-distended, normal bowel sounds Female genitourinary: Present: deferred - Rectal Rectal Exam: deferred - Integumentary Integumentary: Present: clear, warm, dry - Musculoskeletal Musculoskeletal: gait normal, strength equal bilaterally - Psychiatric Psychiatric: appropriate mood/affect, intact judgment & insight - Neurologic Neurologic: CNII-XII intact, moves all extremities Results - Labs CBC & Chem 7: 06/14/19 Unknown 06/14/19 Unknown Labs: Abnormal lab results 06/14/19 06/14/19 06/14/19 Range/Units 18:50 Unknown Unknown RBC 1.43 L (3.65-5.03) M/mm3 Hgb 5.9 L* (10.1-14.3) gm/dl Hct 16.5 L* (30.3-42.9) % MCV 116 H (79-97) fl MCH 41 H (28-32) pg MCHC 35 H (30-34) % RDW 23.7 H (13.2-15.2) % Monocytes % (Manual) 9.0 H (0.0-7.3) % Basophils % (Manual) 2.0 H (0.0-1.8) % Monocytes # (Manual) 0.9 H (0.0-0.8) K/mm3 Basophils # (Manual) 0.2 H (0.0-0.1) K/mm3 Percent Retic 8.08 H (0.78-2.58) % Glucose 109 H (65-100) mg/dL TIBC (250-450) mcg/dL Transferrin (192-382) mg/dl Ferritin (13.0-400.0) ng/mL Total Bilirubin 6.10 H (0.1-1.2) mg/dL AST 41 H (5-40) units/L Lactate Dehydrogenase (91-180) units/L TSH (0.270-4.200) mlU/mL Crossmatch See Detail 06/14/19 06/14/19 06/14/19 Range/Units Unknown Unknown Unknown RBC (3.65-5.03) M/mm3 Hgb (10.1-14.3) gm/dl Hct (30.3-42.9) % MCV (79-97) fl MCH (28-32) pg MCHC (30-34) % RDW (13.2-15.2) % Monocytes % (Manual) (0.0-7.3) % Basophils % (Manual) (0.0-1.8) % Monocytes # (Manual) (0.0-0.8) K/mm3 Basophils # (Manual) (0.0-0.1) K/mm3 Percent Retic (0.78-2.58) % Glucose (65-100) mg/dL TIBC 223 L (250-450) mcg/dL Transferrin 174 L (192-382) mg/dl Ferritin 46072.0 H (13.0-400.0) ng/mL Total Bilirubin (0.1-1.2) mg/dL AST (5-40) units/L Lactate Dehydrogenase 569 H (91-180) units/L TSH (0.270-4.200) mlU/mL Crossmatch 06/14/19 Range/Units Unknown RBC (3.65-5.03) M/mm3 Hgb (10.1-14.3) gm/dl Hct (30.3-42.9) % MCV (79-97) fl MCH (28-32) pg MCHC (30-34) % RDW (13.2-15.2) % Monocytes % (Manual) (0.0-7.3) % Basophils % (Manual) (0.0-1.8) % Monocytes # (Manual) (0.0-0.8) K/mm3 Basophils # (Manual) (0.0-0.1) K/mm3 Percent Retic (0.78-2.58) % Glucose (65-100) mg/dL TIBC (250-450) mcg/dL Transferrin (192-382) mg/dl Ferritin (13.0-400.0) ng/mL Total Bilirubin (0.1-1.2) mg/dL AST (5-40) units/L Lactate Dehydrogenase (91-180) units/L TSH 28.320 H (0.270-4.200) mlU/mL Crossmatch Assessment and Plan - Patient Problems (1) Anemia Current Visit: No Status: Acute Qualifiers: Anemia type: unspecified type Qualified Code(s): D64.9 - Anemia, uns pecified Plan to address problem: replacement. (2) Hypothyroid Current Visit: No Status: Acute Qualifiers: Hypothyroidism type: acquired Qualified Code(s): E03.9 - Hypothyroidism, unspecified Plan to address problem: supportive. (3) Sickle cell anemia Current Visit: No Status: Acute Qualifiers: Sickle-cell associated disorders: with unspecified crisis Qualified Code(s): D57.00 - Hb-SS disease with crisis, unspecified; D57.0 - Hb-SS disease with crisis Plan to address problem: replacement transfusion. (4) Symptomatic anemia Current Visit: No Status: Acute Plan to address problem: Blood transfusion. (5) Dehydration Current Visit: Yes Status: Acute Plan to address problem: Hydration
--- NOTE | 2019-06-14 22:35 | XRay Report ---
CHEST 1 VIEW INDICATION: cough.. COMPARISON: 05/27/2018 FINDINGS: SUPPORT DEVICES: [id number] catheter has its tip in the superior vena cava HEART / MEDIASTINUM: No significant abnormality. LUNGS / PLEURA: No significant pulmonary or pleural abnormality. No pneumothorax. ADDITIONAL FINDINGS: IMPRESSION: 1. No acute findings. Signer Name: Kobe Felipe MD Signed: 06/14/2019 10:30 PM Workstation Name: [id number]
[2019-06-15] MEDS: diphenhydrAMINE 50 MG/ML VIAL IV PRN ×7 (00:41→22:22)
[2019-06-15] MEDS: HYDROmorphone 1 MG/1 ML INJ IV PRN ×8 (00:41→22:22)
[2019-06-15] MEDS: D5W/0.2% NACL 1,000 ML IV SCH ×5 (00:41→19:22)
[2019-06-15 01:18] LABS: Bilirubin,Urine NEG (Negative); Blood,Urine NEG (Negative); Color,Urine Yellow (Yellow); Mucus,Urine FEW /HPF; RBC,Urine < 1.0 /HPF (0.0-6.0)
[2019-06-15] MEDS: LEVOTHYROXINE 125 MCG TAB PO SCH (06:08)
[2019-06-15] MEDS: FOLIC ACID 1 MG TAB PO SCH (09:26)
[2019-06-15] MEDS: APIXABAN 5 MG TAB PO SCH ×2 (09:27→22:22)
[2019-06-15] MEDS ORDERED: ACETAMINOPHEN 500 MG TAB PO ONE ×2 (11:00→15:00)
[2019-06-15] MEDS ORDERED: diphenhydrAMINE 50 MG/ML VIAL IV ONE (11:00)
[2019-06-15] MEDS ORDERED: methylPREDNISolone Sod Succinate 125 MG/2 ML INJ IM ONE (11:24)
[2019-06-15] MEDS ORDERED: methylPREDNISolone Sod Succinate 125 MG/2 ML INJ IV SCH (15:00)
[2019-06-15] MEDS ORDERED: ACETAMINOPHEN 500 MG TAB PO SCH (15:00)
[2019-06-15] MEDS ORDERED: diphenhydrAMINE 50 MG/ML VIAL IV SCH (15:00)
--- NOTE | 2019-06-15 16:25 | Progress Note ---
Assessment and Plan - Patient Problems (1) Anemia Current Visit: No Status: Acute Qualifiers: Anemia type: unspecified type Qualified Code(s): D64.9 - Anemia, unspecified Plan to address problem: replacement. (2) Hypothyroid Current Visit: No Status: Acute Qualifiers: Hypothyroidism type: acquired Qualified Code(s): E03.9 - Hypothyroidism, unspecified Plan to address problem: supportive. (3) Sickle cell anemia Current Visit: No Status: Acute Qualifiers: Sickle-cell associated disorders: with unspecified crisis Qualified Code(s): D57.00 - Hb-SS disease with crisis, unspecified; D57.0 - Hb-SS disease with crisis Plan to address problem: replacement transfusion. (4) Symptomatic anemia Current Visit: No Status: Acute Plan to address problem: Blood transfusion. (5) Dehydration Current Visit: Yes Status: Acute Plan to address problem: Hydration Subjective Date of service: 06/15/19 Principal diagnosis: SCD/pain crisis, Symptomatic anemia. Interval history: Patient seen/examined, resting in bed, s/p transfusion of PRBCs. will get new labs draw today.and continue symptoms management of SC pain crisis. Objective - Constitutional Vitals: Vital Signs - 12hr 06/15/19 06/15/19 06/15/19 05:37 06:09 09:29 Temperature 98.0 F 99.3 F Pulse Rate 68 83 Respiratory 18 18 22 Rate Blood Pressure 123/90 131/70 O2 Sat by Pulse 100 100 Oximetry 06/15/19 06/15/19 06/15/19 11:00 11:26 15:10 Temperature 98.3 F 99 F Pulse Rate 75 68 Respiratory 22 16 Rate Blood Pressure 130/91 125/69 O2 Sat by Pulse 98 100 Oximetry 06/15/19 06/15/19 15:25 15:55 Temperature 99.2 F 99.1 F Pulse Rate 79 79 Respiratory 20 20 Rate Blood Pressure 143/100 143/79 O2 Sat by Pulse 99 97 Oximetry General appearance: Present: mild distress, well-nourished - EENT Eyes: PERRL, EOM intact ENT: hearing intact, clear oral mucosa Ears: bilateral: normal - Neck Neck: supple, normal ROM - Respiratory Respiratory effort: normal Respiratory: bilateral: CTA - Breasts Breasts: deferred - Cardiovascular Rhythm: regular Heart Sounds: Present: S1 & S2. Absent: gallop, rub Extremities: pulses intact, No edema, normal color, Full ROM - Gastrointestinal General gastrointestinal: Present: soft, non-tender, non-distended, normal bowel sounds Rectal Exam: deferred - Genitourinary Female genitourinary: deferred - Integumentary Integumentary: clear, warm, dry - Musculoskeletal Musculoskeletal: 1, strength equal bilaterally - Neurologic Neurologic: moves all extremities - Psychiatric Psychiatric: memory intact, appropriate mood/affect, intact judgment & insight - Labs CBC & Chem 7: 06/14/19 Unknown 06/14/19 Unknown Labs: Abnormal lab results 06/14/19 06/14/19 06/14/19 Range/Units 18:50 Unknown Unknown RBC 1.43 L (3.65-5.03) M/mm3 Hgb 5.9 L* (10.1-14.3) gm/dl Hct 16.5 L* (30.3-42.9) % MCV 116 H (79-97) fl MCH 41 H (28-32) pg MCHC 35 H (30-34) % RDW 23.7 H (13.2-15.2) % Monocytes % (Manual) 9.0 H (0.0-7.3) % Basophils % (Manual) 2.0 H (0.0-1.8) % Monocytes # (Manual) 0.9 H (0.0-0.8) K/mm3 Basophils # (Manual) 0.2 H (0.0-0.1) K/mm3 Percent Retic 8.08 H (0.78-2.58) % Glucose 109 H (65-100) mg/dL TIBC (250-450) mcg/dL Transferrin (192-382) mg/dl Ferritin (13.0-400.0) ng/mL Total Bilirubin 6.10 H (0.1-1.2) mg/dL AST 41 H (5-40) units/L Lactate Dehydrogenase (91-180) units/L TSH (0.270-4.200) mlU/mL Crossmatch See Detail 06/14/19 06/14/19 06/14/19 Range/Units Unknown Unknown Unknown RBC (3.65-5.03) M/mm3 Hgb (10.1-14.3) gm/dl Hct (30.3-42.9) % MCV (79-97) fl MCH (28-32) pg MCHC (30-34) % RDW (13.2-15.2) % Monocytes % (Manual) (0.0-7.3) % Basophils % (Manual) (0.0-1.8) % Monocytes # (Manual) (0.0-0.8) K/mm3 Basophils # (Manual) (0.0-0.1) K/mm3 Percent Retic (0.78-2.58) % Glucose (65-100) mg/dL TIBC 223 L (250-450) mcg/dL Transferrin 174 L (192-382) mg/dl Ferritin 04295.0 H (13.0-400.0) ng/mL Total Bilirubin (0.1-1.2) mg/dL AST (5-40) units/L Lactate Dehydrogenase 569 H (91-180) units/L TSH (0.270-4.200) mlU/mL Crossmatch 06/14/19 Range/Units Unknown RBC (3.65-5.03) M/mm3 Hgb (10.1-14.3) gm/dl Hct (30.3-42.9) % MCV (79-97) fl MCH (28-32) pg MCHC (30-34) % RDW (13.2-15.2) % Monocytes % (Manual) (0.0-7.3) % Basophils % (Manual) (0.0-1.8) % Monocytes # (Manual) (0.0-0.8) K/mm3 Basophils # (Manual) (0.0-0.1) K/mm3 Percent Retic (0.78-2.58) % Glucose (65-100) mg/dL TIBC (250-450) mcg/dL Transferrin (192-382) mg/dl Ferritin (13.0-400.0) ng/mL Total Bilirubin (0.1-1.2) mg/dL AST (5-40) units/L Lactate Dehydrogenase (91-180) units/L TSH 28.320 H (0.270-4.200) mlU/mL Crossmatch
[2019-06-16] MEDS: diphenhydrAMINE 50 MG/ML VIAL IV PRN ×8 (00:58→22:59)
[2019-06-16] MEDS: HYDROmorphone 1 MG/1 ML INJ IV PRN ×8 (00:58→22:59)
[2019-06-16] MEDS: LEVOTHYROXINE 125 MCG TAB PO SCH (05:59)
[2019-06-16 10:02] LABS: Hemoglobin 9.4 gm/dl (10.1-14.3); Mean Corpuscular HGB Conc 35 % (30-34); Mean Corpuscular Volume 105 fl (79-97); Red Blood Count 2.58 M/mm3 (3.65-5.03)
[2019-06-16] MEDS: D5W/0.2% NACL 1,000 ML IV SCH ×2 (10:04→14:43)
[2019-06-16] MEDS: APIXABAN 5 MG TAB PO SCH ×2 (10:07→22:58)
[2019-06-16] MEDS: FOLIC ACID 1 MG TAB PO SCH (10:08)
[2019-06-16 10:32] LABS: Red Cell Distribution Width 27.7 % (13.2-15.2)
[2019-06-16 11:56] LABS: Total Cells Counted 100
[2019-06-16 11:57] LABS: Basophils % (Manual) 0 % (0.0-1.8); Eosinophils % (Manual) 0 % (0.0-4.3)
[2019-06-16 11:58] LABS: Anisocytosis 3+; Macrocytosis 1+
[2019-06-16 11:59] LABS: Dimorphic RBC Yes; Sickle Cells 1+
[2019-06-16 12:00] LABS: Platelet Estimate Consistent w Auto; Target Cells 1+
[2019-06-16 13:36] LABS: Platelet Count 308 K/mm3 (140-440)
--- NOTE | 2019-06-16 21:25 | Progress Note ---
Assessment and Plan - Patient Problems (1) Anemia Current Visit: No Status: Acute Qualifiers: Anemia type: unspecified type Qualified Code(s): D64.9 - Anemia, unspecified Plan to address problem: replacement. completed. (2) Hypothyroid Current Visit: No Status: Acute Qualifiers: Hypothyroidism type: acquired Qualified Code(s): E03.9 - Hypothyroidism, unspecified Plan to address problem: supportive. will adjust synthroid up as Tsh level higher than expected. (3) Sickle cell anemia Current Visit: No Status: Acute Qualifiers: Sickle-cell associated disorders: with unspecified crisis Qualified Code(s): D57.00 - Hb-SS disease with crisis, unspecified; D57.0 - Hb-SS disease with crisis Plan to address problem: replacement transfusion. completed. (4) Symptomatic anemia Current Visit: No Status: Acute Plan to address problem: Blood transfusion. completed. (5) Dehydration Current Visit: Yes Status: Acute Plan to address problem: Hydration adjusted down. (6) Iron overload due to repeated red blood cell transfusions Current Visit: Yes Status: Chronic Plan to address problem: iron chelating. Subjective Date of service: 06/16/19 Principal diagnosis: SCD/pain crisis, Symptomatic anemia. Interval history: Patient seen/examined, resting in bed, s/p transfusion of PRBCs. will get new labs draw today.and continue symptoms management of SC pain crisis. Patient seen/examined, post transfusion labs discussed. evidence ofg transfusion related chronic iron overload from multiple blood transfusions at numerous admissions to [facility].will try on iron chelating procedure starting in the next 24hrs, and will turn down ivf.She rated her pain at 8/10. Objective - Constitutional Vitals: Vital Signs - 12hr 06/16/19 06/16/19 06/16/19 11:00 11:36 12:50 Temperature 98.9 F Pulse Rate 59 L Respiratory 24 Rate Blood Pressure 131/79 O2 Sat by Pulse 100 100 97 Oximetry 06/16/19 16:47 Temperature 100.0 F H Pulse Rate 73 Respiratory 24 Rate Blood Pressure 145/84 O2 Sat by Pulse 97 Oximetry General appearance: Present: mild distress, well-nourished - EENT Eyes: PERRL, EOM intact ENT: hearing intact, clear oral mucosa Ears: bilateral: normal - Neck Neck: supple, normal ROM - Respiratory Respiratory effort: normal Respiratory: bilateral: CTA - Breasts Breasts: deferred - Cardiovascular Rhythm: regular Heart Sounds: Present: S1 & S2. Absent: gallop, rub Extremities: pulses intact, No edema, normal color, Full ROM - Gastrointestinal General gastrointestinal: Present: soft, non-tender, non-distended, normal bowel sounds Rectal Exam: deferred - Genitourinary Female genitourinary: deferred - Integumentary Integumentary: clear, warm, dry - Musculoskeletal Musculoskeletal: 1, strength equal bilaterally - Neurologic Neurologic: moves all extremities - Psychiatric Psychiatric: memory intact, appropriate mood/affect, intact judgment & insight - Labs CBC & Chem 7: 06/16/19 09:15 06/14/19 Unknown Labs: Abnormal lab results 06/14/19 06/16/19 Range/Units 18:50 09:15 RBC 2.58 L (3.65-5.03) M/mm3 Hgb 9.4 L D (10.1-14.3) gm/dl Hct 27.0 L D (30.3-42.9) % MCV 105 H (79-97) fl MCH 37 H (28-32) pg MCHC 35 H (30-34) % RDW 27.7 H (13.2-15.2) % Seg Neuts % (Manual) 87.0 H (40.0-70.0) % Lymphocytes % (Manual) 10.0 L (13.4-35.0) % Nucleated RBC % 4.0 H (0.0-0.9) % Lymphocytes # (Manual) 0.8 L (1.2-5.4) K/mm3 Crossmatch See Detail
[2019-06-16] MEDS: DEFEROXAMINE MESYLATE IV SCH (22:58)
[2019-06-16] MEDS: SODIUM CHLORIDE 0.9% IV SCH (22:58)
[2019-06-17] MEDS: HYDROmorphone 1 MG/1 ML INJ IV PRN ×7 (02:31→21:09)
[2019-06-17] MEDS: diphenhydrAMINE 50 MG/ML VIAL IV PRN ×7 (02:32→21:09)
[2019-06-17] MEDS ORDERED: LEVOTHYROXINE 112 MCG, LEVOTHYROXINE 25 MCG PO SCH (06:00)
[2019-06-17] MEDS: LEVOTHYROXINE 112 MCG TAB PO SCH (06:15)
[2019-06-17] MEDS: LEVOTHYROXINE 25 MCG TAB PO SCH (06:15)
[2019-06-17] MEDS: D5W/0.2% NACL 1,000 ML IV SCH ×2 (08:16→21:16)
[2019-06-17] MEDS: FOLIC ACID 1 MG TAB PO SCH (09:28)
[2019-06-17] MEDS: APIXABAN 5 MG TAB PO SCH ×2 (09:28→21:10)
--- NOTE | 2019-06-17 18:59 | Progress Note ---
Assessment and Plan - Patient Problems (1) Anemia Current Visit: No Status: Acute Qualifiers: Anemia type: unspecified type Qualified Code(s): D64.9 - Anemia, unspecified Plan to address problem: replacement. completed. (2) Hypothyroid Current Visit: No Status: Acute Qualifiers: Hypothyroidism type: acquired Qualified Code(s): E03.9 - Hypothyroidism, unspecified Plan to address problem: supportive. will adjust synthroid up as Tsh level higher than expected. (3) Sickle cell anemia Current Visit: No Status: Acute Qualifiers: Sickle-cell associated disorders: with unspecified crisis Qualified Code(s): D57.00 - Hb-SS disease with crisis, unspecified; D57.0 - Hb-SS disease with crisis Plan to address problem: replacement transfusion. completed. (4) Symptomatic anemia Current Visit: No Status: Acute Plan to address problem: Blood transfusion. completed. (5) Dehydration Current Visit: Yes Status: Acute Plan to address problem: Hydration adjusted down. (6) Iron overload due to repeated red blood cell transfusions Current Visit: Yes Status: Chronic Plan to address problem: iron chelating. Subjective Date of service: 06/17/19 Principal diagnosis: SCD/pain crisis, Symptomatic anemia. Interval history: Patient seen/examined, resting in bed, s/p transfusion of PRBCs. will get new labs draw today.and continue symptoms management of SC pain crisis. Patient seen/examined, post transfusion labs discussed. evidence ofg transfusion related chronic iron overload from multiple blood transfusions at numerous admissions to [facility].will try on iron chelating procedure starting in the next 24hrs, and will turn down ivf.She rated her pain at 8/10. Patient seen/examined, resting in bed, records reviewed, case d/w patient. she is tolerating iron chelating #1 of 3 ok. Pain is now down to 6/10. After the last dsef, will d/c home. Objective - Constitutional Vitals: Vital Signs - 12hr 06/17/19 06/17/19 06/17/19 08:58 09:52 12:16 Temperature 99.3 F Pulse Rate 65 Respiratory 20 Rate Blood Pressure 159/85 127/72 O2 Sat by Pulse 99 98 Oximetry 06/17/19 16:57 Temperature 97.7 F Pulse Rate 66 Respiratory 18 Rate Blood Pressure 106/72 O2 Sat by Pulse 99 Oximetry General appearance: Present: mild distress, well-nourished - EENT Eyes: PERRL, EOM intact ENT: hearing intact, clear oral mucosa Ears: bilateral: normal - Neck Neck: supple, normal ROM - Respiratory Respiratory effort: normal Respiratory: bilateral: CTA - Breasts Breasts: deferred - Cardiovascular Rhythm: regular Heart Sounds: Present: S1 & S2. Absent: gallop, rub Extremities: pulses intact, No edema, normal color, Full ROM - Gastrointestinal General gastrointestinal: Present: soft, non-tender, non-distended, normal bowel sounds Rectal Exam: deferred - Genitourinary Female genitourinary: deferred - Integumentary Integumentary: clear, warm, dry - Musculoskeletal Musculoskeletal: 1, strength equal bilaterally - Neurologic Neurologic: moves all extremities - Psychiatric Psychiatric: memory intact, appropriate mood/affect, intact judgment & insight - Labs CBC & Chem 7: 06/16/19 09:15 06/14/19 Unknown
[2019-06-17] MEDS: SODIUM CHLORIDE 0.9% IV SCH (21:10)
[2019-06-17] MEDS: DEFEROXAMINE MESYLATE IV SCH (21:10)
[2019-06-18] MEDS: HYDROmorphone 1 MG/1 ML INJ IV PRN ×8 (00:11→21:28)
[2019-06-18] MEDS: diphenhydrAMINE 50 MG/ML VIAL IV PRN ×8 (00:11→21:28)
[2019-06-18] MEDS: LEVOTHYROXINE 25 MCG TAB PO SCH (06:17)
[2019-06-18] MEDS: LEVOTHYROXINE 112 MCG TAB PO SCH (06:17)
[2019-06-18] MEDS: APIXABAN 5 MG TAB PO SCH ×2 (09:30→21:28)
[2019-06-18] MEDS: FOLIC ACID 1 MG TAB PO SCH (09:30)
[2019-06-18] MEDS: D5W/0.2% NACL 1,000 ML IV SCH (11:54)
--- NOTE | 2019-06-18 15:47 | Discharge Summary ---
Providers - Providers Date of Admission: 06/14/19 14:31 Date of discharge: 06/19/19 Attending physician: WANDA SIMON Primary care physician: WANDA SIMON Patient seen/examined Hospitalization Reason for admission: SCD/Anemia of SCD/ Dehydration. Condition: Stable Hospital course: Patient seen/examined, resting in bed, The last DESF will go on today, and end tomorrow, and then D.c home.Patient presented to the office ,with complaints of diffuse joint pain, and generalized weakness. She was admitted , for sxs management, and control. She was transfused, for severely sxs anemia. Her iron post transfusion, was extremely high, and was treated with iron chelating agent.she tolerated the tx well, and will be D/c home tomorrow.Also her synthroids dose was adjusted up. Disposition: DC- TO HOME OR SELFCARE - Discharge Diagnoses (1) Anemia Status: Chronic Qualifiers: Anemia type: unspecified type Qualified Code(s): D64.9 - Anemia, unspecified (2) Hypothyroid Status: Chronic Qualifiers: Hypothyroidism type: acquired Qualified Code(s): E03.9 - Hypothyroidism, unspecified (3) Sickle cell anemia Status: Acute Qualifiers: Sickle-cell associated disorders: with unspecified crisis Qualified Code(s): D57.00 - Hb-SS disease with crisis, unspecified; D57.0 - Hb-SS disease with crisis (4) Symptomatic anemia Status: Resolved (5) Dehydration Status: Resolved (6) Iron overload due to repeated red blood cell transfusions Status: Acute Core Measure Documentation - Palliative Care Palliative Care/ Comfort Measures: Not Applicable - Core Measures Any of the following diagnoses?: history only Exam - Constitutional Vitals: Temp Pulse Resp BP Pulse Ox 98.2 F 81 20 125/79 97 06/18/19 11:51 06/18/19 11:51 06/18/19 11:51 06/18/19 11:51 06/18/19 11:51 General appearance: Present: no acute distress, well-nourished - EENT Eyes: Present: PERRL ENT: hearing intact, clear oral mucosa - Neck Neck: Present: supple, normal ROM - Respiratory Respiratory effort: normal Respiratory: bilateral: CTA - Cardiovascular Heart Sounds: Present: S1 & S2. Absent: rub, click - Extremities Extremities: pulses symmetrical, No edema Peripheral Pulses: within normal limits - Abdominal General gastrointestinal: Present: soft, non-tender, non-distended, normal bowel sounds Female genitourinary: Present: deferred - Rectal Rectal Exam: deferred - Integumentary Integumentary: Present: clear, warm, dry - Musculoskeletal Musculoskeletal: gait normal, strength equal bilaterally - Psychiatric Psychiatric: appropriate mood/affect, intact judgment & insight - Neurologic Neurologic: CNII-XII intact, moves all extremities Plan Activity: no restrictions Diet: regular Follow up with: WANDA SIMON DO [Primary Care Provider] - 7 Days
[2019-06-18] MEDS: SODIUM CHLORIDE 0.9% IV SCH (21:27)
[2019-06-18] MEDS: DEFEROXAMINE MESYLATE IV SCH (21:27)
[2019-06-19] MEDS: HYDROmorphone 1 MG/1 ML INJ IV PRN ×3 (00:40→06:46)
[2019-06-19] MEDS: diphenhydrAMINE 50 MG/ML VIAL IV PRN ×3 (00:40→06:46)
[2019-06-19] MEDS: D5W/0.2% NACL 1,000 ML IV SCH (03:33)
[2019-06-19 05:35] VITALS: BP 129/79
[2019-06-19] MEDS: LEVOTHYROXINE 25 MCG TAB PO SCH (06:12)
[2019-06-19] MEDS: LEVOTHYROXINE 112 MCG TAB PO SCH (06:13)
[2019-06-19] MEDS ORDERED: NEOMY 3.5 MG/BACIT 400 UNITS/POLY B 5000 UNITS/GM OINT PACKET TP ONE (07:37)
[2019-06-19] MEDS: FOLIC ACID 1 MG TAB PO SCH (08:02)
[2019-06-19] MEDS: APIXABAN 5 MG TAB PO SCH (08:02)
== END 2019-06-19 09:26 | disposition home or self-care (01) | DRG 812 ==
LOC: UNDOADMIN 13:35 → 3A 13:35
PROVIDERS: ADMIT Internal Medicine Hematology & Oncology; ATTEND Internal Medicine Hematology & Oncology
PROC: 30233N1 Transfusion of Nonautologous Red Blood Cells into Peripheral Vein, Percutaneous Approach (ICD-10-PCS; principal; 2019-06-15)
DX: D57.00 Hb-SS disease with crisis, unspecified (principal); E86.0 Dehydration; D64.9 Anemia, unspecified; E03.9 Hypothyroidism, unspecified; E83.111 Hemochromatosis due to repeated red blood cell transfusions; Z88.8 Allergy status to other drugs, medicaments and biological substances; Z91.018 Allergy to other foods; Z79.899 Other long term (current) drug therapy; Z88.6 Allergy status to analgesic agent
CPT/HCPCS: 36415; 71045; 80053; 81001; 82728; 83550; 83615; 84443; 85007; 85025; 85045; 85660; 86850; 86900; 86901; 86922; 87040; 87116; 94760; G0378; A6250; J0895; J1170; J1200; J1642; J2405; J2930; J7040; J7050; P9016

== ENCOUNTER 2019-10-22 12:45 | Inpatient (IN) | payer OTHER ==
[2019-10-22] MEDS ORDERED: SODIUM CHLORIDE 0.9% 1000 ML 1,000 ML IV ONE ×2 (13:36→15:23)
[2019-10-22] MEDS ORDERED: ONDANSETRON 4 MG/2 ML INJ IV ONE (13:36)
[2019-10-22] MEDS ORDERED: HYDROmorphone 1 MG/1 ML INJ IV ONE ×2 (13:36→15:46)
--- NOTE | 2019-10-22 13:43 | Emergency Department Report ---
ED General Adult HPI - General Chief complaint: Sickle Cell Crisis Stated complaint: SICKLE CELL CRISIS Time Seen by Provider: 10/22/19 13:36 Source: patient Mode of arrival: Ambulatory Limitations: No Limitations - History of Present Illness Initial comments: Patient is 49 years old female with history of sickle cell disease. Patient presented to the ER complaining of generalized body pain but mainly to the lower back and lower extremity. Patient stated that pain started last night. Patient denied any fever or chills. No chest pain or shortness of breath. No abdominal pain, nausea or vomiting. -: Last night - Related Data Home Medications Medication Instructions Recorded Confirmed Last Taken Promethazine [Phenergan] 25 mg PO Q8HR PRN 03/29/18 08/15/19 06/14/19 08:00 Eliquis 5 mg PO BID 05/17/18 08/15/19 06/14/19 08:00 Vitamin D3 2,000 unit 3,000 units PO DAILY 05/17/18 08/15/19 06/14/19 08:00 Melatonin/Pyridoxine HCl (B6) 1 tab PO QHS 09/12/18 08/15/19 06/14/19 08:00 [Melatonin Tr 10 mg Tablet] diphenhydrAMINE [Benadryl CAP] 25 mg PO Q6HR PRN 09/12/18 08/15/19 06/14/19 08:00 Previous Rx's Medication Instructions Recorded Last Taken Type Folic Acid [Folvite] 1 mg PO QDAY #30 tablet 06/27/14 06/14/19 08:00 Rx Cholecalciferol Vit D3 [Vitamin D3 3,000 unit PO QDAY 30 Days tablet 05/19/18 06/14/19 08:00 Rx 1,000 UNIT TAB] Levothyroxine [Synthroid] 125 mcg PO DAILY@0600 #30 tablet 05/19/18 06/14/19 08:00 Rx Morphine ER [Ms Contin ER] 30 mg PO Q8H #60 tablet 09/15/18 06/14/19 08:00 Rx Oxycodone HCl/Acetaminophen 1 each PO Q6HR PRN #60 tablet 09/15/18 06/14/19 08:00 Rx [Percocet 10/325 mg] Allergies Allergy/AdvReac Type Severity Reaction Status Date / Time aspirin Allergy Vomiting Verified 06/21/18 14:16 ketorolac tromethamine Allergy Unknown Verified 06/21/18 14:16 [From Toradol] morphine Allergy Shortness Verified 06/21/18 14:16 of Breath pineapple [Pineapple] Allergy Swelling Verified 06/21/18 14:16 ED Review of Systems ROS: Stated complaint: SICKLE CELL CRISIS Other details as noted in HPI Comment: All other systems reviewed and negative Constitutional: denies: chills, fever Respiratory: denies: cough, orthopnea, shortness of breath, SOB with exertion, SOB at rest, wheezing Cardiovascular: denies: chest pain, palpitations, dyspnea on exertion Gastrointestinal: denies: abdominal pain, nausea, vomiting, diarrhea, constipation, hematemesis, hematochezia Musculoskeletal: arthralgia, myalgia. denies: back pain Skin: denies: lesions Neurological: denies: headache, weakness, numbness, paresthesias, abnormal gait ED Past Medical Hx - Past Medical History Previous Medical History?: Yes Hx Hypertension: No Hx Congestive Heart Failure: Yes Hx Diabetes: No Hx Deep Vein Thrombosis: (?) Hx Sickle Cell Disease: Yes Hx Arthritis: No Hx Seizures: No Hx Asthma: No Hx COPD: Yes Hx HIV: No Additional medical history: ANEMIA (Blood transfusion), Hypothyroid, Left chest port, DVT - Surgical History Past Surgical History?: Yes Hx Pacemaker: No Hx Internal Defibrillator: No Hx Cholecystectomy: Yes Additional Surgical History: right ovary removed secondary to ovarian torsion. port placement x 3, port left chest wall - Social History Smoking Status: Never Smoker Substance Use Type: None - Medications Home Medications: Home Medications Medication Instructions Recorded Confirmed Last Taken Type Folic Acid [Folvite] 1 mg PO QDAY #30 tablet 06/27/14 08/15/19 06/14/19 08:00 Rx Promethazine [Phenergan] 25 mg PO Q8HR PRN 03/29/18 08/15/19 06/14/19 08:00 History Eliquis 5 mg PO BID 05/17/18 08/15/19 06/14/19 08:00 History Vitamin D3 2,000 unit 3,000 units PO DAILY 05/17/18 08/15/19 06/14/19 08:00 History Cholecalciferol Vit D3 [Vitamin D3 3,000 unit PO QDAY 30 Days tablet 05/19/18 08/15/1919 08:00 Rx 1,000 UNIT TAB] Levothyroxine [Synthroid] 125 mcg PO DAILY@0600 #30 tablet 05/19/18 08/15/19 06/14/19 08:00 Rx Melatonin/Pyridoxine HCl (B6) 1 tab PO QHS 09/12/18 08/15/19 06/14/19 08:00 History [Melatonin Tr 10 mg Tablet] diphenhydrAMINE [Benadryl CAP] 25 mg PO Q6HR PRN 09/12/18 08/15/19 06/14/19 08:00 History Morphine ER [Ms Contin ER] 30 mg PO Q8H #60 tablet 09/15/18 08/15/19 06/14/19 08:00 Rx Oxycodone HCl/Acetaminophen 1 each PO Q6HR PRN #60 tablet 09/15/18 08/15/19 06/14/19 08:00 Rx [Percocet 10/325 mg] ED Physical Exam - General Limitations: No Limitations General appearance: alert, in no apparent distress - Head Head exam: Present: atraumatic, normocephalic, normal inspection - Eye Eye exam: Present: normal appearance - ENT ENT exam: Present: mucous membranes dry - Neck Neck exam: Present: normal inspection, full ROM. Absent: tenderness, meningismus - Respiratory Respiratory exam: Present: normal lung sounds bilaterally - Cardiovascular Cardiovascular Exam: Present: regular rate, normal rhythm, normal heart sounds - GI/Abdominal GI/Abdominal exam: Present: soft, normal bowel sounds. Absent: distended, tenderness, guarding, rebound, rigid, organomegaly, mass, bruit, pulsatile mass, hernia - Extremities Exam Extremities exam: Present: normal inspection, full ROM, normal capillary refill. Absent: tenderness, pedal edema, calf tenderness - Back Exam Back exam: Present: normal inspection, full ROM. Absent: CVA tenderness (R), CVA tenderness (L) - Neurological Exam Neurological exam: Present: alert, oriented X3, CN II-XII intact, normal gait, reflexes normal - Psychiatric Psychiatric exam: Present: normal mood - Skin Skin exam: Present: warm, intact, normal color ED Course Vital Signs 10/22/19 10/22/19 10/22/19 12:52 14:21 14:24 Temperature 99.8 F H Pulse Rate 100 H 91 H Respiratory 20 20 Rate Blood Pressure 125/98 O2 Sat by Pulse 92 Oximetry 10/22/19 14:33 Temperature Pulse Rate Respiratory 20 Rate Blood Pressure O2 Sat by Pulse Oximetry ED Medical Decision Making - Lab Data Result diagrams: 10/22/19 Unknown - Medical Decision Making Patient is 49 years old female with history of sickle cell disease. Patient presented to the ER complaining of generalized body pain but mainly to the lower back and lower extremity. Patient stated that pain started last night. Patient denied any fever or chills. No chest pain or shortness of breath. No abdominal pain, nausea or vomiting. Patient received normal saline, Dilaudid and Zofran. Labs reviewed and showed significantly elevated reticulocyte count of 22. Last reticulocyte count was 3. I discussed the patient with Dr. Oropeza, he agreed to admit the patient to medical service for further management. Critical Care Time: Yes Critical care time in (mins) excluding proc time.: 30 Critical care attestation.: If time is entered above; I have spent that time in minutes in the direct care of this critically ill patient, excluding procedure time. ED Disposition Clinical Impression: Sickle cell crisis Disposition: OP ADMIT IP TO THIS HOSP Is pt being admited?: Yes Condition: Stable
[2019-10-22 14:44] LABS: Hematocrit 20.2 % (30.3-42.9); Hemoglobin 7.3 gm/dl (10.1-14.3); Mean Corpuscular HGB Conc 36 % (30-34); Platelet Count 501 K/mm3 (140-440); Red Blood Count 1.78 M/mm3 (3.65-5.03)
[2019-10-22 14:56] LABS: Mean Corpuscular Volume 114 fl (79-97); Red Cell Distribution Width 35.4 % (13.2-15.2)
[2019-10-22] MEDS ORDERED: HYDROmorphone 1 MG/1 ML INJ ONE (15:49)
--- NOTE | 2019-10-22 15:50 | XRay Report ---
CHEST 1 VIEW INDICATION / CLINICAL INFORMATION: Sickle cell crisis. COMPARISON: 08/14/2019 FINDINGS: SUPPORT DEVICES: Port-A-Cath remains on the left. HEART / MEDIASTINUM: No significant abnormality. LUNGS / PLEURA: Low lung volumes are seen with slight basilar atelectasis. No definite infiltrate, ed malachi or effusion. No pneumothorax. ADDITIONAL FINDINGS: No significant additional findings. IMPRESSION: 1. No significant change Signer Name: Ruben Juarez MD Signed: 10/22/2019 3:46 PM Workstation Name: [id number]
[2019-10-22 16:01] LABS: Alanine Aminotransferase 49 units/L (7-56); Albumin 4.7 g/dL (3.9-5); BUN/Creatinine Ratio 28; Blood Urea Nitrogen 11 mg/dL (7-17); Calcium 9.5 mg/dL (8.4-10.2); Hemolysis Index 24
[2019-10-22] MEDS: diphenhydrAMINE 50 MG/ML VIAL IV PRN ×2 (17:51→22:33)
[2019-10-22] MEDS: HYDROmorphone 1 MG/1 ML INJ IV PRN ×2 (19:34→22:34)
[2019-10-22] MEDS ORDERED: ACETAMINOPHEN 325 MG TAB PO PRN (20:14)
[2019-10-22] MEDS ORDERED: ONDANSETRON 4 MG/2 ML INJ IV PRN (20:14)
[2019-10-22] MEDS ORDERED: METOCLOPRAMIDE 10 MG/2 ML INJ IV PRN (20:14)
[2019-10-22] MEDS ORDERED: oxyCODONE /ACETAMINOPHEN 5-325MG TAB PO PRN (20:14)
[2019-10-22] MEDS: FAMOTIDINE 20 MG/2 ML INJ IV SCH (22:33)
[2019-10-22 23:34] LABS: Bacteria,Urine 1+ /HPF (Negative); Bilirubin,Urine NEG (Negative); Blood,Urine NEG (Negative); Color,Urine Yellow (Yellow); Mucus,Urine FEW /HPF
[2019-10-23] MEDS: HYDROmorphone 1 MG/1 ML INJ IV PRN ×6 (02:54→22:13)
[2019-10-23] MEDS: diphenhydrAMINE 50 MG/ML VIAL IV PRN ×5 (02:55→22:20)
[2019-10-23] MEDS: SODIUM CHLORIDE 0.9% 1000 ML 1,000 ML IV SCH ×3 (03:00→18:30)
[2019-10-23 06:19] LABS: Hemoglobin 6.3 gm/dl (10.1-14.3)
[2019-10-23 06:20] LABS: Hematocrit 18.7 % (30.3-42.9)
[2019-10-23 06:22] LABS: Mean Corpuscular HGB Conc 34 % (30-34); Mean Corpuscular Volume 117 fl (79-97); Platelet Count 427 K/mm3 (140-440); Red Cell Distribution Width 34.2 % (13.2-15.2)
--- NOTE | 2019-10-23 06:41 | History and Physical Report ---
History of Present Illness Date of examination: 10/22/19 Date of admission: 10/22/19 15:39 Chief complaint: Pain all over 3 days History of present illness: 49 year old AAF with hx of sickle cell disease presents with severe pain all over for last 3 days.Pain is sharp and all over.Espesially retrosternal and both lower extremities.. No exacerbating or relieving factors History of CHF and Hypothyroidism. - Past Medical History Previous Medical History?: Yes Hx Congestive Heart Failure: Yes Hx Sickle Cell Disease: Yes Hx COPD: Yes Additional medical history: ANEMIA (Blood transfusion), Hypothyroid, Left chest port, DVT - Surgical History Past Surgical History?: Yes Hx Cholecystectomy: Yes Additional Surgical History: right ovary removed secondary to ovarian torsion. port placement x 3, port left chest wall - Social History Smoking Status: Never Smoker Substance Use Type: None - Medications Home Medications: Home Medications Medication Instructions Recorded Confirmed Last Taken Type Folic Acid [Folvite] 1 mg PO QDAY #30 tablet 06/27/14 08/15/19 06/14/19 08:00 Rx Promethazine [Phenergan] 25 mg PO Q8HR PRN 03/29/18 08/15/19 06/14/19 08:00 History Eliquis 5 mg PO BID 05/17/18 08/15/19 06/14/19 08:00 History Vitamin D3 2,000 unit 3,000 units PO DAILY 05/17/18 08/15/19 06/14/19 08:00 History Cholecalciferol Vit D3 [Vitamin D3 3,000 unit PO QDAY 30 Days tablet 05/19/18 08/15/19 06/14/19 08:00 Rx 1,000 UNIT TAB] Levothyroxine [Synthroid] 125 mcg PO DAILY@0600 #30 tablet 05/19/18 08/15/19 06/14/19 08:00 Rx Melatonin/Pyridoxine HCl (B6) 1 tab PO QHS 09/12/18 08/15/19 06/14/19 08:00 History [Melatonin Tr 10 mg Tablet] diphenhydrAMINE [Benadryl CAP] 25 mg PO Q6HR PRN 09/12/18 08/15/19 06/14/19 08:00 History Morphine ER [Ms Contin ER] 30 mg PO Q8H #60 tablet 09/15/18 08/15/19 06/14/19 08:00 Rx Oxycodone HCl/Acetaminophen 1 each PO Q6HR PRN #60 tablet 09/15/18 08/15/19 06/14/19 08:00 Rx [Percocet 10/325 mg] Review of Systems ROS: Stated complaint: SICKLE CELL CRISIS Other details as noted in HPI Comment: All other systems reviewed and negative Constitutional: denies: chills, fever Respiratory: denies: cough, orthopnea, shortness of breath, SOB with exertion, SOB at rest, wheezing Cardiovascular: denies: chest pain, palpitations, dyspnea on exertion Gastrointestinal: denies: abdominal pain, nausea, vomiting, diarrhea, constipation, hematemesis, hematochezia Musculoskeletal: arthralgia, myalgia. denies: back pain Skin: denies: lesions Neurological: denies: headache, weakness, numbness, paresthesias, abnormal gait PUI?: No Medications and Allergies Allergies Allergy/AdvReac Type Severity Reaction Status Date / Time aspirin Allergy Vomiting Verified 06/21/18 14:16 ketorolac tromethamine Allergy Unknown Verified 06/21/18 14:16 [From Toradol] morphine Allergy Shortness Verified 06/21/18 14:16 of Breath pineapple [Pineapple] Allergy Swelling Verified 06/21/18 14:16 Home Medications Medication Instructions Recorded Confirmed Last Taken Type Folic Acid [Folvite] 1 mg PO QDAY #30 tablet 06/27/14 10/23/19 06/14/19 08:00 Rx Promethazine [Phenergan] 25 mg PO Q8HR PRN 03/29/18 10/23/19 06/14/19 08:00 History Eliquis 5 mg PO BID 05/17/18 10/23/19 06/14/19 08:00 History Vitamin D3 2,000 unit 3,000 units PO DAILY 05/17/18 10/23/19 06/14/19 08:00 History Cholecalciferol Vit D3 [Vitamin D3 3,000 unit PO QDAY 30 Days tablet 05/19/18 10/23/19 06/14/19 08:00 Rx 1,000 UNIT TAB] Levothyroxine [Synthroid] 125 mcg PO DAILY@0600 #30 tablet 05/19/18 10/23/19 06/14/19 08:00 Rx Melatonin/Pyridoxine HCl (B6) 1 tab PO QHS 09/12/18 10/23/19 06/14/19 08:00 History [Melatonin Tr 10 mg Tablet] diphenhydrAMINE [Benadryl CAP] 25 mg PO Q6HR PRN 09/12/18 10/23/19 06/14/19 08:00 History Morphine ER [Ms Contin ER] 30 mg PO Q8H #60 tablet 09/15/18 10/23/19 06/14/19 08:00 Rx Oxycodone HCl/Acetaminophen 1 each PO Q6HR PRN #60 tablet 09/15/18 10/23/19 06/14/19 08:00 Rx [Percocet 10/325 mg] Active Meds: Active Medications Acetaminophen (Tylenol) 650 mg PO Q4H PRN PRN Reason: Pain MILD(1-3)/Fever >100.5/PARKER Diphenhydramine HCl (Benadryl) 25 mg IV Q4H PRN PRN Reason: Itching Last Admin: 10/23/19 02:55 Dose: 25 mg Documented by: Famotidine (Pepcid) 20 mg IV BID [facility] Last Admin: 10/22/19 22:33 Dose: 20 mg Documented by: Hydromorphone HCl (Dilaudid) 1 mg IV Q3H PRN PRN Reason: Pain , Severe (7-10) Last Admin: 10/23/19 02:54 Dose: 1 mg Documented by: Sodium Chloride (Nacl 0.9% 1000 Ml) 1,000 mls @ 150 mls/hr IV DIRECT [facility] Last Admin: 10/23/19 03:00 Dose: 150 mls/hr Documented by: Metoclopramide HCl (Reglan) 10 mg IV Q6H PRN PRN Reason: Nausea And Vomiting Ondansetron HCl (Zofran) 4 mg IV Q3H PRN PRN Reason: Nausea And Vomiting Oxycodone/Acetaminophen (Percocet 5/325) 1 tab PO Q6H PRN PRN Reason: Pain, Moderate (4-6) Sodium Chloride (Sodium Chloride Flush Syringe 10 Ml) 10 ml IV BID [facility] Last Admin: 10/22/19 22:35 Dose: 10 ml Documented by: Sodium Chloride (Sodium Chloride Flush Syringe 10 Ml) 10 ml IV PRN PRN PRN Reason: LINE FLUSH Exam - Constitutional Vitals: Temp Pulse Resp BP Pulse Ox 98.5 F 68 16 128/77 99 10/23/19 05:17 10/23/19 05:17 10/23/19 05:17 10/23/19 05:17 10/23/19 05:17 General appearance: Present: severe distress, well-nourished - EENT Eyes: Present: PERRL ENT: hearing intact, clear oral mucosa - Neck Neck: Present: supple, normal ROM - Respiratory Respiratory effort: normal Respiratory: bilateral: CTA - Cardiovascular Heart rate: 78 Rhythm: regular Heart Sounds: Present: S1 & S2. Absent: rub, click - Extremities Extremities: no ischemia, pulses intact, pulses symmetrical, No edema Peripheral Pulses: within normal limits - Abdominal General gastrointestinal: Present: soft, non-tender, non-distended, normal bowel sounds Female genitourinary: Present: normal - Integumentary Integumentary: Present: clear, warm, dry - Musculoskeletal Musculoskeletal: gait normal, strength equal bilaterally - Psychiatric Psychiatric: appropriate mood/affect, intact judgment & insight - Neurologic Neurologic: CNII-XII intact, moves all extremities - Allied Health Allied health notes reviewed: nursing, case management Results - Labs CBC & Chem 7: 10/23/19 04:52 10/22/19 Unknown Labs: Laboratory Last Values WBC 11.0 K/mm3 (4.5-11.0) 10/22/19 Unknown RBC 1.60 M/mm3 (3.65-5.03) L 10/23/19 04:52 Hgb 6.3 gm/dl (10.1-14.3) L 10/23/19 04:52 Hct 18.7 % (30.3-42.9) L* 10/23/19 04:52 MCV 117 fl (79-97) H 10/23/19 04:52 MCH 40 pg (28-32) H 10/23/19 04:52 MCHC 34 % (30-34) 10/23/19 04:52 RDW 34.2 % (13.2-15.2) H 10/23/19 04:52 Plt Count 427 K/mm3 (140-440) 10/23/19 04:52 Percent Retic 22.74 % (0.78-2.58) H 10/22/19 Unknown Sodium 138 mmol/L (137-145) 10/22/19 Unknown Potassium 4.2 mmol/L (3.6-5.0) 10/22/19 Unknown Chloride 99.2 mmol/L (98-107) 10/22/19 Unknown Carbon Dioxide 21 mmol/L (22-30) L 10/22/19 Unknown Anion Gap 22 mmol/L 10/22/19 Unknown BUN 11 mg/dL (7-17) 10/22/19 Unknown Creatinine 0.4 mg/dL (0.7-1.2) L 10/22/19 Unknown Estimated GFR > 60 ml/min 10/22/19 Unknown BUN/Creatinine Ratio 28 % 10/22/19 Unknown Glucose 93 mg/dL (65-100) 10/22/19 Unknown Calcium 9.5 mg/dL (8.4-10.2) 10/22/19 Unknown Total Bilirubin 5.30 mg/dL (0.1-1.2) H 10/22/19 Unknown AST 60 units/L (5-40) H 10/22/19 Unknown ALT 49 units/L (7-56) 10/22/19 Unknown Alkaline Phosphatase 84 units/L (35-129) 10/22/19 Unknown Total Protein 8.2 g/dL (6.3-8.2) 10/22/19 Unknown Albumin 4.7 g/dL (3.9-5) 10/22/19 Unknown Albumin/Globulin Ratio 1.3 % 10/22/19 Unknown Urine Color Yellow (Yellow) 10/22/19 23:05 Urine Turbidity Slightly-cloudy (Clear) 10/22/19 23:05 Urine pH 5.0 (5.0-7.0) 10/22/19 23:05 Ur Specific [place] 1.011 (1.003-1.030) 10/22/19 23:05 Urine Protein 30 mg/dl mg/dL (Negative) 10/22/19 23:05 Urine Glucose (UA) Neg mg/dL (Negative) 10/22/19 23:05 Urine Ketones Neg mg/dL (Negative) 10/22/19 23:05 Urine Blood Neg (Negative) 10/22/19 23:05 Urine Nitrite Neg (Negative) 10/22/19 23:05 Urine Bilirubin Neg (Negative) 10/22/19 23:05 Urine Urobilinogen 2.0 mg/dL (<2.0) 10/22/19 23:05 Ur Leukocyte Esterase Mod (Negative) 10/22/19 23:05 Urine WBC (Auto) 15.0 /HPF (0.0-6.0) H 10/22/19 23:05 Urine RBC (Auto) 2.0 /HPF (0.0-6.0) 10/22/19 23:05 U Epithel Cells (Auto) 5.0 /HPF (0-13.0) 10/22/19 23:05 Urine Bacteria (Auto) 1+ /HPF (Negative) 10/22/19 23:05 Urine Mucus Few /HPF 10/22/19 23:05 Short CBC 10/22/19 10/23/19 Range/Units Unknown 04:52 WBC 11.0 (4.5-11.0) K/mm3 Hgb 7.3 L 6.3 L (10.1-14.3) gm/dl Hct 20.2 L 18.7 L* (30.3-42.9) % Plt Count 501 H 427 (140-440) K/mm3 BMP 10/22/19 Unknown Sodium 138 Potassium 4.2 Chloride 99.2 Carbon Dioxide 21 L BUN 11 Creatinine 0.4 L Glucose 93 Calcium 9.5 Liver Function 10/22/19 Range/Units Unknown Total Bilirubin 5.30 H (0.1-1.2) mg/dL AST 60 H (5-40) units/L ALT 49 (7-56) units/L Alkaline Phosphatase 84 (35-129) units/L Albumin 4.7 (3.9-5) g/dL Urine 10/22/19 Range/Units 23:05 Urine Color Yellow (Yellow) Urine pH 5.0 (5.0-7.0) Ur Specific [place] 1.011 (1.003-1.030) Urine Protein 30 mg/dl (Negative) mg/dL Urine Glucose (UA) Neg (Negative) mg/dL Hicks/IV: Voiding Method Toilet IV Catheter Type [Left Chest] Infusaport Assessment and Plan Advance Directives: Yes (FC) VTE prophylaxis?: Chemical Plan of care discussed with patient/family: Yes - Patient Problems (1) Sickle cell crisis Current Visit: Yes Status: Acute Plan to address problem: IV fluids but to watch for CHF and Volume overload IV Dilaudid 1mg q3 High retic count of 22 (2) Symptomatic anemia Current Visit: No Status: Acute Plan to address problem: Transfuse one unit prbc (3) Hypothyroidism (acquired) Current Visit: Yes Status: Chronic Plan to address problem: Cont Levothyroxine Check TSH (4) UTI (urinary tract infection) Current Visit: Yes Status: Acute Qualifiers: Urinary tract infection type: acute cystitis Plan to address problem: on ceftriaxone (5) Hemolysis Current Visit: Yes Status: Acute Plan to address problem: Causing Bilirubin of 5.3 (6) DVT prophylaxis Current Visit: No Status: Chronic Plan to address problem: On Heparin and GI prophylaxis
[2019-10-23] MEDS ORDERED: SODIUM CHLORIDE 0.9% 500 ML 500 ML IV ONE (06:47)
[2019-10-23] MEDS ORDERED: diphenhydrAMINE 25 MG CAP PO PRN (06:48)
[2019-10-23] MEDS ORDERED: PROMETHAZINE 25 MG TAB PO PRN (06:48)
[2019-10-23 07:07] LABS: BUN/Creatinine Ratio 14; Blood Urea Nitrogen 7 mg/dL (7-17)
[2019-10-23 07:37] LABS: Alanine Aminotransferase 24 units/L (7-56); Albumin 2.5 g/dL (3.9-5)
[2019-10-23 07:38] LABS: Hemolysis Index 5
[2019-10-23 07:40] LABS: Calcium 5.2 mg/dL (8.4-10.2)
--- NOTE | 2019-10-23 08:19 | Event Note ---
Date: 10/23/[address] Jefferson private patient, will Transfer to his service, he is willing to accept the patient, I have advised him of patients room number and the fact that the patient was not seen today.
[2019-10-23 08:45] LABS: Total Cells Counted 100
[2019-10-23 08:46] LABS: Anisocytosis 2+; Poikilocytosis 2+
[2019-10-23 08:47] LABS: Ovalocytes 1+; Schistocytes Rare; Sickle Cells Few
[2019-10-23 08:48] LABS: Large Platelets Few; Platelet Estimate Consistent w Auto
[2019-10-23 09:14] LABS: Basophils # (Auto) 0.1 K/mm3 (0.0-0.1); Eosinophils # (Auto) 0.4 K/mm3 (0.0-0.4); Eosinophils % (Auto) 3.7 % (0.0-4.3); Monocytes # (Auto) 0.9 K/mm3 (0.0-0.8); Monocytes % (Auto) 8.8 % (0.0-7.3)
[2019-10-23] MEDS ORDERED: NON-FORMULARY EACH (Eliquis 5 MG) PO SCH (10:00)
[2019-10-23] MEDS ORDERED: HEPARIN 5,000 UNIT/1 ML VIAL SUB-Q SCH (10:00)
[2019-10-23] MEDS: cefTRIAXone/NS 1 GM/50 ML 1 GM/50 ML BAG IV SCH (10:11)
[2019-10-23] MEDS: CHOLECALCIFEROL (VIT D3) 1000 UNIT (25 mcg) TAB PO SCH (10:11)
[2019-10-23] MEDS: APIXABAN 5 MG TAB PO SCH ×2 (10:12→21:52)
[2019-10-23] MEDS: FAMOTIDINE 20 MG/2 ML INJ IV SCH (10:12)
[2019-10-23] MEDS: FOLIC ACID 1 MG TAB PO SCH (10:12)
[2019-10-23] MEDS: MORPHINE 30 MG ER TAB PO SCH ×3 (14:57→22:22)
[2019-10-23] MEDS: MELATONIN 5 MG TAB PO SCH (21:52)
[2019-10-23] MEDS: FAMOTIDINE 20 MG TAB PO SCH (21:52)
[2019-10-23] MEDS ORDERED: PYRIDOXINE HCL PO SCH (22:00)
[2019-10-23] MEDS ORDERED: MELATONIN PO SCH (22:00)
[2019-10-23] MEDS: PYRIDOXINE 50 MG TAB PO SCH (22:45)
--- NOTE | 2019-10-23 23:22 | Progress Note ---
Assessment and Plan - Patient Problems (1) Hemolysis Current Visit: Yes Status: Acute Plan to address problem: monitor lab. (2) Sickle cell crisis Current Visit: Yes Status: Acute Plan to address problem: pain [id number]. (3) UTI (urinary tract infection) Current Visit: Yes Status: Acute Qualifiers: Urinary tract infection type: acute cystitis Plan to address problem: Continue IV ABX. (4) Hypothyroidism (acquired) Current Visit: Yes Status: Chronic Plan to address problem: increase dose. (5) Dehydration Current Visit: Yes Status: Acute Plan to address problem: hydration (6) Hypokalemia Current Visit: Yes Status: Acute Plan to address problem: stat replacement with K run. (7) Hypocalcemia Current Visit: Yes Status: Acute Plan to address problem: replacement Subjective Date of service: 10/23/19 Principal diagnosis: SCD/Anemia of CD, Dehydrationb, UTI. Interval history: Patient seen/examined, transferred to my service today, by the hospitalist. she my office patient, admitted t the hospitralist service.The nurse called earlier today about Calcium level. I have just reviewed her lab now, and K+ is recorded as 2.3 this am lab, and non was given to thew patient since today, and patient was not on the monitor.I have spoken to the charge nurse. K+ will be replaced stat.Patient will be placed on the monitor, a 12leadEKG will be done.Patient pr esented to the ER with CC of pain crisis, and admitted for pain /sxs management.She will be managed, and once stable, she will be D/c. PUI?: No Objective - Constitutional Vitals: Vital Signs - 12hr 10/23/19 10/23/19 10/23/19 11:25 15:00 18:54 Temperature 98.7 F Pulse Rate 74 Pulse Rate [ 68 Apical] Respiratory 19 20 Rate Blood Pressure 113/68 O2 Sat by Pulse 96 Oximetry 10/23/19 10/23/19 22:13 22:43 Temperature Pulse Rate Pulse Rate [ Apical] Respiratory 20 18 Rate Blood Pressure O2 Sat by Pulse Oximetry General appearance: Present: mild distress, well-nourished - EENT Eyes: PERRL, EOM intact ENT: hearing intact, clear oral mucosa Ears: bilateral: normal - Neck Neck: supple, normal ROM - Respiratory Respiratory effort: normal Respiratory: bilateral: CTA - Breasts Breasts: deferred - Cardiovascular Rhythm: regular Heart Sounds: Present: S1 & S2. Absent: gallop, rub Extremities: pulses intact, No edema, normal color, Full ROM - Gastrointestinal General gastrointestinal: Present: soft, non-tender, non-distended, normal bowel sounds Rectal Exam: deferred - Genitourinary Female genitourinary: deferred - Integumentary Integumentary: clear, warm, dry - Musculoskeletal Musculoskeletal: 1, strength equal bilaterally - Neurologic Neurologic: moves all extremities - Psychiatric Psychiatric: memory intact, appropriate mood/affect, intact judgment & insight - Labs CBC & Chem 7: 10/23/19 04:52 10/23/19 04:52 Labs: Abnormal lab results 10/22/19 10/23/19 10/23/19 Range/Units 23:05 04:52 04:52 RBC 1.60 L (3.65-5.03) M/mm3 Hgb 6.3 L (10.1-14.3) gm/dl Hct 18.7 L* (30.3-42.9) % MCV 117 H (79-97) fl MCH 40 H (28-32) pg RDW 34.2 H (13.2-15.2) % Wells % (Auto) 8.8 H (0.0-7.3) % Wells # 0.9 H (0.0-0.8) K/mm3 Monocytes % (Manual) 8.0 H (0.0-7.3) % Nucleated RBC % 14.0 H (0.0-0.9) % Monocytes # (Manual) 0.9 H (0.0-0.8) K/mm3 Sodium 148 H D (137-145) mmol/L Potassium 2.3 L* D (3.6-5.0) mmol/L Chloride 127.8 H (98-107) mmol/L Carbon Dioxide 15 L (22-30) mmol/L Creatinine 0.5 L (0.7-1.2) mg/dL Glucose 61 L (65-100) mg/dL Calcium 5.2 L* D (8.4-10.2) mg/dL Total Bilirubin 2.10 H (0.1-1.2) mg/dL Total Protein 4.2 L D (6.3-8.2) g/dL Albumin 2.5 L (3.9-5) g/dL TSH (0.270-4.200) mlU/mL Urine WBC (Auto) 15.0 H (0.0-6.0) /HPF Crossmatch 10/23/19 10/23/19 Range/Units 06:58 06:58 RBC (3.65-5.03) M/mm3 Hgb (10.1-14.3) gm/dl Hct (30.3-42.9) % MCV (79-97) fl MCH (28-32) pg RDW (13.2-15.2) % Wells % (Auto) (0.0-7.3) % Wells # (0.0-0.8) K/mm3 Monocytes % (Manual) (0.0-7.3) % Nucleated RBC % (0.0-0.9) % Monocytes # (Manual) (0.0-0.8) K/mm3 Sodium (137-145) mmol/L Potassium (3.6-5.0) mmol/L Chloride (98-107) mmol/L Carbon Dioxide (22-30) mmol/L Creatinine (0.7-1.2) mg/dL Glucose (65-100) mg/dL Calcium (8.4-10.2) mg/dL Total Bilirubin (0.1-1.2) mg/dL Total Protein (6.3-8.2) g/dL Albumin (3.9-5) g/dL TSH 9.150 H (0.270-4.200) mlU/mL Urine WBC (Auto) (0.0-6.0) /HPF Crossmatch See Detail
[2019-10-23] MEDS ORDERED: POTASSIUM CHLORIDE ER 20 MEQ TAB PO SCH (23:45)
[2019-10-24] MEDS: SODIUM CHLORIDE 0.9% 1000 ML 1,000 ML IV SCH ×3 (00:04→22:09)
[2019-10-24] MEDS: diphenhydrAMINE 50 MG/ML VIAL IV PRN ×4 (01:37→23:30)
[2019-10-24] MEDS: HYDROmorphone 2 MG/1 ML INJ IV PRN ×6 (01:42→23:30)
[2019-10-24] MEDS: POTASSIUM CHLORIDE 10 MEQ 10 MEQ/100 ML BAG IV SCH ×4 (01:44→04:51)
[2019-10-24] MEDS: LEVOTHYROXINE 112 MCG, LEVOTHYROXINE 25 MCG PO SCH (04:59)
[2019-10-24] MEDS ORDERED: POTASSIUM CHLORIDE ER 20 MEQ TAB PO SCH (05:00)
[2019-10-24] MEDS ORDERED: LEVOTHYROXINE 125 MCG TAB PO SCH (06:00)
[2019-10-24] MEDS ORDERED: POTASSIUM CHLORIDE ER 20 MEQ TAB PO ONE (06:00)
[2019-10-24] MEDS: MORPHINE 30 MG ER TAB PO SCH ×4 (06:19→22:00)
[2019-10-24] MEDS: cefTRIAXone/NS 1 GM/50 ML 1 GM/50 ML BAG IV SCH (09:28)
[2019-10-24] MEDS: CALCIUM CARB/VIT D3/MINERALS 600 MG/800 UNITS TAB PO SCH ×2 (09:35→21:59)
[2019-10-24] MEDS: FOLIC ACID 1 MG TAB PO SCH (09:35)
[2019-10-24] MEDS: CHOLECALCIFEROL (VIT D3) 1000 UNIT (25 mcg) TAB PO SCH (09:35)
[2019-10-24] MEDS: FAMOTIDINE 20 MG TAB PO SCH ×2 (09:35→22:00)
[2019-10-24] MEDS: APIXABAN 5 MG TAB PO SCH ×2 (09:36→21:59)
[2019-10-24 09:43] LABS: Hemoglobin 6.4 gm/dl (10.1-14.3); Mean Corpuscular HGB Conc 35 % (30-34); Platelet Count 439 K/mm3 (140-440); Red Blood Count 1.61 M/mm3 (3.65-5.03)
[2019-10-24 09:52] LABS: Hematocrit 18.3 % (30.3-42.9)
[2019-10-24 09:54] LABS: Mean Corpuscular Volume 114 fl (79-97); Red Cell Distribution Width 29.7 % (13.2-15.2)
[2019-10-24 10:06] LABS: Alanine Aminotransferase 34 units/L (7-56); Albumin 4.3 g/dL (3.9-5); BUN/Creatinine Ratio 20; Blood Urea Nitrogen 8 mg/dL (7-17); Calcium 9.2 mg/dL (8.4-10.2); Hemolysis Index 3; Iron 57 ug/dL (37-170); Total Iron Binding Capacity 212 mcg/dL (250-450)
[2019-10-24] MEDS: MELATONIN 5 MG TAB PO SCH (22:00)
[2019-10-24] MEDS: PYRIDOXINE 50 MG TAB PO SCH (22:01)
--- NOTE | 2019-10-24 22:49 | Progress Note ---
Assessment and Plan - Patient Problems (1) Hemolysis Current Visit: Yes Status: Acute Plan to address problem: monitor lab. (2) Sickle cell crisis Current Visit: Yes Status: Acute Plan to address problem: pain [id number]. (3) UTI (urinary tract infection) Current Visit: Yes Status: Acute Qualifiers: Urinary tract infection type: acute cystitis Plan to address problem: Continue IV ABX. (4) Hypothyroidism (acquired) Current Visit: Yes Status: Chronic Plan to address problem: increase dose. (5) Dehydration Current Visit: Yes Status: Acute Plan to address problem: hydration (6) Hypokalemia Current Visit: Yes Status: Acute Plan to address problem: stat replacement with K run. (7) Hypocalcemia Current Visit: Yes Status: Acute Plan to address problem: replacement Subjective Date of service: 10/24/19 Principal diagnosis: SCD/Anemia of CD, Dehydrationb, UTI. Interval history: Patient seen/examined, transferred to my service today, by the hospitalist. she my office patient, admitted t the hospitralist service.The nurse called earlier today about Calcium level. I have just reviewed her lab now, and K+ is recorded as 2.3 this am lab, and non was given to thew patient since today, and patient was not on the monitor.I have spoken to the charge nurse. K+ will be replaced stat.Patient will be placed on the monitor, a 12leadEKG will be done.Patient pr esented to the ER with CC of pain crisis, and admitted for pain /sxs management.She will be managed, and once stable, she will be D/c. Patient seen/examined, [id number] in bed, complaint of delay in giving her her pain meds, therefore, playing catch up all day. She rated her pain at 7-8/10, even with current pain meds. PUI?: No Objective - Constitutional Vitals: Vital Signs - 12hr 10/24/19 10/24/19 10/24/19 11:05 11:07 11:20 Temperature 98.6 F 98.5 F Pulse Rate 74 65 Pulse Rate [ Apical] Respiratory 18 16 Rate Blood Pressure 121/83 121/83 O2 Sat by Pulse 98 100 Oximetry 10/24/19 10/24/19 10/24/19 11:35 11:38 11:50 Temperature 98.5 F 98.8 F Pulse Rate 16 L 100 H Pulse Rate [ Apical] Respiratory 18 16 Rate Blood Pressure 122/68 131/78 142/97 O2 Sat by Pulse 100 100 Oximetry 10/24/19 10/24/19 10/24/19 15:00 17:16 19:17 Temperature 99.0 F 98.8 F Pulse Rate 76 77 Pulse Rate [ 72 Apical] Respiratory 18 18 Rate Blood Pressure 128/92 152/100 O2 Sat by Pulse 98 99 Oximetry General appearance: Present: mild distress, well-nourished - EENT Eyes: PERRL, EOM intact ENT: hearing intact, clear oral mucosa Ears: bilateral: normal - Neck Neck: supple, normal ROM - Respiratory Respiratory effort: normal Respiratory: bilateral: CTA - Breasts Breasts: deferred - Cardiovascular Rhythm: regular Heart Sounds: Present: S1 & S2. Absent: gallop, rub Extremities: pulses intact, No edema, normal color, Full ROM - Gastrointestinal General gastrointestinal: Present: soft, non-tender, non-distended, normal bowel sounds Rectal Exam: deferred - Genitourinary Female genitourinary: deferred - Integumentary Integumentary: clear, warm, dry - Musculoskeletal Musculoskeletal: 1, strength equal bilaterally - Neurologic Neurologic: moves all extremities - Psychiatric Psychiatric: memory intact, appropriate mood/affect, intact judgment & insight - Labs CBC & Chem 7: 10/24/19 09:22 10/24/19 09:22 Labs: Abnormal lab results 10/23/19 10/24/19 10/24/19 Range/Units 06:58 09:22 09:22 RBC 1.61 L (3.65-5.03) M/mm3 Hgb 6.4 L (10.1-14.3) gm/dl Hct 18.3 L* (30.3-42.9) % MCV 114 H (79-97) fl MCH 40 H (28-32) pg MCHC 35 H (30-34) % RDW 29.7 H (13.2-15.2) % Chloride 107.8 H (98-107) mmol/L Carbon Dioxide 20 L (22-30) mmol/L Creatinine 0.4 L (0.7-1.2) mg/dL Glucose 116 H (65-100) mg/dL TIBC 212 L (250-450) mcg/dL Ferritin (13.0-400.0) ng/mL Total Bilirubin 2.60 H (0.1-1.2) mg/dL Crossmatch See Detail 10/24/19 Range/Units 09:22 RBC (3.65-5.03) M/mm3 Hgb (10.1-14.3) gm/dl Hct (30.3-42.9) % MCV (79-97) fl MCH (28-32) pg MCHC (30-34) % RDW (13.2-15.2) % Chloride (98-107) mmol/L Carbon Dioxide (22-30) mmol/L Creatinine (0.7-1.2) mg/dL Glucose (65-100) mg/dL TIBC (250-450) mcg/dL Ferritin > 2000.0 H (13.0-400.0) ng/mL Total Bilirubin (0.1-1.2) mg/dL Crossmatch
[2019-10-25] MEDS: HYDROmorphone 2 MG/1 ML INJ IV PRN ×9 (02:29→23:59)
[2019-10-25] MEDS: diphenhydrAMINE 50 MG/ML VIAL IV PRN ×9 (02:30→23:59)
[2019-10-25] MEDS: SODIUM CHLORIDE 0.9% 1000 ML 1,000 ML IV SCH (04:48)
[2019-10-25] MEDS: MORPHINE 30 MG ER TAB PO SCH ×3 (06:49→22:25)
[2019-10-25] MEDS: LEVOTHYROXINE 112 MCG, LEVOTHYROXINE 25 MCG PO SCH (06:50)
[2019-10-25] MEDS ORDERED: HYDROmorphone 2 MG/1 ML INJ IV NR (09:11)
[2019-10-25] MEDS: FAMOTIDINE 20 MG TAB PO SCH ×2 (10:13→22:26)
[2019-10-25] MEDS: CHOLECALCIFEROL (VIT D3) 1000 UNIT (25 mcg) TAB PO SCH (10:13)
[2019-10-25] MEDS: APIXABAN 5 MG TAB PO SCH ×2 (10:13→22:25)
[2019-10-25] MEDS: FOLIC ACID 1 MG TAB PO SCH (10:13)
[2019-10-25] MEDS: CALCIUM CARB/VIT D3/MINERALS 600 MG/800 UNITS TAB PO SCH ×2 (10:13→22:26)
[2019-10-25] MEDS: cefTRIAXone/NS 1 GM/50 ML 1 GM/50 ML BAG IV SCH (10:14)
[2019-10-25] MEDS ORDERED: methylPREDNISolone Sod Succinate 125 MG/2 ML INJ IV ONE (13:25)
[2019-10-25] MEDS ORDERED: SODIUM CHLORIDE 0.45% 1000 ML IV SOLN IV SCH (14:00)
--- NOTE | 2019-10-25 15:14 | XRay Report ---
CHEST 1 VIEW INDICATION: MAIN: wheezing . COMPARISON: From 2019 FINDINGS: Support devices: None. Heart: Within normal limits. Pulmonary vasculature: Vascular crowding due to low lung volumes. The right vessels are more prominen t due to rotation. Lungs/Pleura: No acute air space or interstitial disease. Additional findings: Left PICC line tip is in the right atrium at the cavoatrial junction. IMPRESSION: 1. No CHF or pneumonia. Signer Name: Allen Purvis MD Signed: 10/25/2019 3:10 PM Workstation Name: [id number]
[2019-10-25 18:45] LABS: Hematocrit 20.1 % (30.3-42.9); Hemoglobin 7.2 gm/dl (10.1-14.3)
[2019-10-25] MEDS: MELATONIN 5 MG TAB PO SCH (22:25)
[2019-10-25] MEDS: PYRIDOXINE 50 MG TAB PO SCH (22:26)
--- NOTE | 2019-10-25 23:25 | Progress Note ---
Assessment and Plan - Patient Problems (1) Hemolysis Current Visit: Yes Status: Acute Plan to address problem: monitor lab. (2) Sickle cell crisis Current Visit: Yes Status: Acute Plan to address problem: pain [id number]. (3) UTI (urinary tract infection) Current Visit: Yes Status: Acute Qualifiers: Urinary tract infection type: acute cystitis Plan to address problem: Continue IV ABX. (4) Hypothyroidism (acquired) Current Visit: Yes Status: Chronic Plan to address problem: increase dose. (5) Dehydration Current Visit: Yes Status: Acute Plan to address problem: hydration (6) Hypokalemia Current Visit: Yes Status: Acute Plan to address problem: stat replacement with K run. (7) Hypocalcemia Current Visit: Yes Status: Acute Plan to address problem: replacement Subjective Date of service: 10/25/19 Principal diagnosis: SCD/Anemia of CD, Dehydrationb, UTI. Interval history: Patient seen/examined, transferred to my service today, by the hospitalist. she my office patient, admitted t the hospitralist service.The nurse called earlier today about Calcium level. I have just reviewed her lab now, and K+ is recorded as 2.3 this am lab, and non was given to thew patient since today, and patient was not on the monitor.I have spoken to the charge nurse. K+ will be replaced stat.Patient will be placed on the monitor, a 12leadEKG will be done.Patient pr esented to the ER with CC of pain crisis, and admitted for pain /sxs management.She will be managed, and once stable, she will be D/c. Patient seen/examined, [id number] in bed, complaint of delay in giving her her pain meds, therefore, playing catch up all day. She rated her pain at 7-8/10, even with current pain meds. Patient seen/examined, resting in bed.s/p blood transfusion.Rated pain at 6/10, with current management. PUI?: No Objective - Constitutional Vitals: Vital Signs - 12hr 10/25/19 10/25/19 10/25/19 11:42 15:00 16:01 Temperature 98.3 F 98.4 F Pulse Rate 72 70 Pulse Rate [ 72 Apical] Respiratory 20 18 Rate Respiratory Rate [ Generalized] Blood Pressure 147/89 127/88 O2 Sat by Pulse 100 97 Oximetry 10/25/19 10/25/19 10/25/19 19:43 20:38 20:43 Temperature 98.7 F Pulse Rate 80 Pulse Rate [ Apical] Respiratory 16 18 Rate Respiratory 18 Rate [ Generalized] Blood Pressure 120/54 O2 Sat by Pulse 98 Oximetry 10/25/19 10/25/19 10/25/19 21:05 21:08 22:25 Temperature Pulse Rate Pulse Rate [ 80 Apical] Respiratory 18 18 18 Rate Respiratory Rate [ Generalized] Blood Pressure O2 Sat by Pulse 98 Oximetry General appearance: Present: mild distress, well-nourished - EENT Eyes: PERRL, EOM intact ENT: hearing intact, clear oral mucosa Ears: bilateral: normal - Neck Neck: supple, normal ROM - Respiratory Respiratory effort: normal Respiratory: bilateral: CTA - Breasts Breasts: deferred - Cardiovascular Rhythm: regular Heart Sounds: Present: S1 & S2. Absent: gallop, rub Extremities: pulses intact, No edema, normal color, Full ROM - Gastrointestinal General gastrointestinal: Present: soft, non-tender, non-distended, normal bowel sounds Rectal Exam: deferred - Genitourinary Female genitourinary: deferred - Integumentary Integumentary: clear, warm, dry - Musculoskeletal Musculoskeletal: 1, strength equal bilaterally - Neurologic Neurologic: moves all extremities - Psychiatric Psychiatric: memory intact, appropriate mood/affect, intact judgment & insight - Labs CBC & Chem 7: 10/25/19 Unknown 10/24/19 09:22 Labs: Abnormal lab results 10/25/19 Range/Units Unknown Hgb 7.2 L (10.1-14.3) gm/dl Hct 20.1 L (30.3-42.9) %
[2019-10-26] MEDS: HYDROmorphone 2 MG/1 ML INJ IV PRN ×7 (03:31→23:10)
[2019-10-26] MEDS: diphenhydrAMINE 50 MG/ML VIAL IV PRN ×7 (03:31→23:10)
[2019-10-26] MEDS: SODIUM CHLORIDE 0.9% 1000 ML 1,000 ML IV SCH (03:31)
[2019-10-26] MEDS: LEVOTHYROXINE 112 MCG, LEVOTHYROXINE 25 MCG PO SCH (06:38)
[2019-10-26] MEDS: MORPHINE 30 MG ER TAB PO SCH ×3 (06:42→22:13)
[2019-10-26] MEDS: APIXABAN 5 MG TAB PO SCH ×2 (09:37→22:14)
[2019-10-26] MEDS: CALCIUM CARB/VIT D3/MINERALS 600 MG/800 UNITS TAB PO SCH ×2 (09:37→22:14)
[2019-10-26] MEDS: FAMOTIDINE 20 MG TAB PO SCH ×2 (09:37→22:13)
[2019-10-26] MEDS: CHOLECALCIFEROL (VIT D3) 1000 UNIT (25 mcg) TAB PO SCH (09:37)
[2019-10-26] MEDS: FOLIC ACID 1 MG TAB PO SCH (09:37)
[2019-10-26] MEDS: cefTRIAXone/NS 1 GM/50 ML 1 GM/50 ML BAG IV SCH (09:38)
--- NOTE | 2019-10-26 20:46 | Progress Note ---
Assessment and Plan - Patient Problems (1) Hemolysis Current Visit: Yes Status: Acute Plan to address problem: monitor lab. (2) Sickle cell crisis Current Visit: Yes Status: Acute Plan to address problem: pain [id number]. (3) UTI (urinary tract infection) Current Visit: Yes Status: Acute Qualifiers: Urinary tract infection type: acute cystitis Plan to address problem: Continue IV ABX. (4) Hypothyroidism (acquired) Current Visit: Yes Status: Chronic Plan to address problem: increase dose. (5) Dehydration Current Visit: Yes Status: Acute Plan to address problem: hydration (6) Hypokalemia Current Visit: Yes Status: Acute Plan to address problem: stat replacement with K run. (7) Hypocalcemia Current Visit: Yes Status: Acute Plan to address problem: replacement Subjective Date of service: 10/26/19 Principal diagnosis: SCD/Anemia of CD, Dehydrationb, UTI. Interval history: Patient seen/examined, transferred to my service today, by the hospitalist. she my office patient, admitted t the hospitralist service.The nurse called earlier today about Calcium level. I have just reviewed her lab now, and K+ is recorded as 2.3 this am lab, and non was given to thew patient since today, and patient was not on the monitor.I have spoken to the charge nurse. K+ will be replaced stat.Patient will be placed on the monitor, a 12leadEKG will be done.Patient pr esented to the ER with CC of pain crisis, and admitted for pain /sxs management.She will be managed, and once stable, she will be D/c. Patient seen/examined, [id number] in bed, complaint of delay in giving her her pain meds, therefore, playing catch up all day. She rated her pain at 7-8/10, even with current pain meds. Patient seen/examined, resting in bed.s/p blood transfusion.Rated pain at 6/10, with current management. Patient seen/examined, resting in bed, c/o pain 6/10. PUI?: No Objective - Constitutional Vitals: Vital Signs - 12hr 10/26/19 10/26/19 10/26/19 08:51 10:00 12:24 Temperature 98.7 F 98.4 F Pulse Rate 70 80 Pulse Rate [ 80 Apical] Respiratory 16 18 18 Rate Blood Pressure 143/70 151/62 Blood Pressure [Right] O2 Sat by Pulse 94 98 99 Oximetry 10/26/19 20:07 Temperature 99.0 F Pulse Rate 62 Pulse Rate [ Apical] Respiratory 18 Rate Blood Pressure Blood Pressure 122/71 [Right] O2 Sat by Pulse 99 Oximetry General appearance: Present: mild distress, well-nourished - EENT Eyes: PERRL, EOM intact ENT: hearing intact, clear oral mucosa Ears: bilateral: normal - Neck Neck: supple, normal ROM - Respiratory Respiratory effort: normal Respiratory: bilateral: CTA - Breasts Breasts: deferred - Cardiovascular Rhythm: regular Heart Sounds: Present: S1 & S2. Absent: gallop, rub Extremities: pulses intact, No edema, normal color, Full ROM - Gastrointestinal General gastrointestinal: Present: soft, non-tender, non-distended, normal bowel sounds Rectal Exam: deferred - Genitourinary Female genitourinary: deferred - Integumentary Integumentary: clear, warm, dry - Musculoskeletal Musculoskeletal: 1, strength equal bilaterally - Neurologic Neurologic: moves all extremities - Psychiatric Psychiatric: memory intact, appropriate mood/affect, intact judgment & insight - Labs CBC & Chem 7: 10/25/19 Unknown 10/24/19 09:22
[2019-10-26] MEDS: PYRIDOXINE 50 MG TAB PO SCH (22:13)
[2019-10-26] MEDS: MELATONIN 5 MG TAB PO SCH (22:18)
[2019-10-27] MEDS: diphenhydrAMINE 50 MG/ML VIAL IV PRN ×7 (02:07→20:40)
[2019-10-27] MEDS: HYDROmorphone 2 MG/1 ML INJ IV PRN ×7 (02:07→20:40)
[2019-10-27] MEDS: SODIUM CHLORIDE 0.9% 1000 ML 1,000 ML IV SCH ×2 (02:07→11:24)
[2019-10-27] MEDS: MORPHINE 30 MG ER TAB PO SCH ×3 (06:33→22:41)
[2019-10-27] MEDS: LEVOTHYROXINE 112 MCG, LEVOTHYROXINE 25 MCG PO SCH (06:34)
[2019-10-27] MEDS: CHOLECALCIFEROL (VIT D3) 1000 UNIT (25 mcg) TAB PO SCH (11:00)
[2019-10-27] MEDS: CALCIUM CARB/VIT D3/MINERALS 600 MG/800 UNITS TAB PO SCH ×2 (11:17→22:00)
[2019-10-27] MEDS: cefTRIAXone/NS 1 GM/50 ML 1 GM/50 ML BAG IV SCH (11:17)
[2019-10-27] MEDS: FAMOTIDINE 20 MG TAB PO SCH ×2 (11:18→22:41)
[2019-10-27] MEDS: APIXABAN 5 MG TAB PO SCH ×2 (11:18→22:41)
[2019-10-27] MEDS: FOLIC ACID 1 MG TAB PO SCH (11:18)
[2019-10-27] MEDS: PYRIDOXINE 50 MG TAB PO SCH (22:39)
[2019-10-27] MEDS: MELATONIN 5 MG TAB PO SCH (22:40)
--- NOTE | 2019-10-27 23:16 | Progress Note ---
Assessment and Plan - Patient Problems (1) Hemolysis Current Visit: Yes Status: Acute Plan to address problem: monitor lab. (2) Sickle cell crisis Current Visit: Yes Status: Acute Plan to address problem: pain [id number]. (3) UTI (urinary tract infection) Current Visit: Yes Status: Acute Qualifiers: Urinary tract infection type: acute cystitis Plan to address problem: Continue IV ABX. (4) Hypothyroidism (acquired) Current Visit: Yes Status: Chronic Plan to address problem: increase dose. (5) Dehydration Current Visit: Yes Status: Acute Plan to address problem: hydration (6) Hypokalemia Current Visit: Yes Status: Acute Plan to address problem: stat replacement with K run. treated. (7) Hypocalcemia Current Visit: Yes Status: Acute Subjective Date of service: 10/27/19 Principal diagnosis: SCD/Anemia of CD, Dehydrationb, UTI. Interval history: Patient seen/examined, transferred to my service today, by the hospitalist. she my office patient, admitted t the hospitralist service.The nurse called earlier today about Calcium level. I have just reviewed her lab now, and K+ is recorded as 2.3 this am lab, and non was given to thew patient since today, and patient was not on the monitor.I have spoken to the charge nurse. K+ will be replaced stat.Patient will be placed on the monitor, a 12leadEKG will be done.Patient presented to the ER with CC of pain crisis, and admitted for pain /sxs management.She will be managed, and once stable, she will be D/c. Patient seen/examined, [id number] in bed, complaint of delay in giving her her pain meds, therefore, playing catch up all day. She rated her pain at 7-8/10, even with current pain meds. Patient seen/examined, resting in bed.s/p blood transfusion.Rated pain at 6/10, with current management. Patient seen/examined, resting in bed, c/o pain 6/10. Patient seen/examined, resting in bed, c/o have had two bouts of loose stools .Will start om imodium, unless C-diff is suspected. Objective - Constitutional Vitals: Vital Signs - 12hr 10/27/19 10/27/19 10/27/19 12:25 19:33 20:40 Temperature 98.8 F 99.0 F Pulse Rate 69 76 Respiratory 18 16 20 Rate Blood Pressure 136/71 140/78 O2 Sat by Pulse 100 100 Oximetry 10/27/19 22:41 Temperature Pulse Rate Respiratory 18 Rate Blood Pressure O2 Sat by Pulse Oximetry General appearance: Present: mild distress - Breasts Breasts: deferred - Gastrointestinal Rectal Exam: deferred - Genitourinary Female genitourinary: deferred - Labs CBC & Chem 7: 10/25/19 Unknown 10/24/19 09:22
[2019-10-27] MEDS ORDERED: LOPERAMIDE 2 MG CAP PO PRN (23:25)
[2019-10-28] MEDS: diphenhydrAMINE 50 MG/ML VIAL IV PRN ×6 (00:49→20:31)
[2019-10-28] MEDS: HYDROmorphone 2 MG/1 ML INJ IV PRN ×6 (00:50→20:31)
[2019-10-28] MEDS: LEVOTHYROXINE 112 MCG, LEVOTHYROXINE 25 MCG PO SCH (06:00)
[2019-10-28] MEDS: MORPHINE 30 MG ER TAB PO SCH ×3 (06:39→23:12)
[2019-10-28] MEDS: CALCIUM CARB/VIT D3/MINERALS 600 MG/800 UNITS TAB PO SCH ×2 (09:00→23:12)
[2019-10-28] MEDS: APIXABAN 5 MG TAB PO SCH ×2 (09:00→23:13)
[2019-10-28] MEDS: cefTRIAXone/NS 1 GM/50 ML 1 GM/50 ML BAG IV SCH (09:00)
[2019-10-28] MEDS: FOLIC ACID 1 MG TAB PO SCH (09:01)
[2019-10-28] MEDS: FAMOTIDINE 20 MG TAB PO SCH ×2 (09:01→23:14)
[2019-10-28] MEDS: CHOLECALCIFEROL (VIT D3) 1000 UNIT (25 mcg) TAB PO SCH (09:01)
--- NOTE | 2019-10-28 21:17 | Progress Note ---
Assessment and Plan - Patient Problems (1) Hemolysis Current Visit: Yes Status: Acute Plan to address problem: monitor lab. (2) Sickle cell crisis Current Visit: Yes Status: Acute Plan to address problem: pain [id number]. (3) UTI (urinary tract infection) Current Visit: Yes Status: Acute Qualifiers: Urinary tract infection type: acute cystitis Plan to address problem: Continue IV ABX. (4) Hypothyroidism (acquired) Current Visit: Yes Status: Chronic Plan to address problem: increase dose. (5) Dehydration Current Visit: Yes Status: Acute Plan to address problem: hydration (6) Hypokalemia Current Visit: Yes Status: Acute Plan to address problem: stat replacement with K run. treated. (7) Hypocalcemia Current Visit: Yes Status: Acute Plan to address problem: replacement Subjective Date of service: 10/28/19 Principal diagnosis: SCD/Anemia of CD, Dehydrationb, UTI. Interval history: Patient seen/examined, transferred to my service today, by the hospitalist. she my office patient, admitted t the hospitralist service.The nurse called earlier today about Calcium level. I have just reviewed her lab now, and K+ is recorded as 2.3 this am lab, and non was given to thew patient since today, and patient was not on the monitor.I have spoken to the charge nurse. K+ will be replaced stat.Patient will be placed on the monitor, a 12leadEKG will be done.Patient presented to the ER with CC of pain crisis, and admitted for pain /sxs management.She will be managed, and once stable, she will be D/c. Patient seen/examined, [id number] in bed, complaint of delay in giving her her pain meds, therefore, playing catch up all day. She rated her pain at 7-8/10, even with current pain meds. Patient seen/examined, resting in bed.s/p blood transfusion.Rated pain at 6/10, with current management. Patient seen/examined, resting in bed, c/o pain 6/10. Patient seen/examined, resting in bed, c/o have had two bouts of loose stools.Will start om imodium, unless C-diff is suspected. Patient seen/examined, resting in bed, labs reviewed, patient crying in pain. I have spoken to her current nurse, who collaborated patients pain distress. I will make a brief temporal adjustment, until her pain eases up a little bit.She had rated hger pain at 8/10. Objective - Constitutional Vitals: Vital Signs - 12hr 10/28/19 10/28/19 10/28/19 10:00 11:12 20:31 Temperature 98.8 F Pulse Rate 82 Pulse Rate [ 82 Left Radial] Respiratory 20 18 20 Rate Blood Pressure 134/73 O2 Sat by Pulse 98 98 Oximetry General appearance: Present: mild distress, well-nourished - EENT Eyes: PERRL, EOM intact ENT: hearing intact, clear oral mucosa Ears: bilateral: normal - Neck Neck: supple, normal ROM - Respiratory Respiratory effort: normal Respiratory: bilateral: CTA - Breasts Breasts: deferred - Cardiovascular Rhythm: regular Heart Sounds: Present: S1 & S2. Absent: gallop, rub Extremities: pulses intact, No edema, normal color, Full ROM - Gastrointestinal General gastrointestinal: Present: soft, non-tender, non-distended, normal bowel sounds Rectal Exam: deferred - Genitourinary Female genitourinary: deferred - Integumentary Integumentary: clear, warm, dry - Musculoskeletal Musculoskeletal: 1, strength equal bilaterally - Neurologic Neurologic: moves all extremities - Psychiatric Psychiatric: memory intact, appropriate mood/affect, intact judgment & insight - Labs CBC & Chem 7: 10/25/19 Unknown 10/24/19 09:22
[2019-10-28] MEDS: PYRIDOXINE 50 MG TAB PO SCH (23:11)
[2019-10-28] MEDS: MELATONIN 5 MG TAB PO SCH (23:13)
[2019-10-29] MEDS: diphenhydrAMINE 50 MG/ML VIAL IV PRN ×7 (00:15→23:59)
[2019-10-29] MEDS: HYDROmorphone 2 MG/1 ML INJ IV PRN ×8 (00:16→23:58)
[2019-10-29] MEDS: LEVOTHYROXINE 112 MCG, LEVOTHYROXINE 25 MCG PO SCH (06:30)
[2019-10-29] MEDS: MORPHINE 30 MG ER TAB PO SCH ×3 (06:31→21:59)
[2019-10-29] MEDS: FOLIC ACID 1 MG TAB PO SCH (09:33)
[2019-10-29] MEDS: CHOLECALCIFEROL (VIT D3) 1000 UNIT (25 mcg) TAB PO SCH (09:33)
[2019-10-29] MEDS: FAMOTIDINE 20 MG TAB PO SCH ×2 (09:33→21:59)
[2019-10-29] MEDS: CALCIUM CARB/VIT D3/MINERALS 600 MG/800 UNITS TAB PO SCH ×2 (09:33→21:59)
[2019-10-29] MEDS: APIXABAN 5 MG TAB PO SCH ×2 (09:33→21:59)
[2019-10-29] MEDS: cefTRIAXone/NS 1 GM/50 ML 1 GM/50 ML BAG IV SCH (11:30)
[2019-10-29] MEDS: SODIUM CHLORIDE 0.9% 1000 ML 1,000 ML IV SCH (13:10)
--- NOTE | 2019-10-29 21:25 | Progress Note ---
Assessment and Plan - Patient Problems (1) Hemolysis Current Visit: Yes Status: Acute Plan to address problem: monitor lab. (2) Sickle cell crisis Current Visit: Yes Status: Acute Plan to address problem: pain [id number]. (3) UTI (urinary tract infection) Current Visit: Yes Status: Acute Qualifiers: Urinary tract infection type: acute cystitis Plan to address problem: Continue IV ABX. (4) Hypothyroidism (acquired) Current Visit: Yes Status: Chronic Plan to address problem: increase dose. (5) Dehydration Current Visit: Yes Status: Acute Plan to address problem: hydration (6) Hypokalemia Current Visit: Yes Status: Acute Plan to address problem: stat replacement with K run. treated. (7) Hypocalcemia Current Visit: Yes Status: Acute Plan to address problem: replacement Subjective Date of service: 10/29/19 Principal diagnosis: SCD/Anemia of CD, Dehydrationb, UTI. Interval history: Patient seen/examined, transferred to my service today, by the hospitalist. she my office patient, admitted t the hospitralist service.The nurse called earlier today about Calcium level. I have just reviewed her lab now, and K+ is recorded as 2.3 this am lab, and non was given to thew patient since today, and patient was not on the monitor.I have spoken to the charge nurse. K+ will be replaced stat.Patient will be placed on the monitor, a 12leadEKG will be done.Patient presented to the ER with CC of pain crisis, and admitted for pain /sxs management.She will be managed, and once stable, she will be D/c. Patient seen/examined, [id number] in bed, complaint of delay in giving her her pain meds, therefore, playing catch up all day. She rated her pain at 7-8/10, even with current pain meds. Patient seen/examined, resting in bed.s/p blood transfusion.Rated pain at 6/10, with current management. Patient seen/examined, resting in bed, c/o pain 6/10. Patient seen/examined, resting in bed, c/o have had two bouts of loose stools.Will start om imodium, unless C-diff is suspected. Patient seen/examined, resting in bed, labs reviewed, patient crying in pain. I have spoken to her current nurse, who collaborated patients pain distress. I will make a brief temporal adjustment, until her pain eases up a little bit.She had rated her pain at 8/10. Patient seen/examined, resting in bed, c/o pain still not controlled with current meds. No plan to increase pain meds. Once pain subsides some, will d/c home. Objective - Constitutional Vitals: Vital Signs - 12hr 10/29/19 10/29/19 10/29/19 10:00 12:13 16:17 Temperature 98.3 F 99.0 F Pulse Rate 60 69 Pulse Rate [ 60 Left Radial] Respiratory 20 20 21 Rate Blood Pressure 143/78 144/67 [Right] O2 Sat by Pulse 100 100 100 Oximetry General appearance: Present: mild distress, well-nourished - EENT Eyes: PERRL, EOM intact ENT: hearing intact, clear oral mucosa Ears: bilateral: normal - Neck Neck: supple, normal ROM - Respiratory Respiratory effort: normal Respiratory: bilateral: CTA - Breasts Breasts: deferred - Cardiovascular Rhythm: regular Heart Sounds: Present: S1 & S2. Absent: gallop, rub Extremities: pulses intact, No edema, normal color, Full ROM - Gastrointestinal General gastrointestinal: Present: soft, non-tender, non-distended, normal bowel sounds Rectal Exam: deferred - Genitourinary Female genitourinary: deferred - Integumentary Integumentary: clear, warm, dry - Musculoskeletal Musculoskeletal: 1, strength equal bilaterally - Neurologic Neurologic: moves all extremities - Psychiatric Psychiatric: memory intact, appropriate mood/affect, intact judgment & insight - Labs CBC & Chem 7: 10/25/19 Unknown 10/24/19 09:22
[2019-10-29] MEDS: PYRIDOXINE 50 MG TAB PO SCH (21:59)
[2019-10-29] MEDS: MELATONIN 5 MG TAB PO SCH (22:01)
[2019-10-30] MEDS: diphenhydrAMINE 50 MG/ML VIAL IV PRN ×5 (03:20→21:36)
[2019-10-30] MEDS: HYDROmorphone 2 MG/1 ML INJ IV PRN ×6 (03:21→21:36)
[2019-10-30] MEDS: MORPHINE 30 MG ER TAB PO SCH ×3 (05:39→21:37)
[2019-10-30] MEDS: LEVOTHYROXINE 112 MCG TAB PO SCH (05:52)
[2019-10-30] MEDS: LEVOTHYROXINE 25 MCG TAB PO SCH (05:55)
[2019-10-30 06:24] LABS: Hemoglobin 5.9 gm/dl (10.1-14.3)
[2019-10-30 06:25] LABS: Hematocrit 17.3 % (30.3-42.9)
[2019-10-30] MEDS ORDERED: SODIUM CHLORIDE 0.9% 500 ML 500 ML IV ONE (06:40)
[2019-10-30] MEDS: APIXABAN 5 MG TAB PO SCH ×2 (10:49→21:37)
[2019-10-30] MEDS: CHOLECALCIFEROL (VIT D3) 1000 UNIT (25 mcg) TAB PO SCH (10:49)
[2019-10-30] MEDS: CALCIUM CARB/VIT D3/MINERALS 600 MG/800 UNITS TAB PO SCH ×2 (10:49→21:38)
[2019-10-30] MEDS: FOLIC ACID 1 MG TAB PO SCH (10:49)
[2019-10-30] MEDS: FAMOTIDINE 20 MG TAB PO SCH ×2 (10:49→21:38)
[2019-10-30] MEDS ORDERED: diphenhydrAMINE 50 MG/ML VIAL IV ONE (14:45)
[2019-10-30] MEDS ORDERED: methylPREDNISolone Sod Succinate 125 MG/2 ML INJ IV ONE (14:45)
[2019-10-30 18:49] LABS: Hematocrit 22.8 % (30.3-42.9); Hemoglobin 8.3 gm/dl (10.1-14.3)
[2019-10-30] MEDS: PYRIDOXINE 50 MG TAB PO SCH (21:37)
[2019-10-30] MEDS: MELATONIN 5 MG TAB PO SCH (21:40)
--- NOTE | 2019-10-30 22:50 | Progress Note ---
Assessment and Plan - Patient Problems (1) Hemolysis Current Visit: Yes Status: Acute Plan to address problem: monitor lab. (2) Sickle cell crisis Current Visit: Yes Status: Acute Plan to address problem: pain [id number]. (3) UTI (urinary tract infection) Current Visit: Yes Status: Acute Qualifiers: Urinary tract infection type: acute cystitis Plan to address problem: Continue IV ABX. (4) Hypothyroidism (acquired) Current Visit: Yes Status: Chronic Plan to address problem: increase dose. (5) Dehydration Current Visit: Yes Status: Acute Plan to address problem: hydration (6) Hypokalemia Current Visit: Yes Status: Acute Plan to address problem: stat replacement with K run. treated. (7) Hypocalcemia Current Visit: Yes Status: Acute Plan to address problem: replacement Subjective Date of service: 10/30/19 Principal diagnosis: SCD/Anemia of CD, Dehydrationb, UTI. Interval history: Patient seen/examined, transferred to my service today, by the hospitalist. she my office patient, admitted t the hospitralist service.The nurse called earlier today about Calcium level. I have just reviewed her lab now, and K+ is recorded as 2.3 this am lab, and non was given to thew patient since today, and patient was not on the monitor.I have spoken to the charge nurse. K+ will be replaced stat.Patient will be placed on the monitor, a 12leadEKG will be done.Patient presented to the ER with CC of pain crisis, and admitted for pain /sxs management.She will be managed, and once stable, she will be D/c. Patient seen/examined, [id number] in bed, complaint of delay in giving her her pain meds, therefore, playing catch up all day. She rated her pain at 7-8/10, even with current pain meds. Patient seen/examined, resting in bed.s/p blood transfusion.Rated pain at 6/10, with current management. Patient seen/examined, resting in bed, c/o pain 6/10. Patient seen/examined, resting in bed, c/o have had two bouts of loose stools.Will start om imodium, unless C-diff is suspected. Patient seen/examined, resting in bed, labs reviewed, patient crying in pain. I have spoken to her current nurse, who collaborated patients pain distress. I will make a brief temporal adjustment, until her pain eases up a little bit.She had rated her pain at 8/10. Patient seen/examined, resting in bed, c/o pain still not controlled with current meds. No plan to increase pain meds. Once pain subsides some, will d/c home. Patient seen/ examined, resting in bed, s/p blood transfusion., no new issues at this timer. Will d/c tomorrow. Objective - Constitutional Vitals: Vital Signs - 12hr 10/30/19 10/30/19 10/30/19 12:04 12:49 13:04 Temperature 99.4 F 99.4 F 99.3 F Pulse Rate 79 84 78 Respiratory 20 18 19 Rate Blood Pressure 151/91 151/81 139/67 O2 Sat by Pulse 100 100 99 Oximetry 10/30/19 10/30/19 10/30/19 13:34 14:04 14:34 Temperature 99.3 F 99.4 F 99.5 F Pulse Rate 71 73 62 Respiratory 18 18 18 Rate Blood Pressure 130/67 130/67 137/60 O2 Sat by Pulse 100 100 100 Oximetry 10/30/19 10/30/19 10/30/19 16:18 16:19 16:22 Temperature 99.5 F 99.3 F Pulse Rate 67 Respiratory 20 18 Rate Blood Pressure 137/69 138/74 136/62 O2 Sat by Pulse 100 Oximetry 10/30/19 19:24 Temperature 99.5 F Pulse Rate 80 Respiratory 18 Rate Blood Pressure 127/69 O2 Sat by Pulse 97 Oximetry General appearance: Present: mild distress, well-nourished - EENT Eyes: PERRL, EOM intact ENT: hearing intact, clear oral mucosa Ears: bilateral: normal - Neck Neck: supple, normal ROM - Respiratory Respiratory effort: normal Respiratory: bilateral: CTA - Breasts Breasts: deferred - Cardiovascular Rhythm: regular Heart Sounds: Present: S1 & S2. Absent: gallop, rub Extremities: pulses intact, No edema, normal color, Full ROM - Gastrointestinal General gastrointestinal: Present: soft, non-tender, non-distended, normal bowel sounds Rectal Exam: deferred - Genitourinary Female genitourinary: deferred - Integumentary Integumentary: clear, warm, dry - Musculoskeletal Musculoskeletal: 1, strength equal bilaterally - Neurologic Neurologic: moves all extremities - Psychiatric Psychiatric: memory intact, appropriate mood/affect, intact judgment & insight - Labs CBC & Chem 7: 10/30/19 Unknown 10/24/19 09:22 Labs: Abnormal lab results 10/23/19 10/30/19 10/30/19 Range/Units 06:58 05:49 07:30 Hgb 5.9 L* (10.1-14.3) gm/dl Hct 17.3 L* (30.3-42.9) % Percent Retic 3.18 H (0.78-2.58) % Crossmatch See Detail See Detail 10/30/19 Range/Units Unknown Hgb 8.3 L (10.1-14.3) gm/dl Hct 22.8 L (30.3-42.9) % Percent Retic (0.78-2.58) % Crossmatch
[2019-10-31] MEDS: diphenhydrAMINE 50 MG/ML VIAL IV PRN ×8 (00:33→23:52)
[2019-10-31] MEDS: HYDROmorphone 2 MG/1 ML INJ IV PRN ×8 (00:33→23:52)
[2019-10-31] MEDS: SODIUM CHLORIDE 0.9% 1000 ML 1,000 ML IV SCH ×2 (00:34→21:37)
[2019-10-31] MEDS: LEVOTHYROXINE 25 MCG TAB PO SCH (05:52)
[2019-10-31] MEDS: LEVOTHYROXINE 112 MCG TAB PO SCH (05:52)
[2019-10-31] MEDS: MORPHINE 30 MG ER TAB PO SCH ×3 (05:52→21:36)
[2019-10-31] MEDS: CHOLECALCIFEROL (VIT D3) 1000 UNIT (25 mcg) TAB PO SCH (10:02)
[2019-10-31] MEDS: CALCIUM CARB/VIT D3/MINERALS 600 MG/800 UNITS TAB PO SCH ×2 (10:02→21:36)
[2019-10-31] MEDS: FOLIC ACID 1 MG TAB PO SCH (10:02)
[2019-10-31] MEDS: APIXABAN 5 MG TAB PO SCH ×2 (10:02→21:36)
[2019-10-31] MEDS: FAMOTIDINE 20 MG TAB PO SCH ×2 (10:03→21:36)
--- NOTE | 2019-10-31 19:07 | Discharge Summary ---
Providers - Providers Date of Admission: 10/22/19 15:39 Date of discharge: 11/01/19 Attending physician: WANDA SIMON Primary care physician: TECHNOLOG[employer] ARCHIT[employer] Hospitalization Reason for admission: SCD/sickle pain/anemia. Condition: Stable Hospital course: Patient presented to [facility] ER with Complaints of diffuse joint pain, she was admitted ,for pain control. She had blood transfusion during this admission. She is seen/examined, pain much better at 6/10.Will definitely d/c in the am. Disposition: DC-01 TO HOME OR SELFCARE - Discharge Diagnoses (1) Hemolysis Status: Chronic (2) Sickle cell crisis Status: Acute (3) UTI (urinary tract infection) Status: Resolved Qualifiers: Urinary tract infection type: acute cystitis (4) Hypothyroidism (acquired) Status: Chronic (5) Dehydration Status: Resolved (6) Hypokalemia Status: Resolved (7) Hypocalcemia Status: Resolved Core Measure Documentation - Palliative Care Palliative Care/ Comfort Measures: Not Applicable - Core Measures Any of the following diagnoses?: history only Exam - Constitutional Vitals: Temp Pulse Resp BP Pulse Ox 99.4 F 70 18 150/77 98 10/31/19 16:48 10/31/19 16:48 10/31/19 16:48 10/31/19 16:48 10/31/19 16:48 General appearance: Present: mild distress, well-nourished - EENT Eyes: Present: PERRL ENT: hearing intact, clear oral mucosa - Neck Neck: Present: supple, normal ROM - Respiratory Respiratory effort: normal Respiratory: bilateral: CTA - Cardiovascular Heart Sounds: Present: S1 & S2. Absent: rub, click - Extremities Extremities: pulses symmetrical, No edema Peripheral Pulses: within normal limits - Abdominal General gastrointestinal: Present: soft, non-tender, non-distended, normal bowel sounds Female genitourinary: Present: deferred - Rectal Rectal Exam: deferred - Integumentary Integumentary: Present: clear, warm, dry - Musculoskeletal Musculoskeletal: gait normal, strength equal bilaterally - Psychiatric Psychiatric: appropriate mood/affect, intact judgment & insight - Neurologic Neurologic: CNII-XII intact, moves all extremities Plan Activity: no restrictions Diet: regular Follow up with: PRIMARY CARE, [Primary Care Provider] - 3-5 Days WANDA SIMON DO [Staff Physician] - 7 Days
[2019-10-31] MEDS: MELATONIN 5 MG TAB PO SCH (21:37)
[2019-10-31] MEDS: PYRIDOXINE 50 MG TAB PO SCH (21:45)
[2019-11-01] MEDS: HYDROmorphone 2 MG/1 ML INJ IV PRN ×2 (03:34→07:54)
[2019-11-01] MEDS: diphenhydrAMINE 50 MG/ML VIAL IV PRN ×2 (03:34→07:54)
[2019-11-01] MEDS: MORPHINE 30 MG ER TAB PO SCH (06:03)
[2019-11-01] MEDS: LEVOTHYROXINE 25 MCG TAB PO SCH (06:04)
[2019-11-01] MEDS: LEVOTHYROXINE 112 MCG TAB PO SCH (06:04)
[2019-11-01 07:55] VITALS: BP 166/86
[2019-11-01] MEDS: CALCIUM CARB/VIT D3/MINERALS 600 MG/800 UNITS TAB PO SCH (09:54)
[2019-11-01] MEDS: FOLIC ACID 1 MG TAB PO SCH (09:54)
[2019-11-01] MEDS: CHOLECALCIFEROL (VIT D3) 1000 UNIT (25 mcg) TAB PO SCH (09:54)
[2019-11-01] MEDS: FAMOTIDINE 20 MG TAB PO SCH (09:54)
[2019-11-01] MEDS: APIXABAN 5 MG TAB PO SCH (09:54)
== END 2019-11-01 10:35 | disposition home or self-care (01) | DRG 812 ==
LOC: ED 12:45 → 4A 15:39
PROVIDERS: ADMIT Internal Medicine; ATTEND Internal Medicine Hematology & Oncology
PROC: 30233N1 Transfusion of Nonautologous Red Blood Cells into Peripheral Vein, Percutaneous Approach (ICD-10-PCS; principal; 2019-10-24)
DX: D57.00 Hb-SS disease with crisis, unspecified (principal); N30.00 Acute cystitis without hematuria; E87.6 Hypokalemia; J44.9 Chronic obstructive pulmonary disease, unspecified; E03.9 Hypothyroidism, unspecified; E83.51 Hypocalcemia; E86.0 Dehydration; Z88.8 Allergy status to other drugs, medicaments and biological substances; Z88.6 Allergy status to analgesic agent; Z88.5 Allergy status to narcotic agent; Z91.013 Allergy to seafood; Z86.718 Personal history of other venous thrombosis and embolism; Z90.49 Acquired absence of other specified parts of digestive tract; Z90.721 Acquired absence of ovaries, unilateral
CPT/HCPCS: 36415; 71045; 80053; 81001; 82728; 83550; 84443; 85007; 85014; 85018; 85025; 85027; 85045; 85660; 86850; 86900; 86901; 86922; 87086; 93005; 93010; G0378; J0696; J1170; J1200; J1642; J2405; J2930; J3480; J7030; P9016

== ENCOUNTER 2020-02-06 09:56 | Inpatient (IN) | payer OTHER ==
--- NOTE | 2020-02-06 17:58 | Emergency Department Report ---
ED General Adult HPI - General Chief complaint: Sickle Cell Crisis Stated complaint: SICKLE CELL PUI?: No Time Seen by Provider: 02/06/20 17:54 Source: patient, RN notes reviewed, old records reviewed Mode of arrival: Ambulatory Limitations: No Limitations - History of Present Illness Initial comments: Patient is a 49-year-old female with a reported history of sickle cell disease, left-sided port, on Eliquis therapy, admitted to this hospital a few weeks ago for COVID, typically follows with Dr. Eugenio Ron, presenting to the ER on day 3-4 of sickle cell crisis. Triggers include hot weather, dehydration, stress. She describes diffuse physical pain, upper and lower extremities and back. Denies severe headache, ne ck pain, chest pain, has chronic shortness of breath, denies sore throat, denies urinary symptoms. Pain is sharp throbbing and aching, increases with palpation, range of motion, decreases with rest, hydromorphone, supportive care and fluids. This is subjectively similar to prior sickle cell crises. -: Gradual, days(s) Location: back, left, right, upper extremity, lower extremity Quality: aching Consistency: other Improves with: other Worsens with: other Associated Symptoms: other - Related Data Home Medications Medication Instructions Recorded Confirmed Last Taken Promethazine [Phenergan] 25 mg PO Q8HR PRN 03/29/18 11/13/19 06/14/19 08:00 Eliquis 5 mg PO BID 05/17/18 11/13/19 06/14/19 08:00 Vitamin D3 2,000 unit 3,000 units PO DAILY 05/17/18 11/13/19 06/14/19 08:00 Melatonin/Pyridoxine HCl (B6) 1 tab PO QHS 09/12/18 11/13/19 06/14/19 08:00 [Melatonin Tr 10 mg Tablet] diphenhydrAMINE [Benadryl CAP] 25 mg PO Q6HR PRN 09/12/18 11/13/19 06/14/19 08:00 Previous Rx's Medication Instructions Recorded Last Taken Type Folic Acid [Folvite] 1 mg PO QDAY #30 tablet 06/27/14 06/14/19 08:00 Rx Cholecalciferol Vit D3 [Vitamin D3 3,000 unit PO QDAY 30 Days tablet 05/19/18 06/14/19 08:00 Rx 1,000 UNIT TAB] Levothyroxine [Synthroid] 125 mcg PO DAILY@0600 #30 tablet 05/19/18 06/14/19 08:00 Rx Morphine ER [Ms Contin ER] 30 mg PO Q8H #60 tablet 09/15/18 06/14/19 08:00 Rx Oxycodone HCl/Acetaminophen 1 each PO Q6HR PRN #60 tablet 09/15/18 06/14/19 08:00 Rx [Percocet 10/325 mg] Allergies Allergy/AdvReac Type Severity Reaction Status Date / Time aspirin Allergy Vomiting Verified 06/21/18 14:16 ketorolac tromethamine Allergy Unknown Verified 06/21/18 14:16 [From Toradol] pineapple [Pineapple] Allergy Swelling Verified 06/21/18 14:16 morphine AdvReac Shortness Verified 10/23/19 08:24 of Breath ED Review of Systems ROS: Stated complaint: SICKLE CELL Other details as noted in HPI Constitutional: malaise, weakness. denies: fever Eyes: denies: eye discharge Respiratory: denies: cough Cardiovascular: denies: chest pain Gastrointestinal: denies: abdominal pain Genitourinary: denies: dysuria Musculoskeletal: back pain, arthralgia, myalgia Neurological: weakness ED Past Medical Hx - Past Medical History Hx Hypertension: No Hx Heart Attack/AMI: No Hx Congestive Heart Failure: Yes Hx Diabetes: No Hx Deep Vein Thrombosis: (?) Hx Liver Disease: No Hx Sickle Cell Disease: Yes Hx Arthritis: No Hx Seizures: No Hx Asthma: No Hx COPD: Yes Hx HIV: No Additional medical history: ANEMIA (Blood transfusion), Hypothyroid, Left chest port, DVT - Surgical History Hx Coronary Stent: No Hx Pacemaker: No Hx Internal Defibrillator: No Hx Cholecystectomy: Yes Hx Appendectomy: No Additional Surgical History: right ovary removed secondary to ovarian torsion. port placement x 3, port left chest wall - Social History Smoking Status: Never Smoker Substance Use Type: None - Medications Home Medications: Home Medications Medication Instructions Recorded Confirmed Last Taken Type Folic Acid [Folvite] 1 mg PO QDAY #30 tablet 06/27/14 11/13/19 06/14/19 08:00 Rx Promethazine [Phenergan] 25 mg PO Q8HR PRN 03/29/18 11/13/19 06/14/19 08:00 History Eliquis 5 mg PO BID 05/17/18 11/13/19 06/14/19 08:00 History Vitamin D3 2,000 unit 3,000 units PO DAILY 05/17/18 11/13/19 06/14/19 08:00 History Cholecalciferol Vit D3 [Vitamin D3 3,000 unit PO QDAY 30 Days tablet 05/19/18 11/13/19 06/14/19 08:00 Rx 1,000 UNIT TAB] Levothyroxine [Synthroid] 125 mcg PO DAILY@0600 #30 tablet 05/19/18 11/13/19 06/14/19 08:00 Rx Melatonin/Pyridoxine HCl (B6) 1 tab PO QHS 09/12/18 11/13/19 06/14/19 08:00 History [Melatonin Tr 10 mg Tablet] diphenhydrAMINE [Benadryl CAP] 25 mg PO Q6HR PRN 09/12/18 11/13/19 06/14/19 08:00 History Morphine ER [Ms Contin ER] 30 mg PO Q8H #60 tablet 09/15/18 11/13/19 06/14/19 08:00 Rx Oxycodone HCl/Acetaminophen 1 each PO Q6HR PRN #60 tablet 09/15/18 11/13/19 06/14/19 08:00 Rx [Percocet 10/325 mg] ED Physical Exam - General Limitations: Physical Limitation General appearance: alert, anxious, in distress - Head Head exam: Present: atraumatic, normocephalic - Eye Eye exam: Present: normal appearance, PERRL, EOMI, scleral icterus - ENT ENT exam: Present: normal exam, normal orophraynx, mucous membranes moist, norm al external ear exam - Neck Neck exam: Present: normal inspection, full ROM. Absent: tenderness, meningismus - Respiratory Respiratory exam: Present: normal lung sounds bilaterally. Absent: respiratory distress - Cardiovascular Cardiovascular Exam: Present: normal rhythm, tachycardia, normal heart sounds. Absent: systolic murmur, diastolic murmur, rubs, gallop - GI/Abdominal GI/Abdominal exam: Present: soft. Absent: distended, tenderness, guarding, rebound, rigid, pulsatile mass - Extremities Exam Extremities exam: Present: normal inspection, full ROM, tenderness, normal capillary refill, other (2+ pulses noted in the bilateral upper and lower extremities. There is no redness, pus or streaking. There is diffuse long bony tenderness.). Absent: calf tenderness - Back Exam Back exam: Present: normal inspection, paraspinal tenderness. Absent: tendern ess, CVA tenderness (R), CVA tenderness (L) - Neurological Exam Neurological exam: Present: alert, other (No facial droop. Tongue midline. Extraocular movements intact bilaterally. Facial sensation intact to light touch in V1, V2, V3 distribution bilaterally. 5 and a 5 strength in 4 extremities. Sensation intact to light touch in 4 extremities.) - Psychiatric Psychiatric exam: Present: anxious - Skin Skin exam: Present: warm, dry, intact, normal color. Absent: rash ED Course Vital Signs 02/06/20 02/06/20 02/06/20 10:08 18:16 18:18 Temperature 99.2 F Pulse Rate 104 H 96 H Respiratory 18 22 22 Rate Blood Pressure 117/76 Blood Pressure [Right] O2 Sat by Pulse 93 95 95 Oximetry 02/06/20 02/06/20 02/06/20 18:53 20:05 21:42 Temperature Pulse Rate 90 Respiratory 20 18 18 Rate Blood Pressure Blood Pressure 141/72 [Right] O2 Sat by Pulse 100 Oximetry - Reevaluation(s) Reevaluation #1: 02/06/20 17:58 [facility] aware Filled ID Written Drug QTY Days Prescriber Rx # Pharmacy * Refills Daily Dose Pymt Type CV RN 01/12/2020 1 01/11/2020 OXYCODONE-ACETAMINOPHEN 10-325 120.0 30 AN DENISE [id number] ALEYDA ([id number]) 0 60.0 [facility] [place] 01/12/2020 1 01/11/2020 MORPHINE SULF ER 30 MG TABLET 90.0 30 AN DENISE [id number] ALEYDA ([id number]) 0 90.0 [facility] [place] 12/01/2019 1 11/29/2019 OXYCODONE-ACETAMINOPHEN 10-325 120.0 30 AN DENISE [id number] ALEYDA ([id number]) 0 60.0 [facility] [place] 12/01/2019 1 11/29/2019 MORPHINE SULF ER 30 MG TABLET 90.0 30 AN DENISE [id number] ALEDYA ([id number]) 0 90.0 [facility] [place] 11/01/2019 1 10/31/2019 OXYCODONE-ACETAMINOPHEN 10-325 120.0 30 AN DENISE [id number] ALEYDA ([id number]) 0 60.0 [facility] [place] 11/01/2019 1 10/31/2019 MORPHINE SULF ER 30 MG TABLET 90.0 30 AN DENISE [id number] ALEYDA ([id number]) 0 90.0 [facility] [place] 10/16/2019 1 10/10/2019 OXYCODONE-ACETAMINOPHEN 10-325 60.0 15 AN DENISE [id number] ALEYDA ([id number]) 0 60.0 [facility] [place] 10/09/2019 1 08/30/2019 MORPHINE SULF ER 30 MG TABLET 45.0 15 AN DENISE [id number] ALEYDA ([id number]) 0 90.0 [facility] [place] 09/22/2019 1 09/22/2019 OXYCODONE-ACETAMINOPHEN 5-325 80.0 12 BH ADH [id number] ROSETTE ([id number]) 0 50.0 [facility] [place] Reevaluation #2: 02/06/20 18:48 Differential diagnosis, including but not limited to: 49-year-old female with known history of COPD, who is on chronic home oxygen, treated at this hospital a few weeks ago for COVID pneumonia, had an appropriate convalescence, now presenting with 3 to 4 days of diffuse body aches and sickle cell pain. She is tachycardic, with a low-grade temperature, but no documented or articulated fever, with scleral icterus. We will access her port, obtain appropriate laboratory studies, treat her pain aggressively, treat her symptoms aggressively, and reassess. Discussed plan of care with the patient who is amenable to this plan of care and has verbalized understanding. Reevaluation #3: 02/06/20 21:12 Patient is reevaluated multiple times. She is still having pain but feels so mewhat improved. I discussed her laboratory studies with her. She states she typically does not get transfusion unless her hemoglobin goes below 6. Her comfort is somewhat improved. Additional pain medication ordered. She is noted to be playing on a cellular phone. I discussed the possibility of admission with the patient, she wants to see how she feels after her third round of hydromorphone Reevaluation #4: 02/06/20 22:02 Patient reevaluated multiple times and has received multiple escalating doses of analgesia. However, she is still symptomatic, and appears to feel uncomfortable and indicates that her pain is not completely controlled. The patient meets criteria for hospitalization. I contacted her private estate planner, Dr. Ron, we discussed the patient's history, physical, and pertinent laboratory studies. He is amenable to admitting the patient to the medical service to his own service. I discussed this with the patient, who indicates that she is "okay" with admission. ED Medical Decision Making - Lab Data Result diagrams: 02/06/20 19:44 02/06/20 19:44 Vital Signs 02/06/20 02/06/20 02/06/20 10:08 18:16 18:18 Temperature 99.2 F Pulse Rate 104 H 96 H Respiratory 18 22 22 Rate Blood Pressure 117/76 O2 Sat by Pulse 93 95 95 Oximetry Lab Results 02/06/20 02/06/20 02/06/20 Range/Units 19:44 19:44 19:44 WBC 11.1 H (4.5-11.0) K/mm3 RBC 1.91 L (3.65-5.03) M/mm3 Hgb 6.7 L (10.1-14.3) gm/dl Hct 19.4 L* (30.3-42.9) % MCV 102 H (79-97) fl MCH 35 H (28-32) pg MCHC 35 H (30-34) % RDW 28.4 H (13.2-15.2) % Plt Count 445 H (140-440) K/mm3 Eos % (Auto) Handwriting Expert Percent Retic 11.01 H (0.78-2.58) % Sodium 139 (137-145) mmol/L Potassium 4.2 (3.6-5.0) mmol/L Chloride 104.5 (98-107) mmol/L Carbon Dioxide 23 (22-30) mmol/L Anion Gap 16 mmol/L BUN 23 H (7-17) mg/dL Creatinine 0.5 L (0.7-1.2) mg/dL Estimated GFR > 60 ml/min BUN/Creatinine Ratio 46 % Glucose 119 H (65-100) mg/dL Calcium 9.3 (8.4-10.2) mg/dL Magnesium 2.70 H (1.7-2.3) mg/dL Total Creatine Kinase 27 L (30-135) units/L Vital Signs 02/06/20 02/06/20 02/06/20 10:08 18:16 18:18 Temperature 99.2 F Pulse Rate 104 H 96 H Respiratory 18 22 22 Rate Blood Pressure 117/76 Blood Pressure [Right] O2 Sat by Pulse 93 95 95 Oximetry 02/06/20 02/06/20 18:53 20:05 Temperature Pulse Rate 90 Respiratory 20 18 Rate Blood Pressure Blood Pressure 141/72 [Right] O2 Sat by Pulse 100 Oximetry Critical care attestation.: If time is entered above; I have spent that time in minutes in the direct care of this critically ill patient, excluding procedure time. ED Disposition Clinical Impression: Sickle cell anemia, Sickle cell crisis Disposition: OP ADMIT IP TO THIS HOSP Is pt being admited?: Yes Does the pt Need Aspirin: No Condition: Good Referrals: PRIMARY CARE, [Primary Care Provider] - 3-5 Days
[2020-02-06] MEDS ORDERED: diphenhydrAMINE 50 MG/ML VIAL IV ONE (18:14)
[2020-02-06] MEDS ORDERED: HYDROmorphone 2 MG/1 ML INJ IV ONE ×3 (18:14→20:22)
[2020-02-06] MEDS ORDERED: METOCLOPRAMIDE 10 MG/2 ML INJ IV ONE (18:14)
[2020-02-06] MEDS ORDERED: ONDANSETRON 4 MG/2 ML INJ IV ONE (18:56)
[2020-02-06] MEDS ORDERED: D5W/0.45% NACL 1,000 ML IV SCH (19:00)
[2020-02-06 20:13] LABS: Hemoglobin 6.7 gm/dl (10.1-14.3); Mean Corpuscular HGB Conc 35 % (30-34); Mean Corpuscular Volume 102 fl (79-97); Platelet Count 445 K/mm3 (140-440); Red Blood Count 1.91 M/mm3 (3.65-5.03)
[2020-02-06 20:14] LABS: Blood Urea Nitrogen 23 mg/dL (7-17); Calcium 9.3 mg/dL (8.4-10.2); Hemolysis Index 6; Red Cell Distribution Width 28.4 % (13.2-15.2)
[2020-02-06 20:16] LABS: Hematocrit 19.4 % (30.3-42.9)
[2020-02-06 20:18] LABS: BUN/Creatinine Ratio 46
[2020-02-06 20:57] LABS: Anisocytosis 2+; Dimorphic RBC Yes; Hypochromasia Rare; Macrocytosis 1+; Schistocytes Rare; Sickle Cells 1+; Target Cells Rare; Total Cells Counted 100
[2020-02-06] MEDS ORDERED: HYDROmorphone 2 MG/1 ML INJ ONE (23:25)
[2020-02-06] MEDS ORDERED: D5W/0.2% NACL 1,000 ML IV ONE (23:25)
[2020-02-07] MEDS: HYDROmorphone 1 MG/1 ML INJ IV PRN ×7 (00:30→23:29)
[2020-02-07] MEDS: D5W/0.2% NACL 1,000 ML IV SCH ×4 (01:30→20:00)
[2020-02-07] MEDS ORDERED: HYDROmorphone 1 MG/1 ML INJ IV ONE (03:25)
[2020-02-07] MEDS: ONDANSETRON 4 MG/2 ML INJ IV PRN ×2 (03:59→09:35)
[2020-02-07] MEDS: diphenhydrAMINE 50 MG/ML VIAL IV PRN ×4 (09:35→23:29)
--- NOTE | 2020-02-07 19:54 | History and Physical Report ---
History of Present Illness Date of examination: 02/07/20 Date of admission: 02/07/20 09:42 Chief complaint: Diffuse joint pain/anemia. History of present illness: Patient presented to the ER, with CC as above, she was admitted, for sxs management and control.She has recovered from Covid 19 infection.She will get pain control, hydration, monitor labs, and transfuse, if hgb drops further. once stable, will plan D/C home. Past History Past Medical History: anemia, DVT, hypothyroidism Past Surgical History: No surgical history Social history: no significant social history, single, lives with family Family history: no significant family history Medications and Allergies Allergies Allergy/AdvReac Type Severity Reaction Status Date / Time aspirin Allergy Vomiting Verified 06/21/18 14:16 ketorolac tromethamine Allergy Unknown Verified 06/21/18 14:16 [From Toradol] pineapple [Pineapple] Allergy Swelling Verified 06/21/18 14:16 morphine AdvReac Shortness Verified 10/23/19 08:24 of Breath Home Medications Medication Instructions Recorded Confirmed Last Taken Type Folic Acid [Folvite] 1 mg PO QDAY #30 tablet 06/27/14 11/13/19 06/14/19 08:00 Rx Promethazine [Phenergan] 25 mg PO Q8HR PRN 03/29/18 11/13/19 06/14/19 08:00 History Eliquis 5 mg PO BID 05/17/18 11/13/19 06/14/19 08:00 History Vitamin D3 2,000 unit 3,000 units PO DAILY 05/17/18 11/13/19 06/14/19 08:00 History Cholecalciferol Vit D3 [Vitamin D3 3,000 unit PO QDAY 30 Days tablet 05/19/18 11/13/19 06/14/19 08:00 Rx 1,000 UNIT TAB] Levothyroxine [Synthroid] 125 mcg PO DAILY@0600 #30 tablet 05/19/18 11/13/19 06/14/19 08:00 Rx Melatonin/Pyridoxine HCl (B6) 1 tab PO QHS 09/12/18 11/13/19 06/14/19 08:00 History [Melatonin Tr 10 mg Tablet] diphenhydrAMINE [Benadryl CAP] 25 mg PO Q6HR PRN 09/12/18 11/13/19 06/14/19 08:00 History Morphine ER [Ms Contin ER] 30 mg PO Q8H #60 tablet 09/15/18 11/13/19 06/14/19 08:00 Rx Oxycodone HCl/Acetaminophen 1 each PO Q6HR PRN #60 tablet 09/15/18 11/13/19 06/14/19 08:00 Rx [Percocet 10/325 mg] Active Meds: Active Medications Diphenhydramine HCl (Benadryl) 12.5 mg IV Q3H PRN PRN Reason: Itching Last Admin: 02/07/20 16:29 Dose: 12.5 mg Documented by: Hydromorphone HCl (Dilaudid) 3 mg IV Q3H PRN PRN Reason: Pain , Severe (7-10) Last Admin: 02/07/20 16:29 Dose: 3 mg Documented by: Dextrose/Sodium Chloride (D5ns 0.2%) 1,000 mls @ 150 mls/hr IV DIRECT RAMIRZE Last Admin: 02/07/20 13:05 Dose: 150 mls/hr Documented by: Ondansetron HCl (Zofran) 4 mg IV Q6H PRN PRN Reason: Nausea And Vomiting Last Admin: 02/07/20 09:35 Dose: 4 mg Documented by: Review of Systems Constitutional: fatigue, weakness, chronic pain Breasts: deferred Musculoskeletal: low back pain Exam - Constitutional Vitals: Temp Pulse Resp BP Pulse Ox 98.4 F 73 20 103/60 100 02/07/20 15:19 02/07/20 15:19 02/07/20 16:29 02/07/20 15:19 02/07/20 15:19 General appearance: Present: mild distress, well-nourished - EENT Eyes: Present: PERRL ENT: hearing intact, clear oral mucosa - Neck Neck: Present: supple, normal ROM - Respiratory Respiratory effort: normal Respiratory: bilateral: CTA - Cardiovascular Heart Sounds: Present: S1 & S2. Absent: rub, click - Extremities Extremities: pulses symmetrical, No edema Peripheral Pulses: within normal limits - Abdominal General gastrointestinal: Present: soft, non-tender, non-distended, normal bowel sounds Female genitourinary: Present: deferred - Rectal Rectal Exam: deferred - Integumentary Integumentary: Present: clear, warm, dry - Musculoskeletal Musculoskeletal: gait normal, strength equal bilaterally - Psychiatric Psychiatric: appropriate mood/affect, intact judgment & insight - Neurologic Neurologic: CNII-XII intact, moves all extremities Results - Labs CBC & Chem 7: 02/06/20 19:44 02/06/20 19:44 Labs: Abnormal lab results 02/06/20 02/06/20 02/06/20 Range/Units 19:44 19:44 19:44 WBC 11.1 H (4.5-11.0) K/mm3 RBC 1.91 L (3.65-5.03) M/mm3 Hgb 6.7 L (10.1-14.3) gm/dl Hct 19.4 L* (30.3-42.9) % MCV 102 H (79-97) fl MCH 35 H (28-32) pg MCHC 35 H (30-34) % RDW 28.4 H (13.2-15.2) % Plt Count 445 H (140-440) K/mm3 Eosinophils % (Manual) 5.0 H (0.0-4.3) % Basophils % (Manual) 2.0 H (0.0-1.8) % Eosinophils # (Manual) 0.6 H (0.0-0.4) K/mm3 Basophils # (Manual) 0.2 H (0.0-0.1) K/mm3 Percent Retic 11.01 H (0.78-2.58) % BUN 23 H (7-17) mg/dL Creatinine 0.5 L (0.7-1.2) mg/dL Glucose 119 H (65-100) mg/dL Magnesium 2.70 H (1.7-2.3) mg/dL Total Creatine Kinase 27 L (30-135) units/L Assessment and Plan - Patient Problems (1) Sickle cell crisis Current Visit: Yes Status: Acute Plan to address problem: pain control. (2) Sickle cell anemia Current Visit: Yes Status: Chronic Plan to address problem: transfusion when indicated. (3) Dehydration Current Visit: No Status: Acute Plan to address problem: hydration. 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
[2020-02-08] MEDS: HYDROmorphone 1 MG/1 ML INJ IV PRN ×7 (02:57→21:46)
[2020-02-08] MEDS: diphenhydrAMINE 50 MG/ML VIAL IV PRN ×7 (02:58→21:45)
[2020-02-08] MEDS: D5W/0.2% NACL 1,000 ML IV SCH ×5 (03:04→21:53)
[2020-02-08 08:11] LABS: Hematocrit 15.9 % (30.3-42.9); Hemoglobin 5.7 gm/dl (10.1-14.3)
[2020-02-08] MEDS ORDERED: SODIUM CHLORIDE 0.9% 500 ML 500 ML IV NR (09:54)
[2020-02-08] MEDS ORDERED: PROMETHAZINE 25 MG TAB PO PRN (18:38)
[2020-02-08] MEDS ORDERED: MELATONIN 5 MG TAB PO PRN (18:42)
[2020-02-08] MEDS ORDERED: MORPHINE 30 MG ER TAB PO PRN (18:43)
[2020-02-08] MEDS ORDERED: oxyCODONE /ACETAMINOPHEN 5-325MG TAB PO PRN (18:44)
[2020-02-08] MEDS ORDERED: oxyCODONE 5 MG TAB PO PRN (18:45)
--- NOTE | 2020-02-08 19:56 | Progress Note ---
Assessment and Plan - Patient Problems (1) Sickle cell crisis Current Visit: Yes Status: Acute Plan to address problem: pain control. (2) Sickle cell anemia Current Visit: Yes Status: Chronic Plan to address problem: transfusion when indicated. awaiting blood transfusion. (3) Dehydration Current Visit: No Status: Acute Plan to address problem: hydration. 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 resume her meds. Subjective Date of service: 02/08/20 Principal diagnosis: SCD/Pain crisis/anemia. Interval history: Patient seen/examined, resting in bed, labs reviewed, still awaiting blood for transfusion.Will resume her thyroid meds, at adjusted dosage. Objective - Constitutional Vitals: Vital Signs - 12hr 02/08/20 02/08/20 02/08/20 08:00 11:57 15:41 Temperature 98.0 F 97.3 F L Pulse Rate 76 72 Respiratory 20 Rate Respiratory 18 Rate [ Generalized] Blood Pressure 136/72 134/72 O2 Sat by Pulse 100 95 Oximetry 02/08/20 19:05 Temperature 98.0 F Pulse Rate 82 Respiratory 20 Rate Respiratory Rate [ Generalized] Blood Pressure 123/70 O2 Sat by Pulse 91 Oximetry General appearance: Present: mild distress, well-nourished - EENT Eyes: PERRL, EOM intact ENT: hearing intact, clear oral mucosa Ears: bilateral: normal - Neck Neck: supple, normal ROM - Respiratory Respiratory effort: normal Respiratory: bilateral: CTA - Breasts Breasts: deferred - Cardiovascular Rhythm: regular Heart Sounds: Present: S1 & S2. Absent: gallop, rub Extremities: pulses intact, No edema, normal color, Full ROM - Gastrointestinal General gastrointestinal: Present: soft, non-tender, non-distended, normal bowel sounds Rectal Exam: deferred - Genitourinary Female genitourinary: deferred - Integumentary Integumentary: clear, warm, dry - Musculoskeletal Musculoskeletal: 1, strength equal bilaterally - Neurologic Neurologic: moves all extremities - Psychiatric Psychiatric: memory intact, appropriate mood/affect, intact judgment & insight - Labs CBC & Chem 7: 02/08/20 07:35 02/06/20 19:44 Labs: Abnormal lab results 02/08/20 02/08/20 02/08/20 Range/Units 07:35 07:35 10:05 Hgb 5.7 L* (10.1-14.3) gm/dl Hct 15.9 L* (30.3-42.9) % TSH 15.080 H (0.270-4.200) mlU/mL Crossmatch See Detail
[2020-02-08] MEDS: APIXABAN 5 MG TAB PO SCH (21:44)
[2020-02-09] MEDS: HYDROmorphone 1 MG/1 ML INJ IV PRN ×7 (00:45→21:34)
[2020-02-09] MEDS: diphenhydrAMINE 50 MG/ML VIAL IV PRN ×7 (00:46→21:35)
[2020-02-09] MEDS ORDERED: SODIUM CHLORIDE 0.9% 500 ML 500 ML ONE (03:38)
[2020-02-09] MEDS ORDERED: diphenhydrAMINE 50 MG/ML VIAL IV ONE (04:57)
[2020-02-09] MEDS ORDERED: methylPREDNISolone Sod Succinate 125 MG/2 ML INJ IV ONE (04:59)
[2020-02-09] MEDS ORDERED: ACETAMINOPHEN 325 MG TAB PO ONE (05:00)
[2020-02-09] MEDS ORDERED: LEVOTHYROXINE 25 MCG TAB PO SCH (06:00)
[2020-02-09] MEDS ORDERED: LEVOTHYROXINE 112 MCG, LEVOTHYROXINE 25 MCG PO SCH (06:00)
[2020-02-09] MEDS ORDERED: LEVOTHYROXINE 112 MCG TAB PO SCH (06:00)
[2020-02-09] MEDS: LEVOTHYROXINE 150 MCG TAB PO SCH (06:09)
[2020-02-09] MEDS ORDERED: diphenhydrAMINE 50 MG/ML VIAL IV NR (08:35)
[2020-02-09] MEDS ORDERED: SODIUM CHLORIDE 0.9% 500 ML 500 ML IV SCH (09:00)
[2020-02-09] MEDS: CHOLECALCIFEROL (VIT D3) 1000 UNIT (25 mcg) TAB PO SCH (09:25)
[2020-02-09] MEDS: FOLIC ACID 1 MG TAB PO SCH (09:25)
[2020-02-09] MEDS: APIXABAN 5 MG TAB PO SCH ×2 (09:26→21:33)
[2020-02-09] MEDS ORDERED: CHOLECALCIFEROL (VIT D3) 5,000 UNIT TAB PO SCH (10:00)
[2020-02-09] MEDS: D5W/0.2% NACL 1,000 ML IV SCH ×2 (13:50→20:56)
--- NOTE | 2020-02-09 21:18 | Progress Note ---
Assessment and Plan - Patient Problems (1) Sickle cell crisis Current Visit: Yes Status: Acute Plan to address problem: pain control. (2) Sickle cell anemia Current Visit: Yes Status: Chronic Plan to address problem: transfusion when indicated. awaiting blood transfusion. s/p blood transfusion. (3) Dehydration Current Visit: No Status: Acute Plan to address problem: hydration. 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 resume her meds. Subjective Date of service: 02/09/20 Principal diagnosis: SCD/Pain crisis/anemia. Interval history: Patient seen/examined, resting in bed, labs reviewed, still awaiting blood for transfusion.Will resume her thyroid meds, at adjusted dosage. Patient seen/examined, resting in bed, c/o pain at 7/10, and a bit better. She received 2units prbc today. Will recheck labs in am. Objective - Constitutional Vitals: Vital Signs - 12hr 02/09/20 02/09/20 02/09/20 09:30 09:45 10:00 Temperature Pulse Rate 85 79 77 Respiratory Rate Blood Pressure 114/63 113/61 117/62 O2 Sat by Pulse 100 99 98 Oximetry 02/09/20 02/09/20 02/09/20 10:15 10:31 10:45 Temperature Pulse Rate 79 78 80 Respiratory Rate Blood Pressure 113/61 105/69 123/67 O2 Sat by Pulse 99 99 98 Oximetry 02/09/20 02/09/20 02/09/20 11:02 11:15 11:30 Temperature Pulse Rate 79 78 Respiratory Rate Blood Pressure 108/56 113/58 O2 Sat by Pulse 100 97 Oximetry 02/09/20 02/09/20 02/09/20 11:45 13:28 15:33 Temperature 98.2 F Pulse Rate 76 Respiratory 20 Rate Blood Pressure 115/66 126/65 O2 Sat by Pulse 98 99 Oximetry General appearance: Present: mild distress, well-nourished - EENT Eyes: PERRL, EOM intact ENT: hearing intact, clear oral mucosa Ears: bilateral: normal - Neck Neck: supple, normal ROM - Respiratory Respiratory effort: normal Respiratory: bilateral: CTA - Breasts Breasts: deferred - Cardiovascular Rhythm: regular Heart Sounds: Present: S1 & S2. Absent: gallop, rub Extremities: pulses intact, No edema, normal color, Full ROM - Gastrointestinal General gastrointestinal: Present: soft, non-tender, non-distended, normal bowel sounds Rectal Exam: deferred - Genitourinary Female genitourinary: deferred - Integumentary Integumentary: clear, warm, dry - Musculoskeletal Musculoskeletal: 1, strength equal bilaterally - Neurologic Neurologic: moves all extremities - Psychiatric Psychiatric: memory intact, appropriate mood/affect, intact judgment & insight - Labs CBC & Chem 7: 02/08/20 07:35 02/06/20 19:44 Labs: Abnormal lab results 02/08/20 Range/Units 10:05 Crossmatch See Detail
[2020-02-09] MEDS: MORPHINE 30 MG ER TAB PO SCH (21:33)
[2020-02-10] MEDS: diphenhydrAMINE 50 MG/ML VIAL IV PRN ×7 (01:27→23:32)
[2020-02-10] MEDS: HYDROmorphone 1 MG/1 ML INJ IV PRN ×7 (01:27→23:33)
[2020-02-10] MEDS: MORPHINE 30 MG ER TAB PO SCH ×3 (05:34→21:31)
[2020-02-10] MEDS: LEVOTHYROXINE 150 MCG TAB PO SCH (05:34)
[2020-02-10] MEDS: D5W/0.2% NACL 1,000 ML IV SCH ×3 (06:27→19:49)
[2020-02-10] MEDS: APIXABAN 5 MG TAB PO SCH ×2 (10:03→21:30)
[2020-02-10] MEDS: FOLIC ACID 1 MG TAB PO SCH (10:03)
[2020-02-10] MEDS: CHOLECALCIFEROL (VIT D3) 1000 UNIT (25 mcg) TAB PO SCH (10:03)
--- NOTE | 2020-02-10 22:03 | Progress Note ---
Assessment and Plan - Patient Problems (1) Sickle cell crisis Current Visit: Yes Status: Acute Plan to address problem: pain control. (2) Sickle cell anemia Current Visit: Yes Status: Chronic Plan to address problem: transfusion when indicated. awaiting blood transfusion. s/p blood transfusion. (3) Dehydration Current Visit: No Status: Acute Plan to address problem: hydration. 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 resume her meds. Subjective Date of service: 02/10/20 Principal diagnosis: SCD/Pain crisis/anemia. Interval history: Patient seen/examined, resting in bed, labs reviewed, still awaiting blood for transfusion.Will resume her thyroid meds, at adjusted dosage. Patient seen/examined, resting in bed, c/o pain at 7/10, and a bit better. She received 2units prbc today. Will recheck labs in am. Patient seen/examined, resting in bed, She is rating her pain at 7-8/10 at this time. Will plan d/c for 24-48hrs. Objective - Constitutional Vitals: Vital Signs - 12hr 02/10/20 02/10/20 02/10/20 11:58 15:58 20:18 Temperature 98.7 F 98.0 F 98.7 F Pulse Rate 62 78 72 Respiratory 20 20 18 Rate Blood Pressure 120/63 133/75 112/61 O2 Sat by Pulse 100 94 99 Oximetry General appearance: Present: mild distress, well-nourished - EENT Eyes: PERRL, EOM intact ENT: hearing intact, clear oral mucosa Ears: bilateral: normal - Neck Neck: supple, normal ROM - Respiratory Respiratory effort: normal Respiratory: bilateral: CTA - Breasts Breasts: deferred - Cardiovascular Rhythm: regular Heart Sounds: Present: S1 & S2. Absent: gallop, rub Extremities: pulses intact, No edema, normal color, Full ROM - Gastrointestinal General gastrointestinal: Present: soft, non-tender, non-distended, normal bowel sounds Rectal Exam: deferred - Genitourinary Female genitourinary: deferred - Integumentary Integumentary: clear, warm, dry - Musculoskeletal Musculoskeletal: 1, strength equal bilaterally - Neurologic Neurologic: moves all extremities - Psychiatric Psychiatric: memory intact, appropriate mood/affect, intact judgment & insight - Labs CBC & Chem 7: 02/08/20 07:35 02/06/20 19:44
[2020-02-11] MEDS: diphenhydrAMINE 50 MG/ML VIAL IV PRN ×7 (02:30→23:32)
[2020-02-11] MEDS: HYDROmorphone 1 MG/1 ML INJ IV PRN ×7 (02:30→23:31)
[2020-02-11] MEDS: D5W/0.2% NACL 1,000 ML IV SCH ×3 (02:31→17:29)
[2020-02-11] MEDS: LEVOTHYROXINE 150 MCG TAB PO SCH (06:14)
[2020-02-11] MEDS: MORPHINE 30 MG ER TAB PO SCH ×3 (06:14→21:48)
[2020-02-11 07:58] LABS: Hematocrit 23.8 % (30.3-42.9); Hemoglobin 8.4 gm/dl (10.1-14.3)
[2020-02-11] MEDS: CHOLECALCIFEROL (VIT D3) 1000 UNIT (25 mcg) TAB PO SCH (10:41)
[2020-02-11] MEDS: APIXABAN 5 MG TAB PO SCH ×2 (10:41→21:49)
[2020-02-11] MEDS: FOLIC ACID 1 MG TAB PO SCH (10:41)
--- NOTE | 2020-02-12 00:15 | Discharge Summary ---
Providers - Providers Date of Admission: 02/07/20 09:42 Attending physician: WANDA SIMON Primary care physician: ADVERTISING STATISTICAL CLERK Hospitalization Reason for admission: SCD/Anemia/dehydration. Condition: Good Hospital course: Patient presented to the ER with CC as above, and admitted, for sxs management/ control. She was treated with hydration, pain control, and blood transfusion.Her thyroid meds was adjusted, based on TSH level. 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 Qualified Code(s): E03.8 - Other specified hypothyroidism; E06.3 - Autoimmune thyroiditis Core Measure Documentation - Palliative Care Palliative Care/ Comfort Measures: Not Applicable - Core Measures Any of the following diagnoses?: history only Exam - Constitutional Vitals: Temp Pulse Resp BP Pulse Ox 98.5 F 68 20 155/97 100 02/11/20 20:18 02/11/20 20:18 02/11/20 23:31 02/11/20 20:18 02/11/20 20:18 General appearance: Present: no acute distress, well-nourished - EENT Eyes: Present: PERRL ENT: hearing intact, clear oral mucosa - Neck Neck: Present: supple, normal ROM - Respiratory Respiratory effort: normal Respiratory: bilateral: CTA - Cardiovascular Heart Sounds: Present: S1 & S2. Absent: rub, click - Extremities Extremities: pulses symmetrical, No edema Peripheral Pulses: within normal limits - Abdominal General gastrointestinal: Present: soft, non-tender, non-distended, normal bowel sounds Female genitourinary: Present: deferred - Rectal Rectal Exam: deferred - Integumentary Integumentary: Present: clear, warm, dry - Musculoskeletal Musculoskeletal: gait normal, strength equal bilaterally - Psychiatric Psychiatric: appropriate mood/affect, intact judgment & insight - Neurologic Neurologic: CNII-XII intact, moves all extremities Plan Activity: no restrictions Follow up with: PRIMARY CARE, [Primary Care Provider] - 3-5 Days
[2020-02-12] MEDS: ONDANSETRON 4 MG/2 ML INJ IV PRN (00:53)
[2020-02-12] MEDS ORDERED: D5W/0.2% NACL 1,000 ML IV SCH (01:00)
[2020-02-12] MEDS: HYDROmorphone 1 MG/1 ML INJ IV PRN ×3 (02:29→10:29)
[2020-02-12] MEDS: diphenhydrAMINE 50 MG/ML VIAL IV PRN ×3 (02:30→08:56)
[2020-02-12] MEDS: MORPHINE 30 MG ER TAB PO SCH (06:32)
[2020-02-12] MEDS: LEVOTHYROXINE 150 MCG TAB PO SCH (06:33)
[2020-02-12 08:31] VITALS: BP 115/74
[2020-02-12] MEDS: APIXABAN 5 MG TAB PO SCH (09:01)
[2020-02-12] MEDS: CHOLECALCIFEROL (VIT D3) 1000 UNIT (25 mcg) TAB PO SCH (09:01)
[2020-02-12] MEDS: FOLIC ACID 1 MG TAB PO SCH (09:01)
== END 2020-02-12 13:00 | disposition home or self-care (01) | DRG 812 ==
LOC: ED 09:56 → 3A 22:04 → 4A 02-07 00:28 → OBSVTOIN 02-07 09:42
PROVIDERS: ADMIT Internal Medicine Hematology & Oncology; ATTEND Internal Medicine Hematology & Oncology
DX: D57.00 Hb-SS disease with crisis, unspecified (principal); E86.0 Dehydration; E03.8 Other specified hypothyroidism; E06.3 Autoimmune thyroiditis; I50.9 Heart failure, unspecified; J44.9 Chronic obstructive pulmonary disease, unspecified; Z86.718 Personal history of other venous thrombosis and embolism; Z88.6 Allergy status to analgesic agent; Z88.5 Allergy status to narcotic agent; Z91.018 Allergy to other foods; Z79.01 Long term (current) use of anticoagulants; Z90.49 Acquired absence of other specified parts of digestive tract
CPT/HCPCS: 36415; 80048; 82550; 83735; 84443; 85007; 85014; 85018; 85025; 85045; 85660; 86850; 86900; 86901; 86922; 94760; G0378; J1170; J1200; J1642; J2405; J2765; J2930; J7040; P9016

== ENCOUNTER 2020-07-31 13:48 | Inpatient (IN) | payer OTHER ==
--- NOTE | 2020-07-31 13:58 | Event Note ---
ED Screening Note ED Screening Note: sickle cell pain pain all over vss This initial assessment/diagnostic orders/clinical plan/treatment(s) is/are subject to change based on patients health status, clinical progression and re- assessment by fellow clinical providers in the ED. Further treatment and workup at subsequent clinical providers discretion. Patient/guardian urged not to elope from the ED as their condition may be serious if not clinically assessed and managed. Initial orders include: retic/labs
[2020-07-31] MEDS ORDERED: ONDANSETRON 4 MG/2 ML INJ IV ONE (21:18)
[2020-07-31] MEDS ORDERED: HYDROmorphone 2 MG/1 ML INJ IV ONE ×2 (21:18→22:51)
[2020-07-31] MEDS ORDERED: diphenhydrAMINE 50 MG/ML VIAL IV ONE (21:18)
--- NOTE | 2020-07-31 21:39 | Emergency Department Report ---
ED General Adult HPI - General Chief complaint: Sickle Cell Crisis Stated complaint: SICKLE CELL PAIN PUI?: No Time Seen by Provider: 07/31/20 21:07 Source: patient Mode of arrival: Ambulatory Limitations: No Limitations - History of Present Illness Initial comments: Patient is a 49-year-old female that presents emergency room with complaints of generalized pain. Patient states her pain is mostly in her back and legs. Patient denies chest pain or shortness of breath. Patient states that she is in severe pain. Patient states the pain is a 10 out of 10. Patient states she has sickle cell and it feels like she is in sickle cell crisis. Patient states she is compliant with her home meds. Patient states her Percocets are not working. Patient states she still has Percocet at home. Patient states she is allergic to morphine but she is able to take Dilaudid. Patient states she prefers to take Dilaudid with Benadryl and Zofran. Patient denies recent travel. Patient denies recent international travel. Patient denies exposure to the novel coronavirus. Patient denies sick contacts. Patient denies fever and chills. Patient denies cough. Patient denies diarrhea. Patient denies coming in contact with anybody with symptoms of the novel coronavirus. -: Sudden Severity scale (0 -10): 10 Quality: stabbing Consistency: constant Improves with: rest Worsens with: movement Associated Symptoms: nausea/vomiting Treatments Prior to Arrival: other (Prescription meds) - Related Data Home Medications Medication Instructions Recorded Confirmed Last Taken Apixaban [Eliquis] 5 mg PO BID 02/08/20 04/05/20 04/04/20 Levothyroxine [Synthroid] 150 mcg PO DAILY@0600 02/08/20 04/05/20 04/04/20 Previous Rx's Medication Instructions Recorded Last Taken Type Folic Acid [Folvite] 1 mg PO QDAY #30 tablet 06/27/14 04/04/20 Rx Cholecalciferol Vit D3 [Vitamin D3 3,000 unit PO QDAY 30 Days tablet 05/19/18 06/14/19 08:00 Rx 1,000 UNIT TAB] oxyCODONE /ACETAMINOPHEN [Percocet 2 tab PO Q6H PRN #14 tablet 04/02/20 04/04/20 Rx 5/325 mg] Multivitamin Tab [Multiple Vitamin 1 each PO QDAY #30 tablet 04/10/20 Unknown Rx TAB (Theragran)] Sennosides Tab [Senokot] 17.2 mg PO QHS #30 tablet 04/10/20 Unknown Rx Allergies Allergy/AdvReac Type Severity Reaction Status Date / Time aspirin Allergy Vomiting Verified 07/31/20 13:54 ketorolac tromethamine Allergy Unknown Verified 07/31/20 13:54 [From Toradol] pineapple [Pineapple] Allergy Swelling Verified 03/28/20 15:28 morphine AdvReac Shortness Verified 07/31/20 13:54 of Breath ED Review of Systems ROS: Stated complaint: SICKLE CELL PAIN Other details as noted in HPI Constitutional: denies: chills, fever Eyes: denies: eye pain, eye discharge, vision change ENT: denies: ear pain, throat pain Respiratory: denies: cough, shortness of breath, wheezing Cardiovascular: denies: chest pain, palpitations Endocrine: no symptoms reported Gastrointestinal: denies: abdominal pain, nausea, diarrhea Genitourinary: denies: urgency, dysuria, discharge Musculoskeletal: back pain. denies: joint swelling Skin: denies: rash, lesions Neurological: denies: headache, weakness, paresthesias Psychiatric: denies: anxiety, depression Hematological/Lymphatic: denies: easy bleeding, easy bruising ED Past Medical Hx - Past Medical History Previous Medical History?: Yes Hx Hypertension: No Hx Heart Attack/AMI: No Hx Congestive Heart Failure: Yes Hx Diabetes: No Hx Deep Vein Thrombosis: (?) Hx Liver Disease: No Hx Sickle Cell Disease: Yes Hx Arthritis: No Hx Seizures: No Hx Asthma: No Hx COPD: No Hx HIV: No Additional medical history: ANEMIA (Blood transfusion), Hypothyroid, Left chest port, DVT - Surgical History Past Surgical History?: Yes Hx Coronary Stent: No Hx Pacemaker: No Hx Internal Defibrillator: No Hx Cholecystectomy: Yes Hx Appendectomy: No Additional Surgical History: right ovary removed secondary to ovarian torsion. port placement x 3, port left chest wall - Family History Family history: no significant - Social History Smoking Status: Never Smoker Substance Use Type: None - Medications Home Medications: Home Medications Medication Instructions Recorded Confirmed Last Taken Type Folic Acid [Folvite] 1 mg PO QDAY #30 tablet 06/27/14 04/05/20 04/04/20 Rx Cholecalciferol Vit D3 [Vitamin D3 3,000 unit PO QDAY 30 Days tablet 05/19/18 04/05/20 06/14/19 08:00 Rx 1,000 UNIT TAB] Apixaban [Eliquis] 5 mg PO BID 02/08/20 04/05/20 04/04/20 History Levothyroxine [Synthroid] 150 mcg PO DAILY@0600 02/08/20 04/05/20 04/04/20 History oxyCODONE /ACETAMINOPHEN [Percocet 2 tab PO Q6H PRN #14 tablet 04/02/20 04/05/20 04/04/20 Rx 5/325 mg] Multivitamin Tab [Multiple Vitamin 1 each PO QDAY #30 tablet 04/10/20 Unknown Rx TAB (Theragran)] Sennosides Tab [Senokot] 17.2 mg PO QHS #30 tablet 04/10/20 Unknown Rx ED Physical Exam - General Limitations: No Limitations General appearance: alert, in no apparent distress - Head Head exam: Present: atraumatic, normocephalic - Eye Eye exam: Present: normal appearance - ENT ENT exam: Present: mucous membranes moist - Neck Neck exam: Present: normal inspection - Respiratory Respiratory exam: Present: normal lung sounds bilaterally. Absent: respiratory distress - Cardiovascular Cardiovascular Exam: Present: regular rate, normal rhythm. Absent: systolic murmur, diastolic murmur, rubs, gallop - GI/Abdominal GI/Abdominal exam: Present: soft, normal bowel sounds - Extremities Exam Extremities exam: Present: normal inspection - Back Exam Back exam: Present: normal inspection - Neurological Exam Neurological exam: Present: alert, oriented X3 - Psychiatric Psychiatric exam: Present: normal affect, normal mood - Skin Skin exam: Present: warm, dry, intact, normal color. Absent: rash ED Course Vital Signs 07/31/20 07/31/20 07/31/20 13:59 22:27 22:59 Temperature 100.5 F H Pulse Rate 107 H Respiratory 18 18 18 Rate Blood Pressure 150/76 Blood Pressure [Left] O2 Sat by Pulse 95 Oximetry 07/31/20 07/31/20 07/31/20 23:00 23:15 23:29 Temperature Pulse Rate Respiratory 18 Rate Blood Pressure 148/88 148/88 Blood Pressure [Left] O2 Sat by Pulse 100 100 Oximetry 07/31/20 07/31/20 08/01/20 23:30 23:45 00:00 Temperature Pulse Rate Respiratory Rate Blood Pressure 159/108 148/88 154/93 Blood Pressure [Left] O2 Sat by Pulse 98 99 95 Oximetry 08/01/20 08/01/20 00:25 00:30 Temperature 98.3 F Pulse Rate 109 H Respiratory 18 Rate Blood Pressure 137/66 Blood Pressure 154/93 [Left] O2 Sat by Pulse 98 99 Oximetry - Reevaluation(s) Reevaluation #1: Nurse given an order to access port. Patient agrees to have port access. Bogdan nt states they draw her blood from her port as well. 07/31/20 21:20 Reevaluation #2: Patient still complaining of severe pain. Patient will be given another 2 mg of Dilaudid. 07/31/20 22:52 Reevaluation #3: Patient found to be severely anemic. Patient agrees to transfusion. Patient will be typed and screened. 07/31/20 23:08 Reevaluation #4: I discussed all results with patient. I discussed plan of care with patient. Patient agrees with plan of care and admission. Patient to be admitted to the hospitalist service. 07/31/20 23:42 - Consultations Consultation #1: Hospitalist consulted for admission. Hospitalist to admit patient. 07/31/20 23:42 ED Medical Decision Making - Lab Data Result diagrams: 07/31/20 22:04 07/31/20 22:04 - EKG Data -: EKG Interpreted by Oh EKG shows normal: sinus rhythm, axis, intervals, QRS complexes, ST-T waves Rate: tachycardia - Medical Decision Making Patient is a 49-year-old female that presents emergency room with pain all over. Patient phalanxes with a sickle cell crisis. Patient reticulocyte count is elevated. Patient also found to be severely anemic at a level that requires transfusion. Patient agrees to transfusion. Patient was typed and crossed in the ER. Patient patient's given multiple medications for her sickle cell cr frannie. Patient's pain continued. Patient admitted to the hospitalist service for transfusion and intractable pain. Patient is to the hospital service for further evaluation treatment. - Differential Diagnosis Sickle cell crisis, anemia, severe anemia. Critical Care Time: Yes Critical care time in (mins) excluding proc time.: 35 Critical care attestation.: If time is entered above; I have spent that time in minutes in the direct care of this critically ill patient, excluding procedure time. Critical Care Time: 35 minutes ED Disposition Clinical Impression: Sickle cell crisis, Severe anemia, Intractable pain Anemia Qualifiers: Anemia type: unspecified type Qualified Code(s): D64.9 - Anemia, unspecified Sickle cell anemia Qualifiers: Sickle-cell associated disorders: with unspecified crisis Qualified Code(s): D57.00 - Hb-SS disease with crisis, unspecified UTI (urinary tract infection) Qualifiers: Urinary tract infection type: acute cystitis Hematuria presence: with hematuria Qualified Code(s): N30.01 - Acute cystitis with hematuria Disposition: 09 OP ADMIT IP TO THIS HOSP Is pt being admited?: Yes Does the pt Need Aspirin: No Condition: Critical Time of Disposition: 23:42
[2020-07-31] MEDS ORDERED: SODIUM CHLORIDE 0.9% 1000 ML 1,000 ML IV ONE (21:43)
[2020-07-31] MEDS ORDERED: D5W/0.2% NACL 1,000 ML IV SCH (22:00)
[2020-07-31 22:22] LABS: Hemoglobin 6.4 gm/dl (10.1-14.3); Mean Corpuscular HGB Conc 36 % (30-34); Platelet Count 297 K/mm3 (140-440); Red Blood Count 1.55 M/mm3 (3.65-5.03)
[2020-07-31 22:26] LABS: Mean Corpuscular Volume 114 fl (79-97); Red Cell Distribution Width 20.4 % (13.2-15.2)
[2020-07-31 22:28] LABS: Bacteria,Urine 2+ /HPF (Negative); Bilirubin,Urine NEG (Negative); Blood,Urine SM (Negative); Color,Urine Yellow (Yellow); Hyaline Casts,Urine 1 /LPF; Mucus,Urine FEW /HPF; Renal Epithelial Cells,Urine 2 /LPF; Urobilinogen,Urine < 2.0 mg/dL (<2.0)
[2020-07-31 22:29] LABS: Hematocrit 17.6 % (30.3-42.9)
[2020-07-31 22:30] LABS: HCG Qualitative,Urine Negative (Negative)
[2020-07-31 22:42] LABS: Alanine Aminotransferase 37 units/L (7-56); Albumin 4.5 g/dL (3.9-5); Blood Urea Nitrogen 18 mg/dL (7-17); Calcium 9.1 mg/dL (8.4-10.2); Hemolysis Index 21
[2020-07-31 22:46] LABS: BUN/Creatinine Ratio 26
[2020-07-31] MEDS ORDERED: SODIUM CHLORIDE 0.9% 500 ML 500 ML IV ONE (23:07)
[2020-07-31] MEDS ORDERED: CEFEPIME/NS 2 GM/100 ML 2 GM/100 ML BAG IV ONE (23:09)
--- NOTE | 2020-07-31 23:46 | History and Physical Report ---
History of Present Illness Date of examination: 07/31/20 Date of admission: 07/31/20 Chief complaint: sICLE CELL CRISIS History of present illness: Patient is a 49-year-old female that presents emergency room with complaints of generalized pain. Patient states her pain is mostly in her back and legs. Patient denies chest pain or shortness of breath. Patient states that she is in severe pain. Patient states the pain is a 10 out of 10. Patient states she has sickle cell and it feels like she is in sickle cell crisis. Patient states she is compliant with her home meds. Patient states her Percocets are not working. Patient states she still has Percocet at home. Patient states she is allergic to morphine but she is able to take Dilaudid. Patient states she prefers to take Dilaudid with Benadryl and Zofran. Patient's seen at bedside she complained of generalized pain. Pain level is 8/10 after IV pain medication. Patient has a history of sickle cell. Recent blood transfusion was last year in May. Hemoglobin 6.4. Will transfuse a packed red blood cells. Patient denied alcohol use, tobacco use, and illicit drug use. ED work-up shows sodium 142, potassium 4.6, WBC 7.0, reticulocyte count 11.34, serum glucose 106 Urinalysis shows WBC of 154 and positive urine bacteria. Past History Past Medical History: hypothyroidism, other (Sicle cell disease) Past Surgical History: cholecystectomy, Other (left ovary removal) Social history: no significant social history Family history: other (sicle cell in father) Medications and Allergies Allergies Allergy/AdvReac Type Severity Reaction Status Date / Time aspirin Allergy Vomiting Verified 07/31/20 13:54 ketorolac tromethamine Allergy Unknown Verified 07/31/20 13:54 [From Toradol] pineapple [Pineapple] Allergy Swelling Verified 03/28/20 15:28 morphine AdvReac Shortness Verified 07/31/20 13:54 of Breath Home Medications Medication Instructions Recorded Confirmed Last Taken Type Folic Acid [Folvite] 1 mg PO QDAY #30 tablet 06/27/14 04/05/20 04/04/20 Rx Cholecalciferol Vit D3 [Vitamin D3 3,000 unit PO QDAY 30 Days tablet 05/19/18 04/05/20 06/14/19 08:00 Rx 1,000 UNIT TAB] Apixaban [Eliquis] 5 mg PO BID 02/08/20 04/05/20 04/04/20 History Levothyroxine [Synthroid] 150 mcg PO DAILY@0600 02/08/20 04/05/20 04/04/20 History oxyCODONE /ACETAMINOPHEN [Percocet 2 tab PO Q6H PRN #14 tablet 04/02/20 04/05/20 04/04/20 Rx 5/325 mg] Multivitamin Tab [Multiple Vitamin 1 each PO QDAY #30 tablet 04/10/20 Unknown Rx TAB (Theragran)] Sennosides Tab [Senokot] 17.2 mg PO QHS #30 tablet 04/10/20 Unknown Rx Review of Systems Constitutional: chronic pain Ears, nose, mouth and throat: no dysphagia Breasts: no discharge Cardiovascular: shortness of breath, dyspnea on exertion Respiratory: no sleep apnea Gastrointestinal: no hematemesis Rectal: no pain Musculoskeletal: no low back pain, no muscle cramps Integumentary: no pruritis, no redness Neurological: no head injury Endocrine: no weight change Hematologic/Lymphatic: no lymphadenopathy Allergic/Immunologic: no anaphylaxis Exam - Constitutional Vitals: Temp Pulse Resp BP Pulse Ox 100.5 F H 107 H 18 150/76 95 07/31/20 13:59 07/31/20 13:59 07/31/20 22:59 07/31/20 13:59 07/31/20 13:59 General appearance: Present: mild distress, other (generalized body ache/pain) - EENT Eyes: Present: PERRL ENT: hearing intact, clear oral mucosa - Neck Neck: Present: supple, normal ROM - Respiratory Respiratory effort: normal Respiratory: bilateral: CTA - Cardiovascular Heart rate: 101 Heart Sounds: Present: S1 & S2. Absent: rub, click - Extremities Extremities: pulses symmetrical, No edema Peripheral Pulses: within normal limits - Abdominal General gastrointestinal: Present: soft, non-tender, non-distended, normal bowel sounds Female genitourinary: Present: normal - Integumentary Integumentary: Present: clear, warm, dry - Musculoskeletal Musculoskeletal: gait normal, strength equal bilaterally - Psychiatric Psychiatric: appropriate mood/affect, intact judgment & insight - Neurologic Neurologic: CNII-XII intact, moves all extremities - Allied Health Allied health notes reviewed: nursing HEART Score - HEART Score Troponin: Troponin T < 0.010 ng/mL (0.00-0.029) 07/31/20 22:04 Results - Labs CBC & Chem 7: 08/01/20 05:37 08/01/20 05:37 Labs: Abnormal lab results 07/31/20 07/31/20 07/31/20 Range/Units 22:04 22:04 22:04 RBC 1.55 L (3.65-5.03) M/mm3 Hgb 6.4 L (10.1-14.3) gm/dl Hct 17.6 L* (30.3-42.9) % MCV 114 H (79-97) fl MCH 41 H (28-32) pg MCHC 36 H (30-34) % RDW 20.4 H (13.2-15.2) % Percent Retic 11.34 H (0.78-2.58) % BUN 18 H (7-17) mg/dL Glucose 106 H (65-100) mg/dL Total Bilirubin 3.80 H (0.1-1.2) mg/dL AST 68 H (5-40) units/L Urine WBC (Auto) 154.0 H (0.0-6.0) /HPF Assessment and Plan - Patient Problems (1) Sickle cell anemia Current Visit: Yes Status: Chronic Qualifiers: Sickle-cell associated disorders: with unspecified crisis Qualified Code(s): D57.00 - Hb-SS disease with crisis, unspecified Plan to address problem: Hemoglobin 6.4 Transfuse 1 unit of packed red blood cells Check hemoglobin level post blood transfusion. Occult blood stool -rule out GI bleed (2) Sickle cell crisis Current Visit: Yes Status: Chronic Plan to address problem: Reticulocyte count elevated Patient complains of generalized pain Continue pain management and IV hydration. (3) UTI (urinary tract infection) Current Visit: Yes Status: Acute Qualifiers: Urinary tract infection type: acute cystitis Hematuria presence: with hematuria Qualified Code(s): N30.01 - Acute cystitis with hematuria Plan to address problem: Blood culture ordered Start antibiotic Rocephin daily with IV hydration. 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
[2020-07-31] MEDS ORDERED: MORPHINE 2 MG/1 ML INJ IV PRN (23:51)
[2020-07-31] MEDS ORDERED: ALUM-MAG HYDROXIDE-SIMETHICONE 200-200-20MG/5ML ORAL LIQD 30 ML PO PRN (23:51)
[2020-07-31] MEDS ORDERED: ACETAMINOPHEN 325 MG TAB PO PRN ×2 (23:51)
[2020-07-31] MEDS ORDERED: ONDANSETRON 4 MG/2 ML INJ IV PRN ×2 (23:51)
[2020-07-31] MEDS ORDERED: MAGNESIUM HYDROXIDE (MOM) ORAL LIQD UDC PO PRN ×2 (23:51)
[2020-08-01] MEDS ORDERED: traZODone 50 MG TAB PO PRN
[2020-08-01] MEDS: cefTRIAXone/NS 1 GM/50 ML 1 GM/50 ML BAG IV SCH ×2 (00:23→22:52)
[2020-08-01] MEDS ORDERED: HYDROmorphone 2 MG/1 ML INJ IM ONE (00:46)
[2020-08-01] MEDS ORDERED: HYDROmorphone 2 MG/1 ML INJ IV ONE (00:48)
[2020-08-01] MEDS: HYDROmorphone 1 MG/1 ML INJ IV PRN ×6 (04:05→22:32)
[2020-08-01] MEDS: diphenhydrAMINE 50 MG/ML VIAL IV PRN ×4 (05:39→22:42)
[2020-08-01] MEDS: LEVOTHYROXINE 150 MCG TAB PO SCH (05:39)
[2020-08-01 06:36] LABS: Mean Corpuscular HGB Conc 36 % (30-34); Platelet Count 275 K/mm3 (140-440); Red Blood Count 1.41 M/mm3 (3.65-5.03)
[2020-08-01 06:42] LABS: Mean Corpuscular Volume 112 fl (79-97); Red Cell Distribution Width 20.4 % (13.2-15.2)
[2020-08-01 06:44] LABS: Hemoglobin 5.7 gm/dl (10.1-14.3)
[2020-08-01 06:45] LABS: Hematocrit 15.9 % (30.3-42.9)
[2020-08-01 06:46] LABS: Albumin 4.5 g/dL (3.9-5); Calcium 8.6 mg/dL (8.4-10.2)
[2020-08-01 07:11] LABS: Basophils # (Auto) 0.1 K/mm3 (0.0-0.1); Eosinophils # (Auto) 0.1 K/mm3 (0.0-0.4); Eosinophils % (Auto) 0.4 % (0.0-4.3); Monocytes # (Auto) 1.1 K/mm3 (0.0-0.8); Monocytes % (Auto) 8.9 % (0.0-7.3)
[2020-08-01] MEDS ORDERED: diphenhydrAMINE 50 MG/ML VIAL IV SCH (07:30)
[2020-08-01] MEDS ORDERED: methylPREDNISolone Sod Succinate 40 MG/1 ML INJ IV SCH (07:30)
[2020-08-01] MEDS ORDERED: APIXABAN 5 MG TAB PO SCH (10:00)
[2020-08-01] MEDS: FAMOTIDINE 20 MG TAB PO SCH ×2 (10:18→22:32)
[2020-08-01] MEDS: FOLIC ACID 1 MG TAB PO SCH (10:18)
[2020-08-01] MEDS: MULTIVITAMINS ,THERAPEUTIC TAB PO SCH (10:18)
[2020-08-01 10:48] LABS: Total Cells Counted 100
[2020-08-01 10:49] LABS: Anisocytosis 1+; Giant Platelets Few; Macrocytosis 1+
[2020-08-01 10:50] LABS: Hypochromasia Few; Platelet Estimate Consistent w Auto; Sickle Cells 1+
[2020-08-01] MEDS ORDERED: SODIUM CHLORIDE 0.9% 500 ML 500 ML IV NR ×2 (11:33→11:38)
--- NOTE | 2020-08-01 11:38 | Progress Note ---
Assessment and Plan Assessment and plan: --Severe sickle cell anemia; Hb 6.4-5.7 Received 1 unit of PRBC transfusion We will give second unit of PRBC transfusion today Closely monitor H&H and additional PRBC transfusions To maintain Hb more than 7.5 --Acute kidney injury; creatinine 1.3 Vasomotor nephropathy Closely monitor renal function, avoid nephrotoxins Nephrology consult if no improvement Plenty oral fluids --Sickle cell disease with painful crisis; Oxygen titrate O2 sats to more than 90% IV and p.o. pain medications per protocol Closely monitor Consider hematology consult if needed --Chronic transaminitis; secondary to sickle cell disease Closely monitor --Possible UTI; Empiric antibiotics with Rocephin IV fluids, follow cultures --DVT prophylaxis;SCD, no pharmacologic anticoagulation in view of severe anemia We will closely monitor the patient and adjust the management as needed Plan of care reviewed with the patient and her nurse 08/01/2020; patient admitted with sickle cell anemia and sickle cell painful crisis, received 2 units of PRBC On multiple pain medications, patient continues to have severe pain, asking for more pain meds We will closely monitor and adjust management as needed History Interval history: I have seen and examined the patient at the bedside today Patient's chart and medications reviewed Patient continues to have severe body pains and asked for more pain medications Patient is in mild distress , severe anemia with hemoglobin of 5.7, received 1 unit PRBC Will advise second unit of PRBC today Afebrile, vital signs noted Hospitalist Physical - Constitutional Vitals: Temp Pulse Resp BP Pulse Ox 99.5 F 86 18 145/94 100 08/01/20 11:00 08/01/20 11:00 08/01/20 11:00 08/01/20 11:00 08/01/20 11:00 General appearance: Present: mild distress, well-nourished, other (generalized body ache/pain) - EENT Eyes: Present: PERRL, EOM intact - Neck Neck: Present: supple, normal ROM - Respiratory Respiratory effort: normal Respiratory: bilateral: diminished, negative: rales, rhonchi, wheezing - Cardiovascular Rhythm: regular Heart Sounds: Present: S1 & S2 - Extremities Extremities: no ischemia, No edema - Abdominal General gastrointestinal: soft, non-tender, non-distended, normal bowel sounds - Integumentary Integumentary: Present: clear, warm - Psychiatric Psychiatric: appropriate mood/affect, cooperative - Neurologic Neurologic: CNII-XII intact, moves all extremities HEART Score - HEART Score Troponin: Troponin T < 0.010 ng/mL (0.00-0.029) 07/31/20 22:04 Results - Labs CBC & Chem 7: 08/02/20 Unknown 08/01/20 05:37 Labs: Laboratory Last Values WBC 12.3 K/mm3 (4.5-11.0) H 08/01/20 05:37 RBC 1.41 M/mm3 (3.65-5.03) L 08/01/20 05:37 Hgb 5.7 gm/dl (10.1-14.3) L* 08/01/20 05:37 Hct 15.9 % (30.3-42.9) L* 08/01/20 05:37 MCV 112 fl (79-97) H 08/01/20 05:37 MCH 40 pg (28-32) H 08/01/20 05:37 MCHC 36 % (30-34) H 08/01/20 05:37 RDW 20.4 % (13.2-15.2) H 08/01/20 05:37 Plt Count 275 K/mm3 (140-440) 08/01/20 05:37 [place] % (Auto) 8.9 % (0.0-7.3) H 08/01/20 05:37 Eos % (Auto) 0.4 % (0.0-4.3) 08/01/20 05:37 [place] # (Auto) 1.1 K/mm3 (0.0-0.8) H 08/01/20 05:37 Eos # (Auto) 0.1 K/mm3 (0.0-0.4) 08/01/20 05:37 Baso # (Auto) 0.1 K/mm3 (0.0-0.1) 08/01/20 05:37 Add Manual Diff Complete 08/01/20 05:37 Total Counted 100 08/01/20 05:37 Seg Neutrophils % 83.3 % (40.0-70.0) H 08/01/20 05:37 Seg Neuts % (Manual) 86.0 % (40.0-70.0) H 08/01/20 05:37 Lymphocytes % (Manual) 13.0 % (13.4-35.0) L 08/01/20 05:37 Monocytes % (Manual) 1.0 % (0.0-7.3) 08/01/20 05:37 Nucleated RBC % Not Reportable 08/01/20 05:37 Seg Neutrophils # 10.3 K/mm3 (1.8-7.7) H 08/01/20 05:37 Seg Neutrophils # Man 10.6 K/mm3 (1.8-7.7) H 08/01/20 05:37 Band Neutrophils # 0.0 K/mm3 08/01/20 05:37 Lymphocytes # (Manual) 1.6 K/mm3 (1.2-5.4) 08/01/20 05:37 Abs React Lymphs (Man) 0.0 K/mm3 08/01/20 05:37 Monocytes # (Manual) 0.1 K/mm3 (0.0-0.8) 08/01/20 05:37 Eosinophils # (Manual) 0.0 K/mm3 (0.0-0.4) 08/01/20 05:37 Basophils # (Manual) 0.0 K/mm3 (0.0-0.1) 08/01/20 05:37 Metamyelocytes # 0.0 K/mm3 08/01/20 05:37 Myelocytes # 0.0 K/mm3 08/01/20 05:37 Promyelocytes # 0.0 K/mm3 08/01/20 05:37 Blast Cells # 0.0 K/mm3 08/01/20 05:37 WBC Morphology Not Reportable 08/01/20 05:37 Hypersegmented Neuts Not Reportable 08/01/20 05:37 Hyposegmented Neuts Not Reportable 08/01/20 05:37 Hypogranular Neuts Not Reportable 08/01/20 05:37 Smudge Cells Not Reportable 08/01/20 05:37 Toxic Granulation Not Reportable 08/01/20 05:37 Toxic Vacuolation Not Reportable 08/01/20 05:37 Dohle Bodies Not Reportable 08/01/20 05:37 Pelger-Huet Anomaly Not Reportable 08/01/20 05:37 Malik Rods Not Reportable 08/01/20 05:37 Platelet Estimate Consistent w auto 08/01/20 05:37 Clumped Platelets Not Reportable 08/01/20 05:37 Plt Clumps, EDTA Not Reportable 08/01/20 05:37 Large Platelets Not Reportable 08/01/20 05:37 Giant Platelets Few 08/01/20 05:37 Platelet Satelliting Not Reportable 08/01/20 05:37 Plt Morphology Comment Not Reportable 08/01/20 05:37 RBC Morphology Not Reportable 08/01/20 05:37 Dimorphic RBCs Not Reportable 08/01/20 05:37 Polychromasia Not Reportable 08/01/20 05:37 Hypochromasia Few 08/01/20 05:37 Poikilocytosis Not Reportable 08/01/20 05:37 Anisocytosis 1+ 08/01/20 05:37 Microcytosis Not Reportable 08/01/20 05:37 Macrocytosis 1+ 08/01/20 05:37 Spherocytes Not Reportable 08/01/20 05:37 Pappenheimer Bodies Not Reportable 08/01/20 05:37 Sickle Cells 1+ 08/01/20 05:37 Target Cells Not Reportable 08/01/20 05:37 Tear Drop Cells Not Reportable 08/01/20 05:37 Ovalocytes Not Reportable 08/01/20 05:37 Helmet Cells Not Reportable 08/01/20 05:37 [place] Bodies Not Reportable 08/01/20 05:37 [place] Rings Not Reportable 08/01/20 05:37 Humberto Cells Not Reportable 08/01/20 05:37 Bite Cells Not Reportable 08/01/20 05:37 Crenated Cell Not Reportable 08/01/20 05:37 Elliptocytes Not Reportable 08/01/20 05:37 Acanthocytes (Spur) Not Reportable 08/01/20 05:37 Rouleaux Not Reportable 08/01/20 05:37 Hemoglobin C Crystals Not Reportable 08/01/20 05:37 Schistocytes Not Reportable 08/01/20 05:37 Malaria parasites Not Reportable 08/01/20 05:37 Percent Retic 11.34 % (0.78-2.58) H 07/31/20 22:04 Brady Bodies Not Reportable 08/01/20 05:37 Hem Pathologist Commnt No 08/01/20 05:37 Sodium 141 mmol/L (137-145) 08/01/20 05:37 Potassium 4.8 mmol/L (3.6-5.0) 08/01/20 05:37 Chloride 107.7 mmol/L (98-107) H 08/01/20 05:37 Carbon Dioxide 21 mmol/L (22-30) L 08/01/20 05:37 Anion Gap 17 mmol/L 08/01/20 05:37 BUN 23 mg/dL (7-17) H 08/01/20 05:37 Creatinine 1.3 mg/dL (0.6-1.2) H D 08/01/20 05:37 Estimated GFR 52 ml/min 08/01/20 05:37 BUN/Creatinine Ratio 18 % 08/01/20 05:37 Glucose 106 mg/dL (65-100) H 08/01/20 05:37 Calcium 8.6 mg/dL (8.4-10.2) 08/01/20 05:37 Total Bilirubin 3.30 mg/dL (0.1-1.2) H 08/01/20 05:37 AST 61 units/L (5-40) H 08/01/20 05:37 ALT 37 units/L (7-56) 08/01/20 05:37 Alkaline Phosphatase 60 units/L (35-129) 08/01/20 05:37 Troponin T < 0.010 ng/mL (0.00-0.029) 07/31/20 22:04 Total Protein 7.8 g/dL (6.3-8.2) 08/01/20 05:37 Albumin 4.5 g/dL (3.9-5) 08/01/20 05:37 Albumin/Globulin Ratio 1.4 % 08/01/20 05:37 Urine Color Yellow (Yellow) 07/31/20 22:04 Urine Turbidity Cloudy (Clear) 07/31/20 22:04 Urine pH 5.0 (5.0-7.0) 07/31/20 22:04 Ur Specific [place] 1.012 (1.003-1.030) 07/31/20 22:04 Urine Protein 30 mg/dl mg/dL (Negative) 07/31/20 22:04 Urine Glucose (UA) Neg mg/dL (Negative) 07/31/20 22:04 Urine Ketones Neg mg/dL (Negative) 07/31/20 22:04 Urine Blood Sm (Negative) 07/31/20 22:04 Urine Nitrite Neg (Negative) 07/31/20 22:04 Urine Bilirubin Neg (Negative) 07/31/20 22:04 Urine Urobilinogen < 2.0 mg/dL (<2.0) 07/31/20 22:04 Ur Leukocyte Esterase Lg (Negative) 07/31/20 22:04 Urine WBC (Auto) 154.0 /HPF (0.0-6.0) H 07/31/20 22:04 Urine RBC (Auto) 31.0 /HPF (0.0-6.0) 07/31/20 22:04 U Epithel Cells (Auto) 12.0 /HPF (0-13.0) 07/31/20 22:04 Urine Bacteria (Auto) 2+ /HPF (Negative) 07/31/20 22:04 Ur Renal Epithelial Cell 2 /LPF 07/31/20 22:04 Hyaline Casts 1 /LPF 07/31/20 22:04 Urine Mucus Few /HPF 07/31/20 22:04 Urine HCG, Qual Negative (Negative) 07/31/20 22:04 Blood Type O POSITIVE 07/31/20 23:20 Antibody Screen Negative 07/31/20 23:20 Crossmatch See Detail 07/31/20 23:20 Hicks/IV: Voiding Method Toilet IV Catheter Type [Left] IVAD / Port Active Medications - Current Medications Current Medications: Generic Name Dose Route Start Last Admin Trade Name Freq PRN Reason Stop Dose Admin Acetaminophen 650 mg 07/31/20 23:51 08/01/20 07:38 Acetaminophen 325 Mg Tab PO 650 mg Q4H PRN Administration Pain MILD(1-3)/Fever >100.5/PARKER Al Hydrox/Mg Hydrox/Simethicone 30 ml 07/31/20 23:51 Alum-Mag Hydroxide-Simethicone 988-940-31ar/5ml Oral Liqd 30 Ml PO Q4H PRN Indigestion Bisacodyl 10 mg 07/31/20 23:51 Bisacodyl 10 Mg Rect Supp SC QDAY PRN Constipation unrelieved by MOM Diphenhydramine HCl 25 mg 08/01/20 04:44 08/01/20 11:22 Diphenhydramine 50 Mg/Ml Vial IV 25 mg Q4H PRN Administration Itching Famotidine 20 mg 08/01/20 10:00 08/01/20 10:18 Famotidine 20 Mg Tab PO 20 mg BID RAMIREZ Administration Folic Acid 1 mg 08/01/20 10:00 08/01/20 10:18 Folic Acid 1 Mg Tab PO 1 mg QDAY RAMIREZ Administration Hydromorphone HCl 0.25 mg 07/31/20 23:51 08/01/20 11:17 Hydromorphone 1 Mg/1 Ml Inj IV 0.25 mg Q4H PRN Administration Pain, Moderate (4-6) Ceftriaxone Sodium 1 gm in 50 mls @ 100 mls/hr 07/31/20 23:45 08/01/20 06:57 Rocephin/Ns 1 Gm/50 Ml IV 08/03/20 00:14 Infused Q24H RMAIREZ Infusion Protocol Sodium Chloride 1,000 mls @ 75 mls/hr 07/31/20 23:45 Nacl 0.9% 1000 Ml IV DIRECT RAMIREZ Sodium Chloride 500 mls @ 0 mls/hr 08/01/20 11:33 Nacl 0.9% 500 Ml IV 08/01/20 11:34 ONCE ONE As Directed Levothyroxine Sodium 150 mcg 08/01/20 06:00 08/01/20 05:39 Levothyroxine 150 Mcg Tab PO 150 mcg DAILY@0600 RAMIREZ Administration Magnesium Hydroxide 30 ml 07/31/20 23:51 Magnesium Hydroxide (Mom) Oral Liqd Udc PO Q4H PRN Constipation Multivitamins 1 each 08/01/20 10:00 08/01/20 10:18 Multivitamins ,Therapeutic Tab PO 1 each QDAY RAMIREZ Administration Ondansetron HCl 4 mg 07/31/20 23:51 Ondansetron 4 Mg/2 Ml Inj IV Q8H PRN Nausea And Vomiting Senna 17.2 mg 08/01/20 22:00 Sennosides 8.6 Mg Tab PO QHS RAMIREZ Sodium Chloride 10 ml 07/31/20 23:45 08/01/20 10:19 Sodium Chloride 0.9% 10 Ml Flush Syringe IV 10 ml BID RAMIREZ Administration Sodium Chloride 10 ml 07/31/20 23:51 Sodium Chloride 0.9% 10 Ml Flush Syringe IV PRN PRN LINE FLUSH Trazodone HCl 50 mg 08/01/20 00:00 Trazodone 50 Mg Tab PO QHS PRN Insomnia
[2020-08-01] MEDS ORDERED: HYDROmorphone 1 MG/1 ML INJ IV PRN (11:41)
[2020-08-01] MEDS ORDERED: ACETAMINOPHEN 325 MG TAB PO ONE (12:58)
[2020-08-01] MEDS ORDERED: methylPREDNISolone Sod Succinate 40 MG/1 ML INJ IV ONE (13:00)
[2020-08-01] MEDS ORDERED: diphenhydrAMINE 50 MG/ML VIAL IV ONE (13:00)
[2020-08-01] MEDS: oxyCODONE /ACETAMINOPHEN 5-325MG TAB PO PRN (14:45)
[2020-08-01] MEDS ORDERED: HYDROmorphone 1 MG/1 ML INJ IV ONE (14:45)
[2020-08-01] MEDS: SODIUM CHLORIDE 0.9% 1000 ML 1,000 ML IV SCH (17:49)
[2020-08-01 19:09] LABS: Hematocrit 23.9 % (30.3-42.9); Hemoglobin 8.5 gm/dl (10.1-14.3); Mean Corpuscular HGB Conc 36 % (30-34); Mean Corpuscular Volume 103 fl (79-97); Platelet Count 325 K/mm3 (140-440); Red Blood Count 2.33 M/mm3 (3.65-5.03)
[2020-08-01 19:13] LABS: Red Cell Distribution Width 23.1 % (13.2-15.2)
[2020-08-01 19:49] LABS: Total Cells Counted 100
[2020-08-01 19:50] LABS: Basophils % (Manual) 0 % (0.0-1.8); Eosinophils % (Manual) 0 % (0.0-4.3); Monocytes % (Manual) 0 % (0.0-7.3)
[2020-08-01 19:51] LABS: Anisocytosis 1+; Platelet Estimate Consistent w Auto
[2020-08-01 19:52] LABS: Sickle Cells 1+; Target Cells 1+
[2020-08-01] MEDS: SENNOSIDES 8.6 MG TAB PO SCH (22:38)
[2020-08-02] MEDS: HYDROmorphone 1 MG/1 ML INJ IV PRN ×7 (02:17→21:02)
[2020-08-02] MEDS: LEVOTHYROXINE 150 MCG TAB PO SCH (05:24)
[2020-08-02] MEDS: diphenhydrAMINE 50 MG/ML VIAL IV PRN ×4 (05:25→21:01)
[2020-08-02] MEDS: SODIUM CHLORIDE 0.9% 1000 ML 1,000 ML IV SCH ×2 (05:30→17:15)
[2020-08-02 07:26] LABS: Hematocrit 22.4 % (30.3-42.9); Hemoglobin 8.1 gm/dl (10.1-14.3)
[2020-08-02] MEDS: oxyCODONE /ACETAMINOPHEN 5-325MG TAB PO PRN ×2 (09:32→18:02)
[2020-08-02] MEDS: FAMOTIDINE 20 MG TAB PO SCH ×2 (09:33→21:01)
[2020-08-02] MEDS: FOLIC ACID 1 MG TAB PO SCH (09:33)
[2020-08-02] MEDS: MULTIVITAMINS ,THERAPEUTIC TAB PO SCH (17:09)
--- NOTE | 2020-08-02 19:24 | Progress Note ---
Assessment and Plan Assessment and plan: 49-year-old -[place] female patient with significant past medical history of sickle cell anemia was admitted through emergency room with painful crisis And severe anemia With hemoglobin of 5.7, received 2 units of PRBC with hemoglobin improved to 8.1 No external evidence of bleeding, on multiple pain medications, closely monitor H&H Transfuse additional PRBC to maintain Hb more than 7.5, may DC in 1 to 2 days if stable --Severe sickle cell anemia; Received 2 unit of PRBC transfusion Hb today 8.5-8.1 We will give second unit of PRBC transfusion today Closely monitor H&H and additional PRBC transfusions To maintain Hb more than 7.5 --Acute kidney injury; creatinine 1.3 Vasomotor nephropathy Closely monitor renal function, avoid nephrotoxins Nephrology consult if no improvement Plenty oral fluids --Sickle cell disease with painful crisis; Oxygen titrate O2 sats to more than 90% IV and p.o. pain medications per protocol Closely monitor Consider hematology consult if needed --Chronic transaminitis; secondary to sickle cell disease Closely monitor --Possible UTI; Empiric antibiotics with Rocephin IV fluids, follow cultures --DVT prophylaxis;SCD, no pharmacologic anticoagulation in view of severe anemia We will closely monitor the patient and adjust the management as needed Plan of care reviewed with the patient and her nurse 08/01/2020; patient admitted with sickle cell anemia and sickle cell painful crisis, received 2 units of PRBC On multiple pain medications, patient continues to have severe pain, asking for more pain meds We will closely monitor and adjust management as needed 08/02/2020; patient received 2 units PRBC yesterday, Hb improved from 5.7-8.5-8.1 Closely monitor H&H, transfuse additional PRBC as needed, pain slightly improved Possible discharge in 1 to 2 days if stable History Interval history: I have seen and examined the patient at the bedside today Patient's chart and medications reviewed No new events reported by the nursing Vital signs noted Hb improved to 8.1 today Hospitalist Physical - Constitutional Vitals: Temp Pulse Resp BP Pulse Ox 98.6 F 75 20 129/75 98 08/02/20 16:12 08/02/20 16:12 08/02/20 13:10 08/02/20 16:12 08/02/20 16:12 General appearance: Present: no acute distress, well-nourished, other (generalized body ache/pain) - EENT Eyes: Present: PERRL, EOM intact - Neck Neck: Present: supple, normal ROM - Respiratory Respiratory effort: normal Respiratory: bilateral: diminished, negative: rales, rhonchi, wheezing - Cardiovascular Rhythm: regular Heart Sounds: Present: S1 & S2 - Extremities Extremities: no ischemia, No edema - Abdominal General gastrointestinal: soft, non-tender, non-distended - Integumentary Integumentary: Present: clear, warm - Psychiatric Psychiatric: appropriate mood/affect, cooperative - Neurologic Neurologic: moves all extremities HEART Score - HEART Score Troponin: Troponin T < 0.010 ng/mL (0.00-0.029) 07/31/20 22:04 Results - Labs CBC & Chem 7: 08/02/20 Unknown 08/01/20 05:37 Labs: Laboratory Last Values WBC 9.6 K/mm3 (4.5-11.0) 08/01/20 19:02 RBC 2.33 M/mm3 (3.65-5.03) L 08/01/20 19:02 Hgb 8.1 gm/dl (10.1-14.3) L 08/02/20 Unknown Hct 22.4 % (30.3-42.9) L 08/02/20 Unknown MCV 103 fl (79-97) H 08/01/20 19:02 MCH 37 pg (28-32) H 08/01/20 19:02 MCHC 36 % (30-34) H 08/01/20 19:02 RDW 23.1 % (13.2-15.2) H 08/01/20 19:02 Plt Count 325 K/mm3 (140-440) 08/01/20 19:02 [place] % (Auto) 8.9 % (0.0-7.3) H 08/01/20 05:37 Eos % (Auto) 0.4 % (0.0-4.3) 08/01/20 05:37 [place] # (Auto) 1.1 K/mm3 (0.0-0.8) H 08/01/20 05:37 Eos # (Auto) 0.1 K/mm3 (0.0-0.4) 08/01/20 05:37 Baso # (Auto) 0.1 K/mm3 (0.0-0.1) 08/01/20 05:37 Add Manual Diff Complete 08/01/20 19:02 Total Counted 100 08/01/20 19:02 Seg Neutrophils % [employer] 08/01/20 19:02 Seg Neuts % (Manual) 97.0 % (40.0-70.0) H 08/01/20 19:02 Band Neutrophils % 0 % 08/01/20 19:02 Lymphocytes % (Manual) 3.0 % (13.4-35.0) L 08/01/20 19:02 Reactive Lymphs % (Man) 0 % 08/01/20 19:02 Monocytes % (Manual) 0 % (0.0-7.3) 08/01/20 19:02 Eosinophils % (Manual) 0 % (0.0-4.3) 08/01/20 19:02 Basophils % (Manual) 0 % (0.0-1.8) 08/01/20 19:02 Metamyelocytes % 0 % 08/01/20 19:02 Myelocytes % 0 % 08/01/20 19:02 Promyelocytes % 0 % 08/01/20 19:02 Blast Cells % 0 % 08/01/20 19:02 Nucleated RBC % Not Reportable 08/01/20 19:02 Seg Neutrophils # 10.3 K/mm3 (1.8-7.7) H 08/01/20 05:37 Seg Neutrophils # Man 9.3 K/mm3 (1.8-7.7) H 08/01/20 19:02 Band Neutrophils # 0.0 K/mm3 08/01/20 19:02 Lymphocytes # (Manual) 0.3 K/mm3 (1.2-5.4) L 08/01/20 19:02 Abs React Lymphs (Man) 0.0 K/mm3 08/01/20 19:02 Monocytes # (Manual) 0.0 K/mm3 (0.0-0.8) 08/01/20 19:02 Eosinophils # (Manual) 0.0 K/mm3 (0.0-0.4) 08/01/20 19:02 Basophils # (Manual) 0.0 K/mm3 (0.0-0.1) 08/01/20 19:02 Metamyelocytes # 0.0 K/mm3 08/01/20 19:02 Myelocytes # 0.0 K/mm3 08/01/20 19:02 Promyelocytes # 0.0 K/mm3 08/01/20 19:02 Blast Cells # 0.0 K/mm3 08/01/20 19:02 WBC Morphology Not Reportable 08/01/20 19:02 Hypersegmented Neuts Not Reportable 08/01/20 19:02 Hyposegmented Neuts Not Reportable 08/01/20 19:02 Hypogranular Neuts Not Reportable 08/01/20 19:02 Smudge Cells Not Reportable 08/01/20 19:02 Toxic Granulation Not Reportable 08/01/20 19:02 Toxic Vacuolation Not Reportable 08/01/20 19:02 Dohle Bodies Not Reportable 08/01/20 19:02 Pelger-Huet Anomaly Not Reportable 08/01/20 19:02 Malik Rods Not Reportable 08/01/20 19:02 Platelet Estimate Consistent w auto 08/01/20 19:02 Clumped Platelets Not Reportable 08/01/20 19:02 Plt Clumps, EDTA Not Reportable 08/01/20 19:02 Large Platelets Not Reportable 08/01/20 19:02 Giant Platelets Not Reportable 08/01/20 19:02 Platelet Satelliting Not Reportable 08/01/20 19:02 Plt Morphology Comment Not Reportable 08/01/20 19:02 RBC Morphology Not Reportable 08/01/20 19:02 Dimorphic RBCs Not Reportable 08/01/20 19:02 Polychromasia Not Reportable 08/01/20 19:02 Hypochromasia Not Reportable 08/01/20 19:02 Poikilocytosis Not Reportable 08/01/20 19:02 Anisocytosis 1+ 08/01/20 19:02 Microcytosis Not Reportable 08/01/20 19:02 Macrocytosis Not Reportable 08/01/20 19:02 Spherocytes Not Reportable 08/01/20 19:02 Pappenheimer Bodies Not Reportable 08/01/20 19:02 Sickle Cells 1+ 08/01/20 19:02 Target Cells 1+ 08/01/20 19:02 Tear Drop Cells Not Reportable 08/01/20 19:02 Ovalocytes Not Reportable 08/01/20 19:02 Helmet Cells Not Reportable 08/01/20 19:02 [place]jo[place] Bodies Not Reportable 08/01/20 19:02 [place] Rings Not Reportable 08/01/20 19:02 Humberto Cells Not Reportable 08/01/20 19:02 Bite Cells Not Reportable 08/01/20 19:02 Crenated Cell Not Reportable 08/01/20 19:02 Elliptocytes Not Reportable 08/01/20 19:02 Acanthocytes (Spur) Not Reportable 08/01/20 19:02 Rouleaux Not Reportable 08/01/20 19:02 Hemoglobin C Crystals Not Reportable 08/01/20 19:02 Schistocytes Not Reportable 08/01/20 19:02 Malaria parasites Not Reportable 08/01/20 19:02 Percent Retic 11.34 % (0.78-2.58) H 07/31/20 22:04 Brady Bodies Not Reportable 08/01/20 19:02 Hem Pathologist Commnt No 08/01/20 19:02 Sodium 141 mmol/L (137-145) 08/01/20 05:37 Potassium 4.8 mmol/L (3.6-5.0) 08/01/20 05:37 Chloride 107.7 mmol/L (98-107) H 08/01/20 05:37 Carbon Dioxide 21 mmol/L (22-30) L 08/01/20 05:37 Anion Gap 17 mmol/L 08/01/20 05:37 BUN 23 mg/dL (7-17) H 08/01/20 05:37 Creatinine 1.3 mg/dL (0.6-1.2) H D 08/01/20 05:37 Estimated GFR 52 ml/min 08/01/20 05:37 BUN/Creatinine Ratio 18 % 08/01/20 05:37 Glucose 106 mg/dL (65-100) H 08/01/20 05:37 Calcium 8.6 mg/dL (8.4-10.2) 08/01/20 05:37 Total Bilirubin 3.30 mg/dL (0.1-1.2) H 08/01/20 05:37 AST 61 units/L (5-40) H 08/01/20 05:37 ALT 37 units/L (7-56) 08/01/20 05:37 Alkaline Phosphatase 60 units/L (35-129) 08/01/20 05:37 Troponin T < 0.010 ng/mL (0.00-0.029) 07/31/20 22:04 Total Protein 7.8 g/dL (6.3-8.2) 08/01/20 05:37 Albumin 4.5 g/dL (3.9-5) 08/01/20 05:37 Albumin/Globulin Ratio 1.4 % 08/01/20 05:37 Urine Color Yellow (Yellow) 07/31/20 22:04 Urine Turbidity Cloudy (Clear) 07/31/20 22:04 Urine pH 5.0 (5.0-7.0) 07/31/20 22:04 Ur Specific [place] 1.012 (1.003-1.030) 07/31/20 22:04 Urine Protein 30 mg/dl mg/dL (Negative) 07/31/20 22:04 Urine Glucose (UA) Neg mg/dL (Negative) 07/31/20 22:04 Urine Ketones Neg mg/dL (Negative) 07/31/20 22:04 Urine Blood Sm (Negative) 07/31/20 22:04 Urine Nitrite Neg (Negative) 07/31/20 22:04 Urine Bilirubin Neg (Negative) 07/31/20 22:04 Urine Urobilinogen < 2.0 mg/dL (<2.0) 07/31/20 22:04 Ur Leukocyte Esterase Lg (Negative) 07/31/20 22:04 Urine WBC (Auto) 154.0 /HPF (0.0-6.0) H 07/31/20 22:04 Urine RBC (Auto) 31.0 /HPF (0.0-6.0) 07/31/20 22:04 U Epithel Cells (Auto) 12.0 /HPF (0-13.0) 07/31/20 22:04 Urine Bacteria (Auto) 2+ /HPF (Negative) 07/31/20 22:04 Ur Renal Epithelial Cell 2 /LPF 07/31/20 22:04 Hyaline Casts 1 /LPF 07/31/20 22:04 Urine Mucus Few /HPF 07/31/20 22:04 Urine HCG, Qual Negative (Negative) 07/31/20 22:04 Blood Type O POSITIVE 07/31/20 23:20 Antibody Screen Negative 07/31/20 23:20 Crossmatch See Detail 07/31/20 23:20 Microbiology: Microbiology 07/31/20 Unknown Urine,Clean Catch Urine Culture - Preliminary Hicks/IV: Voiding Method Toilet IV Catheter Type [Left] IVAD / Port Active Medications - Current Medications Current Medications: Generic Name Dose Route Start Last Admin Trade Name Freq PRN Reason Stop Dose Admin Acetaminophen 650 mg 07/31/20 23:51 08/01/20 07:38 Acetaminophen 325 Mg Tab PO 650 mg Q4H PRN Administration Pain MILD(1-3)/Fever >100.5/PARKER Al Hydrox/Mg Hydrox/Simethicone 30 ml 07/31/20 23:51 Alum-Mag Hydroxide-Simethicone 160-472-95qu/5ml Oral Liqd 30 Ml PO Q4H PRN Indigestion Bisacodyl 10 mg 07/31/20 23:51 Bisacodyl 10 Mg Rect Supp NE QDAY PRN Constipation unrelieved by MOM Diphenhydramine HCl 25 mg 08/01/20 04:44 08/02/20 14:11 Diphenhydramine 50 Mg/Ml Vial IV 25 mg Q4H PRN Administration Itching Famotidine 20 mg 08/01/20 10:00 08/02/20 09:33 Famotidine 20 Mg Tab PO 20 mg BID RAMIREZ Administration Folic Acid 1 mg 08/01/20 10:00 08/02/20 09:33 Folic Acid 1 Mg Tab PO 1 mg QDAY RAMIREZ Administration Hydromorphone HCl 1 mg 08/01/20 13:37 08/02/20 17:09 Hydromorphone 1 Mg/1 Ml Inj IV 1 mg Q3H PRN Administration Pain, Moderate (4-6) Ceftriaxone Sodium 1 gm in 50 mls @ 100 mls/hr 07/31/20 23:45 08/01/20 22:52 Rocephin/Ns 1 Gm/50 Ml IV 08/03/20 00:14 100 mls/hr Q24H RAMIREZ Administration Protocol Sodium Chloride 1,000 mls @ 75 mls/hr 07/31/20 23:45 08/02/20 17:15 Nacl 0.9% 1000 Ml IV 75 mls/hr DIRECT RAMIREZ Administration Levothyroxine Sodium 150 mcg 08/01/20 06:00 08/02/20 05:24 Levothyroxine 150 Mcg Tab PO 150 mcg DAILY@0600 RAMIREZ Administration Magnesium Hydroxide 30 ml 07/31/20 23:51 Magnesium Hydroxide (Mom) Oral Liqd Udc PO Q4H PRN Constipation Multivitamins 1 each 08/01/20 10:00 08/02/20 17:09 Multivitamins ,Therapeutic Tab PO Not Given QDAY RAMIREZ Ondansetron HCl 4 mg 07/31/20 23:51 Ondansetron 4 Mg/2 Ml Inj IV Q8H PRN Nausea And Vomiting Oxycodone/Acetaminophen 1 tab 08/01/20 13:43 08/02/20 18:02 Oxycodone /Acetaminophen 5-325mg Tab PO 1 tab Q6H PRN Administration Pain, Moderate (4-6) Senna 17.2 mg 08/01/20 22:00 08/01/20 22:38 Sennosides 8.6 Mg Tab PO Not Given QHS RAMIREZ Sodium Chloride 10 ml 07/31/20 23:45 08/02/20 09:33 Sodium Chloride 0.9% 10 Ml Flush Syringe IV 10 ml BID RAMIREZ Administration Sodium Chloride 10 ml 07/31/20 23:51 Sodium Chloride 0.9% 10 Ml Flush Syringe IV PRN PRN LINE FLUSH Trazodone HCl 50 mg 08/01/20 00:00 Trazodone 50 Mg Tab PO QHS PRN Insomnia Nutrition/Malnutrition Assess - Dietary Evaluation Nutrition/Malnutrition Findings: Nutrition Notes Start: 08/01/20 12:36 Freq: Status: Active Protocol: Document 08/01/20 12:36 JUSTYN (Rec: 08/01/20 12:37 JUSTYN [id number]) Co-Sign 08/01/20 12:36 LP Nutrition Notes Need for Assessment generated from: spd manager Initial or Follow up Brief Note Other Pertinent Diagnosis Sickle cell crisis Current Diet Regular diet Subjective/Other Information RN screen skin risk <18. At time of chart assessment, no wounds or skin breakdown documented. Appears to be in error. Please reconsult if needed. Nutrition Intervention Revisit per MD consult or patient Sign Off request:
[2020-08-02] MEDS: SENNOSIDES 8.6 MG TAB PO SCH (21:02)
[2020-08-03] MEDS: cefTRIAXone/NS 1 GM/50 ML 1 GM/50 ML BAG IV SCH (00:04)
[2020-08-03] MEDS: HYDROmorphone 1 MG/1 ML INJ IV PRN ×7 (00:59→21:04)
[2020-08-03] MEDS: diphenhydrAMINE 50 MG/ML VIAL IV PRN ×6 (01:00→21:04)
[2020-08-03] MEDS: LEVOTHYROXINE 150 MCG TAB PO SCH (05:19)
[2020-08-03] MEDS: SODIUM CHLORIDE 0.9% 1000 ML 1,000 ML IV SCH ×2 (05:19→17:08)
[2020-08-03 07:52] LABS: Basophils # (Auto) 0.2 K/mm3 (0.0-0.1); Basophils % (Auto) 2.5 % (0.0-1.8); Eosinophils # (Auto) 0.4 K/mm3 (0.0-0.4); Eosinophils % (Auto) 5.5 % (0.0-4.3); Hematocrit 24.2 % (30.3-42.9); Hemoglobin 8.5 gm/dl (10.1-14.3); Lymphocytes # (Auto) 1.4 K/mm3 (1.2-5.4); Lymphocytes % (Auto) 17.8 % (13.4-35.0); Mean Corpuscular HGB Conc 35 % (30-34); Mean Corpuscular Volume 105 fl (79-97); Monocytes # (Auto) 0.6 K/mm3 (0.0-0.8); Monocytes % (Auto) 7.7 % (0.0-7.3); Platelet Count 349 K/mm3 (140-440); Red Blood Count 2.31 M/mm3 (3.65-5.03)
[2020-08-03 07:54] LABS: Red Cell Distribution Width 22.8 % (13.2-15.2)
[2020-08-03] MEDS: FAMOTIDINE 20 MG TAB PO SCH ×2 (09:01→21:05)
[2020-08-03] MEDS: FOLIC ACID 1 MG TAB PO SCH (09:01)
[2020-08-03] MEDS: MULTIVITAMINS ,THERAPEUTIC TAB PO SCH (09:02)
[2020-08-03] MEDS: oxyCODONE /ACETAMINOPHEN 5-325MG TAB PO PRN ×2 (09:11→15:02)
[2020-08-03 09:50] LABS: Alanine Aminotransferase 29 units/L (7-56); Albumin 3.9 g/dL (3.9-5); Bilirubin,Direct 0.3 mg/dL (0-0.2); Blood Urea Nitrogen 11 mg/dL (7-17); Calcium 8.6 mg/dL (8.4-10.2); Hemolysis Index 2
[2020-08-03 09:52] LABS: BUN/Creatinine Ratio 22
[2020-08-03] MEDS: SENNOSIDES 8.6 MG TAB PO SCH (21:05)
[2020-08-04] MEDS: HYDROmorphone 1 MG/1 ML INJ IV PRN ×4 (00:55→11:15)
[2020-08-04] MEDS: diphenhydrAMINE 50 MG/ML VIAL IV PRN ×2 (00:55→07:58)
[2020-08-04] MEDS: LEVOTHYROXINE 150 MCG TAB PO SCH (05:05)
[2020-08-04] MEDS: SODIUM CHLORIDE 0.9% 1000 ML 1,000 ML IV SCH (06:40)
[2020-08-04] MEDS: MULTIVITAMINS ,THERAPEUTIC TAB PO SCH ×2 (09:39→09:56)
[2020-08-04] MEDS: FOLIC ACID 1 MG TAB PO SCH (09:39)
[2020-08-04] MEDS: FAMOTIDINE 20 MG TAB PO SCH (09:39)
[2020-08-04 09:56] LABS: Basophils # (Auto) 0.1 K/mm3 (0.0-0.1); Basophils % (Auto) 1.7 % (0.0-1.8); Eosinophils # (Auto) 0.9 K/mm3 (0.0-0.4); Hematocrit 25.4 % (30.3-42.9); Hemoglobin 8.8 gm/dl (10.1-14.3); Lymphocytes % (Auto) 13.4 % (13.4-35.0); Mean Corpuscular HGB Conc 35 % (30-34); Mean Corpuscular Volume 104 fl (79-97); Monocytes # (Auto) 0.6 K/mm3 (0.0-0.8); Monocytes % (Auto) 7.7 % (0.0-7.3); Platelet Count 360 K/mm3 (140-440); Red Blood Count 2.44 M/mm3 (3.65-5.03); Red Cell Distribution Width 22.7 % (13.2-15.2)
[2020-08-04 10:18] LABS: Alanine Aminotransferase 28 units/L (7-56); Albumin 3.8 g/dL (3.9-5); BUN/Creatinine Ratio 20; Blood Urea Nitrogen 8 mg/dL (7-17); Calcium 8.5 mg/dL (8.4-10.2); Hemolysis Index 6
--- NOTE | 2020-08-04 11:57 | Progress Note ---
Assessment and Plan Assessment and Plan --Severe sickle cell anemia; Received 2 unit of PRBC transfusion Hb today 8.5/34.2 We will give second unit of PRBC transfusion today Closely monitor H&H and additional PRBC transfusions To maintain Hb more than 7.5 Reticulocyte count pending --Acute kidney injury; creatinine 1.3 Vasomotor nephropathy Closely monitor renal function, avoid nephrotoxins Nephrology consult if no improvement Plenty oral fluids Creatinine improved --Sickle cell disease with painful crisis; Oxygen titrate O2 sats to more than 90% IV and p.o. pain medications per protocol Closely monitor Consider hematology consult if needed --Chronic transaminitis; secondary to sickle cell disease Closely monitor --Possible UTI; Empiric antibiotics with Rocephin IV fluids, follow cultures --DVT prophylaxis;SCD, no pharmacologic anticoagulation in view of severe anemia We will closely monitor the patient and adjust the management as needed Plan of care reviewed with the patient and her nurse And Subjective Date of service: 08/03/20 Principal diagnosis: Sickle cell crisis Interval history: 49-year-old -[place] female patient with significant past medical history of sickle cell anemia was admitted through emergency room with painful crisis And severe anemia With hemoglobin of 5.7, received 2 units of PRBC with hemoglobin improved to 8.1 No external evidence of bleeding, on multiple pain medications, closely monitor H&H Transfuse additional PRBC to maintain Hb more than 7.5, may DC in 1 to 2 days if stable Symptomatically still in pain already contraindicated History Interval history: I have seen and examined the patient at the bedside today Patient's chart and medications reviewed No new events reported by the nursing Vital signs noted Hb improved to 8.1 to 8.5 and 24.2 08/01/2020; patient admitted with sickle cell anemia and sickle cell painful crisis, received 2 units of PRBC On multiple pain medications, patient continues to have severe pain, asking for more pain meds We will closely monitor and adjust management as needed 08/02/2020; patient received 2 units PRBC yesterday, Hb improved from 5.7-8.5-8.1 Closely monitor H&H, transfuse additional PRBC as needed, pain slightly improved Possible discharge in 1 to 2 days if stable 08/03/20 Still in severe pain Objective - Constitutional Vitals: Vital Signs - 12hr 08/04/20 08/04/2021 03:47 07:42 08:36 Temperature 98.5 F 99.5 F Pulse Rate 66 70 Respiratory 18 18 Rate Blood Pressure 132/73 146/87 O2 Sat by Pulse 100 100 99 Oximetry General appearance: Present: no acute distress, well-nourished - EENT Eyes: PERRL, EOM intact ENT: hearing intact, clear oral mucosa Ears: bilateral: normal - Neck Neck: supple, normal ROM - Respiratory Respiratory effort: normal Respiratory: bilateral: CTA - Breasts Breasts: normal - Cardiovascular Heart rate: 78 Rhythm: regular Heart Sounds: Present: S1 & S2. Absent: gallop, rub Extremities: pulses intact, No edema, normal color, Full ROM - Gastrointestinal General gastrointestinal: Present: soft, non-tender, non-distended, normal bowel sounds - Genitourinary Female genitourinary: normal - Integumentary Integumentary: clear, warm, dry - Musculoskeletal Musculoskeletal: 1, strength equal bilaterally - Neurologic Neurologic: moves all extremities - Psychiatric Psychiatric: memory intact, appropriate mood/affect, intact judgment & insight - Labs CBC & Chem 7: 08/04/20 04:00 08/04/20 04:00 Labs: Abnormal lab results 08/03/20 08/04/20 08/04/20 Range/Units 07:20 04:00 04:00 RBC 2.44 L (3.65-5.03) M/mm3 Hgb 8.8 L (10.1-14.3) gm/dl Hct 25.4 L (30.3-42.9) % MCV 104 H (79-97) fl MCH 36 H (28-32) pg MCHC 35 H (30-34) % RDW 22.7 H (13.2-15.2) % [place] % (Auto) 7.7 H (0.0-7.3) % Eos % (Auto) 12.0 H (0.0-4.3) % Lymph # (Auto) 1.0 L (1.2-5.4) K/mm3 Eos # (Auto) 0.9 H (0.0-0.4) K/mm3 Percent Retic 5.18 H (0.78-2.58) % Chloride 107.6 H (98-107) mmol/L Creatinine 0.4 L (0.6-1.2) mg/dL Glucose 106 H (65-100) mg/dL Total Bilirubin 1.60 H (0.1-1.2) mg/dL Albumin 3.8 L (3.9-5) g/dL HEART Score - HEART Score Troponin: Troponin T < 0.010 ng/mL (0.00-0.029) 07/31/20 22:04
[2020-08-04 12:02] VITALS: BP 129/79
--- NOTE | 2020-08-04 12:04 | Discharge Summary ---
Providers - Providers Date of Admission: 08/01/20 12:15 Date of discharge: 08/04/20 Attending physician: ARGENTINA WHITE Primary care physician: WANDA SIMON Hospitalization Condition: Critical Hospital course: Subjective Date of service: 08/04/20 Principal diagnosis: Sickle cell crisis Interval history: 49-year-old -[place] female patient with significant past medical history of sickle cell anemia was admitted through emergency room with painful crisis And severe anemia With hemoglobin of 5.7, received 2 units of PRBC with hemoglobin improved to 8.1 No external evidence of bleeding, on multiple pain medications, closely monitor H&H Transfuse additional PRBC to maintain Hb more than 7.5, may DC in 1 to 2 days if stable Symptomatically better History Interval history: I have seen and examined the patient at the bedside today Patient's chart and medications reviewed No new events reported by the nursing Vital signs noted Hb improved to 8.1 to 8.5 and 24.2 08/01/2020; patient admitted with sickle cell anemia and sickle cell painful crisis, received 2 units of PRBC On multiple pain medications, patient continues to have severe pain, asking for more pain meds We will closely monitor and adjust management as needed 08/02/2020; patient received 2 units PRBC yesterday, Hb improved from 5.7-8.5-8.1 Closely monitor H&H, transfuse additional PRBC as needed, pain slightly improved Possible discharge in 1 to 2 days if stable 08/03/20 Still in severe pain 08/04/2020 Symptomatically better Agrees to go home Patient has pain medication at home and does not want prescription Assessment and Plan --Severe sickle cell anemia; Received 2 unit of PRBC transfusion Hb today 8.5/34.2 We will give second unit of PRBC transfusion today Closely monitor H&H and additional PRBC transfusions To maintain Hb more than 7.5 Reticulocyte count improved from 11-5 --Acute kidney injury; creatinine 1.3 Vasomotor nephropathy Closely monitor renal function, avoid nephrotoxins Nephrology consult if no improvement Plenty oral fluids Creatinine improved --Sickle cell disease with painful crisis; Oxygen titrate O2 sats to more than 90% IV and p.o. pain medications per protocol Closely monitor Consider hematology consult if needed --Chronic transaminitis; secondary to sickle cell disease Closely monitor --Possible UTI; Empiric antibiotics with Rocephin IV fluids, follow cultures --DVT prophylaxis;SCD, no pharmacologic anticoagulation in view of severe anemia Disposition: DC-01 TO HOME OR SELFCARE Time spent for discharge: 35 minutes - Discharge Diagnoses (1) UTI (urinary tract infection) Status: Acute Qualifiers: Urinary tract infection type: acute cystitis Hematuria presence: with hematuria Qualified Code(s): N30.01 - Acute cystitis with hematuria (2) Sickle cell crisis Status: Chronic (3) Sickle cell anemia Status: Chronic Qualifiers: Sickle-cell associated disorders: with unspecified crisis Qualified Code(s): D57.00 - Hb-SS disease with crisis, unspecified Exam - Constitutional Vitals: Temp Pulse Resp BP Pulse Ox 99.5 F 70 18 146/87 99 08/04/20 07:42 08/04/20 07:42 08/04/20 07:42 08/04/20 07:42 08/04/20 08:36 Plan Follow up with: WANDA SIMON DO [Primary Care Provider] - 7 Days
[2020-08-04] MEDS ORDERED: cefTRIAXone/NS 2 GM/100 ML 2 GM/100 ML BAG IV SCH (13:00)
== END 2020-08-04 14:13 | disposition home or self-care (01) | DRG 811 ==
LOC: ED 13:48 → 4A 23:43 → OBSVTOIN 08-01 12:15
PROVIDERS: ADMIT Internal Medicine Geriatric Medicine; ATTEND Internal Medicine
PROC: 30233N1 Transfusion of Nonautologous Red Blood Cells into Peripheral Vein, Percutaneous Approach (ICD-10-PCS; principal; 2020-08-01)
DX: D57.00 Hb-SS disease with crisis, unspecified (principal); N17.0 Acute kidney failure with tubular necrosis; N39.0 Urinary tract infection, site not specified; E03.9 Hypothyroidism, unspecified; I50.9 Heart failure, unspecified; Z88.5 Allergy status to narcotic agent; Z79.899 Other long term (current) drug therapy; Z79.891 Long term (current) use of opiate analgesic; Z79.01 Long term (current) use of anticoagulants; Z88.8 Allergy status to other drugs, medicaments and biological substances; Z91.018 Allergy to other foods; Z86.718 Personal history of other venous thrombosis and embolism; Z90.49 Acquired absence of other specified parts of digestive tract
CPT/HCPCS: 36415; 80048; 80053; 80076; 81001; 81025; 82270; 84484; 85007; 85014; 85018; 85025; 85027; 85045; 85660; 86850; 86900; 86901; 86922; 87086; 93005; 94760; 96365; 96375; G0378; J0692; J0696; J1170; J1200; J1642; J2405; J2920; J7030; P9016

== ENCOUNTER 2020-09-30 15:46 | Emergency (ER) | payer OTHER | END 2020-09-30 15:47 | disposition left against medical advice (07) | LOC: ED 15:46 | DX: Z53.21 Procedure and treatment not carried out due to patient leaving prior to being seen by health care provider (principal) ==